=== PATIENT | male | born 1965 | race Caucasian/White ===

== ENCOUNTER 2023-04-14 07:13 | Inpatient (IN) | payer OTHER, SELFPAY ==
[2023-04-14] VITALS (9 sets, daily range): BP systolic 113–149; BP diastolic 65–101; PULSE 65–121; RESP 18–26; TEMP 36.5–37; O2SAT 95–100; BMI 23.6
--- NOTE | ~2023-04-14 | XR_ITS ---
EXAMINATION: XR CHEST CLINICAL INFORMATION: Shortness of breath COMPARISON: Chest radiograph from 04/15/2023 TECHNIQUE: Frontal view of the chest was obtained. FINDINGS: Interval extubation. Interval removal of enteric tube. Improvement in left pleural effusion. No pneumothorax. Trachea is midline. Cardiomediastinal silhouette is not enlarged. Soft tissues are unremarkable. XR/XR chest 1V IMPRESSION: 1. Interval extubation. 2. Interval removal of enteric tube. 3. Improvement in left pleural effusion.
--- NOTE | ~2023-04-14 | US_ITS ---
EXAMINATION: US ABDOMEN LIMITED CLINICAL INFORMATION: Transaminitis. COMPARISON: None available. TECHNIQUE: Real-time imaging of the right upper quadrant abdominal viscera. FINDINGS: PANCREAS: The pancreatic head and body are unremarkable. The tail is obscured by gas. LIVER: The liver is normal in size. The liver contour is normal. There is diffuse increased liver parenchymal echogenicity, consistent with hepatic steatosis. No focal hepatic lesion. There is no intrahepatic biliary duct dilatation seen. GALLBLADDER: Normal. The gallbladder is physiologically distended without evidence of stones, sludge, polyps, wall thickening or pericholecystic fluid. COMMON BILE DUCT: Normal in caliber measuring 0.4 cm in diameter. RIGHT KIDNEY: Normal. No hydronephrosis. No renal calculi or focal parenchymal lesions. The kidney measures 11.2 cm in maximum dimension. FREE FLUID: None. US/US abdomen limited IMPRESSION: Hepatic steatosis. Otherwise unremarkable right upper quadrant ultrasound.
--- NOTE | ~2023-04-14 | XR_ITS ---
EXAMINATION: XR CHEST CLINICAL INFORMATION: Respiratory distress. COMPARISON: Chest radiograph dated 04/22/2023. TECHNIQUE: Frontal view of the chest was obtained. FINDINGS: No significant abnormality is noted involving the heart, lungs, mediastinum, bony thorax or soft tissues. XR/XR chest 1V IMPRESSION: No acute cardiopulmonary process.
--- NOTE | ~2023-04-14 | XR_ITS ---
EXAMINATION: XR CHEST CLINICAL INFORMATION: Endotracheal tube, enteric tube. COMPARISON: None available. TECHNIQUE: Frontal view of the chest was obtained. FINDINGS: The endotracheal tube terminates at 4 cm above the diana. The enteric tube terminates in the upper esophagus. Normal appearance of the cardiomediastinal silhouette. No discrete focal consolidation, pleural effusion or pneumothorax. No acute osseous findings. The visualized upper abdomen is within normal limits. XR/XR chest 1V IMPRESSION: 1. The endotracheal tube terminates at 4 cm above the diana. 2. The enteric tube terminates in the upper esophagus. Recommend advancement. 3. No acute cardiopulmonary findings. This critical result, specifically the abnormal positioning of the enteric tube, was discussed with Coral Romero NP at 04/14/2023 9:33 PM and it was ascertained that the content and urgency of the report was understood at the time of direct communication.
--- NOTE | ~2023-04-14 | XR_ITS ---
EXAMINATION: XR CHEST CLINICAL INFORMATION: Fever. COMPARISON: Chest radiograph earlier today at 5:45 AM. TECHNIQUE: Frontal view of the chest was obtained. FINDINGS: Endotracheal tube at 1.5 cm above the diana, similar to prior. An enteric tube courses into the abdomen and terminates outside of the field of view. Normal appearance of the cardiomediastinal silhouette. Stable mild blunting of the lateral left costophrenic angle, likely accentuated by patient's rotation, could be explained by pleural thickening versus trace amount of pleural fluid. Minimal left basilar subsegmental atelectasis are stable. No new focal airspace opacity. No pneumothorax. No acute osseous findings. XR/XR chest 1V IMPRESSION: 1. Endotracheal tube at 1.5 cm above the diana, similar to prior. 2. Stable mild blunting of the left lateral costophrenic angle with minimal left basilar subsegmental atelectasis.
--- NOTE | ~2023-04-14 | XR_ITS ---
EXAMINATION: XR CHEST CLINICAL INFORMATION: OG tube placement COMPARISON: 04/14/2023 TECHNIQUE: Frontal view of the chest was obtained. FINDINGS: Endotracheal tube tip lies 1.5 cm above the diana. Enteric tube courses into the stomach with side-port in the region of the gastroesophageal junction. Lung volumes are symmetric. Subsegmental atelectasis is suspected at the left lung base. No additional focal consolidation is seen. No evidence of pneumothorax, pleural effusion, or pulmonary edema. The cardiomediastinal contour is unremarkable. No acute osseous findings are seen. XR/XR chest 1V IMPRESSION: 1. Enteric tube side-port in the region of the gastroesophageal junction; consider advancement. 2. Endotracheal tube tip 1.5 cm above the diana. 3. Subsegmental left basilar atelectasis without additional consolidation.
[2023-04-14 09:53] LABS: MANUAL DIFF FLAG NO
[2023-04-14 09:56] LABS: Basophils Absolute Auto 0.1 X10*3/uL (0.0-0.2); Eosinophils Absolute Auto 0.1 X10*3/uL (0.0-0.4); Hemoglobin 13.2 g/dl (14.0-18.0); Imm Gran Abs Auto 0.01 X10*3/uL (0.00-0.03); Imm Gran Pct Auto 0.2 % (0.0-0.4); Lymphocytes Absolute Auto 0.9 X10*3/uL (1.2-4.9); Lymphocytes Percent Auto 17.9 % (20-40); Mean Corpuscular HGB Conc 34.7 g/dl (31.0-36.0); Mean Corpuscular Volume 92.2 fL (80.0-98.0); Mean Platelet Volume 9.8 fL (9.4-12.4); Monocytes Absolute Auto 0.8 X10*3/uL (0.1-1.2); Monocytes Percent Auto 14.3 % (2-11); Neutrophils Absolute Auto 3.5 x10*3/uL (2.0-8.3); Neutrophils Percent Auto 65.6 % (45-73); Platelet Count 167 X10*3/uL (160-400); Red Blood Count 4.12 X10*6/uL (4.60-5.80); Red Cell Distribution Width 11.8 % (11.0-16.0); White Blood Count 5.3 X10*3/uL (4.8-10.8)
[2023-04-14 10:10] LABS: Amphetamine Screen Urine Not Detected (Not Detect); Barbiturates, Urine Not Detected (Not Detect); Benzodiazepines Screen Urine Not Detected (Not Detect); Cannabinoid Screen Urine POSITIVE (Not Detect); Cocaine Screen Urine Not Detected (Not Detect); Fentanyl, urine Not Detected (Not Detect); Opiate Screen Urine Not Detected (Not Detect); Phencyclidine Screen Urine Not Detected (Not Detect)
[2023-04-14 10:21] LABS: Alanine Aminotransferase 131 U/L (0-40); Albumin Level 4.5 g/dL (3.5-5.0); Alkaline Phosphatase 68 U/L (39-117); Anion Gap 21 (12-20); Aspartate Amino Transferase 175 U/L (5-37); Bilirubin Total 1.2 mg/dL (0.0-1.0); Blood Urea Nitrogen 20 mg/dL (9-16); Calcium 10.3 mg/dL (8.4-10.2); Carbon Dioxide 35 mmol/L (22-29); Chloride 87 mmol/L (96-108); Creatinine Clr Calc Pharmacy 111.4; Estimated Glomerular Filt Rate > 60; Ethanol < 10 mg/dL; Glucose Random 109 mg/dL (60-115); Potassium 2.5 mmol/L (3.3-5.1); Sodium 140 mmol/L (135-145); Total Protein 7.9 g/dL (6.5-8.0)
[2023-04-14 10:23] LABS: COVID-19 Test Negative (Negative); IDNOW Serial# BCCEAD1C
[2023-04-14] MEDS: LORazepam 1 MG TABLET 2 MG PO ×2 (10:35→14:26)
[2023-04-14] MEDS: Potassium Chloride Packet 20 MEQ PACKET 40 MEQ PO (10:36)
--- NOTE | 2023-04-14 10:39 | PC.NURSE ---
pt seeking detox, has some bruising and small abrasions bilateral lower leg and a small healing lac on right shoulder.
[2023-04-14] MEDS: Multivitamin TABLET 1 TAB PO (11:37)
[2023-04-14] MEDS: Thiamine HCL 100 MG TABLET PO (11:38)
[2023-04-14] MEDS: Folic Acid 1 MG TABLET PO (11:38)
--- NOTE | 2023-04-14 13:08 | ED.ALCOHOL ---
HPI - Alcohol General Chief Complaint: ETOH/Substance Use Stated Complaint: alcohol withdrawal Time Seen by Provider: 04/14/23 09:01 Source: patient and EMS Mode of arrival: EMS Limitations: no limitations History of Present Illness HPI narrative: 57-year-old male presents with acute alcohol withdrawal. Patient's last drink was yesterday. He drinks approximately at 1-1 and half pt daily. Patient denies any additional drug use. He does have remote history of heroin use but was in detox many years ago for. He denies any suicidal homicidal ideation. He is seeking detox. There is no clear relieving or exacerbating features of his alcohol abuse. Denies any significant depression or anxiety. Patient reports his use as moderate to severe in nature. Related Data Allergies Allergy/AdvReac Type Severity Reaction Status Date / Time fish derived [FISH] Allergy Severe ANAPHYLAXIS Unverified 06/14/20 14:46 sulfamethoxazole Allergy Severe ANAPHYLAXIS Unverified 06/14/20 14:46 [From BACTRIM] trimethoprim [From BACTRIM] Allergy Severe ANAPHYLAXIS Unverified 06/14/20 14:46 fish oil Allergy Unknown Verified 11/09/14 00:00 penicillin V Allergy Unknown Verified 11/09/14 00:00 Penicillins [PENICILLINS] Allergy Unknown ANAPHYLAXIS Unverified 06/14/20 14:46 Sulfa (Sulfonamide Allergy Unknown Verified 11/09/14 00:00 Antibiotics) Review of Systems Review of Systems: CONSTITUTIONAL: Denies weight loss, fever and chills. HEENT: Denies changes in vision and hearing. RESPIRATORY: Denies SOB and cough. CV: Denies palpitations no CP. GI: Denies abdominal pain, nausea, vomiting and diarrhea. : Denies dysuria and urinary frequency. MSK: Denies myalgia and joint pain. SKIN: Denies rash and pruritus. NEUROLOGICAL: Denies headache and syncope. PSYCHIATRIC: Denies recent changes in mood. Denies anxiety and depression. All other ROS are negative unless in HPI PMFSH Social History Social History Advance Directives: No Advance Directives Information Provided: Yes Physical Exam ED Vital Signs: Vital Signs - 24 hr 04/14/23 07:45 04/14/23 13:56 Temperature 98.1 F Pulse Rate 110 H 121 H Respiratory Rate 18 26 H Blood Pressure 147/95 H 144/101 H Pulse Oximetry 99 96 Oxygen Delivery Method Room Air Room Air BMI result Body Mass Index 23.6 GEN: Well developed, no acute distress, alert, oriented HEENT: Normocephalic, atraumatic, normal external ears, nose appears normal, no oropharyngeal edema or exudates Eyes: Normal to appearance Neck: Supple, no lymphadenopathy Respiratory: Talks in complete sentences, no respiratory distress, clear to auscultation bilaterally Cardiovascular: Regular rate and rhythm, no murmurs rubs or gallops Abdomen: Soft, nontender, nondistended, no guarding, no rebound Back: No CVA tenderness Extremities: No clubbing cyanosis or edema Neurologic: No focal neurologic deficits, cranial nerves 2-12 intact, strength is 5/5 bilaterally, tremulous Skin: No rash Course Reevaluation(s) Reevaluation #1: PAtient has reeived two oral doses of ativan, continues to have high CIWA level. Will start phenobarb. Patient will need admission for acute alcohol withdrawal. Time: 14:35 Reevaluation #2: Discussed care plan with patient Time: 15:16 Medical Decision Making Medical Decision Making [facility] Narrative: Patient appears to be in acute alcohol withdrawal. Patient is seeking detox. At this point, he does not appear the patient has suicidal homicidal. He certainly could have a mood disorder that is associated with his use but does not appear to be overly depressed or anxious. He is tremulous. Will provide patient with Ativan 2 mg orally. Would also like to get patient a multivitamin, thiamine and folic acid. Will check for electrolyte abnormalities. Would also like to check for any hepatic deficiencies related to alcohol use. Differential diagnosis includes alcohol intoxication, alcohol withdrawal, hyper or hypoglycemia, electrolyte abnormality, mood disorder Differential Diagnosis Differential Diagnoses: The differential diagnosis associated with the presentation includes (See above) Admission/Observation Consideration of admission/observation: Escalation of care including admission/observation considered Consult Healthcare Provider Management of the patient was discussed with: Behavioral Health Provider Lab Data [facility] Lab Attestation statement: I reviewed the patient's lab results. 04/14/23 09:48 04/14/23 09:48 Labs: Lab Results 04/14/23 04/14/23 04/14/23 Range/Units 09:40 09:48 09:48 WBC (4.8-10.8) X10*3/uL RBC (4.60-5.80) X10*6/uL Hgb (14.0-18.0) g/dl Hct (42.0-52.0) % MCV (80.0-98.0) fL MCH (27.0-33.0) pg MCHC (31.0-36.0) g/dl RDW (11.0-16.0) % Plt Count (160-400) X10*3/uL MPV (9.4-12.4) fL Immature Gran % (Auto) (0.0-0.4) % Neut % (Auto) (45-73) % Lymph % (Auto) (20-40) % [place] % (Auto) (2-11) % Eos % (Auto) (0-4) % Baso % (Auto) (0-2) % Lymph # (Auto) (1.2-4.9) X10*3/uL [place] # (Auto) (0.1-1.2) X10*3/uL Eos # (Auto) (0.0-0.4) X10*3/uL Baso # (Auto) (0.0-0.2) X10*3/uL Abs Immat Gran (auto) (0.00-0.03) X10*3/uL Absolute Neuts (auto) (2.0-8.3) x10*3/uL Absolute Nucleated RBC (0.0-0.012) X10*3/uL Nucleated RBC % (auto) (0.0-0.2) /100WBC Sodium 140 (135-145) mmol/L Potassium 2.5 L* (3.3-5.1) mmol/L Chloride 87 L (96-108) mmol/L Carbon Dioxide 35 H (22-29) mmol/L Anion Gap 21 H (12-20) BUN 20 H (9-16) mg/dL Creatinine 0.74 (0.5-1.4) mg/dL Estim Creat Clear Calc 111.4 Estimated GFR > 60 Random Glucose 109 (60-115) mg/dL Calcium 10.3 H (8.4-10.2) mg/dL Total Bilirubin 1.2 H (0.0-1.0) mg/dL AST 175 H (5-37) U/L ALT 131 H (0-40) U/L Alkaline Phosphatase 68 (39-117) U/L Total Protein 7.9 (6.5-8.0) g/dL Albumin 4.5 (3.5-5.0) g/dL Urine Opiates Screen Not Detected (Not Detect) Urine Fentanyl Screen Not Detected (Not Detect) Ur Barbiturates Screen Not Detected (Not Detect) Ur Phencyclidine Scrn Not Detected (Not Detect) Ur Amphetamines Screen Not Detected (Not Detect) U Benzodiazepines Scrn Not Detected (Not Detect) Urine Cocaine Screen Not Detected (Not Detect) U Marijuana (THC) Screen POSITIVE H (Not Detect) Ethyl Alcohol < 10 mg/dL COVID-19 (MINOR) Negative (Negative) COVID-19 Clin Com See Note 04/14/23 Range/Units 09:48 WBC 5.3 (4.8-10.8) X10*3/uL RBC 4.12 L (4.60-5.80) X10*6/uL Hgb 13.2 L (14.0-18.0) g/dl Hct 38.0 L (42.0-52.0) % MCV 92.2 (80.0-98.0) fL MCH 32.0 (27.0-33.0) pg MCHC 34.7 (31.0-36.0) g/dl RDW 11.8 (11.0-16.0) % Plt Count 167 (160-400) X10*3/uL MPV 9.8 (9.4-12.4) fL Immature Gran % (Auto) 0.2 (0.0-0.4) % Neut % (Auto) 65.6 (45-73) % Lymph % (Auto) 17.9 L (20-40) % [place] % (Auto) 14.3 H (2-11) % Eos % (Auto) 1.0 (0-4) % Baso % (Auto) 1.0 (0-2) % Lymph # (Auto) 0.9 L (1.2-4.9) X10*3/uL [place] # (Auto) 0.8 (0.1-1.2) X10*3/uL Eos # (Auto) 0.1 (0.0-0.4) X10*3/uL Baso # (Auto) 0.1 (0.0-0.2) X10*3/uL Abs Immat Gran (auto) 0.01 (0.00-0.03) X10*3/uL Absolute Neuts (auto) 3.5 (2.0-8.3) x10*3/uL Absolute Nucleated RBC 0.000 (0.0-0.012) X10*3/uL Nucleated RBC % (auto) 0.0 (0.0-0.2) /100WBC Sodium (135-145) mmol/L Potassium (3.3-5.1) mmol/L Chloride (96-108) mmol/L Carbon Dioxide (22-29) mmol/L Anion Gap (12-20) BUN (9-16) mg/dL Creatinine (0.5-1.4) mg/dL Estim Creat Clear Calc Estimated GFR Random Glucose (60-115) mg/dL Calcium (8.4-10.2) mg/dL Total Bilirubin (0.0-1.0) mg/dL AST (5-37) U/L ALT (0-40) U/L Alkaline Phosphatase (39-117) U/L Total Protein (6.5-8.0) g/dL Albumin (3.5-5.0) g/dL Urine Opiates Screen (Not Detect) Urine Fentanyl Screen (Not Detect) Ur Barbiturates Screen (Not Detect) Ur Phencyclidine Scrn (Not Detect) Ur Amphetamines Screen (Not Detect) U Benzodiazepines Scrn (Not Detect) Urine Cocaine Screen (Not Detect) U Marijuana (THC) Screen (Not Detect) Ethyl Alcohol mg/dL COVID-19 (MINOR) (Negative) COVID-19 Clin Com Patient's alcohol level is nondetectable. Additionally, his potassium level is low. Treatment has been ordered. Independent Interpretation I performed an independent interpretation of an: EKG (Sinus tachycardia heart rate 118, nonspecific T-wave changes, no U-waves) Independent Historian Clinical information obtained from an independent historian. History obtained from or confirmed by: EMS Prescription Management I considered prescription management with: Other (Anxiety medications) Chronic Conditions Patient?s care impacted by: Other (Substance abuse) Medications Administered Discontinued Medications Generic Name Dose Route Start Last Admin Trade Name Freq PRN Reason Stop Dose Admin Folic Acid 1 mg 04/14/23 10:42 04/14/23 11:38 Folic Acid 1 Mg Tablet PO 04/14/23 10:43 1 mg ONCE ONE Administration Sodium Chloride 1,000 mls @ 999 mls/hr 04/14/23 13:45 04/14/23 14:40 Ns IV 04/14/23 14:45 999 mls/hr .Q1H1M NAV Administration Lorazepam 2 mg 04/14/23 09:30 04/14/23 10:35 Lorazepam 1 Mg Tablet PO 04/14/23 09:31 2 mg ONCE ONE Administration Lorazepam 2 mg 04/14/23 12:10 04/14/23 14:26 Lorazepam 1 Mg Tablet PO 04/14/23 12:11 2 mg ONCE ONE Administration Multivitamins/Vitamin C 1 tab 04/14/23 10:42 04/14/23 11:37 Multivitamin Tablet PO 04/14/23 10:43 1 tab ONCE ONE Administration Potassium Chloride 40 meq 04/14/23 10:20 04/14/23 10:36 Potassium Chloride Packet 20 Meq Packet PO 04/14/23 10:21 40 meq ONCE ONE Administration Thiamine HCl 100 mg 04/14/23 10:42 04/14/23 11:38 Thiamine Hcl 100 Mg Tablet PO 04/14/23 10:43 100 mg ONCE ONE Administration Critical Care Time Critical Care Time Critical Care Time: Yes Total Critical Care Time: 65 Attestation: Approximately 65 minutes of critical care time was spent in patient care. This includes bedside assessment, reassessment, medical management, data interpretation, consultation with other providers, extensive conversation regarding treatment with patient, all outside of medical procedures for potentially life-threatening and severe morbidity associated illness-acute alcohol withdrawal syndrome Discharge Plan Discharge Clinical Impression: Alcohol withdrawal syndrome Patient Disposition: Admitted As Inpatient
--- NOTE | 2023-04-14 13:11 | ECG_ITS ---
Test Reason : low potassium Blood Pressure : / mmHG Vent. Rate : 118 BPM Atrial Rate : 118 BPM P-R Int : 168 ms QRS Dur : 086 ms QT Int : 328 ms P-R-T Axes : 054 -12 036 degrees QTc Int : 459 ms Sinus tachycardia Nonspecific ST abnormality Abnormal ECG No previous ECGs available Referred By: Venkat Andrews Electronically Signed By:Alfonso Ruby
[2023-04-14] MEDS: 0.9 % Sodium Chloride 1,000 ML 999 ML IV (14:40)
--- NOTE | 2023-04-14 15:11 | P.HPHOSP_ITS ---
History of Present Illness Date of Service: 04/14/23 Attending physician on admission: [facility] Chief Complaint: etoh withdrawal 57-year-old male with history of GERD history remote heroin use in remission, and alcohol dependence presents to the ED earlier today in acute alcohol wit hdrawal desiring detox. The patient states he has been a heavy drinker for the last 40+ years but has been trying to cut back. He currently drinks 1/2 pint of hard liquor and occasionally a beer as well on nightly basis but was previously drinking 1 pint nightly. Because of his intoxication, he has had 3 falls in the last few weeks though denies head injury or loss of consciousness. However has bruises covering the lower legs bilaterally. He is a regular marijuana user and states he has medical card but denies any ongoing illicit drug use. He does not smoke cigarettes. On arrival, patient tachycardic to 121, tachypneic to 26 and slightly hypertensive at 144/101. There is no leukocytosis. He has mild normocytic anemia with H/H 13.2/38.0%. Platelets 167. Renal function normal. Sodium 140, potassium 2.5, magnesium level pending, chloride 87, CO2 35. Total bilirubin 1.2, AST 175, ALT 131, albumin 4.5. Urine tox screen positive for marijuana. Ethyl alcohol level undetectable. Negative for COVID-19. EKG shows normal sinus rhythm with sinus tachycardia, rate 118 without any significant t wave abnormality. In the ED, potassium repleted orally with 40meq KCl, given 1L IV NS , 1mg folic acid, toal 4mg PO ativan, and 100mg PO thiamine. He will be started on phenobarbitol per protocol. He is currently tremulous with mild headache and anxious/aggitated. Review of Systems Review of Systems: General: No fevers, malaise, unintentional weight loss HEENT: No blurred vision, diplopia. No sore throat, nasal congestion, rhinorrhea, sinus pain, ear pain Cardiovascular: No chest pain, palpitations, or leg edema Respiratory: No shortness of breath, wheezing, cough GI: No abdominal pain, nausea, vomiting, diarrhea, constipation, melena, hematochezia : No dysuria, hematuria, increased urinary frequency, decreased urinary output MSK: No myalgia, back pain Neuro: No weakness, paresthesias. +tremors, +headache Psych: +anxiety. No depression/SI Skin: No rashes or lesions [facility] Medical History Alcohol use disorder GERD (gastroesophageal reflux disease) History of heroin use Social History (Updated 04/14/23 @ 15:25 by ODIN Troy) Household Members: Family Housing: House Alcohol intake: current Alcohol intake frequency: 3 or more drinks per day Patient Tobacco Use Status: Former Tobacco user Use of substances other than those prescribed or required for medical reasons: Yes Substance Use Type: Marijuana Substance Use Frequency: Chronic Longstanding Last Used Substance: Just Prior to Admission Currently Displaying Signs/Symptoms of Drug Intoxication Withdrawal: No Advance Directives: No Advance Directives Information Provided: Yes Do you have thoughts of harming others: None Do you have a plan to hurt others: No Plan Recently lost weight without trying: Unsure Nutrition Risks: No Nutritional Risk Poor oral hygiene: Yes service: No Meds Allergies Allergy/AdvReac Type Severity Reaction Status Date / Time fish derived [FISH] Allergy Severe ANAPHYLAXIS Verified 04/14/23 23:43 sulfamethoxazole Allergy Severe ANAPHYLAXIS Verified 04/14/23 23:43 [From BACTRIM] trimethoprim [From BACTRIM] Allergy Severe ANAPHYLAXIS Verified 04/14/23 23:43 fish oil Allergy Unknown Unknown Verified 04/14/23 23:43 penicillin V Allergy Unknown Unknown Verified 04/14/23 23:43 Penicillins [PENICILLINS] Allergy Unknown ANAPHYLAXIS Verified 04/14/23 23:43 Sulfa (Sulfonamide Allergy Unknown Unknown Verified 04/14/23 23:43 Antibiotics) Active Medications: Current Medications Pharmacy Consult (Consult Rx Perform Med Rec) 1 each MISCELLANE ONCE PRN PRN Reason: Consult order Pharmacy Consult (Consult Rx Perform Med Rec) 1 each MISCELLANE ONCE PRN PRN Reason: Consult order Home Medications Medication Instructions Recorded Confirmed Last Taken Type acetaminophen 500 mg tablet 1,000 mg PO Q6H PRN Pain 04/14/23 04/14/23 Unknown History multivitamin 1 tab PO DAILY 04/14/23 04/14/23 04/14/23 History omeprazole 20 mg capsule,delayed 20 mg PO DAILY@0630 04/14/23 04/14/23 04/14/23 History release Physical Exam Vital Signs and Narrative: Vital Signs: Last Vital Signs Temp 98.1 F 04/14/23 07:45 Pulse 121 H 04/14/23 13:56 Resp 26 H 04/14/23 13:56 BP 144/101 H 04/14/23 13:56 Pulse Ox 96 04/14/23 13:56 O2 Del Method Room Air 04/14/23 13:56 BMI result Body Mass Index 23.6 Results Labs 04/14/23 09:48 04/14/23 09:48 Labs: Laboratory Results - last 24 hr 04/14/23 04/14/23 04/14/23 09:40 09:48 09:48 MCV MCH MCHC RDW Plt Count MPV Immature Gran % (Auto) Neut % (Auto) Lymph % (Auto) [place] % (Auto) Eos % (Auto) Baso % (Auto) Lymph # (Auto) [place] # (Auto) Eos # (Auto) Baso # (Auto) Abs Immat Gran (auto) Absolute Neuts (auto) Absolute Nucleated RBC Nucleated RBC % (auto) Anion Gap 21 H Estim Creat Clear Calc 111.4 Estimated GFR > 60 Random Glucose 109 Calcium 10.3 H Total Bilirubin 1.2 H AST 175 H ALT 131 H Alkaline Phosphatase 68 Total Protein 7.9 Albumin 4.5 Urine Opiates Screen Not Detected Urine Fentanyl Screen Not Detected Ur Barbiturates Screen Not Detected Ur Phencyclidine Scrn Not Detected Ur Amphetamines Screen Not Detected U Benzodiazepines Scrn Not Detected Urine Cocaine Screen Not Detected U Marijuana (THC) Screen POSITIVE H Ethyl Alcohol < 10 COVID-19 (MINOR) Negative COVID-19 Clin Com See Note 04/14/23 09:48 MCV 92.2 MCH 32.0 MCHC 34.7 RDW 11.8 Plt Count 167 MPV 9.8 Immature Gran % (Auto) 0.2 Neut % (Auto) 65.6 Lymph % (Auto) 17.9 L [place] % (Auto) 14.3 H Eos % (Auto) 1.0 Baso % (Auto) 1.0 Lymph # (Auto) 0.9 L [place] # (Auto) 0.8 Eos # (Auto) 0.1 Baso # (Auto) 0.1 Abs Immat Gran (auto) 0.01 Absolute Neuts (auto) 3.5 Absolute Nucleated RBC 0.000 Nucleated RBC % (auto) 0.0 Anion Gap Estim Creat Clear Calc Estimated GFR Random Glucose Calcium Total Bilirubin AST ALT Alkaline Phosphatase Total Protein Albumin Urine Opiates Screen Urine Fentanyl Screen Ur Barbiturates Screen Ur Phencyclidine Scrn Ur Amphetamines Screen U Benzodiazepines Scrn Urine Cocaine Screen U Marijuana (THC) Screen Ethyl Alcohol COVID-19 (MINOR) COVID-19 Clin Com Assessment and Plan (1) Alcohol withdrawal syndrome: Status: Acute (2) Transaminitis: Status: Acute Plan 57-year-old male with history of GERD history remote heroin use in remission, and alcohol dependence admitted to alcohol dependence in active withdrawal. #Acute alcohol withdrawal -CIWA 14 on exam- received total 4mg ativan in ED -Initiate phenobarb per protocol -Monitor on CIWA -IV thiamine x 3 days, then PO -folic acid daily -Addiction med consult, desire detox #Acute hypokalemia -repleted with 40meq KCL -likely r/t to etoh abuse/hypomagnesemia -EKG without significant t wave abnormality -Follow BMP #Acute hypomagnesemia- r/t etoh abuse -Mag 1.4 -Give 2g IV Mag, then 400mg PO mag BID -Follow mag #Transaminitis -suspect chronic r/t etoh abuse -given hx heroin abuse, check hepatitis panel -RUQ u/s ordered -Follow hepatic function #GERD -continue ppi DVT prophylaxis- lovenox Full code Pt requires inpt stay at least 2 midnights for management of acute alcohol withdrawal in pt at risk for serious, potentially fatal withdrawal on phenobarbital per protocol desiring medical detox for rehab. Time Spent With Patient Time: Total time managing care of this patient today ____ minutes. Quality Stroke Does the patient have a stroke diagnosis?: No VTE Prior VTE?: No VTE Risk Level:: Medical - moderate - high VTE Device Contraindication: Treatment Not Indicated VTE Drug Contraindication: N/A - Med Ordered
[2023-04-14 15:30] LABS: Magnesium 1.4 mg/dL (1.6-2.6)
[2023-04-14] MEDS: Magnesium Sulfate/H2O 2 GM/50 ML PIGGYBACK IV (16:07)
[2023-04-14] MEDS: PHENobarbitaL sodium 130 MG/ML VIAL IM ×2 (16:07→18:07)
--- NOTE | 2023-04-14 17:09 | PHA.MEDREC ---
Pharmacy Consult ? Medication Reconciliation Pharmacy has completed the medication reconciliation. Spoke to patient to confirm meds.
[2023-04-14 18:01] LABS: Anion Gap 15 (12-20); Blood Urea Nitrogen 20 mg/dL (9-16); Calcium 9.3 mg/dL (8.4-10.2); Carbon Dioxide 33 mmol/L (22-29); Chloride 94 mmol/L (96-108); Creatinine Clr Calc Pharmacy 114.5; Estimated Glomerular Filt Rate > 60; Glucose Random 132 mg/dL (60-115); Potassium 2.7 mmol/L (3.3-5.1); Sodium 139 mmol/L (135-145)
--- NOTE | 2023-04-14 18:17 | PC.NURSE ---
PT WAS FOUND IN HIS ROOM, HE PULLED HIS IV ACCESS OUT AND IS EXTREME TREMORS, HE STATES HE LOST HIS BALANCE AND FELL TO HIS KNEES. IV ACCESS WAS REGAINED AND PT WAS MOVED CLOSER TO NURSES STATION , PRIMARY NURSE STATES HE WAS MEDICATED EARLIER. CONTACT WAS MADE WITH HOSPITALIST FOR WORSENING WITHDRAWAL AND MEDICATED CHARTED
--- NOTE | 2023-04-14 18:30 | HE.PHANOTE ---
RE: PHENOBARBITAL FOUZIA SOUZA CONTACTED PHARMACY REGARDING DOSING FOR PHENOBARBITAL PROTOCOL. PATIENT IS ACTIVELY WITHDRAWING. PATIENT RECEIVED ONE 130 MG DOSE AT APPROXIMATELY 1500 AND A SECOND 130 MG DOSE AT APPROXIMATELY 1800. 1ST OF 3 LOADING DOSE IS 340 MG. GAVE A DOSE OF 210 MG ( 340 MG -130 MG ) FOR 1ST LOADING DOSE
--- NOTE | 2023-04-14 18:41 | PC.NURSE ---
patient lovenox injection held due to patient having recent fall and increased fall risk
[2023-04-14] MEDS: PHENobarbitaL sodium 130 MG/ML IM ONCE 210 MG IM (18:52)
--- NOTE | 2023-04-14 19:25 | P.CONCC_ITS ---
History of Present Illness Data of Consult Service Date: 04/14/23 Requesting physician: Colby Billingsley Primary Care Provider: ZOILA Claros Reason for consult: alcohol withdrawal syndrome 57-year-old male with history of ETOH abuse, GERD, heroin use in remission, who was admitted in hospital medicine earlier today for alcohol dependence in active withdrawal. the patient has failed Ativan and phenobarb protocol. requiring Precedex drip Patient requiring transfer to ICU for initiation of Precedex drip for probable withdrawal syndrome Review of Systems Review of Systems: Yes Unobtainable due to mental status PMF Past Medical History Medical History Alcohol use disorder GERD (gastroesophageal reflux disease) History of heroin use Social History Social History (Updated 04/14/23 @ 15:25 by ODIN Troy) Household Members: Family Housing: House Alcohol intake: current Alcohol intake frequency: 3 or more drinks per day Patient Tobacco Use Status: Former Tobacco user Use of substances other than those prescribed or required for medical reasons: Yes Substance Use Type: Marijuana Substance Use Frequency: Chronic Longstanding Last Used Substance: Just Prior to Admission Currently Displaying Signs/Symptoms of Drug Intoxication Withdrawal: No Advance Directives: No Advance Directives Information Provided: Yes Do you have thoughts of harming others: None Do you have a plan to hurt others: No Plan Recently lost weight without trying: Unsure Nutrition Risks: No Nutritional Risk Poor oral hygiene: Yes Meds Allergies Allergy/AdvReac Type Severity Reaction Status Date / Time fish derived [FISH] Allergy Severe ANAPHYLAXIS Verified 04/14/23 23:43 sulfamethoxazole Allergy Severe ANAPHYLAXIS Verified 04/14/23 23:43 [From BACTRIM] trimethoprim [From BACTRIM] Allergy Severe ANAPHYLAXIS Verified 04/14/23 23:43 fish oil Allergy Unknown Unknown Verified 04/14/23 23:43 penicillin V Allergy Unknown Unknown Verified 04/14/23 23:43 Penicillins [PENICILLINS] Allergy Unknown ANAPHYLAXIS Verified 04/14/23 23:43 Sulfa (Sulfonamide Allergy Unknown Unknown Verified 04/14/23 23:43 Antibiotics) Active Medications: Current Medications Enoxaparin Sodium (Enoxaparin Sodium 40 Mg/0.4 Ml Syringe) 40 mg SUBCUT Q24H NAV Last Admin: 04/14/23 18:40 Dose: Not Given Thiamine HCl 100 mg/ Sodium (Chloride) 101 mls @ 202 mls/hr IV DAILY NAV Stop: 04/17/23 09:29 Dexmedetomidine HCl (Precedex) 400 mcg in 100 mls @ 0 mls/hr IVCONT .Q0M NAV; Protocol Potassium Chloride (Potassium Chloride/H20) 20 meq in 100 mls @ 100 mls/hr IV Q1H [facility] Stop: 04/14/23 20:59 Ondansetron HCl (Ondansetron Hcl 4 Mg/2 Ml Vial) 4 mg IVPUSH Q8H PRN PRN Reason: Nausea and Vomiting Pharmacy Consult (Consult Rx Perform Med Rec) 1 each MISCELLANE ONCE PRN PRN Reason: Consult order Pharmacy Consult (Consult Rx Etoh Phenob Im/Po) 1 each MISCELLANE ONCE PRN; Protocol PRN Reason: Consult order Phenobarbital (Phenobarbital 15 Mg Tablet) 45 mg PO BID [facility] Stop: 04/16/23 21:01 Phenobarbital (Phenobarbital 15 Mg Tablet) 15 mg PO BID [facility] Stop: 04/18/23 21:01 Phenobarbital (Phenobarbital 15 Mg Tablet) 15 mg PO DAILY [facility] Stop: 04/20/23 09:01 Phenobarbital Sodium (Phenobarbital Sodium 130 Mg/Ml Vial Im Q3hx2) 255 mg IM Q3H [facility] Stop: 04/15/23 01:01 Sodium Chloride (0.9 % Sodium Chloride Flush 3 Ml Syringe) 3 ml IVFLUSH QSHIFT [facility] Last Admin: 04/14/23 18:22 Dose: Not Given Home Medications Medication Instructions Recorded Confirmed Last Taken Type acetaminophen 500 mg tablet 1,000 mg PO Q6H PRN Pain 04/14/23 04/14/23 Unknown History multivitamin 1 tab PO DAILY 04/14/23 04/14/23 04/14/23 History omeprazole 20 mg capsule,delayed 20 mg PO DAILY@0630 04/14/23 04/14/23 04/14/23 History release Physical Exam Vital Signs: Vital Signs: Last Vital Signs Temp 97.9 F 04/14/23 18:18 Pulse 100 04/14/23 18:04 Resp 22 H 04/14/23 18:04 BP 116/90 H 04/14/23 18:04 Pulse Ox 95 04/14/23 18:04 O2 Del Method Room Air 04/14/23 18:04 BMI result Body Mass Index 23.6 ?General:? Alert oriented x person only ?HEENT:? Head is normocephalic, atraumatic, pupils equal round reactive to light accommodation bilaterally.? Buccal mucosa is moist, Neck is supple without lymphadenopathy. ?Cardiac:? Clear S1-S2, no murmurs rubs or gallops. ?Pulmonary:? Clear to auscultation, no wheezes, rales or rhonchi. ?Abdomen:? ?Abdomen soft, non-tender, non-distended. Normal bowel sounds. No pulsatile mass. No hepatosplenomegaly. ?Musculoskeletal:?Moving all 4 extremities upon request a major joints, there is no crepitus or tenderness.? The strength is 5/5 bilaterally and throughout all 4 extremities.? Gait not assessed at this point. ?Neurologic:? acute tremors, No focal deficits noted.Motor strength as above.?? ?Skin:? Intact, no lesions, edema, erythema, clubbing or cyanosis.? No ulcers. Vascular:? 2+ pulses upper and lower extremities distally.? Results Labs 04/14/23 09:48 04/14/23 17:38 Labs: Short CBC 04/14/23 Range/Units 09:48 WBC 5.3 (4.8-10.8) X10*3/uL Hgb 13.2 L (14.0-18.0) g/dl Hct 38.0 L (42.0-52.0) % Plt Count 167 (160-400) X10*3/uL [facility] 04/14/23 04/14/23 09:48 17:38 Sodium 140 139 Potassium 2.5 L* 2.7 L Chloride 87 L 94 L Carbon Dioxide 35 H 33 H BUN 20 H 20 H Creatinine 0.74 0.72 Calcium 10.3 H 9.3 D Liver Function 04/14/23 Range/Units 09:48 Total Bilirubin 1.2 H (0.0-1.0) mg/dL AST 175 H (5-37) U/L ALT 131 H (0-40) U/L Alkaline Phosphatase 68 (39-117) U/L Albumin 4.5 (3.5-5.0) g/dL Assessment and Plan (1) Delirium tremens: Status: Acute (2) Alcohol withdrawal syndrome: Status: Acute (3) Transaminitis: Status: Acute (4) Hypomagnesemia: Status: Acute (5) Hypokalemia: Status: Acute Plan Neuro:? Delirium tremens/alcohol withdrawal syndrome- failed Ativan and phenobarb protocol. ?Precedex initiated, but patient failed. Required emergent intubation. Cont OMAR prototocol Cardiac: ?No acute issues Pulmonary: Mechanical intubation- requiring mechanical intubation for DTs, wean off as tolerated Renal:??? Hypokalemia- likely from EtOH use. Replaced with K Hypo magnesemia- likely for EtOH use. Replaced with mag Endo:? No acute issues.? GI: ? Transaminitis- likely from chronic EtOH use heme/onc: No acute issues. Misc:??No acute issues DVT: Lovenox/ Pepcid CODE FULL CODE Critical care time: x 60 min Case discussed with? attending Dr. Morales? ?Patient does not qualify for critical care time Time Spent With Patient Time: Total time managing care of this patient today ____ minutes.
[2023-04-14 19:32] LABS: Phosphorus 3.2 mg/dL (2.7-4.5)
[2023-04-14] MEDS: PHENobarbitaL sodium 130 MG/ML VIAL IM Q3Hx2 255 MG IM (19:52)
[2023-04-14] MEDS: dexmedeTOMIDidine HCL/NS 400 MCG/100 ML INFUS..BTL 18.14 MCG IVCONT (19:52)
[2023-04-14] MEDS: Potassium Chloride/H20 10 MEQ/100 ML PIGGYBACK 100 MEQ IV ×2 (20:53→22:00)
[2023-04-14] MEDS: propofoL 1,000 MG/100 ML VIAL 8.71 MG IVCONT (20:54)
[2023-04-14] MEDS: Chlorhexidine Gluc Oral Rinse 15 ML MOUTHWASH BUCCAL (20:54)
[2023-04-14] MEDS: propofoL 200 MG/20 ML VIAL 100 MG IVPUSH (20:58)
[2023-04-14] MEDS: Cisatracurium Besylate 20 MG/10 ML VIAL IVPUSH (20:58)
--- NOTE | 2023-04-14 21:14 | W.PM.CCHP ---
Procedures Date of Service Date of Service: 04/14/23 Intubation Intubation Comments: Patient in severe DTs/ OMAR requiring emergent intubation. Patient intubated with 7.5 cuffed ET tube under glide scope guidance with visualization of vocal cords, without immediate complications. ET tube position verified with Chest XRAY. Consent for Procedure: Emergent-no informed consent obtained Time out performed: Yes Sedative: propofol Mg given: 100 Paralytic: other (Nimbex) Mg given: 20 Laryngoscope: fiber optic video scope ET tube size: 7.5 ET tube uncuffed: No Tube secured depth (cm): 26 Tube secured location: lips Tube placement confirmation: visualized tube passing through cords, equal breath sounds bilaterally, no breath sounds over epigastrium and confirmation by capnometry Patient tolerated procedure: well and no complications Intubation complications: none
[2023-04-14] MEDS: Potassium Phosphate/NS 15 MMOL/250 ML PLAST..BAG 62.5 MMOL IV (23:11)
[2023-04-15] VITALS (34 sets, daily range): BP systolic 92–131; BP diastolic 60–94; PULSE 70–98; RESP 14–28; TEMP 34.8–38.4; O2SAT 96–100; BMI 22.4
[2023-04-15] MEDS: propofoL 1,000 MG/100 ML VIAL 17.42 MG IVCONT (00:15)
[2023-04-15] MEDS: Midazolam HCl/PF 2 MG/2 ML VIAL 4 MG IVPUSH (00:15)
[2023-04-15] MEDS: PHENobarbitaL sodium 130 MG/ML VIAL IM Q3Hx2 255 MG IM (00:34)
--- NOTE | 2023-04-15 00:58 | PC.NURSE ---
Pt admitted to ICU from ED at approx 1915. Upon initial assessment, pt disoriented x4, non-redirectable, consistently trying to get OOB, in severe W/D. Started on Precedex per NOV with no effect, CIWA 25, FINISHED GARMENT INSPECTOR Nick aware and at bedside. Decision made to intubate- at 2010 given Propofol 100 mg and Nimbex 20 mg IVP for RSI. Propofol gtt started per NOV, RASS -4, intermittently reaching for lines tubes. Tmax 100s. NSR on tele, HR 70s. SBP > 90, MAP > 65. ETT #7.5, 26 cm at lip. On AC settings. OGT/butterfield placed. Skin- R shoulder laceration, scattered bruising. Full CHG bath given. Repositioned in bed q2hr.
[2023-04-15 05:12] LABS: HBc Num1 0.09 S/CO (0.00-0.79); HBsAGNum1 0.41 S/CO (0.00-0.99); Hepatitis B Core Antibody Nonreactive (Nonreactive); Hepatitis B Surface Antigen Negative (Negative)
[2023-04-15 05:13] LABS: VBG Base Excess 10.1 mmol/L; VBG HCO3 29 mmol/L (22-26); VBG pCO2 26 mmHg; VBG pH 7.66 (7.32-7.43); VBG pO2 146 mmHg
[2023-04-15 05:14] LABS: Venous Blood Gas Refer to POC result
[2023-04-15] MEDS: propofoL 1,000 MG/100 ML VIAL 21.77 MG IVCONT ×5 (05:15→20:38)
[2023-04-15 05:18] LABS: MANUAL DIFF FLAG NO
[2023-04-15 05:20] LABS: Basophils Percent Auto 0.6 % (0-2); Eosinophils Percent Auto 0.4 % (0-4); Hematocrit 34.9 % (42.0-52.0); Hemoglobin 12.3 g/dl (14.0-18.0); Imm Gran Abs Auto 0.02 X10*3/uL (0.00-0.03); Imm Gran Pct Auto 0.4 % (0.0-0.4); Lymphocytes Absolute Auto 0.7 X10*3/uL (1.2-4.9); Lymphocytes Percent Auto 13.9 % (20-40); Mean Corpuscular HGB Conc 35.2 g/dl (31.0-36.0); Mean Corpuscular Hemoglobin 32.5 pg (27.0-33.0); Mean Corpuscular Volume 92.1 fL (80.0-98.0); Mean Platelet Volume 10.2 fL (9.4-12.4); Monocytes Absolute Auto 0.7 X10*3/uL (0.1-1.2); Monocytes Percent Auto 12.6 % (2-11); Neutrophils Absolute Auto 3.8 x10*3/uL (2.0-8.3); Neutrophils Percent Auto 72.1 % (45-73); Platelet Count 170 X10*3/uL (160-400); Red Blood Count 3.79 X10*6/uL (4.60-5.80); Red Cell Distribution Width 11.9 % (11.0-16.0); White Blood Count 5.2 X10*3/uL (4.8-10.8)
[2023-04-15 05:22] LABS: HBS Num1 75.03 mIU/mL (0-7.99); ~HepC Num1 0.21 S/CO (0.00-0.79); ~Hepatitis B Surface Antibody REACTIVE (Nonreactive); ~Hepatitis C Antibody Nonreactive (Nonreactive)
[2023-04-15 05:43] LABS: Alanine Aminotransferase 94 U/L (0-40); Albumin Level 3.9 g/dL (3.5-5.0); Alkaline Phosphatase 62 U/L (39-117); Anion Gap 18 (12-20); Aspartate Amino Transferase 137 U/L (5-37); Bilirubin Direct 0.4 mg/dL (0.0-0.5); Bilirubin Total 1.1 mg/dL (0.0-1.0); Blood Urea Nitrogen 15 mg/dL (9-16); Calcium 9.1 mg/dL (8.4-10.2); Carbon Dioxide 26 mmol/L (22-29); Chloride 95 mmol/L (96-108); Creatinine Clr Calc Pharmacy 123.6; Estimated Glomerular Filt Rate > 60; Glucose Random 138 mg/dL (60-115); Magnesium 1.7 mg/dL (1.6-2.6); Phosphorus 3.9 mg/dL (2.7-4.5); Potassium 2.2 mmol/L (3.3-5.1); Sodium 137 mmol/L (135-145)
[2023-04-15] MEDS: KCl 40 mEq in 0.9 % Sodium Chl 40 MEQ/1,000 ML IV.SOLN 150 MEQ IVCONT (06:04)
[2023-04-15] MEDS: Potassium Chloride Packet 20 MEQ PACKET 60 MEQ PO ×2 (06:06→13:41)
--- NOTE | 2023-04-15 06:27 | PC.NURSE ---
Addendum entered by Navdeep Beltre RN 04/15/23 06:43: OG-TUBE ADVANCED 2 AFTER CXR REVIEWED Original Note: CARE ASSUMED 05:00...REMAINS TUBED/VENTED...VCV AC MODE...PROPOFOL TITRATED TO 50 MCG/KG/MIN FOR RESTLESSNESS...[place] BUT DOES NOT FOLLOW COMMANDS...RR CONTROLLED ON AC 22...AM VBG= pH 7.66 PCO2 26....RT DECREASED AC RATE TO 16..TV MAINTAINED AT 450....AM CHEMISTRY REVIEWED WITH ICU HEDGE FUND ACCOUNTANT...AM CXR REVIEWED BY HEDGE FUND ACCOUNTANT...K=2.2....KCL 60MEQ VIA OG-TUBE GIVEN AND STARTED NS 0.9% 1000/KCL 40MEQ AT 150 CC/HR X1 BAG.....PULIDO APPROX 30 CC/HR HAZY YELLOW URINE PRIOR TO IV FLUIDS AND KCL VIA OG-TUBE...NSR..NO ECTOPY
[2023-04-15] MEDS: 0.9 % Sodium Chloride Flush 3 ML SYRINGE IVFLUSH ×2 (07:41→14:51)
[2023-04-15] MEDS: Folic Acid 1 MG TABLET PO (07:41)
[2023-04-15] MEDS: PHENobarbitaL 15 MG TABLET 45 MG PO (07:41)
[2023-04-15] MEDS: Thiamine HCL 100 MG TABLET PO (07:41)
[2023-04-15] MEDS: Chlorhexidine Gluc Oral Rinse 15 ML MOUTHWASH BUCCAL ×3 (07:42→21:54)
[2023-04-15] MEDS: Famotidine/PF 20 MG/2 ML VIAL IVPUSH (07:42)
--- NOTE | 2023-04-15 09:38 | PM.CCPN ---
Subjective Subjective Date of Service: 04/15/23 Interval History: 57-year-old gentleman with underlying history of heroin abuse in remission, alcohol dependence, admitted on 04/14/2023 with alcohol intoxication and early withdrawal requesting detoxification. Hospital course significant for escalating delirium tremens overdose requiring transfer to intensive care unit and initiation of Precedex drip. Patient with poor control of symptoms and Precedex drip requiring propofol drip with intubation and ventilatory support. No events overnight. Critical Care Time (minutes): 45 Physical Exam Vital Signs: Vital Signs: Last Vital Signs Temp 100.4 F 04/15/23 09:00 Pulse 88 04/15/23 09:00 Resp 16 04/15/23 09:00 BP 118/93 H 04/15/23 09:00 Pulse Ox 99 04/15/23 09:00 O2 Del Method Mechanical Ventil ation 04/15/23 09:00 FiO2 30 04/15/23 09:00 BMI result Body Mass Index 22.4 Const: General: no acute distress and other ( Sedated on the vent) Eyes: Sclerae: sclerae normal EOM: EOMs intact bilaterally Neck: Neck: Yes no lymphadenopathy, Yes trachea midline and Yes supple Resp: Auscultation: clear to auscultation bilaterally Cardio: Rate: regular rate Rhythm: regular rhythm Heart sounds: no gallops, no murmurs and no rubs GI: Palpation (GI): Soft to palpation and Other GI palpation findings present ( Nontender) Auscultation: normal bowel sounds Extrem: General: Yes no pedal edema, No clubbing and No cyanosis Objective Data Labs 04/15/23 05:01 04/15/23 05:01 Labs: Laboratory Results - last 24 hr 04/14/23 04/14/23 04/14/23 09:40 09:48 09:48 WBC RBC Hgb Hct MCV MCH MCHC RDW Plt Count MPV Immature Gran % (Auto) Neut % (Auto) Lymph % (Auto) [place] % (Auto) Eos % (Auto) Baso % (Auto) Lymph # (Auto) [place] # (Auto) Eos # (Auto) Baso # (Auto) Abs Immat Gran (auto) Absolute Neuts (auto) Absolute Nucleated RBC Nucleated RBC % (auto) VBG pH VBG pCO2 VBG pO2 VBG HCO3 VBG O2 Saturation VBG Base Excess Sodium 140 Potassium 2.5 L* Chloride 87 L Carbon Dioxide 35 H Anion Gap 21 H BUN 20 H Creatinine 0.74 Estim Creat Clear Calc 111.4 Estimated GFR > 60 Random Glucose 109 Calcium 10.3 H Phosphorus Magnesium 1.4 L* Total Bilirubin 1.2 H Direct Bilirubin AST 175 H ALT 131 H Alkaline Phosphatase 68 Total Protein 7.9 Albumin 4.5 Urine Opiates Screen Not Detected Urine Fentanyl Screen Not Detected Ur Barbiturates Screen Not Detected Ur Phencyclidine Scrn Not Detected Ur Amphetamines Screen Not Detected U Benzodiazepines Scrn Not Detected Urine Cocaine Screen Not Detected U Marijuana (THC) Screen POSITIVE H Ethyl Alcohol < 10 COVID-19 (MINOR) Negative COVID-19 Clin Com See Note Hep Bs Antigen Hep Bs Antibody Hep B Core Total Ab Hepatitis C Ab (EIA) 04/14/23 04/14/23 04/14/23 09:48 17:38 17:38 WBC 5.3 RBC 4.12 L Hgb 13.2 L Hct 38.0 L MCV 92.2 MCH 32.0 MCHC 34.7 RDW 11.8 Plt Count 167 MPV 9.8 Immature Gran % (Auto) 0.2 Neut % (Auto) 65.6 Lymph % (Auto) 17.9 L [place] % (Auto) 14.3 H Eos % (Auto) 1.0 Baso % (Auto) 1.0 Lymph # (Auto) 0.9 L [place] # (Auto) 0.8 Eos # (Auto) 0.1 Baso # (Auto) 0.1 Abs Immat Gran (auto) 0.01 Absolute Neuts (auto) 3.5 Absolute Nucleated RBC 0.000 Nucleated RBC % (auto) 0.0 VBG pH VBG pCO2 VBG pO2 VBG HCO3 VBG O2 Saturation VBG Base Excess Sodium 139 Potassium 2.7 L Chloride 94 L Carbon Dioxide 33 H Anion Gap 15 BUN 20 H Creatinine 0.72 Estim Creat Clear Calc 114.5 Estimated GFR > 60 Random Glucose 132 H Calcium 9.3 D Phosphorus 3.2 Magnesium Total Bilirubin Direct Bilirubin AST ALT Alkaline Phosphatase Total Protein Albumin Urine Opiates Screen Urine Fentanyl Screen Ur Barbiturates Screen Ur Phencyclidine Scrn Ur Amphetamines Screen U Benzodiazepines Scrn Urine Cocaine Screen U Marijuana (THC) Screen Ethyl Alcohol COVID-19 (MINOR) COVID-19 Clin Com Hep Bs Antigen Negative Hep Bs Antibody REACTIVE Hep B Core Total Ab Nonreactive Hepatitis C Ab (EIA) Nonreactive 04/15/23 04/15/23 04/15/23 05:01 05:01 05:02 WBC 5.2 RBC 3.79 L Hgb 12.3 L Hct 34.9 L MCV 92.1 MCH 32.5 MCHC 35.2 RDW 11.9 Plt Count 170 MPV 10.2 Immature Gran % (Auto) 0.4 Neut % (Auto) 72.1 Lymph % (Auto) 13.9 L [place] % (Auto) 12.6 H Eos % (Auto) 0.4 Baso % (Auto) 0.6 Lymph # (Auto) 0.7 L [place] # (Auto) 0.7 Eos # (Auto) 0.0 Baso # (Auto) 0.0 Abs Immat Gran (auto) 0.02 Absolute Neuts (auto) 3.8 Absolute Nucleated RBC 0.000 Nucleated RBC % (auto) 0.0 VBG pH 7.66 H* VBG pCO2 26 VBG pO2 146 VBG HCO3 29 H VBG O2 Saturation 99.0 VBG Base Excess 10.1 Sodium 137 Potassium 2.2 L* Chloride 95 L Carbon Dioxide 26 Anion Gap 18 BUN 15 Creatinine 0.65 Estim Creat Clear Calc 123.6 Estimated GFR > 60 Random Glucose 138 H Calcium 9.1 Phosphorus 3.9 Magnesium 1.7 Total Bilirubin 1.1 H Direct Bilirubin 0.4 AST 137 H ALT 94 H Alkaline Phosphatase 62 Total Protein 7.0 Albumin 3.9 Urine Opiates Screen Urine Fentanyl Screen Ur Barbiturates Screen Ur Phencyclidine Scrn Ur Amphetamines Screen U Benzodiazepines Scrn Urine Cocaine Screen U Marijuana (THC) Screen Ethyl Alcohol COVID-19 (MINOR) COVID-19 Clin Com Hep Bs Antigen Hep Bs Antibody Hep B Core Total Ab Hepatitis C Ab (EIA) Progress Note: A&P Assessment and plan (1) Delirium tremens: Status: Acute (2) Acute respiratory failure with hypoxia: Status: Acute Plan Assessment: 57-year-old gentleman admitted with delirium tremens requiring propofol drip and ventilatory support. Plan: Neuro: Delirium tremens, continue to titrate off sedative drips as tolerated. Cardiac: No acute issues. Pulmonary: Acute hypoxic respiratory failure secondary to delirium tremens requiring ventilatory support. Continue to titrate off as tolerated. Renal: No acute issues. Endo: No acute issues. GI: No acute issues. ID: No acute issues Heme/Onc: No acute issues. Psych: No acute issues. Miscellaneous: No acute issues. Prophylaxis: Heparin, ppi Diet: tube feeds Critical care time spent: 45 minutes Quality Stroke Does the patient have a stroke diagnosis?: No VTE Prior VTE?: No VTE Risk Level:: Medical - moderate - high VTE Device Contraindication: Treatment Not Indicated VTE Drug Contraindication: N/A - Med Ordered
--- NOTE | 2023-04-15 09:57 | MHC.RECOVRN ---
Chart reviewed after consult to Addiction Medicine received. Pt admitted to ICU, intubated, after presenting to [facility] ED requesting ATS for alcohol use. Will continue to follow and recovery team will meet with pt when appropriate.
[2023-04-15 11:17] LABS: VBG HCO3 30 mmol/L (22-26); VBG pCO2 35 mmHg; VBG pH 7.54 (7.32-7.43); VBG pO2 118 mmHg
[2023-04-15 11:43] LABS: Anion Gap 16 (12-20); Blood Urea Nitrogen 13 mg/dL (9-16); Calcium 8.8 mg/dL (8.4-10.2); Carbon Dioxide 29 mmol/L (22-29); Chloride 97 mmol/L (96-108); Creatinine Clr Calc Pharmacy 136.2; Estimated Glomerular Filt Rate > 60; Glucose Random 117 mg/dL (60-115); Potassium 2.6 mmol/L (3.3-5.1); Sodium 139 mmol/L (135-145)
[2023-04-15] MEDS: Heparin Sodium,Porcine 5,000 UNIT/ML VIAL 5000 UNIT SUBCUT ×2 (12:06→17:56)
[2023-04-15] MEDS: Folic Acid 2 MG in 0.9 % Sodium Chloride 50 ML 100.4 MG IV (12:08)
[2023-04-15 21:22] LABS: Venous Blood Gas Refer to POC result
[2023-04-15 22:29] LABS: Lactic Acid 0.9 mmol/L (0.5-2.0)
[2023-04-16] VITALS (31 sets, daily range): BP systolic 93–128; BP diastolic 63–94; PULSE 89–118; RESP 18–28; TEMP 35–38.5; O2SAT 86–100; BMI 22.8
[2023-04-16] MEDS: 0.9 % Sodium Chloride Flush 3 ML SYRINGE IVFLUSH ×4 (00:23→23:42)
[2023-04-16] MEDS: propofoL 1,000 MG/100 ML VIAL 21.77 MG IVCONT ×2 (00:28→08:05)
[2023-04-16] MEDS: Heparin Sodium,Porcine 5,000 UNIT/ML VIAL 5000 UNIT SUBCUT ×3 (01:45→17:33)
[2023-04-16] MEDS: propofoL 1,000 MG/100 ML VIAL 17.42 MG IVCONT (03:25)
[2023-04-16 05:10] LABS: MANUAL DIFF FLAG NO
[2023-04-16 05:12] LABS: VBG Base Excess 8.3 mmol/L; VBG HCO3 30 mmol/L (22-26); VBG pCO2 32 mmHg; VBG pH 7.57 (7.32-7.43); VBG pO2 67 mmHg
[2023-04-16 05:18] LABS: Basophils Absolute Auto 0.1 X10*3/uL (0.0-0.2); Basophils Percent Auto 0.9 % (0-2); Eosinophils Absolute Auto 0.1 X10*3/uL (0.0-0.4); Eosinophils Percent Auto 2.3 % (0-4); Hematocrit 36.8 % (42.0-52.0); Hemoglobin 12.4 g/dl (14.0-18.0); Imm Gran Abs Auto 0.02 X10*3/uL (0.00-0.03); Imm Gran Pct Auto 0.4 % (0.0-0.4); Lymphocytes Absolute Auto 1.4 X10*3/uL (1.2-4.9); Lymphocytes Percent Auto 24.4 % (20-40); Mean Corpuscular HGB Conc 33.7 g/dl (31.0-36.0); Mean Corpuscular Hemoglobin 32.5 pg (27.0-33.0); Mean Corpuscular Volume 96.3 fL (80.0-98.0); Mean Platelet Volume 10.5 fL (9.4-12.4); Monocytes Absolute Auto 0.9 X10*3/uL (0.1-1.2); Neutrophils Absolute Auto 3.2 x10*3/uL (2.0-8.3); Platelet Count 184 X10*3/uL (160-400); Red Blood Count 3.82 X10*6/uL (4.60-5.80); Red Cell Distribution Width 11.9 % (11.0-16.0); White Blood Count 5.7 X10*3/uL (4.8-10.8)
[2023-04-16 05:37] LABS: Alanine Aminotransferase 63 U/L (0-40); Albumin Level 3.6 g/dL (3.5-5.0); Alkaline Phosphatase 64 U/L (39-117); Anion Gap 19 (12-20); Aspartate Amino Transferase 72 U/L (5-37); Bilirubin Total 0.8 mg/dL (0.0-1.0); Blood Urea Nitrogen 10 mg/dL (9-16); Calcium 8.5 mg/dL (8.4-10.2); Carbon Dioxide 25 mmol/L (22-29); Chloride 96 mmol/L (96-108); Creatinine Clr Calc Pharmacy 123.5; Estimated Glomerular Filt Rate > 60; Glucose Random 103 mg/dL (60-115); Magnesium 1.7 mg/dL (1.6-2.6); Phosphorus 3.3 mg/dL (2.7-4.5); Potassium 2.8 mmol/L (3.3-5.1); Sodium 137 mmol/L (135-145); Total Protein 6.3 g/dL (6.5-8.0)
[2023-04-16] MEDS: Potassium Phosphate/NS 15 MMOL/250 ML PLAST..BAG 62.5 MMOL IV (06:00)
[2023-04-16 06:01] LABS: Venous Blood Gas Refer to POC result
[2023-04-16] MEDS: Magnesium Sulfate/D5W 1 GM/100 ML PIGGYBACK IV (06:01)
[2023-04-16] MEDS: Potassium Chloride Packet 20 MEQ PACKET 60 MEQ PO ×2 (06:03→09:09)
--- NOTE | 2023-04-16 06:22 | PC.NURSE ---
CARE ASSUMED 23:15..REMAINS INTUBATED/VCV VENT SUPPORT....PROPOFOL 50 MCG/KG/MIN...(+) COUGH/GAG...[place] TO NOXIOUS STIMULI/ASSISTS VENT IN AC MODE...SBP 90'S-100'S...PROPOFOL WEANED TO 40 MCG/KG/MIN BUT PATIENT RESTLESS/TREMULOUS AND VENT DYSYNCHRONY PRESENT..PROPOFOL MAINTAINED AT 50 MCG/KG/MIN...PULIDO MARGINAL OUTPUT OVERNIGHT...APPROX 25 CC/HR...ICU REGIONAL SALES ENGINEER AWARE...NO IV FLUIDS PER REGIONAL SALES ENGINEER...AM LABS REVIEWED...KCL 60MEQ/H20 GIVEN VIA OG-TUBE....K-PO4 AND MgSO4 IV PER NOV..NSR..NO ECTOPY
[2023-04-16] MEDS: Chlorhexidine Gluc Oral Rinse 15 ML MOUTHWASH BUCCAL ×2 (08:00→15:45)
[2023-04-16] MEDS: Famotidine/PF 20 MG/2 ML VIAL IVPUSH (08:01)
--- NOTE | 2023-04-16 08:32 | PM.CCPN ---
Subjective Subjective Date of Service: 04/16/23 Interval History: 57-year-old gentleman with underlying history of heroin abuse in remission, alcohol dependence, admitted on 04/14/2023 with alcohol intoxication and early withdrawal requesting detoxification. Hospital course significant for escalating delirium tremens overdose requiring transfer to intensive care unit and initiation of Precedex drip. Patient with poor control of symptoms and Precedex drip requiring propofol drip with intubation and ventilatory support. No events overnight. Critical Care Time (minutes): 45 Physical Exam Vital Signs: Vital Signs: Last Vital Signs Temp 100.4 F 04/16/23 08:00 Pulse 100 04/16/23 08:00 Resp 22 H 04/16/23 08:00 BP 114/86 04/16/23 08:00 Pulse Ox 98 04/16/23 08:00 O2 Del Method Mechanical Ventil ation 04/16/23 08:00 FiO2 30 04/16/23 08:13 BMI result Body Mass Index 22.8 Const: General: no acute distress and other (Sedated on the vent) Eyes: Sclerae: sclerae normal EOM: EOMs intact bilaterally Neck: Neck: Yes no lymphadenopathy, Yes trachea midline and Yes supple Resp: Effort & Inspection: normal respiratory effort and no respiratory distress Auscultation: clear to auscultation bilaterally Cardio: Rate: regular rate Rhythm: regular rhythm Heart sounds: no gallops, no murmurs and no rubs GI: Palpation (GI): Soft to palpation and Other GI palpation findings present ( Nontender) Auscultation: normal bowel sounds Extrem: General: Yes no pedal edema, No clubbing and No cyanosis Objective Data Labs 04/16/23 04:58 04/16/23 04:58 Labs: Laboratory Results - last 24 hr 04/15/23 04/15/23 04/15/23 11:07 11:24 22:03 WBC RBC Hgb Hct MCV MCH MCHC RDW Plt Count MPV Immature Gran % (Auto) Neut % (Auto) Lymph % (Auto) [place] % (Auto) Eos % (Auto) Baso % (Auto) Lymph # (Auto) [place] # (Auto) Eos # (Auto) Baso # (Auto) Abs Immat Gran (auto) Absolute Neuts (auto) Absolute Nucleated RBC Nucleated RBC % (auto) VBG pH 7.54 H VBG pCO2 35 VBG pO2 118 VBG HCO3 30 H VBG O2 Saturation 99.0 VBG Base Excess 8.0 Sodium 139 Potassium 2.6 L Chloride 97 Carbon Dioxide 29 Anion Gap 16 BUN 13 Creatinine 0.59 Estim Creat Clear Calc 136.2 Estimated GFR > 60 Random Glucose 117 H Lactic Acid 0.9 Calcium 8.8 Phosphorus Magnesium Total Bilirubin AST ALT Alkaline Phosphatase Total Protein Albumin 04/16/23 04/16/23 04/16/23 04:58 04:58 05:02 WBC 5.7 RBC 3.82 L Hgb 12.4 L Hct 36.8 L MCV 96.3 MCH 32.5 MCHC 33.7 RDW 11.9 Plt Count 184 MPV 10.5 Immature Gran % (Auto) 0.4 Neut % (Auto) 57.0 Lymph % (Auto) 24.4 [place] % (Auto) 15.0 H Eos % (Auto) 2.3 Baso % (Auto) 0.9 Lymph # (Auto) 1.4 [place] # (Auto) 0.9 Eos # (Auto) 0.1 Baso # (Auto) 0.1 Abs Immat Gran (auto) 0.02 Absolute Neuts (auto) 3.2 Absolute Nucleated RBC 0.000 Nucleated RBC % (auto) 0.0 VBG pH 7.57 H VBG pCO2 32 VBG pO2 67 VBG HCO3 30 H VBG O2 Saturation 93.0 VBG Base Excess 8.3 Sodium 137 Potassium 2.8 L Chloride 96 Carbon Dioxide 25 Anion Gap 19 BUN 10 Creatinine 0.66 Estim Creat Clear Calc 123.5 Estimated GFR > 60 Random Glucose 103 Lactic Acid Calcium 8.5 Phosphorus 3.3 Magnesium 1.7 Total Bilirubin 0.8 AST 72 H ALT 63 H Alkaline Phosphatase 64 Total Protein 6.3 L Albumin 3.6 Progress Note: A&P Assessment and plan (1) Acute respiratory failure with hypoxia: Status: Acute (2) Delirium tremens: Status: Acute Plan Assessment: 57-year-old gentleman admitted with delirium tremens requiring propofol drip and ventilatory support. Plan: Neuro: Delirium tremens, continue to titrate off sedative drips as tolerated. Cardiac: No acute issues. Pulmonary: Acute hypoxic respiratory failure secondary to delirium tremens requiring ventilatory support. Continue to titrate off as tolerated. Renal: No acute issues. Endo: No acute issues. GI: No acute issues. ID: No acute issues Heme/Onc: No acute issues. Psych: No acute issues. Miscellaneous: No acute issues. Prophylaxis: Heparin, ppi Diet: tube feeds Critical care time spent: 45 minutes Quality Stroke Does the patient have a stroke diagnosis?: No VTE Prior VTE?: No VTE Risk Level:: Medical - moderate - high VTE Device Contraindication: Treatment Not Indicated VTE Drug Contraindication: N/A - Med Ordered
[2023-04-16] MEDS: PHENobarbitaL sodium 130 MG/ML IM ONCE 340 MG IM (09:10)
[2023-04-16] MEDS: Folic Acid 2 MG in 0.9 % Sodium Chloride 50 ML 100 MG IV (09:44)
[2023-04-16] MEDS: ondansetron HCL 4 MG/2 ML VIAL IVPUSH (11:46)
--- NOTE | 2023-04-16 11:48 | MHC.CM.PN ---
Pt receiving care in ICU: on ventilatory support and unable to participate in CM assessment. L/M w/pt's HCP/mother at number listed on file. Review of EMR notes pt resides w/parent, independent w/care needs: no apparent services. Pt would benefit from a consult w/Care team for ETOH use once extubated. Weaning attempts to occur today. CM to follow once pt is able to participate in assessment: It is expected that pt will be able to d/c to home with outpt follow up. Mother likely to transport. CM to follow.
[2023-04-16] MEDS: PHENobarbitaL sodium 130 MG/ML VIAL IM Q3Hx2 255 MG IM ×2 (12:17→15:43)
[2023-04-16] MEDS: dexmedeTOMIDidine HCL/NS 400 MCG/100 ML INFUS..BTL 9.07 MCG IVCONT (21:49)
[2023-04-17] VITALS (28 sets, daily range): BP systolic 90–120; BP diastolic 60–91; PULSE 70–110; RESP 18–32; TEMP 36.6–37.6; O2SAT 79–100; BMI 21.6
[2023-04-17] MEDS: Heparin Sodium,Porcine 5,000 UNIT/ML VIAL 5000 UNIT SUBCUT ×3 (02:19→18:41)
[2023-04-17 05:40] LABS: MANUAL DIFF FLAG NO
[2023-04-17 05:42] LABS: VBG Base Excess 3.1 mmol/L; VBG HCO3 25 mmol/L (22-26); VBG pCO2 31 mmHg; VBG pH 7.51 (7.32-7.43); VBG pO2 61 mmHg
[2023-04-17 05:43] LABS: Basophils Absolute Auto 0.1 X10*3/uL (0.0-0.2); Basophils Percent Auto 1.3 % (0-2); Eosinophils Absolute Auto 0.1 X10*3/uL (0.0-0.4); Eosinophils Percent Auto 2.3 % (0-4); Hematocrit 37.3 % (42.0-52.0); Hemoglobin 12.5 g/dl (14.0-18.0); Imm Gran Abs Auto 0.03 X10*3/uL (0.00-0.03); Imm Gran Pct Auto 0.5 % (0.0-0.4); Lymphocytes Absolute Auto 1.3 X10*3/uL (1.2-4.9); Lymphocytes Percent Auto 22.2 % (20-40); Mean Corpuscular HGB Conc 33.5 g/dl (31.0-36.0); Mean Corpuscular Hemoglobin 32.7 pg (27.0-33.0); Mean Corpuscular Volume 97.6 fL (80.0-98.0); Mean Platelet Volume 10.2 fL (9.4-12.4); Monocytes Absolute Auto 0.8 X10*3/uL (0.1-1.2); Monocytes Percent Auto 13.9 % (2-11); Neutrophils Absolute Auto 3.6 x10*3/uL (2.0-8.3); Neutrophils Percent Auto 59.8 % (45-73); Platelet Count 187 X10*3/uL (160-400); Red Blood Count 3.82 X10*6/uL (4.60-5.80); Red Cell Distribution Width 11.5 % (11.0-16.0)
[2023-04-17] MEDS: dexmedeTOMIDidine HCL/NS 400 MCG/100 ML INFUS..BTL 5.44 MCG IVCONT (05:52)
[2023-04-17 06:04] LABS: Albumin Level 3.5 g/dL (3.5-5.0); Anion Gap 15 (12-20); Blood Urea Nitrogen 10 mg/dL (9-16); Calcium 8.8 mg/dL (8.4-10.2); Carbon Dioxide 26 mmol/L (22-29); Chloride 101 mmol/L (96-108); Creatinine Clr Calc Pharmacy 126.6; Estimated Glomerular Filt Rate > 60; Glucose Random 94 mg/dL (60-115); Magnesium 1.9 mg/dL (1.6-2.6); Phosphorus 3.1 mg/dL (2.7-4.5); Potassium 3.3 mmol/L (3.3-5.1); Sodium 139 mmol/L (135-145)
[2023-04-17 07:08] LABS: Venous Blood Gas Refer to POC result
[2023-04-17] MEDS: Potassium Phosphate/NS 15 MMOL/250 ML PLAST..BAG 62.5 MMOL IV (08:19)
[2023-04-17] MEDS: 0.9 % Sodium Chloride Flush 3 ML SYRINGE IVFLUSH ×2 (08:19→15:16)
--- NOTE | 2023-04-17 09:03 | PM.CCPN ---
Subjective Subjective Date of Service: 04/17/23 Interval History: 57-year-old gentleman with underlying history of heroin abuse in remission, alcohol dependence, admitted on 04/14/2023 with alcohol intoxication and early withdrawal requesting detoxification. Hospital course significant for escalating delirium tremens overdose requiring transfer to intensive care unit and initiation of Precedex drip. Patient with poor control of symptoms and Precedex drip requiring propofol drip with intubation and ventilatory support. Extubated 04/16/2023. Overnight briefly on Precedex drip, now titrated off. Critical Care Time (minutes): 30 Physical Exam Vital Signs: Vital Signs: Last Vital Signs Temp 99.7 F 04/17/23 08:00 Pulse 77 04/17/23 08:00 Resp 23 H 04/17/23 08:00 BP 107/77 04/17/23 08:00 Pulse Ox 96 04/17/23 08:00 O2 Del Method Oxymask 04/17/23 08:00 O2 Flow Rate 1 04/17/23 08:00 FiO2 30 04/16/23 10:05 BMI result Body Mass Index 21.6 Const: General: no acute distress, awake and lethargic (Arousable to voice, intermittently confused) Orientation/consciousness: lethargic (Arousable to voice, intermittently confused) Eyes: Sclerae: sclerae normal EOM: EOMs intact bilaterally Neck: Neck: Yes no lymphadenopathy, Yes trachea midline and Yes supple Resp: Effort & Inspection: normal respiratory effort and no respiratory distress Auscultation: clear to auscultation bilaterally Cardio: Rate: regular rate Rhythm: regular rhythm Heart sounds: no gallops, no murmurs and no rubs GI: Palpation (GI): Soft to palpation and Other GI palpation findings present ( Nontender) Auscultation: normal bowel sounds Extrem: General: Yes no pedal edema, No clubbing and No cyanosis Objective Data Labs 04/17/23 05:30 04/17/23 05:30 Labs: Laboratory Results - last 24 hr 04/17/23 04/17/23 04/17/23 05:30 05:30 05:32 WBC 6.0 RBC 3.82 L Hgb 12.5 L Hct 37.3 L MCV 97.6 MCH 32.7 MCHC 33.5 RDW 11.5 Plt Count 187 MPV 10.2 Immature Gran % (Auto) 0.5 H Neut % (Auto) 59.8 Lymph % (Auto) 22.2 [place] % (Auto) 13.9 H Eos % (Auto) 2.3 Baso % (Auto) 1.3 Lymph # (Auto) 1.3 [place] # (Auto) 0.8 Eos # (Auto) 0.1 Baso # (Auto) 0.1 Abs Immat Gran (auto) 0.03 Absolute Neuts (auto) 3.6 Absolute Nucleated RBC 0.000 Nucleated RBC % (auto) 0.0 VBG pH 7.51 H VBG pCO2 31 VBG pO2 61 VBG HCO3 25 VBG O2 Saturation 89.0 VBG Base Excess 3.1 Sodium 139 Potassium 3.3 Chloride 101 Carbon Dioxide 26 Anion Gap 15 BUN 10 Creatinine 0.61 Estim Creat Clear Calc 126.6 Estimated GFR > 60 Random Glucose 94 Calcium 8.8 Phosphorus 3.1 Magnesium 1.9 Albumin 3.5 Microbiology Microbiology Results: Microbiology 04/15/23 22:02 Blood - Venous Blood Culture - Preliminary No growth after 24 hours. 04/15/23 22:02 Blood - Venous Blood Culture - Preliminary No growth after 24 hours. Progress Note: A&P Assessment and plan (1) Delirium tremens: Status: Acute (2) Acute respiratory failure with hypoxia: Status: Acute Plan Assessment: 57-year-old gentleman admitted with delirium tremens initially requiring propofol drip and ventilatory support. Plan: Neuro: Delirium tremens, briefly on Precedex overnight. Now titrated off. Continues on phenobarbital protocol. Cardiac: No acute issues. Pulmonary: Acute hypoxic respiratory failure secondary to delirium tremens requiring ventilatory support. Extubated 04/16/2023. Renal: No acute issues. Endo: No acute issues. GI: No acute issues. ID: No acute issues Heme/Onc: No acute issues. Psych: No acute issues. Miscellaneous: No acute issues. Prophylaxis: Heparin Diet: Pending bedside swallow evaluation Critical care time spent: 30 minutes Quality Stroke Does the patient have a stroke diagnosis?: No VTE Prior VTE?: No VTE Risk Level:: Medical - moderate - high VTE Device Contraindication: Treatment Not Indicated VTE Drug Contraindication: N/A - Med Ordered
[2023-04-17] MEDS: Folic Acid 2 MG in 0.9 % Sodium Chloride 50 ML 100 MG IV (09:48)
--- NOTE | 2023-04-17 10:37 | MHC.CM.NN ---
Pt extubated and continuing care in the ICU: confused at times but improving. Will start po Phenobarb and hopefully transfer to the [place] floor. D/C plan is for a return to home with outpt support. Pt would benefit from CARE team consult for ETOH cessation information. Family to transport.
[2023-04-17] MEDS: PHENobarbitaL 15 MG TABLET 45 MG PO ×2 (11:06→15:11)
--- NOTE | 2023-04-17 11:46 | MHC.CLN ---
F/U PT EXTUBATED DIET ADVANCED TO REGULAR TODAY MONITOR PO INTAKE CLOSELY FOLLOWING WITH TEAM
[2023-04-17] MEDS: propofoL 200 MG/20 ML VIAL 50 MG IVPUSH (16:31)
[2023-04-17] MEDS: LORazepam 2 MG/ML VIAL IVPUSH (16:31)
[2023-04-17] MEDS: dexmedeTOMIDidine HCL/NS 400 MCG/100 ML INFUS..BTL IVCONT (16:36)
[2023-04-18] VITALS (24 sets, daily range): BP systolic 101–127; BP diastolic 67–92; PULSE 68–93; RESP 18–28; TEMP 36.8–37.4; O2SAT 91–98; BMI 22.0
[2023-04-18] MEDS: 0.9 % Sodium Chloride Flush 3 ML SYRINGE IVFLUSH ×3 (01:49→17:14)
[2023-04-18] MEDS: Heparin Sodium,Porcine 5,000 UNIT/ML VIAL 5000 UNIT SUBCUT ×3 (01:49→17:14)
[2023-04-18] MEDS: dexmedeTOMIDidine HCL/NS 400 MCG/100 ML INFUS..BTL 9.93 MCG IVCONT (03:04)
[2023-04-18 05:00] LABS: MANUAL DIFF FLAG NO
[2023-04-18 05:08] LABS: Basophils Absolute Auto 0.1 X10*3/uL (0.0-0.2); Basophils Percent Auto 1.1 % (0-2); Eosinophils Absolute Auto 0.2 X10*3/uL (0.0-0.4); Eosinophils Percent Auto 3.3 % (0-4); Hematocrit 35.4 % (42.0-52.0); Hemoglobin 11.9 g/dl (14.0-18.0); Imm Gran Abs Auto 0.02 X10*3/uL (0.00-0.03); Imm Gran Pct Auto 0.4 % (0.0-0.4); Lymphocytes Absolute Auto 1.3 X10*3/uL (1.2-4.9); Lymphocytes Percent Auto 24.3 % (20-40); Mean Corpuscular HGB Conc 33.6 g/dl (31.0-36.0); Mean Corpuscular Hemoglobin 31.7 pg (27.0-33.0); Mean Corpuscular Volume 94.4 fL (80.0-98.0); Mean Platelet Volume 9.9 fL (9.4-12.4); Neutrophils Absolute Auto 2.8 x10*3/uL (2.0-8.3); Neutrophils Percent Auto 51.9 % (45-73); Platelet Count 229 X10*3/uL (160-400); Red Blood Count 3.75 X10*6/uL (4.60-5.80); Red Cell Distribution Width 11.3 % (11.0-16.0); White Blood Count 5.5 X10*3/uL (4.8-10.8)
[2023-04-18 05:16] LABS: Albumin Level 3.3 g/dL (3.5-5.0); Anion Gap 14 (12-20); Blood Urea Nitrogen 10 mg/dL (9-16); Calcium 8.7 mg/dL (8.4-10.2); Carbon Dioxide 26 mmol/L (22-29); Chloride 103 mmol/L (96-108); Creatinine Clr Calc Pharmacy 135.4; Estimated Glomerular Filt Rate > 60; Glucose Random 98 mg/dL (60-115); Magnesium 1.7 mg/dL (1.6-2.6); Phosphorus 2.6 mg/dL (2.7-4.5); Potassium 3.1 mmol/L (3.3-5.1); Sodium 140 mmol/L (135-145)
[2023-04-18] MEDS: Potassium Phosphate/NS 15 MMOL/250 ML PLAST..BAG 62.5 MMOL IV (05:47)
[2023-04-18] MEDS: Folic Acid 2 MG in 0.9 % Sodium Chloride 50 ML 100 MG IV (07:36)
[2023-04-18] MEDS: PHENobarbitaL 15 MG TABLET 45 MG PO ×2 (08:37→20:50)
--- NOTE | 2023-04-18 09:41 | PM.CCPN ---
Subjective Subjective Date of Service: 04/18/23 Interval History: 57-year-old gentleman with underlying history of heroin abuse in remission, alcohol dependence, admitted on 04/14/2023 with alcohol intoxication and early withdrawal requesting detoxification. Hospital course significant for escalating delirium tremens overdose requiring transfer to intensive care unit and initiation of Precedex drip. Patient with poor control of symptoms and Precedex drip requiring propofol drip with intubation and ventilatory support. Extubated 04/16/2023. Required Precedex drip again overnight. Now titrated off. Critical Care Time (minutes): 0 Physical Exam Vital Signs: Vital Signs: Last Vital Signs Temp 98.9 F 04/18/23 08:00 Pulse 77 04/18/23 09:00 Resp 21 H 04/18/23 09:00 BP 114/83 04/18/23 09:00 Pulse Ox 96 04/18/23 09:00 O2 Del Method Room Air 04/18/23 09:00 O2 Flow Rate 1 04/18/23 06:00 FiO2 30 04/16/23 10:05 BMI result Body Mass Index 22.0 Const: General: no acute distress and lethargic (easily arousable to voice) Orientation/consciousness: lethargic (easily arousable to voice) Eyes: Sclerae: sclerae normal EOM: EOMs intact bilaterally Neck: Neck: Yes no lymphadenopathy, Yes trachea midline and Yes supple Resp: Effort & Inspection: normal respiratory effort and no respiratory distress Auscultation: clear to auscultation bilaterally Cardio: Rate: regular rate Rhythm: regular rhythm Heart sounds: no gallops, no murmurs and no rubs GI: Palpation (GI): Soft to palpation and Other GI palpation findings present ( Nontender) Auscultation: normal bowel sounds Extrem: General: Yes no pedal edema, No clubbing and No cyanosis Objective Data Labs 04/18/23 04:56 04/18/23 04:56 Labs: Laboratory Results - last 24 hr 04/18/23 04/18/23 04:56 04:56 WBC 5.5 RBC 3.75 L Hgb 11.9 L Hct 35.4 L MCV 94.4 MCH 31.7 MCHC 33.6 RDW 11.3 Plt Count 229 MPV 9.9 Immature Gran % (Auto) 0.4 Neut % (Auto) 51.9 Lymph % (Auto) 24.3 [place] % (Auto) 19.0 H Eos % (Auto) 3.3 Baso % (Auto) 1.1 Lymph # (Auto) 1.3 [place] # (Auto) 1.0 Eos # (Auto) 0.2 Baso # (Auto) 0.1 Abs Immat Gran (auto) 0.02 Absolute Neuts (auto) 2.8 Absolute Nucleated RBC 0.000 Nucleated RBC % (auto) 0.0 Sodium 140 Potassium 3.1 L Chloride 103 Carbon Dioxide 26 Anion Gap 14 BUN 10 Creatinine 0.57 Estim Creat Clear Calc 135.4 Estimated GFR > 60 Random Glucose 98 Calcium 8.7 Phosphorus 2.6 L Magnesium 1.7 Albumin 3.3 L Microbiology Microbiology Results: Microbiology 04/15/23 22:02 Blood - Venous Blood Culture - Preliminary No growth after 48 hours. 04/15/23 22:02 Blood - Venous Blood Culture - Preliminary No growth after 48 hours. Progress Note: A&P Assessment and plan (1) Delirium tremens: Status: Acute Plan Assessment: 57-year-old gentleman admitted with delirium tremens initially requiring propofol drip and ventilatory support. Plan: Neuro: Delirium tremens, on Precedex overnight. Now titrated off. Continues on phenobarbital protocol. Cardiac: No acute issues. Pulmonary: Acute hypoxic respiratory failure secondary to delirium tremens requiring ventilatory support. Extubated 04/16/2023. resolved. Renal: No acute issues. Endo: No acute issues. GI: No acute issues. ID: No acute issues Heme/Onc: No acute issues. Psych: No acute issues. Miscellaneous: No acute issues. Prophylaxis: Heparin Diet: regular Quality Stroke Does the patient have a stroke diagnosis?: No VTE Prior VTE?: No VTE Risk Level:: Medical - moderate - high VTE Device Contraindication: Treatment Not Indicated VTE Drug Contraindication: N/A - Med Ordered
--- NOTE | 2023-04-18 09:57 | HO.PSYCHPN ---
Subjective Subjective Reason For Visit: etoh w/d Diagnostics Vital Signs (24Hr): Vital Signs - 24 hr 04/17/23 10:00 04/17/23 11:00 04/17/23 12:00 Temperature 99.1 F Pulse Rate 88 88 110 H Respiratory Rate 23 H 20 26 H Blood Pressure 103/75 118/87 110/79 Pulse Oximetry 95 94 92 Oxygen Delivery Method Oxymask Room Air Room Air Oxygen Flow Rate 1 04/17/23 13:00 04/17/23 14:00 04/17/23 15:00 Temperature Pulse Rate 104 H 103 H 96 Respiratory Rate 24 H 25 H 25 H Blood Pressure 120/79 113/83 Pulse Oximetry 95 89 L 79 L Oxygen Delivery Method Room Air Room Air Room Air Oxygen Flow Rate 04/17/23 16:00 04/17/23 18:00 04/17/23 17:00 Temperature 99.1 F Pulse Rate 106 H 85 95 Respiratory Rate 29 H 27 H 27 H Blood Pressure 119/91 H 96/66 98/70 Pulse Oximetry 98 99 98 Oxygen Delivery Method Oxymask Oxymask Oxymask Oxygen Flow Rate 1 1 1 04/17/23 19:00 04/17/23 20:00 04/17/23 20:05 Temperature Pulse Rate 89 83 Respiratory Rate 28 H 27 H Blood Pressure 112/82 102/76 Pulse Oximetry 91 L 98 85 L Oxygen Delivery Method Oxymask Oxymask Oxymask Oxygen Flow Rate 1 1 1 04/17/23 20:30 04/17/23 21:00 04/17/23 22:00 Temperature Pulse Rate 79 77 Respiratory Rate 27 H 27 H Blood Pressure 104/78 97/73 Pulse Oximetry 93 98 95 Oxygen Delivery Method Oxymask Oxymask Oxymask Oxygen Flow Rate 3 2 2 04/17/23 23:00 04/18/23 00:00 04/18/23 01:00 Temperature 99.4 F Pulse Rate 78 81 78 Respiratory Rate 24 H 18 23 H Blood Pressure 109/71 106/67 107/79 Pulse Oximetry 96 98 97 Oxygen Delivery Method Oxymask Oxymask Oxymask Oxygen Flow Rate 1 1 1 04/18/23 02:00 04/18/23 03:00 04/18/23 04:00 Temperature Pulse Rate 78 76 72 Respiratory Rate 23 H 24 H 27 H Blood Pressure 119/85 110/81 106/76 Pulse Oximetry 95 96 94 Oxygen Delivery Method Oxymask Oxymask Oxymask Oxygen Flow Rate 1 1 1 04/18/23 05:00 04/18/23 06:00 04/18/23 07:00 Temperature 98.5 F Pulse Rate 73 72 74 Respiratory Rate 23 H 28 H 20 Blood Pressure 112/83 101/76 105/76 Pulse Oximetry 95 92 95 Oxygen Delivery Method Oxymask Oxymask Room Air Oxygen Flow Rate 1 1 04/18/23 08:00 04/18/23 09:00 Temperature 98.9 F Pulse Rate 70 77 Respiratory Rate 25 H 21 H Blood Pressure 108/78 114/83 Pulse Oximetry 93 96 Oxygen Delivery Method Room Air Room Air Oxygen Flow Rate BMI result Body Mass Index 22.0 Labs 04/18/23 04:56 04/18/23 04:56 Labs: Laboratory Results - last 48 hr 04/17/23 04/17/23 04/17/23 05:30 05:30 05:32 WBC 6.0 RBC 3.82 L Hgb 12.5 L Hct 37.3 L MCV 97.6 MCH 32.7 MCHC 33.5 RDW 11.5 Plt Count 187 MPV 10.2 Immature Gran % (Auto) 0.5 H Neut % (Auto) 59.8 Lymph % (Auto) 22.2 [place] % (Auto) 13.9 H Eos % (Auto) 2.3 Baso % (Auto) 1.3 Lymph # (Auto) 1.3 [place] # (Auto) 0.8 Eos # (Auto) 0.1 Baso # (Auto) 0.1 Abs Immat Gran (auto) 0.03 Absolute Neuts (auto) 3.6 Absolute Nucleated RBC 0.000 Nucleated RBC % (auto) 0.0 VBG pH 7.51 H VBG pCO2 31 VBG pO2 61 VBG HCO3 25 VBG O2 Saturation 89.0 VBG Base Excess 3.1 Sodium 139 Potassium 3.3 Chloride 101 Carbon Dioxide 26 Anion Gap 15 BUN 10 Creatinine 0.61 Estim Creat Clear Calc 126.6 Estimated GFR > 60 Random Glucose 94 Calcium 8.8 Phosphorus 3.1 Magnesium 1.9 Albumin 3.5 04/18/23 04/18/23 04:56 04:56 WBC 5.5 RBC 3.75 L Hgb 11.9 L Hct 35.4 L MCV 94.4 MCH 31.7 MCHC 33.6 RDW 11.3 Plt Count 229 MPV 9.9 Immature Gran % (Auto) 0.4 Neut % (Auto) 51.9 Lymph % (Auto) 24.3 [place] % (Auto) 19.0 H Eos % (Auto) 3.3 Baso % (Auto) 1.1 Lymph # (Auto) 1.3 [place] # (Auto) 1.0 Eos # (Auto) 0.2 Baso # (Auto) 0.1 Abs Immat Gran (auto) 0.02 Absolute Neuts (auto) 2.8 Absolute Nucleated RBC 0.000 Nucleated RBC % (auto) 0.0 VBG pH VBG pCO2 VBG pO2 VBG HCO3 VBG O2 Saturation VBG Base Excess Sodium 140 Potassium 3.1 L Chloride 103 Carbon Dioxide 26 Anion Gap 14 BUN 10 Creatinine 0.57 Estim Creat Clear Calc 135.4 Estimated GFR > 60 Random Glucose 98 Calcium 8.7 Phosphorus 2.6 L Magnesium 1.7 Albumin 3.3 L Imaging Radiology Impressions: ITS Impressions Abdomen Ultrasound 04/14/23 15:48 IMPRESSION: Hepatic steatosis. Otherwise unremarkable right upper quadrant ultrasound. Chest X-Ray 04/14/23 21:11 IMPRESSION: 1. The endotracheal tube terminates at 4 cm above the diana. 2. The enteric tube terminates in the upper esophagus. Recommend advancement. 3. No acute cardiopulmonary findings. This critical result, specifically the abnormal positioning of the enteric tube, was discussed with Coral Romero NP at 04/14/2023 9:33 PM and it was ascertained that the content and urgency of the report was understood at the time of direct communication. Chest X-Ray 04/15/23 05:55 IMPRESSION: 1. Enteric tube side-port in the region of the gastroesophageal junction; consider advancement. 2. Endotracheal tube tip 1.5 cm above the diana. 3. Subsegmental left basilar atelectasis without additional consolidation. Chest X-Ray 04/15/23 22:10 IMPRESSION: 1. Endotracheal tube at 1.5 cm above the diana, similar to prior. 2. Stable mild blunting of the left lateral costophrenic angle with minimal left basilar subsegmental atelectasis. Medications Medications Current Medications Heparin Sodium (Porcine) (Heparin Sodium,Porcine 5,000 Unit/Ml Vial) 5,000 unit SUBCUT Q8H NAV Last Admin: 04/18/23 08:36 Dose: 5,000 unit Folic Acid 2 mg/ Sodium (Chloride) 50.4 mls @ 100.4 mls/hr IV DAILY [facility] Last Infusion: 04/18/23 08:07 Dose: Infused Thiamine HCl 300 mg/ Sodium (Chloride) 103 mls @ 208 mls/hr IV DAILY [facility] Last Infusion: 04/18/23 08:07 Dose: Infused Dexmedetomidine HCl (Precedex) 400 mcg in 100 mls @ 0 mls/hr IVCONT .Q0M [facility]; Protocol Last Titration: 04/18/23 09:30 Dose: 0 mcg/kg/hr, 0 mls/hr Potassium Phosphate (Kphos) 15 mmol in 250 mls @ 62.5 mls/hr IV ONCE ONE Stop: 04/18/23 09:59 Last Infusion: 04/18/23 09:44 Dose: Infused Ondansetron HCl (Ondansetron Hcl 4 Mg/2 Ml Vial) 4 mg IVPUSH Q8H PRN PRN Reason: Nausea and Vomiting Last Admin: 04/16/23 11:46 Dose: 4 mg Pharmacy Consult (Consult Rx Perform Med Rec) 1 each MISCELLANE ONCE PRN PRN Reason: Consult order Pharmacy Consult (Consult Rx Etoh Phenob Im/Po) 1 each MISCELLANE ONCE PRN; Protocol PRN Reason: Consult order Pharmacy Consult (Consult Rx Etoh Phenob Im/Po) 1 each MISCELLANE ONCE PRN; Protocol PRN Reason: Consult order Phenobarbital (Phenobarbital 15 Mg Tablet) 45 mg PO BID [facility]; Protocol Stop: 04/18/23 21:01 Last Admin: 04/18/23 08:37 Dose: 45 mg Phenobarbital (Phenobarbital 15 Mg Tablet) 15 mg PO BID [facility]; Protocol Stop: 04/20/23 21:01 Phenobarbital (Phenobarbital 15 Mg Tablet) 15 mg PO DAILY [facility]; Protocol Stop: 04/22/23 09:01 Sodium Chloride (0.9 % Sodium Chloride Flush 3 Ml Syringe) 3 ml IVFLUSH QSHIFT [facility] Last Admin: 04/18/23 07:36 Dose: 3 ml Allergies Allergies Allergy/AdvReac Type Severity Reaction Status Date / Time fish derived [FISH] Allergy Severe ANAPHYLAXIS Verified 04/14/23 23:43 sulfamethoxazole Allergy Severe ANAPHYLAXIS Verified 07/18/23 23:43 [From BACTRIM] trimethoprim [From BACTRIM] Allergy Severe ANAPHYLAXIS Verified 04/14/23 23:43 fish oil Allergy Unknown Unknown Verified 04/14/23 23:43 penicillin V Allergy Unknown Unknown Verified 04/14/23 23:43 Penicillins [PENICILLINS] Allergy Unknown ANAPHYLAXIS Verified 04/14/23 23:43 Sulfa (Sulfonamide Allergy Unknown Unknown Verified 04/14/23 23:43 Antibiotics) Assessment & Plan Assessment & Plan (1) Delirium tremens: Status: Acute Code(s): F10.931 - Alcohol use, unspecified with withdrawal delirium Plan Assessment: 57-year-old gentleman admitted with delirium tremens initially requiring propofol drip and ventilatory support. Plan: Neuro: Delirium tremens, on Precedex overnight. Now titrated off. Continues on phenobarbital protocol. Cardiac: No acute issues. Pulmonary: Acute hypoxic respiratory failure secondary to delirium tremens requiring ventilatory support. Extubated 04/16/2023. resolved. Renal: No acute issues. Endo: No acute issues. GI: No acute issues. ID: No acute issues Heme/Onc: No acute issues. Psych: No acute issues. Miscellaneous: No acute issues. Prophylaxis: Heparin Diet: regular Time Spent With Patient Time: Total time managing care of this patient today ____ minutes.
[2023-04-18] MEDS: propofoL 200 MG/20 ML VIAL 50 MG IVPUSH (10:24)
[2023-04-18] MEDS: dexmedeTOMIDidine HCL/NS 400 MCG/100 ML INFUS..BTL 19.86 MCG IVCONT ×2 (11:11→17:11)
--- NOTE | 2023-04-18 15:39 | MHC.RECOVRN ---
Chart reviewed. Plan to meet with pt tomorrow 04/19.
--- NOTE | 2023-04-18 18:35 | PC.NURSE ---
This am, precedex gtt paused from [id number] per MD Morales. Pt was calm and following commands while on, but then became agitated reporting hallucinations and attempting to get out of bed. MD at bedside. Precedex gtt restarted and titrated up, 50mg of propofol administered IVP by MD Morales at 1024. Precedex gtt titrated throughout the afternoon for fluctuating agitation.
[2023-04-18] MEDS: dexmedeTOMIDidine HCL/NS 400 MCG/100 ML INFUS..BTL 16.55 MCG IVCONT (22:35)
[2023-04-19] VITALS (28 sets, daily range): BP systolic 90–142; BP diastolic 56–101; PULSE 68–118; RESP 15–30; TEMP 35.8–37.1; O2SAT 92–97; BMI 21.8
[2023-04-19] MEDS: Heparin Sodium,Porcine 5,000 UNIT/ML VIAL 5000 UNIT SUBCUT ×3 (02:38→17:31)
[2023-04-19] MEDS: 0.9 % Sodium Chloride Flush 3 ML SYRINGE IVFLUSH ×3 (02:38→15:22)
[2023-04-19] MEDS: dexmedeTOMIDidine HCL/NS 400 MCG/100 ML INFUS..BTL 19.86 MCG IVCONT (03:09)
[2023-04-19] MEDS: Midazolam HCl/PF 2 MG/2 ML VIAL 1 MG IVPUSH (03:55)
[2023-04-19 05:22] LABS: MANUAL DIFF FLAG NO
[2023-04-19 05:25] LABS: Basophils Absolute Auto 0.1 X10*3/uL (0.0-0.2); Basophils Percent Auto 1.5 % (0-2); Eosinophils Absolute Auto 0.2 X10*3/uL (0.0-0.4); Eosinophils Percent Auto 3.1 % (0-4); Hematocrit 34.4 % (42.0-52.0); Hemoglobin 11.8 g/dl (14.0-18.0); Imm Gran Abs Auto 0.03 X10*3/uL (0.00-0.03); Imm Gran Pct Auto 0.6 % (0.0-0.4); Lymphocytes Absolute Auto 1.2 X10*3/uL (1.2-4.9); Lymphocytes Percent Auto 22.9 % (20-40); Mean Corpuscular HGB Conc 34.3 g/dl (31.0-36.0); Mean Corpuscular Hemoglobin 31.8 pg (27.0-33.0); Mean Corpuscular Volume 92.7 fL (80.0-98.0); Monocytes Percent Auto 18.7 % (2-11); Neutrophils Absolute Auto 2.9 x10*3/uL (2.0-8.3); Neutrophils Percent Auto 53.2 % (45-73); Platelet Count 268 X10*3/uL (160-400); Red Blood Count 3.71 X10*6/uL (4.60-5.80); Red Cell Distribution Width 10.9 % (11.0-16.0); White Blood Count 5.4 X10*3/uL (4.8-10.8)
[2023-04-19 05:41] LABS: Albumin Level 3.1 g/dL (3.5-5.0); Anion Gap 17 (12-20); Blood Urea Nitrogen 10 mg/dL (9-16); Calcium 8.8 mg/dL (8.4-10.2); Carbon Dioxide 23 mmol/L (22-29); Chloride 102 mmol/L (96-108); Creatinine Clr Calc Pharmacy 133.4; Estimated Glomerular Filt Rate > 60; Glucose Random 92 mg/dL (60-115); Magnesium 1.6 mg/dL (1.6-2.6); Phosphorus 3.3 mg/dL (2.7-4.5); Potassium 3.1 mmol/L (3.3-5.1); Sodium 139 mmol/L (135-145)
[2023-04-19] MEDS: dexmedeTOMIDidine HCL/NS 400 MCG/100 ML INFUS..BTL 24.83 MCG IVCONT (07:09)
[2023-04-19] MEDS: Potassium Chloride Packet 20 MEQ PACKET 40 MEQ PO (09:01)
[2023-04-19] MEDS: PHENobarbitaL 15 MG TABLET PO (09:02)
[2023-04-19] MEDS: Folic Acid 2 MG in 0.9 % Sodium Chloride 50 ML 100.4 MG IV (09:41)
--- NOTE | 2023-04-19 09:44 | PM.CCPN ---
Subjective Subjective Date of Service: 04/19/23 Interval History: 57-year-old gentleman with underlying history of heroin abuse in remission, alcohol dependence, admitted on 04/14/2023 with alcohol intoxication and early withdrawal requesting detoxification. Hospital course significant for escalating delirium tremens overdose requiring transfer to intensive care unit and initiation of Precedex drip. Patient with poor control of symptoms and Precedex drip requiring propofol drip with intubation and ventilatory support. Extubated 04/16/2023. Required Precedex drip again overnight. Now titrated off and reloaded with phenobarbital. Critical Care Time (minutes): 30 Physical Exam Vital Signs: Vital Signs: Last Vital Signs Temp 98.2 F 04/19/23 08:00 Pulse 68 04/19/23 08:50 Resp 22 H 04/19/23 08:50 BP 127/91 H 04/19/23 08:50 Pulse Ox 94 04/19/23 08:50 O2 Del Method Nasal Cannula 04/19/23 08:50 O2 Flow Rate 2 04/19/23 08:50 FiO2 30 04/16/23 10:05 BMI result Body Mass Index 21.8 Const: General: no acute distress, alert and awake Eyes: Sclerae: sclerae normal EOM: EOMs intact bilaterally Neck: Neck: Yes no lymphadenopathy, Yes trachea midline and Yes supple Resp: Effort & Inspection: normal respiratory effort and no respiratory distress Auscultation: clear to auscultation bilaterally Cardio: Rate: regular rate Rhythm: regular rhythm Heart sounds: no gallops, no murmurs and no rubs GI: Palpation (GI): Soft to palpation and Other GI palpation findings present ( Nontender) Auscultation: normal bowel sounds Extrem: General: Yes no pedal edema, No clubbing and No cyanosis Objective Data Labs 04/19/23 05:11 04/19/23 05:11 Labs: Laboratory Results - last 24 hr 04/19/23 04/19/23 05:11 05:11 WBC 5.4 RBC 3.71 L Hgb 11.8 L Hct 34.4 L MCV 92.7 MCH 31.8 MCHC 34.3 RDW 10.9 L Plt Count 268 MPV 10.0 Immature Gran % (Auto) 0.6 H Neut % (Auto) 53.2 Lymph % (Auto) 22.9 [place] % (Auto) 18.7 H Eos % (Auto) 3.1 Baso % (Auto) 1.5 Lymph # (Auto) 1.2 [place] # (Auto) 1.0 Eos # (Auto) 0.2 Baso # (Auto) 0.1 Abs Immat Gran (auto) 0.03 Absolute Neuts (auto) 2.9 Absolute Nucleated RBC 0.000 Nucleated RBC % (auto) 0.0 Sodium 139 Potassium 3.1 L Chloride 102 Carbon Dioxide 23 Anion Gap 17 BUN 10 Creatinine 0.59 Estim Creat Clear Calc 133.4 Estimated GFR > 60 Random Glucose 92 Calcium 8.8 Phosphorus 3.3 Magnesium 1.6 Albumin 3.1 L Microbiology Microbiology Results: Microbiology 04/15/23 22:02 Blood - Venous Blood Culture - Preliminary No growth after 48 hours. 04/15/23 22:02 Blood - Venous Blood Culture - Preliminary No growth after 48 hours. Progress Note: A&P Assessment and plan (1) Alcohol withdrawal syndrome: Status: Acute Plan Assessment: 57-year-old gentleman admitted with delirium tremens initially requiring propofol drip and ventilatory support. Plan: Neuro: Delirium tremens, on Precedex overnight. Now titrated off. Reloaded on phenobarbital protocol. Cardiac: No acute issues. Pulmonary: Acute hypoxic respiratory failure secondary to delirium tremens requiring ventilatory support. Extubated 04/16/2023. resolved. Renal: No acute issues. Endo: No acute issues. GI: No acute issues. ID: No acute issues Heme/Onc: No acute issues. Psych: No acute issues. Miscellaneous: No acute issues. Prophylaxis: Heparin Diet: regular Critical care time: 30 minutes Quality Stroke Does the patient have a stroke diagnosis?: No VTE Prior VTE?: No VTE Risk Level:: Medical - moderate - high VTE Device Contraindication: Treatment Not Indicated VTE Drug Contraindication: N/A - Med Ordered
[2023-04-19] MEDS: PHENobarbitaL sodium 130 MG/ML IM ONCE 226 MG IM (10:09)
[2023-04-19] MEDS: dexmedeTOMIDidine HCL/NS 400 MCG/100 ML INFUS..BTL IVCONT (12:03)
[2023-04-19] MEDS: PHENobarbitaL sodium 130 MG/ML VIAL IM Q3Hx2 170 MG IM ×2 (12:05→15:22)
--- NOTE | 2023-04-19 15:52 | MHC.RECOVRN ---
Met with pt in 252 to introduce self and provide support. Pt laying in bed, awake, alert, easily engages in conversation. At times makes nonsensical statements such as Is the smoke in here burning your eyes? Pt reports alcohol use, 6-9 nips whiskey daily x 40 years. Pt reports only days of abstinence were when he had colonoscopies. Pt reports being in recovery from opioids since 1992. Pt reports 3 ATS admission for opioids, 0 for alcohol. Pt reports I quit the game of drink. Pt is looking to achieve abstinence. T/w will continue to follow and provide pt with necessary resources and supports.
[2023-04-19] MEDS: OLANZapine 10 MG VIAL IM (23:02)
[2023-04-20] MEDS: 0.9 % Sodium Chloride Flush 3 ML SYRINGE IVFLUSH ×4 (01:55→22:20)
[2023-04-20] MEDS: Haloperidol Lactate 5 MG/ML VIAL IM (02:00)
--- NOTE | 2023-04-20 02:21 | PC.NURSE ---
CARE ASSUMED 23:15...REMAINS AWAKE..AGITATED...DISORIENTED TO PLACE/TIME...INTERMITTANTLY HALLUCINATING...CLIMBING OOB....PREVIOUSLY RECEIVED ZYPREXA IM AT 11PM PER SHIFT REPORT....PATIENT PREVIOUSLY RELOADED WITH PHENOBARBITOL IM PROTOCOL 04/19 IN ICU PER REPORT AND PRECIDEX DRIP WEANED OFF AT 04/19 APPROX 1PM PER MAR...REPEATEDLY CLIMBING OOB.. I'VE GOT TO TAKE THIS BAG TO MY FRIEND IN THE OTHER BUILDING! ...PICKING AT INVISIBLE OBJECTS...REGISTERED ASSOCIATE AWARE...NO 1:1 SITTER AVAILABLE...DR HURD UPDATED...HALDOL 5MG IM X1 GIVEN...TO MONITOR EFFECT...SINUS TACH HR 120'S WITH AGITATION..CURRENTLY S.TACH HR 106-108 POST-HALDOL...TELE-CAMERA REMAINS IN ROOM
[2023-04-20 03:42] VITALS: BP 123/82; PULSE 119; RESP 20; TEMP 37.1; O2SAT 98
[2023-04-20 06:26] LABS: MANUAL DIFF FLAG NO
[2023-04-20 06:30] LABS: Basophils Absolute Auto 0.1 X10*3/uL (0.0-0.2); Eosinophils Absolute Auto 0.1 X10*3/uL (0.0-0.4); Eosinophils Percent Auto 1.1 % (0-4); Hematocrit 38.3 % (42.0-52.0); Imm Gran Abs Auto 0.04 X10*3/uL (0.00-0.03); Imm Gran Pct Auto 0.6 % (0.0-0.4); Lymphocytes Absolute Auto 1.2 X10*3/uL (1.2-4.9); Lymphocytes Percent Auto 17.3 % (20-40); Mean Corpuscular HGB Conc 33.9 g/dl (31.0-36.0); Mean Corpuscular Hemoglobin 32.2 pg (27.0-33.0); Mean Corpuscular Volume 94.8 fL (80.0-98.0); Mean Platelet Volume 9.7 fL (9.4-12.4); Monocytes Absolute Auto 1.4 X10*3/uL (0.1-1.2); Monocytes Percent Auto 19.6 % (2-11); Neutrophils Absolute Auto 4.3 x10*3/uL (2.0-8.3); Neutrophils Percent Auto 60.4 % (45-73); Platelet Count 320 X10*3/uL (160-400); Red Blood Count 4.04 X10*6/uL (4.60-5.80); Red Cell Distribution Width 11.4 % (11.0-16.0); White Blood Count 7.2 X10*3/uL (4.8-10.8)
[2023-04-20 06:31] LABS: Venous Blood Gas Refer to POC result
[2023-04-20 06:32] LABS: VBG Base Excess 10.8 mmol/L; VBG HCO3 34 mmol/L (22-26); VBG pCO2 41 mmHg; VBG pH 7.52 (7.32-7.43); VBG pO2 40 mmHg
[2023-04-20 06:56] LABS: Albumin Level 3.4 g/dL (3.5-5.0); Anion Gap 16 (12-20); Blood Urea Nitrogen 8 mg/dL (9-16); Calcium 9.6 mg/dL (8.4-10.2); Carbon Dioxide 26 mmol/L (22-29); Chloride 102 mmol/L (96-108); Creatinine Clr Calc Pharmacy 120.4; Estimated Glomerular Filt Rate > 60; Glucose Random 104 mg/dL (60-115); Magnesium 1.5 mg/dL (1.6-2.6); Potassium 3.1 mmol/L (3.3-5.1); Sodium 141 mmol/L (135-145)
[2023-04-20 07:25] VITALS: BP 136/90; PULSE 98; RESP 20; TEMP 37.2; O2SAT 96
[2023-04-20] MEDS: Folic Acid 2 MG in 0.9 % Sodium Chloride 50 ML 100.4 MG IV (08:36)
[2023-04-20] MEDS: PHENobarbitaL 15 MG TABLET 45 MG PO ×2 (08:36→21:34)
[2023-04-20] MEDS: Heparin Sodium,Porcine 5,000 UNIT/ML VIAL 5000 UNIT SUBCUT ×2 (08:38→17:01)
--- NOTE | 2023-04-20 10:36 | MHC.CM.PN ---
Patient has not yet been medically cleared for dc (CIWA of 9 today); Patient may benefit from a PT eval to assist with disposition. CM will follow.
[2023-04-20 11:49] VITALS: BP 130/90; PULSE 101; RESP 22; TEMP 36.7; O2SAT 92
--- NOTE | 2023-04-20 12:08 | P.PNIM_ITS ---
Subjective Subjective Date of Service: 04/20/23 Interval History: f/u onalcohol withdrawal, he was admitted for alcohol withdrawal and shortly after admission was transfer to ICU for intubation and precedex drip, he was transfer 04/19 and continues to be somehow confused, agitated. Physical Exam Vital Signs: Vital Signs: Last Vital Signs Temp 98.1 F 04/20/23 11:49 Pulse 101 H 04/20/23 11:49 Resp 22 H 04/20/23 11:49 BP 130/90 H 04/20/23 11:49 Pulse Ox 92 04/20/23 11:49 O2 Del Method Nasal Cannula 04/20/23 11:49 O2 Flow Rate 3 04/20/23 11:49 FiO2 30 04/16/23 10:05 BMI result Body Mass Index 21.8 Const: Other: General: alert, some conusio, anxious Resp: CTA bilateral CVS: S1,S2,RRR GI: +BS, NT, no distention Skin: No rash Neuro: motor grossly intact Psych: appropriate affect Objective Data Active Medications Artificial Tears (Artificial Tears 15 Ml Drops) 2 drop EYE-BOTH Q4H PRN PRN Reason: eye pain Heparin Sodium (Porcine) (Heparin Sodium,Porcine 5,000 Unit/Ml Vial) 5,000 unit SUBCUT Q8H [facility] Last Admin: 04/20/23 08:38 Dose: 5,000 unit Documented By: LISANDRA Folic Acid 2 mg/ Sodium (Chloride) 50.4 mls @ 100.4 mls/hr IV DAILY [facility] Last Infusion: 04/20/23 09:28 Dose: 0 mls/hr Documented By: LISANDRA Thiamine HCl 300 mg/ Sodium (Chloride) 103 mls @ 208 mls/hr IV DAILY [facility] Last Infusion: 04/20/23 09:28 Dose: 0 mls/hr Documented By: LISANDRA Ondansetron HCl (Ondansetron Hcl 4 Mg/2 Ml Vial) 4 mg IVPUSH Q8H PRN PRN Reason: Nausea and Vomiting Last Admin: 04/16/23 11:46 Dose: 4 mg Documented By: GIANFRANCO Pharmacy Consult (Consult Rx Perform Med Rec) 1 each MISCELLANE ONCE PRN PRN Reason: Consult order Pharmacy Consult (Consult Rx Etoh Phenob Im/Po) 1 each MISCELLANE ONCE PRN; Protocol PRN Reason: Consult order Pharmacy Consult (Consult Rx Etoh Phenob Im/Po) 1 each MISCELLANE ONCE PRN; Protocol PRN Reason: Consult order Pharmacy Consult (Consult Rx Etoh Phenob Im/Po) 1 each MISCELLANE ONCE PRN; Protocol PRN Reason: Consult order Phenobarbital (Phenobarbital 15 Mg Tablet) 45 mg PO BID [facility]; Protocol Stop: 04/21/23 21:01 Last Admin: 04/20/23 08:36 Dose: 45 mg Documented By: LISANDRA Phenobarbital (Phenobarbital 15 Mg Tablet) 15 mg PO BID [facility]; Protocol Stop: 04/23/23 21:01 Phenobarbital (Phenobarbital 15 Mg Tablet) 15 mg PO DAILY [facility]; Protocol Stop: 04/25/23 09:01 Sodium Chloride (0.9 % Sodium Chloride Flush 3 Ml Syringe) [facility] Last Admin: 04/20/23 08:36 Dose: 3 ml Documented By: LISANDRA Labs 04/20/23 06:22 04/20/23 06:22 Labs: Laboratory Results - last 24 hr 04/20/23 04/20/23 04/20/23 06:22 06:22 06:22 MCV 94.8 MCH 32.2 MCHC 33.9 RDW 11.4 Plt Count 320 MPV 9.7 Immature Gran % (Auto) 0.6 H Neut % (Auto) 60.4 Lymph % (Auto) 17.3 L [place] % (Auto) 19.6 H Eos % (Auto) 1.1 Baso % (Auto) 1.0 Lymph # (Auto) 1.2 [place] # (Auto) 1.4 H Eos # (Auto) 0.1 Baso # (Auto) 0.1 Abs Immat Gran (auto) 0.04 H Absolute Neuts (auto) 4.3 Absolute Nucleated RBC 0.000 Nucleated RBC % (auto) 0.0 VBG pH 7.52 H VBG pCO2 41 VBG pO2 40 VBG HCO3 34 H VBG O2 Saturation 69.0 VBG Base Excess 10.8 Anion Gap 16 Estim Creat Clear Calc 120.4 Estimated GFR > 60 Random Glucose 104 Calcium 9.6 D Phosphorus 4.0 Magnesium 1.5 L Albumin 3.4 L Assessment and Plan (1) Acute respiratory failure with hypoxia: Status: Acute (2) Hypokalemia: Status: Acute Plan 57-year-old male with history of GERD history remote heroin use in remission, and alcohol dependence admitted to alcohol dependence in active withdrawal. #Acute alcohol withdrawal, DTs needing to be intubated in ICU and required precedex drip, he's better but still has some level of withdrawal, continue close monitoring, continue Phenobarbital, addiction consult #Acute hypokalemia, oral potassium suplement and recheck #Acute hypomagnesemia- r/t etoh abuse, 1. 5 IV mag x 1 #Transaminitis, -suspect chronic r/t etoh abuse, neg hep b,c, US = fattly liver disease #GERD -continue ppi DVT prophylaxis- lovenox Full code need for inpatient: Active alcohol withdrawal, on phenobarbital and need closely monitoring Time Spent With Patient Time: Total time managing care of this patient today ____ minutes. Quality Stroke Does the patient have a stroke diagnosis?: No VTE Prior VTE?: No VTE Risk Level:: Medical - moderate - high VTE Device Contraindication: Treatment Not Indicated VTE Drug Contraindication: N/A - Med Ordered
[2023-04-20 15:04] VITALS: BP 120/89; PULSE 104; RESP 20; TEMP 36.3; O2SAT 95
[2023-04-20 19:17] VITALS: BP 122/86; PULSE 120; RESP 20; TEMP 36.3; O2SAT 96
[2023-04-20 23:03] VITALS: BP 126/83; PULSE 110; RESP 18; TEMP 37.6; O2SAT 97
[2023-04-21] MEDS: hydrOXYzine HCL 25 MG TABLET PO ×2 (02:29→12:23)
[2023-04-21 03:15] VITALS: BP 140/84; PULSE 118; RESP 20; TEMP 37.3; O2SAT 96
[2023-04-21 06:58] VITALS: BP 140/80; PULSE 119; RESP 18; TEMP 37; O2SAT 92
[2023-04-21] MEDS: Heparin Sodium,Porcine 5,000 UNIT/ML VIAL 5000 UNIT SUBCUT ×3 (09:28→22:12)
[2023-04-21] MEDS: PHENobarbitaL 15 MG TABLET 45 MG PO ×2 (09:29→22:11)
[2023-04-21] MEDS: 0.9 % Sodium Chloride Flush 3 ML SYRINGE IVFLUSH ×3 (09:29→22:11)
[2023-04-21] MEDS: Folic Acid 2 MG in 0.9 % Sodium Chloride 50 ML 100.4 MG IV (10:37)
[2023-04-21 10:59] VITALS: BP 147/69; PULSE 116; RESP 18; TEMP 37.3; O2SAT 99
[2023-04-21] MEDS: PHENobarbitaL sodium 130 MG/ML VIAL IM (11:43)
--- NOTE | 2023-04-21 13:32 | P.PNIM_ITS ---
Subjective Subjective Date of Service: 04/21/23 Interval History: Seen and evaluated this morning anxious and little agitated aware of his alcohol problem and withdrawal has a sitter at bedside no other overnight events Review of Systems Review of Systems: Yes all other systems are reviewed and are negative Physical Exam Vital Signs: Vital Signs: Last Vital Signs Temp 99.1 F 04/21/23 10:59 Pulse 116 H 04/21/23 10:59 Resp 18 04/21/23 10:59 BP 147/69 H 04/21/23 10:59 Pulse Ox 99 04/21/23 10:59 O2 Del Method Nasal Cannula 04/21/23 10:59 O2 Flow Rate 3 04/21/23 10:59 FiO2 30 04/16/23 10:05 BMI result Body Mass Index 21.8 Const: Other: Constitutional : Awake, interactive, anxious , Neck : Normal inspection, Supple Cardiovascular : RRR, no JVP, no lower extremity edema Respiratory : good bilateral air entry, no crackles, wheezes or rhonchi Gastrointestinal: soft, lax, Normal bowel sounds, Non tender Skin : Warm, Dry Neurological : Alert & oriented to self and place only, No focal deficit Objective Data Active Medications Artificial Tears (Artificial Tears 15 Ml Drops) 2 drop EYE-BOTH Q4H PRN PRN Reason: eye pain Heparin Sodium (Porcine) (Heparin Sodium,Porcine 5,000 Unit/Ml Vial) 5,000 unit SUBCUT Q8H [facility] Last Admin: 04/21/23 09:28 Dose: 5,000 unit Documented By: AMARI Hydroxyzine HCl (Hydroxyzine Hcl 25 Mg Tablet) 25 mg PO Q6H PRN PRN Reason: anxiety/restlessness Last Admin: 04/21/23 12:23 Dose: 25 mg Documented By: AMARI Folic Acid 2 mg/ Sodium (Chloride) 50.4 mls @ 100.4 mls/hr IV DAILY [facility] Last Infusion: 04/21/23 11:17 Dose: 0 mls/hr Documented By: AMARI Thiamine HCl 300 mg/ Sodium (Chloride) 103 mls @ 208 mls/hr IV DAILY [facility] Last Infusion: 04/21/23 10:40 Dose: 0 mls/hr Documented By: AMARI Ondansetron HCl (Ondansetron Hcl 4 Mg/2 Ml Vial) 4 mg IVPUSH Q8H PRN PRN Reason: Nausea and Vomiting Last Admin: 04/16/23 11:46 Dose: 4 mg Documented By: GIANFRANCO Pharmacy Consult (Consult Rx Perform Med Rec) 1 each MISCELLANE ONCE PRN PRN Reason: Consult order Pharmacy Consult (Consult Rx Etoh Phenob Im/Po) 1 each MISCELLANE ONCE PRN; Protocol PRN Reason: Consult order Pharmacy Consult (Consult Rx Etoh Phenob Im/Po) 1 each MISCELLANE ONCE PRN; P rotocol PRN Reason: Consult order Pharmacy Consult (Consult Rx Etoh Phenob Im/Po) 1 each MISCELLANE ONCE PRN; Protocol PRN Reason: Consult order Phenobarbital (Phenobarbital 15 Mg Tablet) 45 mg PO BID [facility]; Protocol Stop: 04/21/23 21:01 Last Admin: 04/21/23 09:29 Dose: 45 mg Documented By: AMARI Phenobarbital (Phenobarbital 15 Mg Tablet) 15 mg PO BID [facility]; Protocol Stop: 04/23/23 21:01 Phenobarbital (Phenobarbital 15 Mg Tablet) 15 mg PO DAILY [facility]; Protocol Stop: 04/25/23 09:01 Sodium Chloride (0.9 % Sodium Chloride Flush 3 Ml Syringe) 3 ml IVFLUSH QSHIFT [facility] Last Admin: 04/21/23 09:29 Dose: 3 ml Documented By: AMARI Labs 04/20/23 06:22 04/20/23 06:22 Microbiology Microbiology Results: Microbiology 04/15/23 22:02 Blood Culture - Final Blood - Venous No growth after 5 days. 04/15/23 22:02 Blood Culture - Final Blood - Venous No growth after 5 days. Assessment and Plan (1) Hypokalemia: Status: Acute (2) Hypomagnesemia: Status: Acute (3) Delirium tremens: Status: Acute (4) Alcohol withdrawal syndrome: Status: Acute Plan 57-year-old male with history of GERD history remote heroin use in remission, and alcohol dependence admitted to alcohol dependence in active withdrawal. #Acute alcohol withdrawal, Had DTs needing to be intubated in ICU and required precedex drip still has some level of withdrawal, scoring 12-16 on CIWA continue close monitoring, continue Phenobarbital, extra dose today PRN Atarax Haldol if agitated addiction consult #Acute hypokalemia oral potassium suplement and recheck #Acute hypomagnesemia r/t etoh abuse, IV mag replacement #Transaminitis suspect chronic r/t etoh abuse, neg hep b,c, US = fattly liver disease #GERD continue ppi DVT prophylaxis lovenox need for inpatient: Active alcohol withdrawal, on phenobarbital and need closely monitoring Time Spent With Patient Time: Total time managing care of this patient today ____ minutes. Quality Stroke Does the patient have a stroke diagnosis?: No VTE Prior VTE?: No VTE Risk Level:: Medical - moderate - high VTE Device Contraindication: Treatment Not Indicated VTE Drug Contraindication: N/A - Med Ordered
[2023-04-21 15:54] VITALS: BP 122/96; PULSE 109; RESP 20; TEMP 37.6; O2SAT 93
[2023-04-21 19:15] VITALS: BP 113/83; PULSE 115; RESP 20; TEMP 36.1; O2SAT 94
[2023-04-21 23:32] VITALS: BP 133/97; PULSE 107; RESP 15; TEMP 36.9; O2SAT 94
[2023-04-22 03:17] VITALS: BP 131/93; PULSE 106; RESP 17; TEMP 36.9; O2SAT 96
[2023-04-22 07:11] VITALS: BP 123/85; PULSE 112; RESP 20; TEMP 36.7; O2SAT 94
[2023-04-22 08:44] LABS: Anion Gap 16 (12-20); Blood Urea Nitrogen 9 mg/dL (9-16); Calcium 9.4 mg/dL (8.4-10.2); Carbon Dioxide 29 mmol/L (22-29); Chloride 98 mmol/L (96-108); Creatinine Clr Calc Pharmacy 128.3; Estimated Glomerular Filt Rate > 60; Glucose Random 97 mg/dL (60-115); Potassium 2.8 mmol/L (3.3-5.1); Sodium 140 mmol/L (135-145)
[2023-04-22] MEDS: Thiamine HCL 100 MG TABLET 200 MG PO (09:11)
[2023-04-22] MEDS: Folic Acid 1 MG TABLET PO (09:11)
[2023-04-22] MEDS: Heparin Sodium,Porcine 5,000 UNIT/ML VIAL 5000 UNIT SUBCUT ×2 (09:12→18:49)
[2023-04-22] MEDS: PHENobarbitaL 15 MG TABLET PO ×2 (09:12→20:02)
[2023-04-22] MEDS: 0.9 % Sodium Chloride Flush 3 ML SYRINGE IVFLUSH ×2 (09:12→15:56)
[2023-04-22 12:00] VITALS: BP 115/79; PULSE 125; RESP 20; TEMP 37.1; O2SAT 96
[2023-04-22] MEDS: Potassium Chloride Packet 20 MEQ PACKET 40 MEQ PO (12:05)
[2023-04-22] MEDS: Potassium Chloride/H20 10 MEQ/100 ML PIGGYBACK 100 MEQ IV ×2 (12:06→14:18)
[2023-04-22 12:18] LABS: Anion Gap 13 (12-20); Blood Urea Nitrogen 10 mg/dL (9-16); Calcium 9.1 mg/dL (8.4-10.2); Carbon Dioxide 34 mmol/L (22-29); Chloride 96 mmol/L (96-108); Creatinine Clr Calc Pharmacy 111.8; Estimated Glomerular Filt Rate > 60; Glucose Random 132 mg/dL (60-115); Potassium 3.1 mmol/L (3.3-5.1); Sodium 140 mmol/L (135-145)
--- NOTE | 2023-04-22 12:46 | MHC.RECOVRN ---
Met with pt in 468 to follow up and provide support. Pt sitting in chair, awake, alert, easily engages in conversation but has difficulty staying on topic. Pt unsure of where he is, believes it to be [place] or [place]. Pt reoriented. Pt reports in 1992, when he ceased opioid use, he found seeing a psychiatrist most helpful. Pt reports he was diagnosed with OCD and managing that was crucial in regards to substance use. Pt reports currently seeing a psychiatrist weekly. When asked where, pt states none of your business. Discussed other recovery supports, pt is not interested at this time. Pt aware Recovery Team is available if he becomes interested. Denies other questions or concerns.
--- NOTE | 2023-04-22 13:14 | P.PNIM_ITS ---
Subjective Subjective Date of Service: 04/22/23 Interval History: Seen and evaluated this morning still mildly anxious and little agitated trying to jump off the bed overnight and has a sitter at bedside aware of his alcohol problem and withdrawal no other overnight events Review of Systems Review of Systems: Yes all other systems are reviewed and are negative Physical Exam Vital Signs: Vital Signs: Last Vital Signs Temp 98.8 F 04/22/23 12:00 Pulse 125 H 04/22/23 12:00 Resp 20 04/22/23 12:00 BP 115/79 04/22/23 12:00 Pulse Ox 96 04/22/23 12:00 O2 Del Method Room Air 04/22/23 12:00 O2 Flow Rate 1 04/22/23 03:17 FiO2 30 04/16/23 10:05 BMI result Body Mass Index 21.8 Const: Other: Constitutional : Awake, interactive, anxious , Neck : Normal inspection, Supple Cardiovascular : RRR, no JVP, no lower extremity edema Respiratory : good bilateral air entry, no crackles, wheezes or rhonchi Gastrointestinal: soft, lax, Normal bowel sounds, Non tender Skin : Warm, Dry Neurological : Alert & oriented to self and place only, No focal deficit Objective Data Active Medications Artificial Tears (Artificial Tears 15 Ml Drops) 2 drop EYE-BOTH Q4H PRN PRN Reason: eye pain Folic Acid (Folic Acid 1 Mg Tablet) 1 mg PO DAILY [facility] Last Admin: 04/22/23 09:11 Dose: 1 mg Documented By: SUYAPA Haloperidol Lactate (Haloperidol Lactate 5 Mg/Ml Vial) 2.5 mg IM ONCE PRN PRN Reason: anxiety/restlessness Heparin Sodium (Porcine) (Heparin Sodium,Porcine 5,000 Unit/Ml Vial) 5,000 unit SUBCUT Q8H [facility] Last Admin: 04/22/23 09:12 Dose: 5,000 unit Documented By: SUYAPA Hydroxyzine HCl (Hydroxyzine Hcl 25 Mg Tablet) 25 mg PO Q6H PRN PRN Reason: anxiety/restlessness Last Admin: 04/21/23 12:23 Dose: 25 mg Documented By: AMARI Ondansetron HCl (Ondansetron Hcl 4 Mg/2 Ml Vial) 4 mg IVPUSH Q8H PRN PRN Reason: Nausea and Vomiting Last Admin: 04/16/23 11:46 Dose: 4 mg Documented By: GIANFRANCO Pharmacy Consult (Consult Rx Perform Med Rec) 1 each MISCELLANE ONCE PRN PRN Reason: Consult order Pharmacy Consult (Consult Rx Etoh Phenob Im/Po) 1 each MISCELLANE ONCE PRN; Protocol PRN Reason: Consult order Pharmacy Consult (Consult Rx Etoh Phenob Im/Po) 1 each MISCELLANE ONCE PRN; Protocol PRN Reason: Consult order Pharmacy Consult (Consult Rx Etoh Phenob Im/Po) 1 each MISCELLANE ONCE PRN; Protocol PRN Reason: Consult order Phenobarbital (Phenobarbital 15 Mg Tablet) 15 mg PO BID [facility]; Protocol Stop: 04/23/23 21:01 Last Admin: 04/22/23 09:12 Dose: 15 mg Documented By: SUYAPA Phenobarbital (Phenobarbital 15 Mg Tablet) 15 mg PO DAILY [facility]; Protocol Stop: 04/25/23 09:01 Sodium Chloride (0.9 % Sodium Chloride Flush 3 Ml Syringe) 3 ml IVFLUSH QSHIFT [facility] Last Admin: 04/22/23 09:12 Dose: 3 ml Documented By: SUYAPA Thiamine HCl (Thiamine Hcl 100 Mg Tablet) 200 mg PO DAILY [facility] Last Admin: 04/22/23 09:11 Dose: 200 mg Documented By: SUYAPA Labs 04/20/23 06:22 04/22/23 11:42 Labs: Laboratory Results - last 24 hr 04/22/23 04/22/23 07:17 11:42 Anion Gap 16 13 Estim Creat Clear Calc 128.3 111.8 Estimated GFR > 60 > 60 Random Glucose 97 132 H Calcium 9.4 9.1 Assessment and Plan (1) Acute respiratory failure with hypoxia: Status: Acute (2) Hypokalemia: Status: Acute (3) Hypomagnesemia: Status: Acute (4) Delirium tremens: Status: Acute (5) Alcohol withdrawal syndrome: Status: Acute (6) Transaminitis: Status: Acute Plan 57-year-old male with history of GERD history remote heroin use in remission, and alcohol dependence admitted to alcohol dependence in active withdrawal. #Acute alcohol withdrawal, Had DTs needing to be intubated in ICU and required precedex drip still has some level of withdrawal, scoring >10 on CIWA continue close monitoring, continue Phenobarbital, PRN Atarax Haldol if agitated, Seroquel bedtime addiction consult #Acute hypokalemia oral potassium suplement and recheck #Acute hypomagnesemia r/t etoh abuse, IV mag replacement #Transaminitis suspect chronic r/t etoh abuse, neg hep b,c, US = fattly liver disease # Physical deconditioning PT rec STR #GERD continue ppi DVT prophylaxis lovenox need for inpatient: Active alcohol withdrawal, on phenobarbital and need closely monitoring with safe discharge plan Time Spent With Patient Time: Total time managing care of this patient today ____ minutes. Quality Stroke Does the patient have a stroke diagnosis?: No VTE Prior VTE?: No VTE Risk Level:: Medical - moderate - high VTE Device Contraindication: Treatment Not Indicated VTE Drug Contraindication: N/A - Med Ordered
[2023-04-22 15:06] VITALS: BP 128/80; PULSE 106; RESP 20; TEMP 36.8; O2SAT 93
--- NOTE | 2023-04-22 15:48 | MHC.CM.PN ---
EMR reviewed and per MD rounds, pt not medically cleared for D/C today, pt was pending PT eval. PT evaluated and recommendations given for STR. Referrals placed and [facility] following. CM will continue to follow.
[2023-04-22] MEDS: Acetaminophen 325 MG TABLET 975 MG PO (17:10)
[2023-04-22 19:21] VITALS: BP 117/79; PULSE 107; RESP 20; TEMP 36.3; O2SAT 93
[2023-04-22] MEDS: QUEtiapine Fumarate 25 MG TABLET PO (20:02)
[2023-04-22 23:50] VITALS: BP 141/90; PULSE 125; RESP 17; TEMP 36.9; O2SAT 93
[2023-04-23] VITALS (10 sets, daily range): BP systolic 112–147; BP diastolic 53–89; PULSE 57–113; RESP 16–20; TEMP 35.9–38.2; O2SAT 92–97
[2023-04-23] MEDS: 0.9 % Sodium Chloride Flush 3 ML SYRINGE IVFLUSH ×3 (01:19→20:12)
[2023-04-23] MEDS: Heparin Sodium,Porcine 5,000 UNIT/ML VIAL 5000 UNIT SUBCUT ×3 (01:19→16:44)
[2023-04-23] MEDS: Folic Acid 1 MG TABLET PO (07:50)
[2023-04-23] MEDS: Thiamine HCL 100 MG TABLET 200 MG PO (07:50)
[2023-04-23] MEDS: PHENobarbitaL 15 MG TABLET PO ×2 (07:51→20:11)
[2023-04-23 08:26] LABS: Anion Gap 16 (12-20); Blood Urea Nitrogen 9 mg/dL (9-16); Calcium 9.4 mg/dL (8.4-10.2); Carbon Dioxide 24 mmol/L (22-29); Chloride 99 mmol/L (96-108); Creatinine Clr Calc Pharmacy 128.3; Estimated Glomerular Filt Rate > 60; Glucose Random 121 mg/dL (60-115); Potassium 3.1 mmol/L (3.3-5.1); Sodium 136 mmol/L (135-145)
[2023-04-23] MEDS: Propranolol HCL 20 MG TABLET PO ×2 (11:17→20:11)
[2023-04-23] MEDS: Acetaminophen 325 MG TABLET 975 MG PO ×2 (15:01→23:04)
--- NOTE | 2023-04-23 15:05 | PC.NURSE ---
MD Ye made aware via tiger text of pts temp of 100.7 and wet sounding cough.LS dim, (pt will not take deep breaths), o2 93% on room air. PRN Tylenol given.
--- NOTE | 2023-04-23 15:50 | P.PNIM_ITS ---
Subjective Subjective Date of Service: 04/23/23 Interval History: Seen and evaluated this morning mildly anxious and little agitated but sitting comfortable in his bed reporting tremors no other overnight events Review of Systems Review of Systems: Yes all other systems are reviewed and are negative Physical Exam Vital Signs: Vital Signs: Last Vital Signs Temp 97.4 F 04/23/23 15:12 Pulse 106 H 04/23/23 15:12 Resp 18 04/23/23 15:12 BP 118/81 04/23/23 15:12 Pulse Ox 92 04/23/23 15:12 O2 Del Method Room Air 04/23/23 15:12 O2 Flow Rate 1 04/22/23 03:17 FiO2 30 04/16/23 10:05 BMI result Body Mass Index 21.8 Const: Other: Constitutional : Awake, interactive, anxious , Neck : Normal inspection, Supple Cardiovascular : RRR, no JVP, no lower extremity edema Respiratory : good bilateral air entry, no crackles, wheezes or rhonchi Gastrointestinal: soft, lax, Normal bowel sounds, Non tender Skin : Warm, Dry Neurological : Alert & oriented to self and place only, No focal deficit , intentional tremors Objective Data Active Medications Acetaminophen (Acetaminophen 325 Mg Tablet) 975 mg PO Q6H PRN PRN Reason: Pain, Mild (Pain Scale 1-3) Last Admin: 04/23/23 15:01 Dose: 975 mg Documented By: LALA Artificial Tears (Artificial Tears 15 Ml Drops) 2 drop EYE-BOTH Q4H PRN PRN Reason: eye pain Folic Acid (Folic Acid 1 Mg Tablet) 1 mg PO DAILY [facility] Last Admin: 04/23/23 07:50 Dose: 1 mg Documented By: LALA Heparin Sodium (Porcine) (Heparin Sodium,Porcine 5,000 Unit/Ml Vial) 5,000 unit SUBCUT Q8H [facility] Last Admin: 04/23/23 07:51 Dose: 5,000 unit Documented By: LALA Hydroxyzine HCl (Hydroxyzine Hcl 25 Mg Tablet) 25 mg PO Q6H PRN PRN Reason: anxiety/restlessness Last Admin: 04/21/23 12:23 Dose: 25 mg Documented By: AMARI Doxycycline Hyclate 100 mg/ (Sodium Chloride) 250 mls @ 166.67 mls/hr IV Q12H S Ceftriaxone Sodium 1 gm/ (Sodium Chloride) 50 mls @ 100 mls/hr IV Q24H [facility] Ondansetron HCl (Ondansetron Hcl 4 Mg/2 Ml Vial) 4 mg IVPUSH Q8H PRN PRN Reason: Nausea and Vomiting Last Admin: 04/16/23 11:46 Dose: 4 mg Documented By: GIANFRANCO Pharmacy Consult (Consult Rx Perform Med Rec) 1 each MISCELLANE ONCE PRN PRN Reason: Consult order Pharmacy Consult (Consult Rx Etoh Phenob Im/Po) 1 each MISCELLANE ONCE PRN; Protocol PRN Reason: Consult order Pharmacy Consult (Consult Rx Etoh Phenob Im/Po) 1 each MISCELLANE ONCE PRN; Protocol PRN Reason: Consult order Pharmacy Consult (Consult Rx Etoh Phenob Im/Po) 1 each MISCELLANE ONCE PRN; Protocol PRN Reason: Consult order Phenobarbital (Phenobarbital 15 Mg Tablet) 15 mg PO BID [facility]; Protocol Stop: 04/23/23 21:01 Last Admin: 04/23/23 07:51 Dose: 15 mg Documented By: LALA Phenobarbital (Phenobarbital 15 Mg Tablet) 15 mg PO DAILY [facility]; Protocol Stop: 04/25/23 09:01 Propranolol HCl (Propranolol Hcl 20 Mg Tablet) 20 mg PO BID [facility]; Protocol Last Admin: 04/23/23 11:17 Dose: 20 mg Documented By: LALA Quetiapine Fumarate (Quetiapine Fumarate 25 Mg Tablet) 25 mg PO BEDTIME [facility] Last Admin: 04/22/23 20:02 Dose: 25 mg Documented By: CHANG Sodium Chloride (0.9 % Sodium Chloride Flush 3 Ml Syringe) 3 ml IVFLUSH QSHIFT [facility] Last Admin: 04/23/23 07:51 Dose: 3 ml Documented By: LALA Thiamine HCl (Thiamine Hcl 100 Mg Tablet) 200 mg PO DAILY [facility] Last Admin: 04/23/23 07:50 Dose: 200 mg Documented By: LALA Labs 04/20/23 06:22 04/23/23 07:02 Labs: Laboratory Results - last 24 hr 04/23/23 07:02 Anion Gap 16 Estim Creat Clear Calc 128.3 Estimated GFR > 60 Random Glucose 121 H Calcium 9.4 Assessment and Plan (1) Hypokalemia: Status: Acute (2) Hypomagnesemia: Status: Acute (3) Delirium tremens: Status: Acute (4) Alcohol withdrawal syndrome: Status: Acute Plan 57-year-old male with history of GERD history remote heroin use in remission, and alcohol dependence admitted to alcohol dependence in active withdrawal. # Fever Not septic Check CXR and UA likely aspirated given new cough Start Doxy and Ceftriaxone Monitor response #Acute alcohol withdrawal, Had DTs needing to be intubated in ICU and required precedex drip scoring less on CIWA of 8 continue close monitoring continue Phenobarbital protocol PRN Atarax Seroquel bedtime addiction consult #Acute hypokalemia oral potassium suplement and recheck #Acute hypomagnesemia r/t etoh abuse, IV mag replacement #Transaminitis suspect chronic r/t etoh abuse neg hep b,c, US showed fattly liver disease # Physical deconditioning PT rec STR # Intentional tremor likely from chronic alcoholism\possible essential tremor try Propranolol and monitor response #GERD continue ppi DVT prophylaxis lovenox need for inpatient: Active alcohol withdrawal, on phenobarbital and need closely monitoring with safe discharge plan Time Spent With Patient Time: Total time managing care of this patient today ____ minutes. Quality Stroke Does the patient have a stroke diagnosis?: No VTE Prior VTE?: No VTE Risk Level:: Medical - moderate - high VTE Device Contraindication: Treatment Not Indicated VTE Drug Contraindication: N/A - Med Ordered
[2023-04-23] MEDS: cefTRIAXone sodium 1 GM in 0.9 % Sodium Chloride 50 ML IV (15:51)
--- NOTE | 2023-04-23 15:56 | MHC.CM.PN ---
[facility], [place] offered bed and went for auth. Auth obtained and facility requested he be transported there tomorrow at 11am. Transportation set up via [facility] for 11am tomorrow. Hospitalist aware of plan. CM will continue to follow for D/C.
[2023-04-23] MEDS: Doxycycline Hyclate 100 MG in 0.9 % Sodium Chloride 250 ML 166.67 MG IV (16:28)
[2023-04-23] MEDS: QUEtiapine Fumarate 25 MG TABLET PO (20:11)
[2023-04-23] MEDS: hydrOXYzine HCL 25 MG TABLET PO (23:04)
[2023-04-24] MEDS: Heparin Sodium,Porcine 5,000 UNIT/ML VIAL 5000 UNIT SUBCUT ×2 (02:54→09:24)
[2023-04-24] MEDS: Doxycycline Hyclate 100 MG in 0.9 % Sodium Chloride 250 ML 166.67 MG IV (02:54)
[2023-04-24 03:11] VITALS: BP 135/81; PULSE 97; RESP 18; TEMP 37.1; O2SAT 93
[2023-04-24] MEDS: Acetaminophen 325 MG TABLET 975 MG PO (06:11)
[2023-04-24 07:38] VITALS: BP 132/94; PULSE 98; RESP 16; TEMP 36.4; O2SAT 93
[2023-04-24 08:18] LABS: Hematocrit 35.4 % (42.0-52.0); Hemoglobin 11.8 g/dl (14.0-18.0); Mean Corpuscular HGB Conc 33.3 g/dl (31.0-36.0); Mean Corpuscular Hemoglobin 31.9 pg (27.0-33.0); Mean Corpuscular Volume 95.7 fL (80.0-98.0); Mean Platelet Volume 10.4 fL (9.4-12.4); Platelet Count 456 X10*3/uL (160-400); Red Cell Distribution Width 11.5 % (11.0-16.0); White Blood Count 11.8 X10*3/uL (4.8-10.8)
[2023-04-24 08:34] LABS: Anion Gap 18 (12-20); Blood Urea Nitrogen 13 mg/dL (9-16); Calcium 9.5 mg/dL (8.4-10.2); Carbon Dioxide 23 mmol/L (22-29); Chloride 100 mmol/L (96-108); Creatinine Clr Calc Pharmacy 134.9; Estimated Glomerular Filt Rate > 60; Glucose Random 97 mg/dL (60-115); Potassium 2.7 mmol/L (3.3-5.1); Sodium 138 mmol/L (135-145)
[2023-04-24] MEDS: Propranolol HCL 20 MG TABLET PO (09:22)
[2023-04-24] MEDS: Folic Acid 1 MG TABLET PO (09:22)
[2023-04-24] MEDS: PHENobarbitaL 15 MG TABLET PO (09:22)
[2023-04-24] MEDS: Potassium Chloride Packet 20 MEQ PACKET 40 MEQ PO ×2 (09:23→12:36)
[2023-04-24] MEDS: Thiamine HCL 100 MG TABLET 200 MG PO (09:23)
[2023-04-24] MEDS: Potassium Chloride/H20 10 MEQ/100 ML PIGGYBACK 100 MEQ IV ×2 (09:24→10:49)
[2023-04-24 09:58] LABS: Magnesium 1.7 mg/dL (1.6-2.6)
[2023-04-24] MEDS: Magnesium Sulfate/H2O 2 GM/50 ML PIGGYBACK IV (10:27)
[2023-04-24] MEDS: 0.9 % Sodium Chloride Flush 3 ML SYRINGE IVFLUSH (10:49)
--- NOTE | 2023-04-24 11:10 | PM.DS ---
DS: Providers Provider Date of Service: 04/24/23 Date of admission: 04/14/23 15:08 Primary care physician: Livia Saldivar CNP Consults: 04/14/23 09:30 Consult to Care Team Stat Comment: Reason for consultation: etoh abuse requesting detox 04/14/23 15:08 Addiction Medicine Routine Consulting Provider: Addiction Covering Reason for consultation: etoh dependence, desires detox 04/20/23 14:18 Consult for Sitter Routine Reason for consultation: agitation, high fall risk Has provider been notified: Yes DS: Diagnosis Discharge Diagnosis (1) Hypokalemia: Status: Acute (2) Hypomagnesemia: Status: Acute (3) Delirium tremens: Status: Acute (4) Alcohol withdrawal syndrome: Status: Acute (5) Acute respiratory failure with hypoxia: Status: Acute DS: Summary Hospital Course Hospital Course: The patient has prolonged hospital stay. For full details please return to EMR. Admission note HPI 57-year-old male with history of GERD history remote heroin use in remission, and alcohol dependence presents to the ED earlier today in acute alcohol withdrawal desiring detox.? The patient states he has been a heavy drinker for the last 40+ years but has been trying to cut back.? He currently drinks 1/2 pint of hard liquor and occasionally a beer as well on nightly basis but was previously drinking 1 pint nightly.? Because of his intoxication, he has had 3 falls in the last few weeks though denies head injury or loss of consciousness.? However has bruises covering the lower legs bilaterally.? He is a regular marijuana user and states he has medical card but denies any ongoing illicit drug use.? He does not smoke cigarettes. On arrival, patient tachycardic to 121, tachypneic to 26 and slightly hypertensive at 144/101.? There is no leukocytosis.? He has mild normocytic anemia with H/H 13.2/38.0%.? Platelets 167.? Renal function normal.? Sodium 140, potassium 2.5, magnesium level pending, chloride 87, CO2 35.? Total bilirubin 1.2, AST 175, ALT 131, albumin 4.5.? Urine tox screen positive for marijuana.? Ethyl alcohol level undetectable.? Negative for COVID-19.? EKG shows normal sinus rhythm with sinus tachycardia, rate 118 without any significant t wave abnormality. In the ED, potassium repleted orally with 40meq KCl, given 1L IV NS, 1mg folic acid, toal 4mg PO ativan, and 100mg PO thiamine. He will be started on phenobarbitol per protocol. He is currently tremulous with mild headache and anxious/aggitated. Hospital course The patient was admitted primarily for alcohol withdrawal. deteriorated physically and mentally developing delerium tremens the first night requiring ICU admission and intubation 04/14 while he was placed on Precedex drip with fair response as he was extubated 04/16. Started on phenobarbital protocol and PRN atarax with improvement of his mentation,delerium and confusion. Sitter was taken of the room for at least 24 hours prior to discharge with no reported concerns. he still shows symptoms of short term memory problem, gait problem and was treated with IV then PO Thiamin and folic acid. will benefit from a follow up with neurology as outpatient within the next 4 weeks. Spiked a fever with related cough. CXR did not show any significant infiltrates but was covered with antibiotics for possible aspiration. will finish 1 week of antibiotics at time of discharge. Developed electrolytes imbalance with low potassium and Magnesium. both replaced with good result. To follow up with neurology as outpatient. Finish antibiotics treatment for likely pneumonia Continue Folic acid and Thiamin supplement PRopranolol for tremor control Atarax as needed for anxiety\restlessness Patient needs less than 30 days in nursing facility. Time Spent with Patient Time attestation: Total time managing care of this patient today ____ minutes. Discharge coordination time: Greater than 30 minutes Quality: Safe Use of Opioids Does Pt have an Active Cancer Diagnosis on the Problem List?: No Quality: Stroke Does the patient have a stroke diagnosis?: No Physical Exam Vital Signs: Vital Signs: Last Vital Signs Temp 97.6 F 04/24/23 07:38 Pulse 98 04/24/23 07:38 Resp 16 04/24/23 07:38 BP 132/94 H 04/24/23 07:38 Pulse Ox 93 04/24/23 07:38 O2 Del Method Room Air 04/24/23 07:38 O2 Flow Rate 1 04/22/23 03:17 FiO2 30 04/16/23 10:05 BMI result Body Mass Index 21.8 Const: Other: Constitutional : Awake, interactive, not in distress Neck : Normal inspection, Supple Cardiovascular : RRR, no JVP, no lower extremity edema Respiratory : good bilateral air entry, no crackles, wheezes or rhonchi Gastrointestinal: soft, lax, Normal bowel sounds, Non tender Skin : Warm, Dry Neurological : Alert & oriented to self and place , No focal deficit ,less intentional tremors DS: Data Data Completed and Pending Labs on day of discharge: Laboratory Results - last 24 hr 04/24/23 04/24/23 07:27 07:27 WBC 11.8 H RBC 3.70 L Hgb 11.8 L Hct 35.4 L MCV 95.7 MCH 31.9 MCHC 33.3 RDW 11.5 Plt Count 456 H D MPV 10.4 Absolute Nucleated RBC 0.000 Nucleated RBC % (auto) 0.0 Sodium 138 Potassium 2.7 L Chloride 100 Carbon Dioxide 23 Anion Gap 18 BUN 13 Creatinine 0.58 Estim Creat Clear Calc 134.9 Estimated GFR > 60 Random Glucose 97 Calcium 9.5 Magnesium 1.7 Imaging Chest x-ray: Radiologist's impression: ITS Impressions Abdomen Ultrasound 04/14/23 15:48 IMPRESSION: Hepatic steatosis. Otherwise unremarkable right upper quadrant ultrasound. Chest X-Ray 04/14/23 21:11 IMPRESSION: 1. The endotracheal tube terminates at 4 cm above the diana. 2. The enteric tube terminates in the upper esophagus. Recommend advancement. 3. No acute cardiopulmonary findings. This critical result, specifically the abnormal positioning of the enteric tube, was discussed with Coral Romero NP at 04/14/2023 9:33 PM and it was ascertained that the content and urgency of the report was understood at the time of direct communication. Chest X-Ray 04/15/23 05:55 IMPRESSION: 1. Enteric tube side-port in the region of the gastroesophageal junction; consider advancement. 2. Endotracheal tube tip 1.5 cm above the diana. 3. Subsegmental left basilar atelectasis without additional consolidation. Chest X-Ray 04/15/23 22:10 IMPRESSION: 1. Endotracheal tube at 1.5 cm above the diana, similar to prior. 2. Stable mild blunting of the left lateral costophrenic angle with minimal left basilar subsegmental atelectasis. Chest X-Ray 04/22/23 11:00 IMPRESSION: 1. Interval extubation. 2. Interval removal of enteric tube. 3. Improvement in left pleural effusion. Chest X-Ray 04/23/23 15:35 IMPRESSION: No acute cardiopulmonary process. Discharge Plan Discharge Anticipated Discharge Date/Time: 04/24/23 11:02 Patient Disposition: Xfer SNF Discharge Diagnosis: Alcohol withdrawal Delirium Tremens Electrolytes imbalance Referrals: [facility] [Outside] - 1 Week Livia Saldivar CNP [Primary Care Provider] - 1 Week Discharge Medications: New folic acid 1 mg Tablet 1 mg PO DAILY Qty: 30 0RF hydroxyzine HCl 25 mg Tablet 25 mg PO Q6H PRN (Reason: Anxiety/Restlessness) Qty: 60 0RF propranolol 20 mg Tablet 20 mg PO BID Qty: 60 0RF Protocol: Hold for SBP/HR < HOLD for SBP < : 90 HOLD for HR < : 60 thiamine mononitrate (vit B1) 100 mg Tablet 200 mg PO DAILY Qty: 60 0RF doxycycline monohydrate 100 mg capsule 100 mg PO BID Qty: 10 0RF cefuroxime axetil 500 mg tablet 500 mg PO BID Qty: 10 0RF Continued multivitamin Tablet 1 tab PO DAILY acetaminophen 500 mg Tablet 1,000 mg PO Q6H PRN (Reason: Pain) omeprazole 20 mg Capsule,Delayed Release(Dr/Ec) 20 mg PO DAILY@0630 Discharge Orders: Discharge Order (Routine); Ordered 04/24/23 Ordered By: Maria Guadalupe Ye Diet: Advance to usual diet Activity on Discharge: As tolerated Stand Alone Forms: Patient Portal Discharge page Care Plan Goals: Read below Health Concerns: Read below Plan of Treatment: Read below Assessment: Finish antibiotics treatment for likely pneumonia Continue Folic acid and Thiamin supplement PRopranolol for tremor control Atarax as needed for anxiety\restlessness
[2023-04-24 11:31] VITALS: BP 113/85; PULSE 90; RESP 18; TEMP 37.6; O2SAT 93
--- NOTE | 2023-04-24 12:02 | P.CDIM_ITS ---
PROVIDER RESPONSE TEXT: To clarify, the appropriate diagnosis supported by the clinical indicators: Other (explain): suspected aspiration pneumonia QUERY TEXT: PHYSICIAN'S DOCUMENTATION REQUEST Date of Query: 04/24/2023 09:51 AM EDT Patient Name: Leighton Morris Admit Date: 04/14/2023 Dear Maria Guadalupe Ye, A review of the medical record indicates additional documentation may be needed. Please review below and update the documentation accordingly. Clinical Indicators: Per Hospitalist Progress Note 04/23/23: likely aspirated given new cough Start Doxy and Ceftriaxone Monitor response Chest xray 04/22/23: improvement in left pleural effusion Please clarify which, if any, of the following is the most likely etiology of the above symptoms and treatment rendered: Aspiration pneumonia Pneumonia Left pleural effusion Other (explain)Clinically unable to determine (explain)Thank you, Eva Love RN Use of terms such as suspected, likely, concern for, or probable (associated with a specific diagnosi s that is being evaluated, monitored, or treated as if it exists) are acceptable and can be coded in the inpatient se tting, when documented at the time of discharge. Please use your independent medical judgment in providing your response. THIS QUERY IS PART OF THE PERMANENT MEDICAL RECORD
[2023-04-24 14:39] LABS: Anion Gap 16 (12-20); Blood Urea Nitrogen 12 mg/dL (9-16); Calcium 9.8 mg/dL (8.4-10.2); Carbon Dioxide 25 mmol/L (22-29); Chloride 100 mmol/L (96-108); Creatinine Clr Calc Pharmacy 122.3; Estimated Glomerular Filt Rate > 60; Glucose Random 102 mg/dL (60-115); Potassium 4.3 mmol/L (3.3-5.1); Sodium 137 mmol/L (135-145)
--- NOTE | 2023-04-24 15:09 | MHC.CM.PN ---
Pt is medically cleared for D/C to [facility] for STR today, transportation booked via [facility] for 4pm
[2023-04-24 15:22] VITALS: BP 116/83; PULSE 105; RESP 18; TEMP 37.9; O2SAT 92
== END 2023-04-24 16:15 | disposition skilled nursing facility (03) | DRG 773 ==
LOC: HO.ED 15:17 → HO.EDOVER 15:20 → HO.ICU 19:18 → HO.IMC 04-17 15:31 → HO.ICU 04-17 16:00 → HO.IMC 04-19 16:36
PROVIDERS: Internal Medicine Pulmonary Disease; Registered Nurse Community Health; Admitting Provider Physician Assistant; Emergency Provider Emergency Medicine; PCP Nurse Practitioner Family; Visit Provider Student in an Organized Health Care Education/Training Program
DX: F10.231 Alcohol dependence with withdrawal delirium (principal); F11.11 Opioid abuse, in remission; J96.01 Acute respiratory failure with hypoxia; J69.0 Pneumonitis due to inhalation of food and vomit; E87.6 Hypokalemia; K76.0 Fatty (change of) liver, not elsewhere classified; E83.42 Hypomagnesemia; K21.9 Gastro-esophageal reflux disease without esophagitis; Z20.822 Contact with and (suspected) exposure to COVID-19; Z79.899 Other long term (current) drug therapy
CPT/HCPCS: 36415; 71045; 76705; 80048; 80053; 80076; 80307; 82040; 82803; 83605; 83735; 84100; 85025; 85027; 86704; 86706; 86803; 87040; 87340; 87635; 93005; 94002; 94003; 94799; 97162; 99285; C1758; J0696; J1643; J2060; J2250; J2405; J2560; J3411; J3475

== ENCOUNTER → 2023-04-14 13:11 | Outpatient (BNV) | payer OTHER, SELFPAY | PROVIDERS: Admitting Provider Physician Assistant; Emergency Provider Emergency Medicine; PCP Nurse Practitioner Family; Visit Provider Internal Medicine Cardiovascular Disease | DX: R00.0 Tachycardia, unspecified (principal); R94.31 Abnormal electrocardiogram [ECG] [EKG] | CPT/HCPCS: 93010 ==

== ENCOUNTER → 2023-04-14 15:08 | Outpatient (BNV) | payer OTHER, SELFPAY | PROVIDERS: Admitting Provider Physician Assistant; Emergency Provider Emergency Medicine; PCP Nurse Practitioner Family; Visit Provider Physician Assistant | DX: E83.42 Hypomagnesemia (principal); F10.931 Alcohol use, unspecified with withdrawal delirium; J96.01 Acute respiratory failure with hypoxia; E87.6 Hypokalemia | CPT/HCPCS: 99223; 99232; 99233; 99239 ==

== ENCOUNTER → 2023-04-14 15:08 | Outpatient (BNV) | payer OTHER, SELFPAY | PROVIDERS: Admitting Provider Physician Assistant; Emergency Provider Emergency Medicine; PCP Nurse Practitioner Family; Visit Provider Internal Medicine Pulmonary Disease | DX: F10.931 Alcohol use, unspecified with withdrawal delirium (principal) | CPT/HCPCS: 99232; 99291 ==

== ENCOUNTER → 2023-04-14 15:08 | Outpatient (BNV) | payer OTHER, SELFPAY | PROVIDERS: Admitting Provider Physician Assistant; Emergency Provider Emergency Medicine; PCP Nurse Practitioner Family; Visit Provider Registered Nurse Community Health | DX: F10.931 Alcohol use, unspecified with withdrawal delirium (principal); R74.01 Elevation of levels of liver transaminase levels; E83.42 Hypomagnesemia; E87.6 Hypokalemia | CPT/HCPCS: 31500; 99291 ==

== ENCOUNTER 2024-08-05 16:13 | Inpatient (IN) | payer OTHER, SELFPAY ==
--- NOTE | ~2024-08-05 | CT_ITS ---
EXAMINATION: CT HEAD WITHOUT CONTRAST CLINICAL INFORMATION: Head strike. Fall. COMPARISON: None available. TECHNIQUE: Contiguous axial imaging was performed from the skull base to vertex without intravenous administration of contrast. This CT examination was performed using dose optimization techniques as appropriate, variously including the following: *Automated exposure control *Adjustment of mA and/or kV according to patient size (this includes techniques or standardized protocols for targeted exams where dose is matched to indication/reason for exam; i.e. extremities or head) *Use of iterative reconstruction technique DLP: 1163 mGy-cm FINDINGS: There is no evidence of acute intracranial hemorrhage or territorial infarction. No abnormal mass-effect or midline shift is seen. Jane to white matter differentiation is well preserved. No extra-axial fluid collections are identified. The ventricles are normal in size. There is no abnormal attenuation within the brain parenchyma. The osseous structures and soft tissues are normal. S-shaped undulating nasal septum is seen and mild mucosal thickening of the ethmoid air cells is noted. The mastoid air cells and visualized portions of the paranasal sinuses are otherwise well-aerated. CT/CT head/brain wo IV con IMPRESSION: No acute intracranial pathology. Electronically signed by: Amie Lee MD 08/05/2024 06:56 PM EST
--- NOTE | ~2024-08-05 | CT_ITS ---
EXAMINATION: CT CERVICAL SPINE WITHOUT CONTRAST CLINICAL INFORMATION: Status post fall with neck pain COMPARISON: None available. TECHNIQUE: 3 mm sections through the cervical spine followed by coronal and sagittal reconstruction. This CT examination was performed using dose optimization techniques as appropriate, variously including the following: *Automated exposure control *Adjustment of mA and/or kV according to patient size (this includes techniques or standardized protocols for targeted exams where dose is matched to indication/reason for exam; i.e. extremities or head) *Use of iterative reconstruction technique DLP: 377.77 mGy-cm FINDINGS: There is no evidence of fractures or subluxation in the cervical spine. Vertebral bodies are well aligned with mild narrowing of C4-5, C5-6 intervertebral disc spaces due to degenerative changes. Soft tissues unremarkable, there is no spinal canal stenosis. Visualized lung apices, thyroid are unremarkable. CT/CT cervical spine wo IV con IMPRESSION: No fracture seen. Mild degenerative changes at the level of C4-5 and C5-6 Fleischner guidelines were followed. Electronically signed by: Loki Bruno MD 08/05/2024 06:12 PM TNOI
[2024-08-05 16:26] VITALS: BP 162/87; PULSE 83; RESP 18; TEMP 36.7; O2SAT 95; BMI 24.4
--- NOTE | 2024-08-05 16:30 | ED_ITS ---
HPI - General Adult General Chief complaint: ETOH/Substance Use Stated complaint: Alcohol detox Time Seen by Provider: 08/05/24 17:35 Source: patient, RN notes reviewed and old records reviewed Mode of arrival: ambulatory Limitations: no limitations History of Present Illness ED Provider: Melanie HPI narrative: 59-year-old male who denies any past medical history presents for evaluation of ?alcoholism. Patient reports that he is seeking detox from alcohol. He reports his last drink was Thursday around 2:00 a.m., a little over 60 hours ago He reports he was drinking about a pt of whiskey daily until then He reports drinking 40 nips of whiskey in the 4 days leading up to Thursday Patient reports that he was vomiting all day Thursday He complains of body aches and reports falling multiple times while intoxicated and most recently falling today He reports that he hit his head but denies any pain Related Data Home Medications ?Medication ?Instructions ?Recorded ?Confirmed acetaminophen 500 mg tablet 1,000 mg PO Q6H PRN Pain 04/14/23 04/14/23 multivitamin 1 tab PO DAILY 04/14/23 04/14/23 omeprazole 20 mg capsule,delayed 20 mg PO DAILY@0630 04/14/23 04/14/23 release Previous Rx's ?Medication ?Instructions ?Recorded cefuroxime axetil 500 mg tablet 500 mg PO BID #10 tabs 04/24/23 doxycycline monohydrate 100 mg 100 mg PO BID #10 caps 04/24/23 capsule folic acid 1 mg tablet 1 mg PO DAILY #30 tabs 04/24/23 hydroxyzine HCl 25 mg tablet 25 mg PO Q6H PRN 04/24/23 Anxiety/Restlessness #60 tabs propranolol 20 mg tablet 20 mg PO BID #60 tabs 04/24/23 thiamine mononitrate (vit B1) 100 200 mg (2 x 100 mg) PO DAILY #60 04/24/23 mg tablet tabs Allergies Allergy/AdvReac Type Severity Reaction Status Date / Time fish derived [FISH] Allergy Severe ANAPHYLAXIS Verified 08/05/24 16:29 sulfamethoxazole Allergy Severe ANAPHYLAXIS Verified 08/05/24 16:29 [From BACTRIM] trimethoprim [From BACTRIM] Allergy Severe ANAPHYLAXIS Verified 08/05/24 16:29 fish oil Allergy Unknown Unknown Verified 08/05/24 16:29 penicillin V Allergy Unknown Unknown Verified 08/05/24 16:29 Penicillins [PENICILLINS] Allergy Unknown ANAPHYLAXIS Verified 08/05/24 16:29 Sulfa (Sulfonamide Allergy Unknown Unknown Verified 08/05/24 16:29 Antibiotics) Review of Systems 2 Constitutional: Constitutional: Denies body ache(s), Denies chills, Denies fever(s), Reports frequent falls, Denies headache(s), Reports lethargy, Reports malaise and Reports weakness Eyes: Eyes: Denies blurry vision ENT: Denies vertigo, Denies dizziness and Denies headache(s) Cardiovascular: Cardiovascular: Denies chest pain and Denies dyspnea Respiratory: Respiratory: Denies cough and Denies dyspnea Gastrointestinal: Gastrointestinal: Denies abdominal pain, Denies nausea and Denies vomiting Musculoskeletal: Musculoskeletal: Denies back pain Integumentary/Breasts: Skin/Breast: Denies rash Neurologic: Denies vertigo, Denies dizziness, Reports frequent falls, Denies headache(s) and Reports weakness Psychiatric: Psychiatric: Reports anxiety Endocrine: Endocrine: Denies flushing PMFSH Past Medical History Attestation statement: The following information was validated with the patient. Source: old records reviewed and nursing notes reviewed Medical History History of heroin use GERD (gastroesophageal reflux disease) Alcohol use disorder Social History Social History Household Members: Family Housing: House Alcohol intake: current Alcohol intake frequency: 3 or more drinks per day Alcohol type: hard liquor Comment: Sitter Patient Tobacco Use Status: Former Tobacco user Smoked in Last 30 Days: No Substance Use Type: Marijuana Advance Directives: No Advance Directives Information Provided: No Do you have a plan to hurt others: No Plan service: No Physical Exam ED Vital Signs: Vital Signs - 24 hr 08/05/24 16:26 08/05/24 18:13 08/05/24 20:00 Temperature 98.0 F 97.8 F 97.9 F Pulse Rate 83 74 72 Respiratory Rate 18 13 17 Blood Pressure 162/87 H 144/97 H 113/82 Pulse Oximetry 95 99 96 Oxygen Delivery Method Room Air Room Air Room Air Oxygen Flow Rate 08/05/24 22:00 08/06/24 01:30 08/06/24 04:54 Temperature 97.6 F 97.5 F 98.4 F Pulse Rate 83 73 82 Respiratory Rate 16 16 14 Blood Pressure 121/76 127/88 138/93 H Pulse Oximetry 97 96 98 Oxygen Delivery Method Room Air Room Air Room Air Oxygen Flow Rate 08/06/24 06:46 08/06/24 07:47 08/06/24 08:31 Temperature Pulse Rate 87 105 H 96 Respiratory Rate 24 H 22 H 26 H Blood Pressure 144/96 H 140/110 H 145/87 H Pulse Oximetry 97 89 L Oxygen Delivery Method Room Air Room Air Oxygen Flow Rate 08/06/24 08:31 08/06/24 08:40 Temperature Pulse Rate 90 87 Respiratory Rate 23 H 22 H Blood Pressure 123/80 Pulse Oximetry 95 97 Oxygen Delivery Method Nasal Cannula Nasal Cannula Oxygen Flow Rate 3 3 BMI result Body Mass Index 24.4 Const General: healthy appearing, comfortable, no acute distress, alert and awake Nutritional Appearance: well nourished Orientation/consciousness: patient oriented x3 HENMT Head: Yes No palpable skull fracture present and Yes contusion Eyes Eyelids: Yes eyelids normal Conjunctivae: conjunctivae normal Sclerae: sclerae normal Corneas: corneas normal Pupils: Equal, round and reactive pupils present EOM: EOMs intact bilaterally Neck Neck: Yes full ROM Resp Effort & Inspection: normal respiratory effort, able to speak in complete sentences, no audible wheezes and not labored Auscultation: clear to auscultation bilaterally Cardio Rate: regular rate Rhythm: regular rhythm GI Inspection: No distended Palpation (GI): Soft to palpation, not firm, nontender, no guarding and not rigid Skin General skin exam: elasticity normal Neuro General: patient oriented x3 Cranial nerves: Yes CN's II-XII intact bilaterally, Yes Equal, round and reactive pupils present and Yes Bilaterally intact EOM present Cognition (Neuro): normal cognition Extrem Other: Multiple contusions to the upper and lower extremities bilaterally Course Course Course Narrative: This is an RME done by ODIN Edwards: Additional HPI, ROS, PE not included below will be deferred to primary provider. 59 old male presents requesting alcohol detox, reports he had a fall into a claw foot trub earlier after his legs gave out.Drinks 40 nips per day/ Last drink unclear. He reports he was cocked so hes not sure what happened. Appearance: Alert.? Oriented X3.? No acute cardiopulmonary distress distress.? Head: Normocephalic, atraumatic, no step-offs or deformities Neck: Normal inspection.? Neck supple.? CVS: Pulses normal.? Respiratory: No respiratory distress.? Abdomen: Soft and nontender.? Skin: ? Normal skin color. Extremities: 5/5 strength to bilateral upper and lower extremities Neuro: Oriented X 3.? No motor deficit.? No sensory deficit. Reevaluation(s) Reevaluation #1: DR. Heard's Progress note: This is a 59-year-old male with known history of alcohol abuse came in yesterday seeking for detox from alcohol, last drink was couple days ago, when I assumed care for this patient at 07:00 patient was agitated, with visual hallucination, combative, patient require multiple doses of 2 mg of Ativan total of 10 mg patient is come down now, labs/CT head was reviewed and unremarkable, patient will require ICU admission for severity of that withdrawal symptoms and the amount of the benzos that patient required. the case was discussed with Dr. Ana Meyers and patient was accepted to ICU. The patient was critically ill with a high probability of imminent or life- threatening deterioration. I spent greater than 30 minutes of discontinuous time evaluating the patient, delivering critical care at the bedside, discussing evaluating data with consultants. Critical care time does not include time spent performing separately billable procedures or teaching. Time spent performing critical care was 60 minutes. Time: 08:59 Medications Administered Generic Name Dose Route Start Last Admin Trade Name Freq PRN Reason Stop Dose Admin Lorazepam 2 mg 08/05/24 19:01 08/06/24 04:13 Lorazepam 1 Mg Tablet PO 2 mg Q4H PRN Administration Alcohol Withdrawal Lorazepam 2 mg 08/06/24 07:42 08/06/24 08:22 Lorazepam 2 Mg/Ml Vial IVPUSH 2 mg Q1H PRN Administration Alcohol Withdrawal Discontinued Medications Generic Name Dose Route Start Last Admin Trade Name Freq PRN Reason Stop Dose Admin Sodium Chloride 1,000 mls @ 999 mls/hr 08/05/24 17:45 08/05/24 19:10 Ns IV 08/05/24 18:45 Infused .Q1H1M ANV Infusion Folic Acid 1 mg/ Sodium 50.2 mls @ 100.4 mls/hr 08/05/24 19:00 08/05/24 19:51 Chloride IV 08/05/24 19:29 Infused ONCE ONE Infusion Thiamine HCl 500 mg/ Sodium 105 mls @ 210 mls/hr 08/05/24 17:42 08/05/24 18:46 Chloride IV 08/05/24 18:11 Infused ONCE ONE Infusion Lorazepam 2 mg 08/05/24 17:42 08/05/24 17:50 Lorazepam 1 Mg Tablet PO 08/05/24 17:43 2 mg ONCE ONE Administration Lorazepam 2 mg 08/06/24 05:58 08/06/24 06:04 Lorazepam 1 Mg Tablet PO 08/06/24 05:59 2 mg ONCE ONE Administration Phenobarbital Sodium 65 mg 08/06/24 06:40 08/06/24 06:46 Phenobarbital Sodium 65 Mg/Ml Vial IVPUSH 08/06/24 06:41 65 mg ONCE ONE Administration Phenobarbital Sodium 65 mg 08/06/24 07:13 08/06/24 07:19 Phenobarbital Sodium 65 Mg/Ml Vial IVPUSH 08/06/24 07:14 65 mg ONCE ONE Administration Phenobarbital Sodium 65 mg 08/06/24 07:25 08/06/24 07:30 Phenobarbital Sodium 65 Mg/Ml Vial IVPUSH 08/06/24 07:26 65 mg ONCE ONE Administration Phenobarbital Sodium 65 mg 08/06/24 07:36 08/06/24 07:41 Phenobarbital Sodium 65 Mg/Ml Vial IVPUSH 08/06/24 07:37 65 mg ONCE ONE Administration Medical Decision Making Medical Decision Making [facility] Narrative: 59-year-old male presents for evaluation of alcohol abuse and withdrawal. His last drink was over 48 hours ago. To give, diaphoretic or tachycardic. Appears to be in mild alcohol withdrawal. Plan for medical clearance, we will treat with IV fluids, folic acid, thiamine and Ativan 2 mg p.o.. He has no somatic complaints currently. A CT scan of the brain and C-spine was ordered due to his fall Differential Diagnosis Differential Diagnoses: The differential diagnosis associated with the presentation includes Alcohol abuse Acute alcohol intoxication Wernicke's encephalopathy Intracranial hemorrhage Cervical fracture Lab Data [facility] Lab Attestation statement: I reviewed the patient's lab results. Leukocytosis or significant anemia. Normal platelet count. The patient's sodium is low at 134 with a chloride of 91. There is a slight anion gap of 21, likely all related to alcohol abuse. Patient has ability to wounds you with an elevation of AST and ALT, again likely related to alcohol abuse. He has no abdominal pain or tenderness, less likely obstructive biliary disease. 08/05/24 16:36 08/05/24 16:36 Labs: Lab Results 08/05/24 08/05/24 Range/Units 16:36 17:53 WBC 10.1 (4.8-10.8) X10*3/uL RBC 4.56 L D (4.60-5.80) X10*6/uL Hgb 14.1 (14.0-18.0) g/dl Hct 39.7 L (42.0-52.0) % MCV 87.1 (80.0-98.0) fL MCH 30.9 (27.0-33.0) pg MCHC 35.5 (31.0-36.0) g/dl RDW 12.5 (11.0-16.0) % Plt Count 254 D (160-400) X10*3/uL MPV 8.8 L (9.4-12.4) fL Immature Gran % (Auto) 0.3 (0.0-0.4) % Neut % (Auto) 75.2 H (45-73) % Lymph % (Auto) 15.8 L (20-40) % [place] % (Auto) 7.6 (2-11) % Eos % (Auto) 0.8 (0-4) % Baso % (Auto) 0.3 (0-2) % Lymph # (Auto) 1.6 (1.2-4.9) X10*3/uL [place] # (Auto) 0.8 (0.1-1.2) X10*3/uL Eos # (Auto) 0.1 (0.0-0.4) X10*3/uL Baso # (Auto) 0.0 (0.0-0.2) X10*3/uL Abs Immat Gran (auto) 0.03 (0.00-0.03) X10*3/uL Absolute Neuts (auto) 7.6 (2.0-8.3) x10*3/uL Absolute Nucleated RBC 0.000 (0.0-0.012) X10*3/uL Nucleated RBC % (auto) 0.0 (0.0-0.2) /100WBC Sodium 134 L (135-145) mmol/L Potassium 3.3 (3.3-5.1) mmol/L Chloride 91 L (96-108) mmol/L Carbon Dioxide 25 (22-29) mmol/L Anion Gap 21 H (12-20) BUN 22 H (9-16) mg/dL Creatinine 0.93 (0.5-1.4) mg/dL Estim Creat Clear Calc 86.5 Estimated GFR > 60 Random Glucose 123 H (60-115) mg/dL Calcium 9.7 (8.4-10.2) mg/dL Magnesium 1.8 (1.6-2.6) mg/dL Total Bilirubin 2.0 H (0.0-1.0) mg/dL AST 201 H (5-37) U/L ALT 80 H (0-40) U/L Alkaline Phosphatase 78 (39-117) U/L Total Protein 8.5 H (6.5-8.0) g/dL Albumin 4.9 (3.5-5.0) g/dL Urine Color Yellow Urine Appearance Cloudy Urine pH 5.5 (5.0-9.0) Ur Specific [place] 1.025 (1.005-1.025) Urine Protein 100 (2+) H (Neg-Trace) mg/dL Urine Glucose (UA) Negative (Negative) mg/dL Urine Ketones 40 (Negative) mg/dL Urine Blood Moderate (2+) H (Negative) Urine Nitrite Negative (Negative) Ur Leukocyte Esterase Negative (Negative) Urine RBC 6-10 H (0-2) /HPF Urine WBC 6-10 H (0-5) /HPF Ur Squamous Epith Cells 3-5 (0-2) /HPF Urine Bacteria None Seen (None Seen) Hyaline Casts 3-5 (0-2) /LPF Urine Opiates Screen POSITIVE H (Not Detect) Ur Buprenorphine Scrn Not Detected (Not Detect) ng/mL Ur Oxycodone Screen Not Detected (Not Detect) ng/mL Urine Methadone Screen Not Detected (Not Detect) ng/mL Urine Fentanyl Screen Not Detected (Not Detect) Ur Barbiturates Screen Not Detected (Not Detect) Ur Phencyclidine Scrn Not Detected (Not Detect) Ur Amphetamines Screen Not Detected (Not Detect) U Benzodiazepines Scrn Not Detected (Not Detect) Urine Cocaine Screen Not Detected (Not Detect) U Marijuana (THC) Screen POSITIVE H (Not Detect) Ethyl Alcohol < 10 mg/dL Discharge Plan Discharge Clinical Impression: Alcohol withdrawal syndrome, DTs (delirium tremens) Patient Disposition: Admitted As Inpatient Prescriptions: No Action multivitamin Tablet 1 tab PO DAILY acetaminophen 500 mg Tablet 1,000 mg PO Q6H PRN (Reason: Pain) omeprazole 20 mg Capsule,Delayed Release(Dr/Ec) 20 mg PO DAILY@0630 folic acid 1 mg Tablet 1 mg PO DAILY Qty: 30 0RF hydroxyzine HCl 25 mg Tablet 25 mg PO Q6H PRN (Reason: Anxiety/Restlessness) Qty: 60 0RF propranolol 20 mg Tablet 20 mg PO BID Qty: 60 0RF Protocol: Hold for SBP/HR < HOLD for SBP < : 90 HOLD for HR < : 60 thiamine mononitrate (vit B1) 100 mg Tablet 200 mg PO DAILY Qty: 60 0RF doxycycline monohydrate 100 mg capsule 100 mg PO BID Qty: 10 0RF cefuroxime axetil 500 mg tablet 500 mg PO BID Qty: 10 0RF Print Language: Portuguese
[2024-08-05 16:38] LABS: MANUAL DIFF FLAG NO
[2024-08-05 16:40] LABS: Basophils Percent Auto 0.3 % (0-2); Eosinophils Absolute Auto 0.1 X10*3/uL (0.0-0.4); Eosinophils Percent Auto 0.8 % (0-4); Hematocrit 39.7 % (42.0-52.0); Hemoglobin 14.1 g/dl (14.0-18.0); Imm Gran Abs Auto 0.03 X10*3/uL (0.00-0.03); Imm Gran Pct Auto 0.3 % (0.0-0.4); Lymphocytes Absolute Auto 1.6 X10*3/uL (1.2-4.9); Lymphocytes Percent Auto 15.8 % (20-40); Mean Corpuscular HGB Conc 35.5 g/dl (31.0-36.0); Mean Corpuscular Hemoglobin 30.9 pg (27.0-33.0); Mean Corpuscular Volume 87.1 fL (80.0-98.0); Mean Platelet Volume 8.8 fL (9.4-12.4); Monocytes Absolute Auto 0.8 X10*3/uL (0.1-1.2); Monocytes Percent Auto 7.6 % (2-11); Neutrophils Absolute Auto 7.6 x10*3/uL (2.0-8.3); Neutrophils Percent Auto 75.2 % (45-73); Platelet Count 254 X10*3/uL (160-400); Red Blood Count 4.56 X10*6/uL (4.60-5.80); Red Cell Distribution Width 12.5 % (11.0-16.0); White Blood Count 10.1 X10*3/uL (4.8-10.8)
[2024-08-05 16:57] LABS: Alanine Aminotransferase 80 U/L (0-40); Albumin Level 4.9 g/dL (3.5-5.0); Alkaline Phosphatase 78 U/L (39-117); Anion Gap 21 (12-20); Aspartate Amino Transferase 201 U/L (5-37); Blood Urea Nitrogen 22 mg/dL (9-16); Calcium 9.7 mg/dL (8.4-10.2); Carbon Dioxide 25 mmol/L (22-29); Chloride 91 mmol/L (96-108); Creatinine Clr Calc Pharmacy 86.5; Estimated Glomerular Filt Rate > 60; Ethanol < 10 mg/dL; Glucose Random 123 mg/dL (60-115); Magnesium 1.8 mg/dL (1.6-2.6); Potassium 3.3 mmol/L (3.3-5.1); Sodium 134 mmol/L (135-145); Total Protein 8.5 g/dL (6.5-8.0)
--- NOTE | 2024-08-05 17:14 | PC.NURSE ---
Pt. has significant bruising across top of back, bilat arms, both knees/legs. Resting quietly on stretcher at this time.
[2024-08-05] MEDS: Thiamine HCL 500 MG in 0.9 % Sodium Chloride 100 ML 210 MG IV (17:50)
[2024-08-05] MEDS: LORazepam 1 MG TABLET 2 MG PO (17:50)
[2024-08-05] MEDS: 0.9 % Sodium Chloride 1,000 ML 999 ML IV (17:51)
[2024-08-05 18:01] LABS: Appearance Urine Cloudy; Color Urine Yellow; Glucose Urine UA Negative (Negative); Leukocyte Esterase Urine Negative (Negative); Nitrite Urine Negative (Negative); PH 5.5 (5.0-9.0); Specific Gravity - Urine 1.025 (1.005-1.025); UMIC TRIGGER UACC YES; Urine Blood Moderate (2+) (Negative); Urine Ketones 40 mg/dL (Negative); Urine Protein 100 (2+) mg/dL (Neg-Trace)
[2024-08-05 18:03] LABS: Bacteria Urine None Seen (None Seen); UACC Culture Trigger YES
[2024-08-05 18:11] LABS: Amphetamine Screen Urine Not Detected (Not Detect); Barbiturates, Urine Not Detected (Not Detect); Benzodiazepines Screen Urine Not Detected (Not Detect); Buprenorphine Scr Not Detected (Not Detect); Cannabinoid Screen Urine POSITIVE (Not Detect); Cocaine Screen Urine Not Detected (Not Detect); Fentanyl, urine Not Detected (Not Detect); Methadone Screen, Urine Not Detected (Not Detect); Opiate Screen Urine POSITIVE (Not Detect); Oxycodone Screen Urine Not Detected (Not Detect); Phencyclidine Screen Urine Not Detected (Not Detect)
[2024-08-05 18:13] VITALS: BP 144/97; PULSE 74; RESP 13; TEMP 36.6; O2SAT 99
[2024-08-05] MEDS: Folic Acid 1 MG in 0.9 % Sodium Chloride 50 ML 100.4 MG IV (19:10)
[2024-08-05 20:00] VITALS: BP 113/82; PULSE 72; RESP 17; TEMP 36.6; O2SAT 96
[2024-08-05 22:00] VITALS: BP 121/76; PULSE 83; RESP 16; TEMP 36.4; O2SAT 97
--- NOTE | 2024-08-05 22:56 | PC.NURSE ---
Changed over completed by security, BELONGINGS PLACED ON SHELF 3.
[2024-08-06] VITALS (20 sets, daily range): BP systolic 102–145; BP diastolic 67–110; PULSE 62–105; RESP 14–28; TEMP 36.4–37.1; O2SAT 89–98
--- NOTE | 2024-08-06 | ECG_ITS ---
Test Reason : RODRISA Blood Pressure : / mmHG Vent. Rate : 087 BPM Atrial Rate : 087 BPM P-R Int : 180 ms QRS Dur : 094 ms QT Int : 386 ms P-R-T Axes : 025 -12 018 degrees QTc Int : 464 ms Normal sinus rhythm Normal ECG When compared with ECG of 14-APR-2023 13:26, ST no longer depressed in Anterior leads Referred By: Ana Meyers Electronically Signed By:THERESE LIND MD
[2024-08-06] MEDS: LORazepam 1 MG TABLET 2 MG PO ×2 (04:13→06:04)
--- NOTE | 2024-08-06 06:09 | PC.NURSE ---
Addendum entered by Mary Jo Kim RN 08/06/24 07:00: Pt becoming increasingly agitated , picking at things in the air, hearing noises, confused, tremulous. CIWA:25, Aware, ordered 65mg phenobarbital... IV line placed and medication administered. Pt placed on monitor by tech and sitter at bedside. Original Note: Assumed care of pt at 2320, p alert and oriented X4, in bed resting responding to verbal stimuli. Ciwa: 1. Pt in bed call melara within reach. 0400: Pt CIWA:9, increased confusion, tremor, visual hallucinations coming out of room, but redirectable. Medicated with PRN 2mg ativan. aware, sitter outside of room. Pt becoming agitated , not as easily redirectable. Another 1 time dose of ativan 2mg given. Pt thought he was leaving ambulating in the hallway
[2024-08-06] MEDS: PHENobarbitaL sodium 65 MG/ML VIAL IVPUSH ×4 (06:46→07:41)
--- NOTE | 2024-08-06 07:37 | PC.NURSE ---
Pt severely agitated and hallucinating. Unsteady and continually trying to get out of bed and grab items in room. No making sense, confused. Multiple people at bedside, provider witnessing. Medicated per MAR
[2024-08-06] MEDS: LORazepam 2 MG/ML VIAL IVPUSH ×5 (07:54→08:22)
--- NOTE | 2024-08-06 07:54 | PC.NURSE ---
Pt continues to be severely agitated even with meds, provider aware of situation. Continuing to monitor.
--- NOTE | 2024-08-06 08:02 | PC.NURSE ---
verbal order from md terry at bedside to give another dose of ativan 2mg IVP
--- NOTE | 2024-08-06 08:10 | PC.NURSE ---
Another verbal order from harrison SALGUERO to continue with ativan up until 10mg, verbal order to give another 2 at this time
--- NOTE | 2024-08-06 08:18 | HE.PHANOTE ---
Contacted Dr Heard regarding order for phenobarb consult because patient had received 4 doses of phenobarb 65 mg iv. I questioned if he would like to reduce the first load dose minus the phenobarb he had received. MD let me know that patient was in very serious withdrawal and may need to be intubated, he agreed to reduce first load dose by 100 mg but he also wanted to keep on board the prn ativan orders.
--- NOTE | 2024-08-06 08:22 | PC.NURSE ---
Dr. Heard at bedside, reported a total of 10mg of ativan IVP (given). Pt becoming slightly less agitated, will continue to monitor
--- NOTE | 2024-08-06 08:32 | PC.NURSE ---
Pt sleeping at this time. Placed on cardiac nurse practitioner, NSR. RR 20-24. SPO2 89% on RA. placed on NC and improved to high 90s. sitter will remain, will continue to monitor
[2024-08-06] MEDS: PHENobarbitaL sodium 130 MG/ML IM ONCE 245 MG IM (09:19)
--- NOTE | 2024-08-06 09:23 | P.HPCC_ITS ---
History of Present Illness Date of Service: 08/06/24 Chief Complaint: Alcohol Withdrawal Patient is a 59 Y M w/ alcohol use disorder, presenting to emergency department on 08/06 w/ nausea/vomiting since last alcoholic drink on 08/03 and desiring alcohol detox, found to have significant alcohol withdrawal in emergency department, admitted ICU Review of Systems 2 Review of Systems: Yes Unobtainable due to mental condition PMFSH Past Medical History Medical History History of heroin use GERD (gastroesophageal reflux disease) Alcohol use disorder Social History Social History Household Members: Family Housing: House Alcohol intake: current Alcohol intake frequency: 3 or more drinks per day Alcohol type: hard liquor Comment: Sitter Patient Tobacco Use Status: Former Tobacco user Smoked in Last 30 Days: No Substance Use Type: Marijuana Advance Directives: No Advance Directives Information Provided: No Do you have a plan to hurt others: No Plan service: No Meds Allergies Allergy/AdvReac Type Severity Reaction Status Date / Time fish derived [FISH] Allergy Severe ANAPHYLAXIS Verified 08/05/24 16:29 sulfamethoxazole Allergy Severe ANAPHYLAXIS Verified 08/05/24 16:29 [From BACTRIM] trimethoprim [From BACTRIM] Allergy Severe ANAPHYLAXIS Verified 08/05/24 16:29 fish oil Allergy Unknown Unknown Verified 08/05/24 16:29 penicillin V Allergy Unknown Unknown Verified 08/05/24 16:29 Penicillins [PENICILLINS] Allergy Unknown ANAPHYLAXIS Verified 08/05/24 16:29 Sulfa (Sulfonamide Allergy Unknown Unknown Verified 08/05/24 16:29 Antibiotics) Active Medications: Current Medications Dexmedetomidine HCl (Precedex) 400 mcg in 100 mls @ 0 mls/hr IVCONT .Q0M NAV; Protocol Magnesium Sulfate/Dextrose (Magnesium Sulfate/D5w) 1 gm in 100 mls @ 100 mls/hr IV ONCE ONE Stop: 08/06/24 10:12 Thiamine HCl 500 mg/ Sodium (Chloride) 105 mls @ 210 mls/hr IV Q12H NAV Folic Acid 1 mg/ Sodium (Chloride) 50.2 mls @ 100.4 mls/hr IV DAILY NAV Lorazepam (Lorazepam 1 Mg Tablet) 2 mg PO Q4H PRN PRN Reason: Alcohol Withdrawal Last Admin: 08/06/24 04:13 Dose: 2 mg Lorazepam (Lorazepam 2 Mg/Ml Vial) 2 mg IVPUSH Q1H PRN PRN Reason: Alcohol Withdrawal Last Admin: 08/06/24 08:22 Dose: 2 mg Lorazepam (Lorazepam 2 Mg/Ml Vial) 2 mg IVPUSH Q2H PRN PRN Reason: [facility] Consult (Consult Rx Etoh Phenob Im/Po) 1 each MISCELLANE ONCE PRN; Protocol PRN Reason: Consult order Phenobarbital (Phenobarbital 15 Mg Tablet) 45 mg PO BID REPLACED BY [facility] Stop: 08/08/24 09:01 Phenobarbital (Phenobarbital 15 Mg Tablet) 15 mg PO BID REPLACED BY [facility] Stop: 08/10/24 09:01 Phenobarbital (Phenobarbital 15 Mg Tablet) 15 mg PO DAILY REPLACED BY [facility] Stop: 08/12/24 09:01 Phenobarbital Sodium (Phenobarbital Sodium 130 Mg/Ml Vial Im Q3hx2) 259 mg IM 1200,1500 REPLACED BY [facility] Stop: 08/06/24 15:01 Home Medications ?Medication ?Instructions ?Recorded ?Confirmed ?Last Taken ?Type omeprazole 20 mg capsule,delayed 20 mg PO DAILY@0630 04/14/23 08/06/24 04/14/23 History release cyanocobalamin (vitamin B-12) 2,500 mcg sublingual DAILY 08/06/24 08/06/24 Unknown History 2,500 mcg sublingual tablet (Vitamin B-12) trazodone 50 mg tablet 100 mg PO BEDTIME 08/06/24 08/06/24 Unknown History Physical Exam 2 Vital Signs: Vital Signs: Last Vital Signs Temp 98.4 F 08/06/24 04:54 Pulse 84 08/06/24 09:20 Resp 22 H 08/06/24 09:20 BP 121/77 08/06/24 09:20 Pulse Ox 97 08/06/24 09:20 O2 Del Method Nasal Cannula 08/06/24 09:20 O2 Flow Rate 2 08/06/24 09:20 BMI result Body Mass Index 24.4 Const: Other: somnolent, though easily arousable with physical stimulus General: comfortable, no acute distress and well developed HEENT: Head: Yes normal to inspection, Yes normocephalic and Yes atraumatic Eyes: General: appearance normal, both eyes and all related structures Neck: Neck: Yes normal visual inspection, Yes full ROM, Yes no meningeal signs, Yes trachea midline and Yes supple Chest: Chest palpation & inspection: normal inspection of the chest Resp: Other: no appreciable rales, rhonchi, wheezing Effort & Inspection: normal respiratory effort GI: Inspection: Yes normal to inspection, No Abdominal wall edema and No distended Palpation (GI): Soft to palpation, not firm, nontender, no guarding and not rigid Skin: General skin exam: no rashes or lesions noted Neuro: General: tone normal, moves all extremities, no meningeal signs and no focal motor deficits Extrem: General: Yes normal to inspection, Yes full ROM, Yes capillary refill normal and Yes no clubbing, cyanosis or edema Psych: Appearance: grossly normal Results Labs 08/05/24 16:36 08/05/24 16:36 Labs: Laboratory Results - last 24 hr 08/05/24 08/05/24 16:36 17:53 MCV 87.1 MCH 30.9 MCHC 35.5 RDW 12.5 Plt Count 254 D MPV 8.8 L Immature Gran % (Auto) 0.3 Neut % (Auto) 75.2 H Lymph % (Auto) 15.8 L [place] % (Auto) 7.6 Eos % (Auto) 0.8 Baso % (Auto) 0.3 Lymph # (Auto) 1.6 [place] # (Auto) 0.8 Eos # (Auto) 0.1 Baso # (Auto) 0.0 Abs Immat Gran (auto) 0.03 Absolute Neuts (auto) 7.6 Absolute Nucleated RBC 0.000 Nucleated RBC % (auto) 0.0 Anion Gap 21 H Estim Creat Clear Calc 86.5 Estimated GFR > 60 Random Glucose 123 H Calcium 9.7 Magnesium 1.8 Total Bilirubin 2.0 H AST 201 H ALT 80 H Alkaline Phosphatase 78 Total Protein 8.5 H Albumin 4.9 Urine Color Yellow Urine Appearance Cloudy Urine pH 5.5 Ur Specific [place] 1.025 Urine Protein 100 (2+) H Urine Glucose (UA) Negative Urine Ketones 40 Urine Blood Moderate (2+) H Urine Nitrite Negative Ur Leukocyte Esterase Negative Urine RBC 6-10 H Urine WBC 6-10 H Ur Squamous Epith Cells 3-5 Urine Bacteria None Seen Hyaline Casts 3-5 Urine Opiates Screen POSITIVE H Ur Buprenorphine Scrn Not Detected Ur Oxycodone Screen Not Detected Urine Methadone Screen Not Detected Urine Fentanyl Screen Not Detected Ur Barbiturates Screen Not Detected Ur Phencyclidine Scrn Not Detected Ur Amphetamines Screen Not Detected U Benzodiazepines Scrn Not Detected Urine Cocaine Screen Not Detected U Marijuana (THC) Screen POSITIVE H Ethyl Alcohol < 10 Imaging Radiologist's Impressions: Impressions Cervical Spine CT 08/05/24 16:39 IMPRESSION: No fracture seen. Mild degenerative changes at the level of C4-5 and C5-6 Fleischner guidelines were followed. Electronically signed by: Loki Bruno MD 08/05/2024 06:12 PM EST RP Head CT 08/05/24 16:39 IMPRESSION: No acute intracranial pathology. Electronically signed by: Amie Lee MD 08/05/2024 06:56 PM EST RP Assessment and Plan (1) Alcohol withdrawal syndrome: Status: Acute Plan Patient is a 59 Y M w/ alcohol use disorder, presenting to emergency department on 08/06 w/ nausea/vomiting since last alcoholic drink on 08/03 and desiring alcohol detox, found to have significant alcohol withdrawal in emergency department, admitted ICU N: alcohol use disorder c/b withdrawal; phenobarbital, dexmedetomidine gtt as needed CV: no acute issues R: no acute issues GI: NPO, advance diet as tolerated; transaminitis, likely d/t alcoholic hepatitis : no acute issues H: no acute issues ID: no acute issues E: no acute issues; to monitor hypo-/hyper-glycemia P: alcohol use disorder; addiction medicine when appropriate
--- NOTE | 2024-08-06 09:30 | PC.NURSE ---
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 Sitter at bedside
[2024-08-06] MEDS: 0.9 % Sodium Chloride 1,000 ML 999 ML IV (09:31)
--- NOTE | 2024-08-06 09:38 | PHA.MEDREC ---
Addendum entered by Radha Peng [facility] 08/06/24 10:02: Reviewed by [facility]. Addendum entered by Patricia Watkins 08/06/24 09:41: left sister a voicemail to see if she had any other information about his medications Original Note: Pharmacy Consult ? Medication Reconciliation Pharmacy has completed the medication reconciliation. Used claims to complete med rec. [facility] confirmed directions for trazodone and B12.
[2024-08-06] MEDS: Magnesium Sulfate/D5W 1 GM/100 ML PIGGYBACK IV (10:21)
[2024-08-06] MEDS: Enoxaparin Sodium 40 MG/0.4 ML SYRINGE SUBCUT (10:23)
[2024-08-06] MEDS: Thiamine HCL 500 MG in 0.9 % Sodium Chloride 100 ML 210 MG IV ×2 (10:41→21:53)
[2024-08-06 10:43] LABS: Phosphorus 2.9 mg/dL (2.7-4.5)
[2024-08-06] MEDS: PHENobarbitaL sodium 130 MG/ML VIAL IM Q3Hx2 259 MG IM ×2 (11:51→14:41)
[2024-08-06] MEDS: dexmedeTOMIDidine HCL/NS 400 MCG/100 ML INFUS..BTL 19.03 MCG IVCONT ×2 (15:58→19:41)
[2024-08-06 18:44] LABS: Anion Gap 13 (12-20); Blood Urea Nitrogen 13 mg/dL (9-16); Calcium 8.7 mg/dL (8.4-10.2); Carbon Dioxide 27 mmol/L (22-29); Chloride 100 mmol/L (96-108); Creatinine Clr Calc Pharmacy 116.6; Estimated Glomerular Filt Rate > 60; Glucose Random 120 mg/dL (60-115); Phosphorus 3.8 mg/dL (2.7-4.5); Sodium 137 mmol/L (135-145)
[2024-08-06] MEDS: Potassium Chloride/H20 10 MEQ/100 ML PIGGYBACK 100 MEQ IV ×4 (19:39→22:46)
[2024-08-07] VITALS (24 sets, daily range): BP systolic 104–136; BP diastolic 74–95; PULSE 58–71; RESP 20–29; TEMP 36–37.1; O2SAT 92–96; BMI 26.2
[2024-08-07] MEDS: dexmedeTOMIDidine HCL/NS 400 MCG/100 ML INFUS..BTL 15.22 MCG IVCONT ×3 (04:50→21:57)
[2024-08-07 05:51] LABS: MANUAL DIFF FLAG NO
[2024-08-07 06:08] LABS: Basophils Percent Auto 0.4 % (0-2); Eosinophils Absolute Auto 0.2 X10*3/uL (0.0-0.4); Hematocrit 38.5 % (42.0-52.0); Hemoglobin 12.6 g/dl (14.0-18.0); Imm Gran Abs Auto 0.01 X10*3/uL (0.00-0.03); Imm Gran Pct Auto 0.2 % (0.0-0.4); Lymphocytes Absolute Auto 0.8 X10*3/uL (1.2-4.9); Lymphocytes Percent Auto 14.9 % (20-40); Mean Corpuscular HGB Conc 32.7 g/dl (31.0-36.0); Mean Corpuscular Hemoglobin 30.1 pg (27.0-33.0); Mean Corpuscular Volume 92.1 fL (80.0-98.0); Mean Platelet Volume 9.8 fL (9.4-12.4); Monocytes Absolute Auto 0.3 X10*3/uL (0.1-1.2); Monocytes Percent Auto 5.9 % (2-11); Neutrophils Absolute Auto 3.9 x10*3/uL (2.0-8.3); Neutrophils Percent Auto 74.6 % (45-73); Platelet Count 182 X10*3/uL (160-400); Red Blood Count 4.18 X10*6/uL (4.60-5.80); Red Cell Distribution Width 12.2 % (11.0-16.0); White Blood Count 5.2 X10*3/uL (4.8-10.8)
[2024-08-07 06:15] LABS: Anion Gap 16 (12-20); Blood Urea Nitrogen 13 mg/dL (9-16); Calcium 9.4 mg/dL (8.4-10.2); Carbon Dioxide 24 mmol/L (22-29); Chloride 101 mmol/L (96-108); Creatinine Clr Calc Pharmacy 123.8; Estimated Glomerular Filt Rate > 60; Glucose Random 111 mg/dL (60-115); Potassium 3.2 mmol/L (3.3-5.1); Sodium 138 mmol/L (135-145)
[2024-08-07] MEDS: Potassium Chloride/H20 10 MEQ/100 ML PIGGYBACK 100 MEQ IV ×4 (06:54→10:27)
--- NOTE | 2024-08-07 08:02 | P.PNCC_ITS ---
Subjective Subjective Date of Service: 08/07/24 Interval History: no significant overnight events Critical Care Time (minutes): 60 Physical Exam 2 Vital Signs: Vital Signs: Last Vital Signs Temp 98.0 F 08/07/24 05:00 Pulse 61 08/07/24 07:00 Resp 28 H 08/07/24 07:00 BP 136/91 H 08/07/24 07:00 Pulse Ox 94 08/07/24 07:00 O2 Del Method Nasal Cannula 08/07/24 07:00 O2 Flow Rate 1 08/07/24 07:00 BMI result Body Mass Index 26.2 Const: Other: somnolent, though easily arousable w/ physical stimulus; unable to follow commands General: comfortable, no acute distress and well developed O rientation/consciousness: oriented to person HEENT: Head: Yes normal to inspection, Yes normocephalic and Yes atraumatic Eyes: General: appearance normal, both eyes and all related structures Neck: Neck: Yes normal visual inspection, Yes full ROM, Yes no meningeal signs, Yes trachea midline and Yes supple Chest: Chest palpation & inspection: normal inspection of the chest Resp: Other: no rales, rhonchi, wheezing Effort & Inspection: normal respiratory effort Cardio: Rate: regular rate Rhythm: regular rhythm GI: Inspection: Yes normal to inspection, No Abdominal wall edema and No distended Palpation (GI): Soft to palpation, not firm, nontender, no guarding and not rigid Skin: General skin exam: no rashes or lesions noted Neuro: General: oriented to person, tone normal, moves all extremities, no meningeal signs and no focal motor deficits Extrem: General: Yes normal to inspection, Yes full ROM, Yes capillary refill normal and Yes no clubbing, cyanosis or edema Psych: Other: intermittent agitation Objective Data Labs 08/07/24 05:12 08/07/24 05:12 Labs: Laboratory Results - last 24 hr 08/06/24 08/06/24 08/07/24 10:11 18:00 05:12 WBC 5.2 RBC 4.18 L Hgb 12.6 L Hct 38.5 L MCV 92.1 D MCH 30.1 MCHC 32.7 RDW 12.2 Plt Count 182 D MPV 9.8 Immature Gran % (Auto) 0.2 Neut % (Auto) 74.6 H Lymph % (Auto) 14.9 L [place] % (Auto) 5.9 Eos % (Auto) 4.0 Baso % (Auto) 0.4 Lymph # (Auto) 0.8 L [place] # (Auto) 0.3 Eos # (Auto) 0.2 Baso # (Auto) 0.0 Abs Immat Gran (auto) 0.01 Absolute Neuts (auto) 3.9 Absolute Nucleated RBC 0.000 Nucleated RBC % (auto) 0.0 Hold Purple Top SEE NOTE Sodium 137 138 Potassium 3.0 L 3.2 L Chloride 100 101 Carbon Dioxide 27 24 Anion Gap 13 16 BUN 13 13 Creatinine 0.69 0.65 Estim Creat Clear Calc 116.6 123.8 Estimated GFR > 60 > 60 Random Glucose 120 H 111 Calcium 8.7 D 9.4 D Phosphorus 2.9 3.8 3.0 Magnesium 2.0 2.0 Hold Yellow Top See Note Microbiology Microbiology Results: Microbiology 08/05/24 18:04 Urine clean catch - Clean Catch Midstream Urine Culture - Preliminary No growth to date. Progress Note: A&P Assessment and plan (1) Alcohol withdrawal syndrome: Status: Acute Plan Patient is a 59 Y M w/ alcohol use disorder, presenting to emergency department on 08/06 w/ nausea/vomiting since last alcoholic drink on 08/03 and desiring alcohol detox, found to have significant alcohol withdrawal in emergency department, admitted ICU N: alcohol use disorder c/b withdrawal; phenobarbital, dexmedetomidine gtt, wean as tolerated CV: no acute issues R: no acute issues GI: NPO, advance diet as tolerated; transaminitis, likely d/t alcoholic hepatitis : no acute issues H: no acute issues; chemical DVT prophylaxis ID: no acute issues E: no acute issues; to monitor hypo-/hyper-glycemia P: alcohol use disorder; addiction medicine when appropriate Quality Stroke Does the patient have a stroke diagnosis?: No VTE Prior VTE?: No VTE Risk Level:: Medical - moderate - high VTE Device Contraindication: N/A - Device Ordered VTE Drug Contraindication: N/A - Med Ordered
[2024-08-07] MEDS: Folic Acid 1 MG in 0.9 % Sodium Chloride 50 ML 100.4 MG IV (09:19)
[2024-08-07] MEDS: Enoxaparin Sodium 40 MG/0.4 ML SYRINGE SUBCUT (09:19)
[2024-08-07] MEDS: dexmedeTOMIDidine HCL/NS 400 MCG/100 ML INFUS..BTL 19.03 MCG IVCONT (10:27)
[2024-08-07] MEDS: Thiamine HCL 500 MG in 0.9 % Sodium Chloride 100 ML 210 MG IV ×2 (10:27→21:58)
--- NOTE | 2024-08-07 13:19 | MHC.CM.PN ---
PT REMAINS IN ICU , LETHARGIC AND UNABLE TO PARTICIPATE IN CM ASSESSMENT. CM UNABLE TO REACH HCP/CONTACT LISTED. CM AWAITING A RETURN CALL.
[2024-08-07 21:41] LABS: Anion Gap 16 (12-20); Blood Urea Nitrogen 11 mg/dL (9-16); Calcium 9.1 mg/dL (8.4-10.2); Carbon Dioxide 24 mmol/L (22-29); Chloride 100 mmol/L (96-108); Creatinine Clr Calc Pharmacy 129.8; Estimated Glomerular Filt Rate > 60; Glucose Random 111 mg/dL (60-115); Magnesium 1.7 mg/dL (1.6-2.6); Potassium 3.5 mmol/L (3.3-5.1); Sodium 136 mmol/L (135-145)
[2024-08-08] VITALS (24 sets, daily range): BP systolic 101–137; BP diastolic 74–93; PULSE 62–119; RESP 9–26; TEMP 36.5–37.2; O2SAT 91–96; BMI 25.1
[2024-08-08] MEDS: dexmedeTOMIDidine HCL/NS 400 MCG/100 ML INFUS..BTL 15.22 MCG IVCONT (04:27)
[2024-08-08 05:54] LABS: MANUAL DIFF FLAG NO
[2024-08-08 05:56] LABS: Basophils Percent Auto 0.3 % (0-2); Eosinophils Absolute Auto 0.3 X10*3/uL (0.0-0.4); Eosinophils Percent Auto 2.9 % (0-4); Hematocrit 39.2 % (42.0-52.0); Hemoglobin 13.4 g/dl (14.0-18.0); Imm Gran Abs Auto 0.05 X10*3/uL (0.00-0.03); Imm Gran Pct Auto 0.6 % (0.0-0.4); Lymphocytes Percent Auto 11.4 % (20-40); Mean Corpuscular HGB Conc 34.2 g/dl (31.0-36.0); Mean Corpuscular Hemoglobin 30.6 pg (27.0-33.0); Mean Corpuscular Volume 89.5 fL (80.0-98.0); Mean Platelet Volume 9.6 fL (9.4-12.4); Monocytes Absolute Auto 0.7 X10*3/uL (0.1-1.2); Monocytes Percent Auto 7.3 % (2-11); Neutrophils Absolute Auto 6.9 x10*3/uL (2.0-8.3); Neutrophils Percent Auto 77.5 % (45-73); Platelet Count 181 X10*3/uL (160-400); Red Blood Count 4.38 X10*6/uL (4.60-5.80); Red Cell Distribution Width 11.9 % (11.0-16.0); White Blood Count 8.9 X10*3/uL (4.8-10.8)
[2024-08-08 06:20] LABS: Albumin Level 3.7 g/dL (3.5-5.0); Anion Gap 16 (12-20); Blood Urea Nitrogen 14 mg/dL (9-16); Calcium 9.6 mg/dL (8.4-10.2); Carbon Dioxide 24 mmol/L (22-29); Chloride 99 mmol/L (96-108); Estimated Glomerular Filt Rate > 60; Glucose Random 99 mg/dL (60-115); Magnesium 1.8 mg/dL (1.6-2.6); Phosphorus 3.1 mg/dL (2.7-4.5); Potassium 3.6 mmol/L (3.3-5.1); Sodium 135 mmol/L (135-145)
[2024-08-08] MEDS: 0.9 % Sodium Chloride Flush 3 ML SYRINGE IVFLUSH ×3 (08:33→23:40)
[2024-08-08] MEDS: Enoxaparin Sodium 40 MG/0.4 ML SYRINGE SUBCUT (09:37)
[2024-08-08] MEDS: PHENobarbitaL 15 MG TABLET 45 MG PO (09:37)
[2024-08-08] MEDS: Thiamine HCL 500 MG in 0.9 % Sodium Chloride 100 ML 210 MG IV (09:37)
[2024-08-08] MEDS: Folic Acid 1 MG in 0.9 % Sodium Chloride 50 ML 100 MG IV (09:44)
--- NOTE | 2024-08-08 10:58 | PM.CCPN ---
Subjective Subjective Date of Service: 08/08/24 Interval History: 59-year-old gentleman with underlying history of substance abuse, including alcohol with prior episodes of delirium tremens admitted on 08/06/2024 asking for alcohol detoxification with hospital course complicated by delirium tremens requiring Precedex drip. No events overnight. Critical Care Time (minutes): 30 Physical Exam Vital Signs: Vital Signs: Last Vital Signs Temp 97.8 F 08/08/24 08:00 Pulse 67 08/08/24 09:00 Resp 20 08/08/24 09:00 BP 125/87 08/08/24 09:00 Pulse Ox 95 08/08/24 09:00 O2 Del Method Nasal Cannula 08/08/24 09:00 O2 Flow Rate 2 08/08/24 09:00 BMI result Body Mass Index 25.1 Const: General: no acute distress and alert Nutritional Appearance: not obese Orientation/consciousness: Other orientation findings ( oriented) HEENT: Head: Yes atraumatic Eyes: General: appearance normal, both eyes and all related structures Sclerae: sclerae normal EOM: EOMs intact bilaterally Neck: Neck: Yes supple Lymphatic: no lymphadenopathy noted Resp: Effort & Inspection: normal respiratory effort and no use of accessory muscles Auscultation: clear to auscultation bilaterally Cardio: Rate: regular rate Rhythm: regular rhythm Heart sounds: no gallops, no murmurs and no rubs Skin: General skin exam: other ( warm) Extrem: General: No clubbing, No cyanosis and No edema Objective Data Labs 08/08/24 05:37 08/08/24 05:37 Labs: Laboratory Results - last 24 hr 08/07/24 08/08/24 21:19 05:37 WBC 8.9 RBC 4.38 L Hgb 13.4 L Hct 39.2 L MCV 89.5 MCH 30.6 MCHC 34.2 RDW 11.9 Plt Count 181 MPV 9.6 Immature Gran % (Auto) 0.6 H Neut % (Auto) 77.5 H Lymph % (Auto) 11.4 L [place] % (Auto) 7.3 Eos % (Auto) 2.9 Baso % (Auto) 0.3 Lymph # (Auto) 1.0 L [place] # (Auto) 0.7 Eos # (Auto) 0.3 Baso # (Auto) 0.0 Abs Immat Gran (auto) 0.05 H Absolute Neuts (auto) 6.9 Absolute Nucleated RBC 0.000 Nucleated RBC % (auto) 0.0 Sodium 136 135 Potassium 3.5 3.6 Chloride 100 99 Carbon Dioxide 24 24 Anion Gap 16 16 BUN 11 14 Creatinine 0.62 0.70 Estim Creat Clear Calc 129.8 115.0 Estimated GFR > 60 > 60 Random Glucose 111 99 Calcium 9.1 9.6 Phosphorus 3.0 3.1 Magnesium 1.7 1.8 Albumin 3.7 Microbiology Microbiology Results: Microbiology 08/05/24 18:04 Urine clean catch - Clean Catch Midstream Urine Culture - Final No growth. Progress Note: A&P Assessment and plan (1) DTs (delirium tremens): Status: Acute Plan Assessment: 59-year-old gentleman admitted with alcohol withdrawal, now with delirium tremens requiring sedative drips. Plan: Neuro: Delirium tremens, continue to titrate off Precedex as tolerated. Rule out with phenobarbital. Improving slowly. Cardiac: No acute issues. Pulmonary: No acute issues. Renal: No acute issues. Endo: No acute issues. GI: No acute issues. ID: No acute issues Heme/Onc: No acute issues. Psych: No acute issues. Miscellaneous: No acute issues. Prophylaxis: Heparin Diet: Regular Critical care time spent: 30 minutes Quality Stroke Does the patient have a stroke diagnosis?: No VTE Prior VTE?: No VTE Risk Level:: Medical - moderate - high VTE Device Contraindication: N/A - Device Ordered VTE Drug Contraindication: N/A - Med Ordered
--- NOTE | 2024-08-08 14:35 | MHC.CM.PN ---
Pt continues care in ICU: currently on precedex gtt and showing signs of clinical improvement. Pt remains unable to fully participate in CM assessment: will try on 08/09.
[2024-08-08] MEDS: PHENobarbitaL 15 MG TABLET PO (20:26)
[2024-08-09] VITALS (14 sets, daily range): BP systolic 121–169; BP diastolic 73–101; PULSE 83–121; RESP 14–25; TEMP 36.2–37.6; O2SAT 91–99; BMI 25.5
[2024-08-09 06:02] LABS: VBG Base Excess 5.2 mmol/L; VBG HCO3 26 mmol/L (22-26); VBG pCO2 29 mmHg; VBG pH 7.56 (7.32-7.43); VBG pO2 48 mmHg
[2024-08-09 06:04] LABS: MANUAL DIFF FLAG NO
[2024-08-09 06:07] LABS: Basophils Percent Auto 0.3 % (0-2); Eosinophils Absolute Auto 0.2 X10*3/uL (0.0-0.4); Eosinophils Percent Auto 2.1 % (0-4); Hematocrit 39.5 % (42.0-52.0); Hemoglobin 13.3 g/dl (14.0-18.0); Imm Gran Abs Auto 0.07 X10*3/uL (0.00-0.03); Imm Gran Pct Auto 0.8 % (0.0-0.4); Lymphocytes Absolute Auto 1.5 X10*3/uL (1.2-4.9); Lymphocytes Percent Auto 16.3 % (20-40); Mean Corpuscular HGB Conc 33.7 g/dl (31.0-36.0); Mean Corpuscular Hemoglobin 30.5 pg (27.0-33.0); Mean Corpuscular Volume 90.6 fL (80.0-98.0); Monocytes Absolute Auto 0.8 X10*3/uL (0.1-1.2); Monocytes Percent Auto 8.9 % (2-11); Neutrophils Absolute Auto 6.6 x10*3/uL (2.0-8.3); Neutrophils Percent Auto 71.6 % (45-73); Platelet Count 206 X10*3/uL (160-400); Red Blood Count 4.36 X10*6/uL (4.60-5.80); Red Cell Distribution Width 12.2 % (11.0-16.0); White Blood Count 9.2 X10*3/uL (4.8-10.8)
[2024-08-09 06:07] LABS: Venous Blood Gas Refer to POC result
[2024-08-09 06:27] LABS: Albumin Level 3.9 g/dL (3.5-5.0); Anion Gap 16 (12-20); Blood Urea Nitrogen 11 mg/dL (9-16); Calcium 9.6 mg/dL (8.4-10.2); Carbon Dioxide 23 mmol/L (22-29); Chloride 99 mmol/L (96-108); Creatinine Clr Calc Pharmacy 123.8; Estimated Glomerular Filt Rate > 60; Glucose Random 104 mg/dL (60-115); Magnesium 1.8 mg/dL (1.6-2.6); Potassium 2.9 mmol/L (3.3-5.1); Sodium 135 mmol/L (135-145)
[2024-08-09] MEDS: Folic Acid 1 MG TABLET 2 MG PO (08:19)
[2024-08-09] MEDS: Potassium Chloride ER 20 MEQ TAB.ER.PRT 40 MEQ PO (08:19)
[2024-08-09] MEDS: 0.9 % Sodium Chloride Flush 3 ML SYRINGE IVFLUSH ×2 (08:19→20:00)
[2024-08-09] MEDS: Thiamine HCL 100 MG TABLET 300 MG PO (08:19)
[2024-08-09] MEDS: PHENobarbitaL 15 MG TABLET PO ×2 (08:19→20:00)
[2024-08-09] MEDS: Enoxaparin Sodium 40 MG/0.4 ML SYRINGE SUBCUT (09:17)
[2024-08-09] MEDS: Potassium Chloride Packet 20 MEQ PACKET 40 MEQ PO (09:17)
--- NOTE | 2024-08-09 09:41 | P.PNCC_ITS ---
Subjective Subjective Date of Service: 08/09/24 Interval History: 59-year-old gentleman with underlying history of substance abuse, including alcohol with prior episodes of delirium tremens admitted on 08/06/2024 asking for alcohol detoxification with hospital course complicated by delirium tremens requiring Precedex drip. No events overnight. Titrated off Precedex drip. Critical Care Time (minutes): 0 Physical Exam 2 Vital Signs: Vital Signs: Last Vital Signs Temp 98.3 F 08/09/24 08:00 Pulse 111 H 08/09/24 08:00 Resp 18 08/09/24 08:00 BP 134/91 H 08/09/24 08:00 Pulse Ox 95 08/09/24 08:00 O2 Del Method Room Air 08/09/24 08:00 O2 Flow Rate 2 08/08/24 17:00 BMI result Body Mass Index 25.5 Const: General: no acute distress, alert and awake Eyes: Sclerae: sclerae normal EOM: EOMs intact bilaterally Neck: Neck: Yes no lymphadenopathy, Yes trachea midline and Yes supple Resp: Effort & Inspection: normal respiratory effort and no respiratory distress Auscultation: clear to auscultation bilaterally Cardio: Rate: tachycardic Rhythm: regular rhythm Heart sounds: no gallops, no murmurs and no rubs GI: Palpation (GI): Soft to palpation and Other GI palpation findings present ( Nontender) Auscultation: normal bowel sounds Extrem: General: Yes no pedal edema, No clubbing and No cyanosis Objective Data Labs 08/09/24 05:52 08/09/24 05:52 Labs: Laboratory Results - last 24 hr 08/09/24 08/09/24 05:49 05:52 WBC 9.2 RBC 4.36 L Hgb 13.3 L Hct 39.5 L MCV 90.6 MCH 30.5 MCHC 33.7 RDW 12.2 Plt Count 206 MPV 10.0 Immature Gran % (Auto) 0.8 H Neut % (Auto) 71.6 Lymph % (Auto) 16.3 L [place] % (Auto) 8.9 Eos % (Auto) 2.1 Baso % (Auto) 0.3 Lymph # (Auto) 1.5 [place] # (Auto) 0.8 Eos # (Auto) 0.2 Baso # (Auto) 0.0 Abs Immat Gran (auto) 0.07 H Absolute Neuts (auto) 6.6 Absolute Nucleated RBC 0.000 Nucleated RBC % (auto) 0.0 VBG pH 7.56 H VBG pCO2 29 VBG pO2 48 VBG HCO3 26 VBG O2 Saturation 83.0 VBG Base Excess 5.2 Sodium 135 Potassium 2.9 L* Chloride 99 Carbon Dioxide 23 Anion Gap 16 BUN 11 Creatinine 0.65 Estim Creat Clear Calc 123.8 Estimated GFR > 60 Random Glucose 104 Calcium 9.6 Phosphorus 3.0 Magnesium 1.8 Albumin 3.9 Microbiology Microbiology Results: Microbiology 08/05/24 18:04 Urine clean catch - Clean Catch Midstream Urine Culture - Final No growth. Progress Note: A&P Assessment and plan (1) DTs (delirium tremens): Status: Acute Plan Assessment: 59-year-old gentleman admitted with alcohol withdrawal, now with delirium tremens requiring sedative drips. Plan: Neuro: Delirium tremens, improved. Titrated off Precedex drip. Continues on phenobarbital. Cardiac: No acute issues. Pulmonary: No acute issues. Renal: No acute issues. Endo: No acute issues. GI: No acute issues. ID: No acute issues Heme/Onc: No acute issues. Psych: No acute issues. Miscellaneous: No acute issues. Prophylaxis: Heparin Diet: Regular Quality Stroke Does the patient have a stroke diagnosis?: No VTE Prior VTE?: No VTE Risk Level:: Medical - moderate - high VTE Device Contraindication: N/A - Device Ordered VTE Drug Contraindication: N/A - Med Ordered
--- NOTE | 2024-08-09 09:43 | MHC.CM.PN ---
Met with pt to discuss d/c planning needs: pt very weepy during conversation citing his ill mother with whom he lives, his ongoing ETOH misuse and various life stressors. Pt states his PCP is [address], HCP on file listing his mother: he declined to complete a new one at this time. Pt very focused on post discharge ETOH assistance. I can't stay sober, I need more help Pt has a cell phone with him and may be able to have his sister Nadya transport him vs LYFT. CARE team to see now that pt is medically stable. No other services anticipated.
[2024-08-10] VITALS (7 sets, daily range): BP systolic 111–162; BP diastolic 76–107; PULSE 84–97; RESP 18–23; TEMP 36.6–37; O2SAT 96–100
[2024-08-10 07:04] LABS: MANUAL DIFF FLAG NO
[2024-08-10 07:09] LABS: Basophils Percent Auto 0.5 % (0-2); Eosinophils Absolute Auto 0.2 X10*3/uL (0.0-0.4); Eosinophils Percent Auto 2.2 % (0-4); Hematocrit 41.2 % (42.0-52.0); Imm Gran Abs Auto 0.06 X10*3/uL (0.00-0.03); Imm Gran Pct Auto 0.7 % (0.0-0.4); Lymphocytes Absolute Auto 1.6 X10*3/uL (1.2-4.9); Lymphocytes Percent Auto 18.6 % (20-40); Mean Corpuscular Volume 91.2 fL (80.0-98.0); Mean Platelet Volume 9.9 fL (9.4-12.4); Monocytes Absolute Auto 1.1 X10*3/uL (0.1-1.2); Monocytes Percent Auto 12.8 % (2-11); Neutrophils Absolute Auto 5.5 x10*3/uL (2.0-8.3); Neutrophils Percent Auto 65.2 % (45-73); Platelet Count 268 X10*3/uL (160-400); Red Blood Count 4.52 X10*6/uL (4.60-5.80); Red Cell Distribution Width 12.4 % (11.0-16.0); White Blood Count 8.5 X10*3/uL (4.8-10.8)
[2024-08-10 07:10] LABS: Basophils Absolute Auto 0.1 X10*3/uL (0.0-0.2); Basophils Percent Auto 0.8 % (0-2); Eosinophils Absolute Auto 0.2 X10*3/uL (0.0-0.4); Eosinophils Percent Auto 2.5 % (0-4); Hematocrit 40.7 % (42.0-52.0); Hemoglobin 13.8 g/dl (14.0-18.0); Imm Gran Abs Auto 0.07 X10*3/uL (0.00-0.03); Imm Gran Pct Auto 0.9 % (0.0-0.4); Lymphocytes Absolute Auto 1.5 X10*3/uL (1.2-4.9); Lymphocytes Percent Auto 18.7 % (20-40); Mean Corpuscular HGB Conc 33.9 g/dl (31.0-36.0); Mean Corpuscular Hemoglobin 30.9 pg (27.0-33.0); Mean Corpuscular Volume 91.3 fL (80.0-98.0); Mean Platelet Volume 9.9 fL (9.4-12.4); Monocytes Absolute Auto 0.9 X10*3/uL (0.1-1.2); Monocytes Percent Auto 11.8 % (2-11); Neutrophils Absolute Auto 5.2 x10*3/uL (2.0-8.3); Neutrophils Percent Auto 65.3 % (45-73); Platelet Count 261 X10*3/uL (160-400); Red Blood Count 4.46 X10*6/uL (4.60-5.80); Red Cell Distribution Width 12.3 % (11.0-16.0)
[2024-08-10 07:43] LABS: Albumin Level 4.3 g/dL (3.5-5.0); Anion Gap 17 (12-20); Blood Urea Nitrogen 10 mg/dL (9-16); Calcium 9.4 mg/dL (8.4-10.2); Carbon Dioxide 27 mmol/L (22-29); Chloride 98 mmol/L (96-108); Creatinine Clr Calc Pharmacy 105.9; Estimated Glomerular Filt Rate > 60; Glucose Random 111 mg/dL (60-115); Magnesium 1.9 mg/dL (1.6-2.6); Phosphorus 3.2 mg/dL (2.7-4.5); Potassium 3.9 mmol/L (3.3-5.1); Sodium 138 mmol/L (135-145)
[2024-08-10] MEDS: PHENobarbitaL 15 MG TABLET PO (07:58)
[2024-08-10] MEDS: Folic Acid 1 MG TABLET 2 MG PO (07:59)
[2024-08-10] MEDS: 0.9 % Sodium Chloride Flush 3 ML SYRINGE IVFLUSH ×2 (07:59→20:49)
[2024-08-10] MEDS: Thiamine HCL 100 MG TABLET 300 MG PO (08:00)
[2024-08-10] MEDS: Enoxaparin Sodium 40 MG/0.4 ML SYRINGE SUBCUT (11:12)
--- NOTE | 2024-08-10 14:41 | MHC.CM.PN ---
Per rounds, pt is doing better, may DC later today. Pt treated for alcoholic withdrawl. Care team and addiction medicine to eval.
--- NOTE | 2024-08-10 15:08 | HO.PM.IMPN ---
Subjective Subjective Date of Service: 08/10/24 Interval History: No acute issues overnight. Transferred out of ICU. Continues with CIWA of 0 on phenobarb protocol Review of Systems Denies chest pain Denies shortness of breath Denies nausea vomiting diarrhea Denies fever chills Physical Exam Vital Signs: Vital Signs: Last Vital Signs Temp 97.8 F 08/10/24 10:52 Pulse 84 08/10/24 10:52 Resp 18 08/10/24 10:52 BP 129/87 08/10/24 10:52 Pulse Ox 98 08/10/24 10:52 O2 Del Method Room Air 08/10/24 10:52 O2 Flow Rate 5 08/09/24 15:57 BMI result Body Mass Index 25.5 Const: Other: Awake alert no acute distress Resp: Other: Clear to auscultation bilaterally no rales rhonchi or wheezes Cardio: Other: No S4; positive S1-S2; no S3 murmurs rubs or gallops GI: Other: Soft nontender nondistended normoactive bowel sounds Extrem: Other: No edema bilaterally Objective Data Active Medications Enoxaparin Sodium (Enoxaparin Sodium 40 Mg/0.4 Ml Syringe) 40 mg SUBCUT Q24H [facility] Last Admin: 08/10/24 11:12 Dose: 40 mg Documented By: TANA Folic Acid (Folic Acid 1 Mg Tablet) 2 mg PO DAILY [facility] Last Admin: 08/10/24 07:59 Dose: 2 mg Documented By: TANA Lorazepam (Lorazepam 2 Mg/Ml Vial) 2 mg IVPUSH Q2H PRN PRN Reason: [facility] Consult (Consult Rx Etoh Phenob Im/Po) 1 each MISCELLANE ONCE PRN; Protocol PRN Reason: Consult order Phenobarbital (Phenobarbital 15 Mg Tablet) 15 mg PO DAILY [facility] Stop: 08/12/24 09:01 Sodium Chloride (0.9 % Sodium Chloride Flush 3 Ml Syringe) 3 ml IVFLUSH QSHIFT [facility] Last Admin: 08/10/24 07:59 Dose: 3 ml Documented By: TANA Thiamine HCl (Thiamine Hcl 100 Mg Tablet) 300 mg PO DAILY [facility] Last Admin: 08/10/24 08:00 Dose: 300 mg Documented By: TANA Labs 08/10/24 06:27 08/10/24 06:27 Labs: Laboratory Results - last 24 hr 08/10/24 08/10/24 08/10/24 06:27 06:27 06:27 MCV 91.3 91.2 MCH 30.9 31.0 MCHC 33.9 RDW Plt Count MPV Immature Gran % (Auto) Neut % (Auto) Lymph % (Auto) [place] % (Auto) Eos % (Auto) Baso % (Auto) Lymph # (Auto) [place] # (Auto) Eos # (Auto) Baso # (Auto) Abs Immat Gran (auto) Absolute Neuts (auto) Absolute Nucleated RBC Nucleated RBC % (auto) Anion Gap Estim Creat Clear Calc Estimated GFR Random Glucose Calcium Phosphorus Magnesium Albumin 08/10/24 08/10/24 08/10/24 06:27 06:27 06:27 MCV MCH MCHC 34.0 RDW 12.3 12.4 Plt Count 261 D 268 MPV 9.9 Immature Gran % (Auto) Neut % (Auto) Lymph % (Auto) [place] % (Auto) Eos % (Auto) Baso % (Auto) Lymph # (Auto) [place] # (Auto) Eos # (Auto) Baso # (Auto) Abs Immat Gran (auto) Absolute Neuts (auto) Absolute Nucleated RBC Nucleated RBC % (auto) Anion Gap Estim Creat Clear Calc Estimated GFR Random Glucose Calcium Phosphorus Magnesium Albumin 08/10/24 08/10/24 08/10/24 06:27 06:27 06:27 MCV MCH MCHC RDW Plt Count MPV 9.9 Immature Gran % (Auto) 0.9 H 0.7 H Neut % (Auto) 65.3 65.2 Lymph % (Auto) 18.7 L [place] % (Auto) Eos % (Auto) Baso % (Auto) Lymph # (Auto) [place] # (Auto) Eos # (Auto) Baso # (Auto) Abs Immat Gran (auto) Absolute Neuts (auto) Absolute Nucleated RBC Nucleated RBC % (auto) Anion Gap Estim Creat Clear Calc Estimated GFR Random Glucose Calcium Phosphorus Magnesium Albumin 08/10/24 08/10/24 08/10/24 06:27 06:27 06:27 MCV MCH MCHC RDW Plt Count MPV Immature Gran % (Auto) Neut % (Auto) Lymph % (Auto) 18.6 L [place] % (Auto) 11.8 H 12.8 H Eos % (Auto) 2.5 2.2 Baso % (Auto) 0.8 Lymph # (Auto) [place] # (Auto) Eos # (Auto) Baso # (Auto) Abs Immat Gran (auto) Absolute Neuts (auto) Absolute Nucleated RBC Nucleated RBC % (auto) Anion Gap Estim Creat Clear Calc Estimated GFR Random Glucose Calcium Phosphorus Magnesium Albumin 08/10/24 08/10/24 08/10/24 06:27 06:27 06:27 MCV MCH MCHC RDW Plt Count MPV Immature Gran % (Auto) Neut % (Auto) Lymph % (Auto) [place] % (Auto) Eos % (Auto) Baso % (Auto) 0.5 Lymph # (Auto) 1.5 1.6 [place] # (Auto) 0.9 1.1 Eos # (Auto) 0.2 Baso # (Auto) Abs Immat Gran (auto) Absolute Neuts (auto) Absolute Nucleated RBC Nucleated RBC % (auto) Anion Gap Estim Creat Clear Calc Estimated GFR Random Glucose Calcium Phosphorus Magnesium Albumin 08/10/24 08/10/24 08/10/24 06:27 06:27 06:27 MCV MCH MCHC RDW Plt Count MPV Immature Gran % (Auto) Neut % (Auto) Lymph % (Auto) [place] % (Auto) Eos % (Auto) Baso % (Auto) Lymph # (Auto) [place] # (Auto) Eos # (Auto) 0.2 Baso # (Auto) 0.1 0.0 Abs Immat Gran (auto) 0.07 H 0.06 H Absolute Neuts (auto) 5.2 Absolute Nucleated RBC Nucleated RBC % (auto) Anion Gap Estim Creat Clear Calc Estimated GFR Random Glucose Calcium Phosphorus Magnesium Albumin 08/10/24 08/10/24 08/10/24 06:27 06:27 06:27 MCV MCH MCHC RDW Plt Count MPV Immature Gran % (Auto) Neut % (Auto) Lymph % (Auto) [place] % (Auto) Eos % (Auto) Baso % (Auto) Lymph # (Auto) [place] # (Auto) Eos # (Auto) Baso # (Auto) Abs Immat Gran (auto) Absolute Neuts (auto) 5.5 Absolute Nucleated RBC 0.000 0.000 Nucleated RBC % (auto) 0.0 0.0 Anion Gap 17 Estim Creat Clear Calc 105.9 Estimated GFR > 60 Random Glucose 111 Calcium 9.4 Phosphorus 3.2 Magnesium 1.9 Albumin 4.3 Assessment and Plan (1) Alcohol withdrawal syndrome: Status: Acute Plan Assessment: 59-year-old gentleman admitted with alcohol withdrawal, now with delirium tremens requiring sedative drips; admitted to ICU requiring Precedex drip. Precedex drip successfully weaned and transferred to the floor. CIWA remains 0 1. Alcohol withdrawal -CIWA remains 0 -continue phenobarb protocol as ordered -addiction Medicine consult; requesting placement. Await input SubQ heparin -Full Code Requires ongoing hospitalization to monitor for withdrawal and safe placement Quality Stroke Does the patient have a stroke diagnosis?: No VTE Prior VTE?: No VTE Risk Level:: Medical - moderate - high VTE Device Contraindication: N/A - Device Ordered VTE Drug Contraindication: N/A - Med Ordered
--- NOTE | 2024-08-10 16:26 | MHC.RECOVRN ---
Met with pt in 484 after consult to Addiction Medicine for alcohol use. Pt currently admitted with alcohol withdrawal, had been in ICU and now on IMC. Pt sitting in bed, awake, alert, easily engages in conversation. Tearful and tangential throughout discussion. Pt reports he had been in recovery x1.5 years and had a recurrence 4 days prior to presentation. Pt reports he had been drinking 10 nips whiskey daily x 4 days. 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 Pt reports 1.5 years was the longest period in recovery from alcohol. Pt reports he was able to maintain recovery due to fear of his mother finding out about alcohol use and ask pt to leave the residence. Pt reports he had been living with his mother and mother is now in a halfway, is unsure if she stays in the halfway if he will continue to have housing. Pt is focused on returning to the house to gather personal belongings. 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 Discussed recovery resources and supports. Pt is interested in AA and initiating naltrexone/coming [facility]. Pt denies questions or concerns for t/w. Plan to follow up with pt tomorrow morning with resources. Discussed with Andra Mayfield APRN.
[2024-08-10] MEDS: Acetaminophen 325 MG TABLET 650 MG PO (20:47)
[2024-08-11 03:59] VITALS: BP 125/94; PULSE 83; RESP 24; TEMP 37.2; O2SAT 97
[2024-08-11 05:57] VITALS: BMI 24.5
[2024-08-11 07:19] VITALS: BP 132/83; PULSE 86; RESP 16; TEMP 37.2; O2SAT 96
[2024-08-11 07:31] LABS: MANUAL DIFF FLAG NO
[2024-08-11 07:36] LABS: Basophils Percent Auto 0.7 % (0-2); Eosinophils Absolute Auto 0.4 X10*3/uL (0.0-0.4); Eosinophils Percent Auto 5.7 % (0-4); Hematocrit 39.2 % (42.0-52.0); Hemoglobin 13.2 g/dl (14.0-18.0); Imm Gran Abs Auto 0.07 X10*3/uL (0.00-0.03); Imm Gran Pct Auto 1.1 % (0.0-0.4); Lymphocytes Absolute Auto 1.7 X10*3/uL (1.2-4.9); Lymphocytes Percent Auto 27.9 % (20-40); Mean Corpuscular HGB Conc 33.7 g/dl (31.0-36.0); Mean Corpuscular Hemoglobin 30.6 pg (27.0-33.0); Mean Corpuscular Volume 90.7 fL (80.0-98.0); Mean Platelet Volume 9.6 fL (9.4-12.4); Monocytes Percent Auto 16.8 % (2-11); Neutrophils Absolute Auto 2.9 x10*3/uL (2.0-8.3); Neutrophils Percent Auto 47.8 % (45-73); Platelet Count 288 X10*3/uL (160-400); Red Blood Count 4.32 X10*6/uL (4.60-5.80); Red Cell Distribution Width 12.2 % (11.0-16.0); White Blood Count 6.1 X10*3/uL (4.8-10.8)
[2024-08-11 07:53] LABS: Anion Gap 17 (12-20); Blood Urea Nitrogen 13 mg/dL (9-16); Calcium 9.9 mg/dL (8.4-10.2); Carbon Dioxide 25 mmol/L (22-29); Chloride 96 mmol/L (96-108); Creatinine Clr Calc Pharmacy 111.8; Estimated Glomerular Filt Rate > 60; Glucose Random 96 mg/dL (60-115); Magnesium 1.9 mg/dL (1.6-2.6); Phosphorus 3.7 mg/dL (2.7-4.5); Potassium 3.4 mmol/L (3.3-5.1); Sodium 135 mmol/L (135-145)
[2024-08-11] MEDS: Folic Acid 1 MG TABLET 2 MG PO (08:32)
[2024-08-11] MEDS: Acetaminophen 325 MG TABLET 650 MG PO ×2 (08:33→18:58)
[2024-08-11] MEDS: Thiamine HCL 100 MG TABLET 300 MG PO (08:33)
[2024-08-11] MEDS: PHENobarbitaL 15 MG TABLET PO (08:34)
[2024-08-11] MEDS: Enoxaparin Sodium 40 MG/0.4 ML SYRINGE SUBCUT (08:34)
[2024-08-11] MEDS: 0.9 % Sodium Chloride Flush 3 ML SYRINGE IVFLUSH (08:36)
--- NOTE | 2024-08-11 09:40 | MHC.RECOVSUP ---
Patient is a , was disappointed no family contacted him 08/08. Patient is normally clean shaven (head and face), would like to get groomed. We discussed different types of AA meetings and how to use When&Where. Plan of action for recovery includes [facility], [employer] and AA. Patient is still waiting to talk to Physical Therapy department.
[2024-08-11 10:32] VITALS: BP 119/88; PULSE 100; RESP 20; TEMP 37.3; O2SAT 97
[2024-08-11] MEDS: Naltrexone HCl 50 MG TABLET 25 MG PO (12:55)
[2024-08-11 15:18] VITALS: BP 123/85; PULSE 89; RESP 20; TEMP 36.5; O2SAT 97
--- NOTE | 2024-08-11 16:02 | HO.ADDICTPRO ---
Subjective Subjective Date of Service: 08/11/24 Reason For Visit: Alcohol Withdrawal Interim History: Patient currently admitted with alcohol withdrawal and delerium tremens. Alcohol withdrawal sx have subsided at this time Seen by video game animator suring this admission and expressed interest in trialling Naltrexone for AUD Seen by t/w in room 484. Awake, alert, engaged in interview. Reviewed medication, and patient had no questions related dosing, side effects or mechanism of action Review of Systems Constitutional: Reports as per HPI Mental Status Exam Mental Status Exam Patient Appearance: Appropriate Level of Consciousness: Awake, Appropriate and Alert Patient Behavior: Appropriate and Talkative Mood Description: Appropriate Affect Description: Appropriate Speech Pattern: Clear and Pressured Diagnostics Vital Signs (24Hr): Vital Signs - 24 hr 08/10/24 20:00 08/10/24 23:35 08/11/24 03:59 Temperature 98.6 F 98.1 F 99.0 F Pulse Rate 97 90 83 Respiratory Rate 18 21 H 24 H Blood Pressure 136/76 111/82 125/94 H Pulse Oximetry 98 98 97 Oxygen Delivery Method Room Air Room Air Room Air 08/11/24 07:19 08/11/24 10:32 08/11/24 15:18 Temperature 99.0 F 99.1 F 97.7 F Pulse Rate 86 100 89 Respiratory Rate 16 20 20 Blood Pressure 132/83 119/88 123/85 Pulse Oximetry 96 97 97 Oxygen Delivery Method Room Air Room Air Room Air BMI result Body Mass Index 24.5 Labs 08/11/24 06:39 08/11/24 06:39 Labs: Laboratory Results - last 48 hr 08/10/24 08/10/24 08/10/24 06:27 06:27 06:27 WBC 8.0 8.5 RBC 4.46 L 4.52 L Hgb 13.8 L Hct MCV MCH MCHC RDW Plt Count MPV Immature Gran % (Auto) Neut % (Auto) Lymph % (Auto) [place] % (Auto) Eos % (Auto) Baso % (Auto) Lymph # (Auto) [place] # (Auto) Eos # (Auto) Baso # (Auto) Abs Immat Gran (auto) Absolute Neuts (auto) Absolute Nucleated RBC Nucleated RBC % (auto) Sodium Potassium Chloride Carbon Dioxide Anion Gap BUN Creatinine Estim Creat Clear Calc Estimated GFR Random Glucose Calcium Phosphorus Magnesium Albumin 08/10/24 08/10/24 08/10/24 06:27 06:27 06:27 WBC RBC Hgb 14.0 Hct 40.7 L 41.2 L MCV 91.3 91.2 MCH 30.9 MCHC RDW Plt Count MPV Immature Gran % (Auto) Neut % (Auto) Lymph % (Auto) [place] % (Auto) Eos % (Auto) Baso % (Auto) Lymph # (Auto) [place] # (Auto) Eos # (Auto) Baso # (Auto) Abs Immat Gran (auto) Absolute Neuts (auto) Absolute Nucleated RBC Nucleated RBC % (auto) Sodium Potassium Chloride Carbon Dioxide Anion Gap BUN Creatinine Estim Creat Clear Calc Estimated GFR Random Glucose Calcium Phosphorus Magnesium Albumin 08/10/24 08/10/24 08/10/24 06:27 06:27 06:27 WBC RBC Hgb Hct MCV MCH 31.0 MCHC 33.9 34.0 RDW 12.3 12.4 Plt Count 261 D MPV Immature Gran % (Auto) Neut % (Auto) Lymph % (Auto) [place] % (Auto) Eos % (Auto) Baso % (Auto) Lymph # (Auto) [place] # (Auto) Eos # (Auto) Baso # (Auto) Abs Immat Gran (auto) Absolute Neuts (auto) Absolute Nucleated RBC Nucleated RBC % (auto) Sodium Potassium Chloride Carbon Dioxide Anion Gap BUN Creatinine Estim Creat Clear Calc Estimated GFR Random Glucose Calcium Phosphorus Magnesium Albumin 08/10/24 08/10/24 08/10/24 06:27 06:27 06:27 WBC RBC Hgb Hct MCV MCH MCHC RDW Plt Count 268 MPV 9.9 9.9 Immature Gran % (Auto) 0.9 H 0.7 H Neut % (Auto) 65.3 Lymph % (Auto) [place] % (Auto) Eos % (Auto) Baso % (Auto) Lymph # (Auto) [place] # (Auto) Eos # (Auto) Baso # (Auto) Abs Immat Gran (auto) Absolute Neuts (auto) Absolute Nucleated RBC Nucleated RBC % (auto) Sodium Potassium Chloride Carbon Dioxide Anion Gap BUN Creatinine Estim Creat Clear Calc Estimated GFR Random Glucose Calcium Phosphorus Magnesium Albumin 08/10/24 08/10/24 08/10/24 06:27 06:27 06:27 WBC RBC Hgb Hct MCV MCH MCHC RDW Plt Count MPV Immature Gran % (Auto) Neut % (Auto) 65.2 Lymph % (Auto) 18.7 L 18.6 L [place] % (Auto) 11.8 H 12.8 H Eos % (Auto) 2.5 Baso % (Auto) Lymph # (Auto) [place] # (Auto) Eos # (Auto) Baso # (Auto) Abs Immat Gran (auto) Absolute Neuts (auto) Absolute Nucleated RBC Nucleated RBC % (auto) Sodium Potassium Chloride Carbon Dioxide Anion Gap BUN Creatinine Estim Creat Clear Calc Estimated GFR Random Glucose Calcium Phosphorus Magnesium Albumin 08/10/24 08/10/24 08/10/24 06:27 06:27 06:27 WBC RBC Hgb Hct MCV MCH MCHC RDW Plt Count MPV Immature Gran % (Auto) Neut % (Auto) Lymph % (Auto) [place] % (Auto) Eos % (Auto) 2.2 Baso % (Auto) 0.8 0.5 Lymph # (Auto) 1.5 1.6 [place] # (Auto) 0.9 Eos # (Auto) Baso # (Auto) Abs Immat Gran (auto) Absolute Neuts (auto) Absolute Nucleated RBC Nucleated RBC % (auto) Sodium Potassium Chloride Carbon Dioxide Anion Gap BUN Creatinine Estim Creat Clear Calc Estimated GFR Random Glucose Calcium Phosphorus Magnesium Albumin 08/10/24 08/10/24 08/10/24 06:27 06:27 06:27 WBC RBC Hgb Hct MCV MCH MCHC RDW Plt Count MPV Immature Gran % (Auto) Neut % (Auto) Lymph % (Auto) [place] % (Auto) Eos % (Auto) Baso % (Auto) Lymph # (Auto) [place] # (Auto) 1.1 Eos # (Auto) 0.2 0.2 Baso # (Auto) 0.1 0.0 Abs Immat Gran (auto) 0.07 H Absolute Neuts (auto) Absolute Nucleated RBC Nucleated RBC % (auto) Sodium Potassium Chloride Carbon Dioxide Anion Gap BUN Creatinine Estim Creat Clear Calc Estimated GFR Random Glucose Calcium Phosphorus Magnesium Albumin 08/10/24 08/10/24 08/10/24 06:27 06:27 06:27 WBC RBC Hgb Hct MCV MCH MCHC RDW Plt Count MPV Immature Gran % (Auto) Neut % (Auto) Lymph % (Auto) [place] % (Auto) Eos % (Auto) Baso % (Auto) Lymph # (Auto) [place] # (Auto) Eos # (Auto) Baso # (Auto) Abs Immat Gran (auto) 0.06 H Absolute Neuts (auto) 5.2 5.5 Absolute Nucleated RBC 0.000 0.000 Nucleated RBC % (auto) 0.0 Sodium Potassium Chloride Carbon Dioxide Anion Gap BUN Creatinine Estim Creat Clear Calc Estimated GFR Random Glucose Calcium Phosphorus Magnesium Albumin 08/10/24 08/11/24 06:27 06:39 WBC 6.1 RBC 4.32 L Hgb 13.2 L Hct 39.2 L MCV 90.7 MCH 30.6 MCHC 33.7 RDW 12.2 Plt Count 288 MPV 9.6 Immature Gran % (Auto) 1.1 H Neut % (Auto) 47.8 Lymph % (Auto) 27.9 [place] % (Auto) 16.8 H Eos % (Auto) 5.7 H Baso % (Auto) 0.7 Lymph # (Auto) 1.7 [place] # (Auto) 1.0 Eos # (Auto) 0.4 Baso # (Auto) 0.0 Abs Immat Gran (auto) 0.07 H Absolute Neuts (auto) 2.9 Absolute Nucleated RBC 0.000 Nucleated RBC % (auto) 0.0 0.0 Sodium 138 135 Potassium 3.9 D 3.4 Chloride 98 96 Carbon Dioxide 27 25 Anion Gap 17 17 BUN 10 13 Creatinine 0.76 0.72 Estim Creat Clear Calc 105.9 111.8 Estimated GFR > 60 > 60 Random Glucose 111 96 Calcium 9.4 9.9 Phosphorus 3.2 3.7 Magnesium 1.9 1.9 Albumin 4.3 Imaging Radiology Impressions: ITS Impressions Cervical Spine CT 08/05/24 16:39 IMPRESSION: No fracture seen. Mild degenerative changes at the level of C4-5 and C5-6 Fleischner guidelines were followed. Electronically signed by: Loki Bruno MD 08/05/2024 06:12 PM EST RP Head CT 08/05/24 16:39 IMPRESSION: No acute intracranial pathology. Electronically signed by: Amie Lee MD 08/05/2024 06:56 PM EST RP Medications Medications Current Medications Acetaminophen (Acetaminophen 325 Mg Tablet) 650 mg PO Q6H PRN PRN Reason: Pain, Mild (Pain Scale 1-3) Last Admin: 08/11/24 08:33 Dose: 650 mg Enoxaparin Sodium (Enoxaparin Sodium 40 Mg/0.4 Ml Syringe) 40 mg SUBCUT Q24H [facility] Last Admin: 08/11/24 08:34 Dose: 40 mg Folic Acid (Folic Acid 1 Mg Tablet) 2 mg PO DAILY [facility] Last Admin: 08/11/24 08:32 Dose: 2 mg Naltrexone HCl (Naltrexone Hcl 50 Mg Tablet) 25 mg PO DAILY [facility] Last Admin: 08/11/24 12:55 Dose: 25 mg Pharmacy Consult (Consult Rx Etoh Phenob Im/Po) 1 each MISCELLANE ONCE PRN; Protocol PRN Reason: Consult order Phenobarbital (Phenobarbital 15 Mg Tablet) 15 mg PO DAILY [facility] Stop: 08/12/24 09:01 Last Admin: 08/11/24 08:34 Dose: 15 mg Sodium Chloride (0.9 % Sodium Chloride Flush 3 Ml Syringe) 3 ml IVFLUSH QSHIFT [facility] Last Admin: 08/11/24 08:36 Dose: 3 ml Thiamine HCl (Thiamine Hcl 100 Mg Tablet) 300 mg PO DAILY [facility] Last Admin: 08/11/24 08:33 Dose: 300 mg Allergies Allergies Allergy/AdvReac Type Severity Reaction Status Date / Time fish derived [FISH] Allergy Severe ANAPHYLAXIS Verified 08/05/24 16:29 sulfamethoxazole Allergy Severe ANAPHYLAXIS Verified 08/05/24 16:29 [From BACTRIM] trimethoprim [From BACTRIM] Allergy Severe ANAPHYLAXIS Verified 08/05/24 16:29 fish oil Allergy Unknown Unknown Verified 08/05/24 16:29 penicillin V Allergy Unknown Unknown Verified 08/05/24 16:29 Penicillins [PENICILLINS] Allergy Unknown ANAPHYLAXIS Verified 08/05/24 16:29 Sulfa (Sulfonamide Allergy Unknown Unknown Verified 08/05/24 16:29 Antibiotics) Assessment & Plan Assessment & Plan (1) Alcohol use disorder, severe, dependence: Status: Acute Code(s): F10.20 - Alcohol dependence, uncomplicated Assessment and Plan: naltrexone 25mg QD for 3days then increase to 50mg daily has an appt with [facility] following discharge recovery resources provided by RN Total time managing care of this patient today __20__ minutes.
--- NOTE | 2024-08-11 16:48 | P.PNIM_ITS ---
Subjective Subjective Date of Service: 08/11/24 Interval History: No acute issues overnight. CIWA remains 0 Review of Systems Denies chest pain Denies shortness of breath Denies nausea vomiting diarrhea Denies fever chills Physical Exam 2 Vital Signs: Vital Signs: Last Vital Signs Temp 97.7 F 08/11/24 15:18 Pulse 89 08/11/24 15:18 Resp 20 08/11/24 15:18 BP 123/85 08/11/24 15:18 Pulse Ox 97 08/11/24 15:18 O2 Del Method Room Air 08/11/24 15:18 O2 Flow Rate 5 08/09/24 15:57 BMI result Body Mass Index 24.5 Const: Other: Awake alert no acute distress Resp: Other: Clear to auscultation bilaterally no rales rhonchi or wheezes Cardio: Other: No S4; positive S1-S2; no S3 murmurs rubs or gallops GI: Other: Soft nontender nondistended normoactive bowel sounds Extrem: Other: No edema bilaterally Objective Data Active Medications Acetaminophen (Acetaminophen 325 Mg Tablet) 650 mg PO Q6H PRN PRN Reason: Pain, Mild (Pain Scale 1-3) Last Admin: 08/11/24 08:33 Dose: 650 mg Documented By: FRANKI Enoxaparin Sodium (Enoxaparin Sodium 40 Mg/0.4 Ml Syringe) 40 mg SUBCUT Q24H [facility] Last Admin: 08/11/24 08:34 Dose: 40 mg Documented By: FRANKI Folic Acid (Folic Acid 1 Mg Tablet) 2 mg PO DAILY [facility] Last Admin: 08/11/24 08:32 Dose: 2 mg Documented By: FRANKI Naltrexone HCl (Naltrexone Hcl 50 Mg Tablet) 25 mg PO DAILY [facility] Last Admin: 08/11/24 12:55 Dose: 25 mg Documented By: FRANKI Pharmacy Consult (Consult Rx Etoh Phenob Im/Po) 1 each MISCELLANE ONCE PRN; Protocol PRN Reason: Consult order Phenobarbital (Phenobarbital 15 Mg Tablet) 15 mg PO DAILY [facility] Stop: 08/12/24 09:01 Last Admin: 08/11/24 08:34 Dose: 15 mg Documented By: FRANKI Sodium Chloride (0.9 % Sodium Chloride Flush 3 Ml Syringe) 3 ml IVFLUSH QSHIFT [facility] Last Admin: 08/11/24 08:36 Dose: 3 ml Documented By: FRANKI Thiamine HCl (Thiamine Hcl 100 Mg Tablet) 300 mg PO DAILY [facility] Last Admin: 08/11/24 08:33 Dose: 300 mg Documented By: FRANKI Labs 08/11/24 06:39 08/11/24 06:39 Labs: Laboratory Results - last 24 hr 08/11/24 06:39 MCV 90.7 MCH 30.6 MCHC 33.7 RDW 12.2 Plt Count 288 MPV 9.6 Immature Gran % (Auto) 1.1 H Neut % (Auto) 47.8 Lymph % (Auto) 27.9 [place] % (Auto) 16.8 H Eos % (Auto) 5.7 H Baso % (Auto) 0.7 Lymph # (Auto) 1.7 [place] # (Auto) 1.0 Eos # (Auto) 0.4 Baso # (Auto) 0.0 Abs Immat Gran (auto) 0.07 H Absolute Neuts (auto) 2.9 Absolute Nucleated RBC 0.000 Nucleated RBC % (auto) 0.0 Anion Gap 17 Estim Creat Clear Calc 111.8 Estimated GFR > 60 Random Glucose 96 Calcium 9.9 Phosphorus 3.7 Magnesium 1.9 Assessment and Plan (1) Alcohol use disorder, severe, dependence: Status: Acute Plan Assessment: 59-year-old gentleman admitted with alcohol withdrawal, now with delirium tremens requiring sedative drips; admitted to ICU requiring Precedex drip. Precedex drip successfully weaned and transferred to the floor. CIWA remains 0 1. Alcohol withdrawal -CIWA remains 0 -continue phenobarb protocol as ordered -start naltrexone this evening. Hopeful discharge in a.m. SubQ heparin -Full Code Requires ongoing hospitalization to monitor for withdrawal and safe placement Quality Stroke Does the patient have a stroke diagnosis?: No VTE Prior VTE?: No VTE Risk Level:: Medical - moderate - high VTE Device Contraindication: N/A - Device Ordered VTE Drug Contraindication: N/A - Med Ordered
[2024-08-11] MEDS: Omeprazole 40 MG CAPSULE.DR PO (18:58)
[2024-08-11 20:00] VITALS: BP 137/82; PULSE 79; RESP 18; TEMP 36.8; O2SAT 98
[2024-08-11 23:39] VITALS: BP 139/90; PULSE 76; RESP 18; TEMP 36.7; O2SAT 99
[2024-08-12] MEDS: 0.9 % Sodium Chloride Flush 3 ML SYRINGE IVFLUSH ×2 (00:15→08:23)
[2024-08-12 04:00] VITALS: BP 136/87; PULSE 71; RESP 18; TEMP 36.9; O2SAT 94
[2024-08-12 06:00] VITALS: BMI 23.8
[2024-08-12] MEDS: Omeprazole 40 MG CAPSULE.DR PO (06:03)
[2024-08-12 07:29] LABS: Basophils Absolute Auto 0.1 X10*3/uL (0.0-0.2); Basophils Percent Auto 0.9 % (0-2); Eosinophils Absolute Auto 0.4 X10*3/uL (0.0-0.4); Eosinophils Percent Auto 6.5 % (0-4); Hematocrit 42.6 % (42.0-52.0); Hemoglobin 14.1 g/dl (14.0-18.0); Imm Gran Abs Auto 0.09 X10*3/uL (0.00-0.03); Imm Gran Pct Auto 1.5 % (0.0-0.4); Lymphocytes Percent Auto 34.2 % (20-40); MANUAL DIFF FLAG NO; Mean Corpuscular HGB Conc 33.1 g/dl (31.0-36.0); Mean Corpuscular Hemoglobin 30.1 pg (27.0-33.0); Mean Corpuscular Volume 90.8 fL (80.0-98.0); Mean Platelet Volume 9.5 fL (9.4-12.4); Monocytes Absolute Auto 1.1 X10*3/uL (0.1-1.2); Neutrophils Absolute Auto 2.3 x10*3/uL (2.0-8.3); Neutrophils Percent Auto 38.9 % (45-73); Platelet Count 370 X10*3/uL (160-400); Red Blood Count 4.69 X10*6/uL (4.60-5.80); Red Cell Distribution Width 12.3 % (11.0-16.0); White Blood Count 5.9 X10*3/uL (4.8-10.8)
[2024-08-12 08:00] VITALS: BP 143/92; PULSE 90; RESP 18; TEMP 37.1; O2SAT 99
[2024-08-12 08:01] LABS: Anion Gap 14 (12-20); Blood Urea Nitrogen 9 mg/dL (9-16); Calcium 10.1 mg/dL (8.4-10.2); Carbon Dioxide 29 mmol/L (22-29); Chloride 95 mmol/L (96-108); Creatinine Clr Calc Pharmacy 94.7; Estimated Glomerular Filt Rate > 60; Glucose Random 154 mg/dL (60-115); Magnesium 1.8 mg/dL (1.6-2.6); Phosphorus 3.2 mg/dL (2.7-4.5); Potassium 3.8 mmol/L (3.3-5.1); Sodium 134 mmol/L (135-145)
[2024-08-12] MEDS: Naltrexone HCl 50 MG TABLET 25 MG PO (08:20)
[2024-08-12] MEDS: PHENobarbitaL 15 MG TABLET PO (08:20)
[2024-08-12] MEDS: Folic Acid 1 MG TABLET 2 MG PO (08:20)
[2024-08-12] MEDS: Thiamine HCL 100 MG TABLET 300 MG PO (08:20)
[2024-08-12] MEDS: Enoxaparin Sodium 40 MG/0.4 ML SYRINGE SUBCUT (08:21)
--- NOTE | 2024-08-12 11:33 | MHC.RECOVRN ---
Addendum entered by Anastasiia Ness 08/12/24 11:34: Correction, 08/16/24, not 08/06. Original Note: Pt to present to [facility] on 08/06 between 9-11am. CM aware.
[2024-08-12 11:42] VITALS: BP 142/94; PULSE 97; RESP 18; TEMP 37.2; O2SAT 100
--- NOTE | 2024-08-12 12:39 | MHC.CM.PN ---
Pt has been medically cleared for DC, he will go home via private transport, plan is self care and he has appt at [facility] made for him.
--- NOTE | 2024-08-12 12:47 | PM.DS ---
DS: Providers Provider Date of Service: 08/12/24 Date of admission: 08/06/24 09:07 Date of discharge: 08/12/24 Primary care physician: Adriano Street DO Consults: 08/05/24 19:01 Consult to Care Team Stat Comment: Reason for consultation: alcohol abuse 08/10/24 12:26 Addiction Medicine Routine Consulting Provider: Addiction Covering Reason for consultation: Alcohol abuse Has provider been notified: No DS: Diagnosis Discharge Diagnosis (1) Alcohol use disorder, severe, dependence: Status: Acute DS: Summary Hospital Course Hospital Course: 59 Y M w/ alcohol use disorder, presenting to emergency department on 08/06 w/ nausea/vomiting since last alcoholic drink on 08/03 and desiring alcohol detox, found to have significant alcohol withdrawal in emergency department, admitted ICU secondary to inability maintained on phenobarb protocol. Was followed in ICU; Precedex drip DC and patient was transferred to floor work his CIWA continued to be 0. He was seen by addiction Medicine and started on naltrexone which will be continued. He is interested in AA, and has been given list of meetings Time Attestation Discharge Coordination Time (in mins): 35 Quality: Safe Use of Opioids Does Pt have an Active Cancer Diagnosis on the Problem List?: No Quality: Stroke Does the patient have a stroke diagnosis?: No Physical Exam Vital Signs: Vital Signs: Last Vital Signs Temp 99.0 F 08/12/24 11:42 Pulse 97 08/12/24 11:42 Resp 18 08/12/24 11:42 BP 142/94 H 08/12/24 11:42 Pulse Ox 100 08/12/24 11:42 O2 Del Method Room Air 08/12/24 11:42 O2 Flow Rate 5 08/09/24 15:57 BMI result Body Mass Index 23.8 Const: Other: Awake alert no acute distress Resp: Other: Clear to auscultation bilaterally no rales rhonchi or wheezes Cardio: Other: No S4; positive S1-S2; no S3 murmurs rubs or gallops GI: Other: Soft nontender nondistended normoactive bowel sounds Extrem: Other: No edema bilaterally DS: Data Data Completed and Pending Completed studies during hospitalization [Text1]: Procedures Detoxification Services for Substance Abuse Treatment (04/14/23) Insertion of Endotracheal Airway into Trachea, Via Natural or Artificial Opening (04/14/23) Respiratory Ventilation, 24-96 Consecutive Hours (04/14/23) Labs on day of discharge: Laboratory Results - last 24 hr 08/12/24 06:52 WBC 5.9 RBC 4.69 Hgb 14.1 Hct 42.6 MCV 90.8 MCH 30.1 MCHC 33.1 RDW 12.3 Plt Count 370 D MPV 9.5 Immature Gran % (Auto) 1.5 H Neut % (Auto) 38.9 L Lymph % (Auto) 34.2 [place] % (Auto) 18.0 H Eos % (Auto) 6.5 H Baso % (Auto) 0.9 Lymph # (Auto) 2.0 [place] # (Auto) 1.1 Eos # (Auto) 0.4 Baso # (Auto) 0.1 Abs Immat Gran (auto) 0.09 H Absolute Neuts (auto) 2.3 Absolute Nucleated RBC 0.000 Nucleated RBC % (auto) 0.0 Sodium 134 L Potassium 3.8 Chloride 95 L Carbon Dioxide 29 Anion Gap 14 BUN 9 Creatinine 0.85 Estim Creat Clear Calc 94.7 Estimated GFR > 60 Random Glucose 154 H Calcium 10.1 Phosphorus 3.2 Magnesium 1.8 Discharge Plan Discharge Anticipated Discharge Date/Time: 08/12/24 11:56 Patient Disposition: Home, Self-Care Discharge Diagnosis: Alcohol abuse syndrome Referrals: Andra Mayfield CNP [Nurse Practitioner] - 08/16/24 9:[address] DO [Primary Care Provider] - 1 Week Discharge Medications: New naltrexone 50 mg Tablet 25 mg PO DAILY Qty: 30 2RF Continued cyanocobalamin (vitamin B-12) [Vitamin B-12] 2,500 mcg tablet, sublingual 2,500 mcg sublingual DAILY trazodone 50 mg tablet 100 mg PO BEDTIME omeprazole 20 mg Capsule,Delayed Release(Dr/Ec) 20 mg PO DAILY@0630 Discharge Orders: Discharge Order (Routine); Ordered 08/12/24 Ordered By: Nolberto Snyder Diet: Advance to usual diet Activity on Discharge: As tolerated Stand Alone Forms: Patient Portal Discharge page Print Language: Montserratian Care Plan Goals: Continue all meds as taken prior to the hospital Health Concerns: Naltrexone 25 mg daily has been added to your regimen for alcohol cravings. Follow up with addiction medicine as discussed Plan of Treatment: Follow up with your PCP next available; seek out a 12 step program Assessment: See discharge summary
== END 2024-08-12 13:20 | disposition home or self-care (01) | DRG 775 ==
LOC: HO.ED 08-06 09:04 → HO.EDOVER 08-06 09:16 → HO.ICU 08-06 09:31 → HO.IMC 08-09 14:43
PROVIDERS: Internal Medicine Pulmonary Disease; Nurse Practitioner Family; Physician Assistant; Admitting Provider Internal Medicine Critical Care Medicine; Emergency Provider Emergency Medicine; PCP Family Medicine; Visit Provider Hospitalist
DX: F10.231 Alcohol dependence with withdrawal delirium (principal); K21.9 Gastro-esophageal reflux disease without esophagitis; Z79.899 Other long term (current) drug therapy
CPT/HCPCS: 36415; 70450; 72125; 80048; 80053; 80307; 81001; 82040; 82803; 83735; 84100; 85025; 87086; 93005; 97161; 99285; C1758; J1650; J2060; J2560; J3411; J3475; J3480

== ENCOUNTER 2024-08-06 09:07 | Outpatient (BNV) | payer OTHER, SELFPAY | END 2024-08-06 09:23 | PROVIDERS: Admitting Provider Internal Medicine Critical Care Medicine; Emergency Provider Emergency Medicine; PCP Family Medicine; Visit Provider Internal Medicine Cardiovascular Disease | DX: F10.931 Alcohol use, unspecified with withdrawal delirium (principal) | CPT/HCPCS: 93010 ==

== ENCOUNTER → 2024-08-06 09:07 | Outpatient (BNV) | payer OTHER, SELFPAY | PROVIDERS: Admitting Provider Internal Medicine Critical Care Medicine; Emergency Provider Emergency Medicine; PCP Family Medicine; Visit Provider Nurse Practitioner Psychiatric/Mental Health | DX: F10.20 Alcohol dependence, uncomplicated (principal) | CPT/HCPCS: 99232 ==

== ENCOUNTER → 2024-08-06 09:07 | Outpatient (BNV) | payer OTHER, SELFPAY | PROVIDERS: Admitting Provider Internal Medicine Critical Care Medicine; Emergency Provider Emergency Medicine; PCP Family Medicine; Visit Provider Internal Medicine Critical Care Medicine | DX: F10.939 Alcohol use, unspecified with withdrawal, unspecified (principal) | CPT/HCPCS: 99223; 99291 ==

== ENCOUNTER → 2024-08-06 09:07 | Outpatient (BNV) | payer OTHER, SELFPAY | PROVIDERS: Admitting Provider Internal Medicine Critical Care Medicine; Emergency Provider Emergency Medicine; PCP Family Medicine; Visit Provider Internal Medicine Pulmonary Disease | DX: F10.931 Alcohol use, unspecified with withdrawal delirium (principal) | CPT/HCPCS: 99232; 99291 ==

== ENCOUNTER → 2024-08-06 09:07 | Outpatient (BNV) | payer OTHER, SELFPAY | PROVIDERS: Admitting Provider Internal Medicine Critical Care Medicine; Emergency Provider Emergency Medicine; PCP Family Medicine; Visit Provider Hospitalist | DX: F10.130 Alcohol abuse with withdrawal, uncomplicated (principal) | CPT/HCPCS: 99231; 99239 ==

== ENCOUNTER 2024-08-16 08:55 | Outpatient (AMB) | payer OTHER, SELFPAY ==
[2024-08-16 09:12] VITALS: BP 130/80; PULSE 89; RESP 19; O2SAT 95
--- NOTE | 2024-08-16 09:12 | MHC.AM.SUB ---
Vital Signs 08/16/24 09:12 BP 130/80 Blood Pressure Location Rt radial Position Sitting Respiration 19 Pulse 89 Pulse Oximetry (%) 95 Intake Visit Reasons: walk in Allergies fish derived [FISH] Allergy (Severe, Verified 08/05/24 16:29) ANAPHYLAXIS sulfamethoxazole [From BACTRIM] Allergy (Severe, Verified 08/05/24 16:29) ANAPHYLAXIS trimethoprim [From BACTRIM] Allergy (Severe, Verified 08/05/24 16:29) ANAPHYLAXIS fish oil Allergy (Unknown, Verified 08/05/24 16:29) Unknown penicillin V Allergy (Unknown, Verified 08/05/24 16:29) Unknown Penicillins [PENICILLINS] Allergy (Unknown, Verified 08/05/24 16:29) ANAPHYLAXIS Sulfa (Sulfonamide Antibiotics) Allergy (Unknown, Verified 08/05/24 16:29) Unknown HPI HPI walk in: Details: Patient presents as walk to continue treatment for AUD Seen by this parts data writer and ACS while medically admitted with alcohol withdrawal Hospitalization notes and labs reviewd He reports he has been taking Naltrexone 25 mg daily and finds it effective as he states he is having no thoughts of drinking He has been attending AA meetings and is motivated to remain engaged in recovery oriented activities/supports Review of Systems Const Reports as per HPI and Reports no additional complaints Physical Exam Vital Signs: Last Vital Signs Pulse 89 08/16/24 09:12 Resp 19 08/16/24 09:12 BP 130/80 08/16/24 09:12 Pulse Ox 95 08/16/24 09:12 Const General: cooperative, healthy appearing and well groomed Nutritional Appearance: average body habitus Orientation/consciousness: patient oriented x3 Limitations: no limitations Neuro General: patient oriented x3 Psych Appearance: well kempt Speech and movement: Pressured speech present Affect: Animated affect present Attitude: cooperative Thought process: Tangential thought process present Thought content: Normal thought content present Insight: Good insight present (Psych) Judgement: Good judgement present (Psych) Assessment & Plan Assessment & Plan (1) Alcohol use disorder, severe, dependence: Code(s): F10.20 - Alcohol dependence, uncomplicated Category: Medical Plan: continue naltrexone at 25mg (per patient request) advised that he could increase to 50mg daily if cravings started to present follow up 3 weeks motor coach bus driver to check in with patient [facility] Medical History History of heroin use GERD (gastroesophageal reflux disease) Alcohol use disorder Social History Household Members: Unknown / Unable to assess Housing: Unknown / Unable to assess Alcohol intake: current Alcohol intake frequency: 3 or more drinks per day Alcohol type: hard liquor Comment: Sitter Patient Tobacco Use Status: Former Tobacco user Substance Use Type: Marijuana service: No MAT Intake Nursing Intake Reason for visit: Looking for help Are you currently using?: No When was your last use?: >1 week ago How much?: 4 nips a day of vodka What is your current relationship status?: Single Current PCP: Dr. Street Date of last visit: <1 month Referral Source: [facility] Substance Abuse History Substance Abuse History (includes route, frequency and quantity): Heroin (3 years, hasnt used since 1995), Alcohol and Marijuana IV Drug Use Have you ever shared needles?: Yes Have you ever belonged to a needle exchange program?: No Do you buy needles at a pharmacy?: No Have you ever overdosed?: No Have you ever been hospitalized for an overdose?: No Was Naloxone administered?: No Recovery History Have you had any periods of recovery?: Yes What is your longest time in recovery?: Patient states he was in recovery for 1 1/2 years prior to this most recent slip up Have you ever had inpatient treatment for your substance abuse disorder?: Yes Have you been in an inpatient detoxification program?: Yes Have you been in an inpatient Rehab/[facility] house?: Yes Have you been in an outpatient Methadone Maintenance program?: No Have you been in an outpatient Suboxone Maintenance program?: No Have you been in an AA/NA support program?: Yes 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 If so, who?: Denies History of self harming thoughts?: No History of homicidal or suicidal intentions?: No Medical Conditions Endocarditis?: No Skin Infection: No Seizure related to withdrawal or overdose: No Head or brain injury: No Hepatitis A (if yes, have you been treated?): No Hepatitis B (if yes, have you been treated?): No Hepatitis C (if yes, have you been treated?): No HIV (if yes, have you been treated?): No TB (if yes, have you been treated?): No Other: No Legal History History of incarceration: No Currently on parole or probation: No Court mandated programs: No Pending court cases: No DCF involvement: No
--- OUTSIDE RECORDS SUMMARY | 2024-08-19 13:24 | XMS_ITS | Continuity of Care Document ---
Author Organization [facility] Tello Robert lt Address [address] [place] [address]- Care Team Providers Care Licensed Dispensing Optician Name Role Phone Yariel WILKINSON, Livia Pond Primary Care Physician [phone] [place]counter [facility] [place] Date(s): 12/28/23 - 01/04/24 [facility] [place] [facility] [address] [place] [address]- Encounter Diagnosis Alcoholism(Discharge Diagnosis) - 12/28/23 Chronic knee pain(Discharge Diagnosis) - 12/28/23 Attending Physician: Livia Saldivar NP Referring Physician: Feliciano Coon MD Allergies, Adverse Reactions, Alerts Substance Reaction Severity Status penicillin anaphylactic Active sulfa drugs terrible headace Active Bactrim headache Active Fish anaphylactic Active Immunizations Given and Recorded Vaccine Date Status Refusal Reason tetanus-diphtheria toxoids (Td) 07/23/23 Given tetanus-diphtheria toxoids (Td) 02/16/06 Given influenza virus vaccine, inactivated 1 06/24/23 Re corded influenza virus vaccine, inactivated 07/04/20 Give n influenza virus vaccine, inactivated 07/04/19 Give n influenza virus vaccine, inactivated 2 07/20/18 Gi dawna influenza virus vaccine, inactivated 3 06/15/17 Gi dawna influenza virus vaccine, inactivated 07/10/16 Give n influenza virus vaccine, inactivated 4 07/12/15 Gi dawna SARS-CoV-2 mRNA ([id number]) vax 5 06/24/23 Recorded SARS-CoV-2 (COVID-19) mRNA-1273 vaccine 03/12/21 R ecorded SARS-CoV-2 (COVID-19) mRNA-1273 vaccine 02/12/21 R ecorded Fluzone (oldterm) 06/17/12 Given Fluzone (oldterm) 10/08/09 Given Tet/Diphth/Acel, Pertussis (oldterm) 12/19/11 Give n Influenza Virus Vaccine (oldterm) 06/05/11 Given Influenza Virus Vaccine (oldterm) 08/18/08 Given FluLaval (oldterm) 6 07/03/10 Given Pneumococcal Vaccine (oldterm) 07/16/09 Given Hepatitis B Vaccine (old term) 05/16/08 Given Hepatitis B Vaccine (old term) 11/16/07 Given Hepatitis B Vaccine (old term) 7 10/15/07 Given Influenza Inactive (IM) (oldterm) 8 07/22/06 Given 1Result Comment: [facility] 2Result Comment: [07/20/2018] 42540-531-79 3Result Comment: [06/15/2017] [facility] 18631-130-07 4Admin Note: work 5Result Comment: [facility] 6Admin Note: BIOMEDICAL JOSH 7Admin Note: GIVEN WHILE IN [facility] 8Admin Note: clinic [facility] Medications cetirizine 10 mg oral tablet 1 tablet = 10 mg, By Mouth, Daily, # 30 tablet, 0 Refills, Maintenance, 10/23/23 14:13:00 EST, Tablet, [facility] # [facility], Partial fill upon patient request if the prescription is for a schedule II opioid drug., 175, cm, 10/23/23 13:26:00 EST, Height Start Date: 10/23/23 Status: Ordered ibuprofen 800 mg oral tablet 800 mg, 1, tablet, By Mouth, 3 times a day, PRN, # 90 tablet, Refills 0, Tot. Refills 0, Maintenance, as needed for arthritis, 10/04/19 10:08:00 EST, Route to Pharmacy Electronically, [facility], 179, cm, 04/29/19 9:33:00 EDT, Height, 72.6, k... Start Date: 10/04/19 Status: Ordered omeprazole 20 mg oral enteric coated capsule 1 capsule, By Mouth, Daily, # 90 capsule, 3 Refills, 02/12/23 10:52:00 EDT, [facility], 175, cm, 01/07/22 10:54:00 EDT, Height, 70.5, kg, 06/26/21 13:39:00 EDT, Dry Weight Start Date: 02/12/23 Status: Ordered Patient's Own Meds CBD creme, Daily, Maintenance, 04/13/19 10:47:18 EDT Start Date: 04/13/19 Status: Ordered PEG-3350 with Electrolytes (Eqv-GoLYTELY) oral powder for reconstitution See Instructions, 1 glass every 15-30 minutes until finished, # 4,000 mL, 0 Refills, Maintenance, 02/08/21 9:31:00 EDT, [facility] # [facility], OK TO SUB ANY GALLON PREP; PROCEDURE IS 9.29, 1 glass every 15-30 minutes until finished, 175.2, cm, 02/05/21... Start Date: 02/08/21 Status: Ordered PEG-3350 with Electrolytes (Eqv-GoLYTELY) oral powder for reconstitution See Instructions, 1 glass every 15-30 minutes until finished, # 4,000 mL, 0 Refills, Maintenance, 06/13/21 12:19:00 EDT, [facility] # [facility], ok to substitute any gallon prep, 1 glass every 15-30 minutes until finished, 175.2, cm, 02/05/21 11:43:00 ED... Start Date: 06/13/21 Status: Ordered propranolol 20 mg oral tablet 20 mg, 1, tablet, By Mouth, 2 times a day, # 60 tablet, Refills 5, Tot. Refills 5, Maintenance, 05/19/23 14:36:00 EDT, Route to Pharmacy Electronically, [facility] # [facility], Partial fill upon patientrequest if the prescription is for a schedule II op... Start Date: 05/19/23 Status: Ordered traZODone 50 mg oral tablet 50 mg, 1, tablet, By Mouth, Daily at bedtime, # 30 tablet, Refills 5, Tot. Refills 5, Maintenance, 12/28/23 13:03:00 EDT, Route to Pharmacy Electronically, [facility] # [facility], Partial fill upon patient request if the prescription is for a schedule II... Start Date: 12/28/23 Status: Ordered Vitamin B12 2500 mcg sublingual tablet 1 tablet = 2,500 mcg, Sublingual, Daily, # 90 tablet, 3 Refills, Maintenance, 06/25/23 10:32:00 EDT, Tablet, [facility], Partial fill upon patient request if the prescription is for a schedule II opioid drug., 175, cm, 06/25/23 10:09:00 EDT,... Start Date: 06/25/23 Status: Ordered Problem List Condition Confirmation Course Effective Dates Status H ealth Status Informant Alcoholism Confirmed Active Chronic Rhinitis Confirmed 08/18/12 Active Gastroesophageal reflux disease with hiatal hernia Confirmed Active Hyperlipidemia -10-year ASCVD risk as of 11/23/2019 is 3.6% Confirmed Active Alcohol abuse, daily use Confirmed Active Right elbow pain Confirmed Active Finger pain, right Confirmed Active Bilateral knee pain Confirmed Active Right shoulder pain Confirmed Active Tubulovillous adenoma polyp of rectum 1, 2 Confirmed 02/07/21 Active 1Needs repeat screening colonoscopy in 2023 2tubular adenoma of colon in 2020, repeat screening colonoscopy in 2025 Diagnosis Diagnosis Type Effective Dates Health Status Clinical Service Informant Alcoholism Discharge Diagnosis 12/28/23 Chronic knee pain Discharge Diagnosis 12/28/23 Vital Signs Most recent to oldest [Reference Range]: 1 2 Height 175 cm (12/28/23 12:52 PM) 175 cm (12/28/23 12:48 PM) Weight 80.6 kg (12/28/23 12:48 PM) Oxygen Saturation [94-100 %] 100 % (12/28/23 12:48 PM) Pulse Rate [55-90 bpm] 81 bpm (12/28/23 12:48 PM) Body Mass Index [18.5-24.99 kg/m2] 26.32 kg/m2 *H* (12/28/23 12:48 PM) Blood Pressure [90-138/55-84 mm Hg] 137/ 90mm Hg (12/28/23 12:52 PM) 136/91mm Hg (12/28/23 12:48 PM) Blood pressure sites Arm, right (12/28/23 12:48 PM) Weight Obtained Via Standing scale (12/28/23 12:48 PM) Social History Social History Type Response Smoking Status Former smoker, quit more than 30 days ago entered on: 03/19/23 Sex Implantable Device List Procedure Provider Procedure Date Device Type Site Repair Hernia Inguinal with Mesh Valeriano Arriaza MD 04/21/19 Unknown Groin Left Device Identifier Serial Number Lot or Batch Number Manufacturing Date Expiration Date Distinct Identification Code MRI Safety Implantable Status Assigning Authority Unknown Unknown [id number] Unknown 05/25/23 Unknown Unknown Active Unknown Patient Care team information Care Team Personnel Name: Yariel WILKINSON, Livia Pond Position: [facility] Associate Professional Member Role: PCP Address: Address: [address] [place] [id number]- Care Team Related Persons Name: HUBER CORDERO Address: home [address] [place] [id number] Name: HUBER CORDERO Address: home [address] [place] [id number]
--- OUTSIDE RECORDS SUMMARY | 2024-08-19 13:24 | XMS_ITS | Continuity of Care Document ---
Author Organization [facility] Address [address] [place] [address]- Care Team Providers Care Supervisor Special Services Name Role Phone Jesse Vargas MD Primary Care Physician Encounter [facility] [place] Date(s): 12/25/20 - 01/24/21 [facility] [address], [place] [address] Allergies, Adverse Reactions, Alerts Substance Reaction Severity Status penicillin anaphylactic Active sulfa drugs terrible headace Active Bactrim headache Active Fish anaphylactic Active Immunizations Given and Recorded Vaccine Date Status Refusal Reason influenza virus vaccine, inactivated 07/04/20 Give n influenza virus vaccine, inactivated 07/04/19 Give n influenza virus vaccine, inactivated 1 07/20/18 Gi dawna influenza virus vaccine, inactivated 2 06/15/17 Gi dawna influenza virus vaccine, inactivated 07/10/16 Give n influenza virus vaccine, inactivated 3 07/12/15 Gi dawna Fluzone (oldterm) 06/17/12 Given Fluzone (oldterm) 10/08/09 Given Tet/Diphth/Acel, Pertussis (oldterm) 12/19/11 Give n Influenza Virus Vaccine (oldterm) 06/05/11 Given Influenza Virus Vaccine (oldterm) 08/18/08 Given FluLaval (oldterm) 4 07/03/10 Given Pneumococcal Vaccine (oldterm) 07/16/09 Given Hepatitis B Vaccine (old term) 05/16/08 Given Hepatitis B Vaccine (old term) 11/16/07 Given Hepatitis B Vaccine (old term) 5 10/15/07 Given Influenza Inactive (IM) (oldterm) 6 07/22/06 Given tetanus-diphtheria toxoids (Td) 02/16/06 Given 1Result Comment: [07/20/2018] 07269-463-19 2Result Comment: [06/15/2017] [facility] 44719-260-02 3Admin Note: work 4Admin Note: BIOMEDICAL JOSH 5Admin Note: GIVEN WHILE IN [facility] 6Admin Note: clinic elda Medications ibuprofen 800 mg oral tablet 800 mg, 1, tablet, By Mouth, 3 times a day, PRN, # 90 tablet, Refills 0, Tot. Refills 0, Maintenance, as needed for arthritis, 10/04/19 10:08:00 EST, Route to Pharmacy Electronically, [facility], 179, cm, 04/29/19 9:33:00 EDT, Height, 72.6, k... Start Date: 10/04/19 Status: Ordered omeprazole 20 mg oral delayed release tablet 1 tablet = 20 mg, By Mouth, Daily, # 90 tablet, 0 Refills, Maintenance, 11/03/20 15:11:00 EST, [facility] # [facility], 179, cm, 11/07/19 14:24:00 EST, Height, 72.6, kg, 04/21/19 13:49:00 EDT, Dry Weight Start Date: 11/03/20 Stop Date: 02/01/21 Status: Ordered Patient's Own Meds CBD creme, Daily, Maintenance, 04/13/19 10:47:18 EDT Start Date: 04/13/19 Status: Ordered PEG-3350 with Electrolytes (Eqv-Colyte) oral powder for reconstitution See Instructions, split prep method, # 4,000 mL, 0 Refills, Maintenance, 02/04/21 17:00:00 EDT, [facility] # [facility], test date 02/05/21, split prep method, 179, cm, 11/08/20 10:40:00 EST, Height, 72.6, kg, 04/21/19 13:49:00 EDT, Dry Weight Start Date: 02/04/21 Status: Ordered Problem List Condition Effective Dates Status Health Status Inform ant Chronic Rhinitis(Confirmed) 08/18/12 Active Gastroesophageal reflux dise ase with hiatal hernia(Confirmed) Active Hyperlipidemia -10-year ASCV D risk as of 11/23/2019 is 3.6%(Confirmed) Active Social History Social History Type Response Smoking Status Former smoker, quit more than 30 days ago; Use: Quit 14 years ago entered on: 11/08/20 Sex Medical Equipment Implanted Date:04/21/19Target Site:Groin Left Description Quantity MRI Company Model MESH BARD 3X6IN 7.5X15CM - BARD ([id number]) 1 Bard Unknown BRENDA:No Information Assigning Authority: FDA
--- OUTSIDE RECORDS SUMMARY | 2024-08-19 13:24 | XMS_ITS | Continuity of Care Document ---
Author Organization [facility] ter Address [address] [place] [id number]- Care Team Providers Care Elementary Substitute Teacher Name Role Phone Jesse Vargas MD Primary Care Physician Encounter [facility] Date(s): 11/08/19 - 11/08/[address] [address]- [facility] Attending Physician: Jesse Vargas MD Allergies, Adverse Reactions, Alerts Substance Reaction Severity Status penicillin anaphylactic Active sulfa drugs terrible headace Active Bactrim headache Active Fish anaphylactic Active Immunizations Given and Recorded Vaccine Date Status Refusal Reason influenza virus vaccine, inactivated 07/04/19 Give n [...] toxoids (Td) 02/16/06 Given 1Result Comment: [07/20/2018] 95938-882-87 2Result Comment: [06/15/2017] [facility] [id number] 3Admin Note: work 4Admin Note: BIOMEDICAL JOSH 5Admin Note: GIVEN WHILE IN [facility] 6Admin Note: clinic elda Medications ibuprofen 800 mg oral tablet 800 mg, 1, tablet, By Mouth, 3 times a day, PRN, # 90 tablet, Refills 0, Tot. Refills 0, Maintenance, as needed for arthritis, 10/04/19 10:08:00 EST, Route to Pharmacy Electronically, [facility] # [facility], 179, cm, 04/29/19 9:33:00 EDT, Height, 72.6, k... Start Date: 10/04/19 Status: Ordered omeprazole 20 mg oral delayed release tablet 1 tablet = 20 mg, By Mouth, Daily, # 90 tablet, 3 Refills, Maintenance, 08/09/19 7:30:42 EST Start Date: 08/09/19 Status: Ordered Patient's Own Meds CBD creme, Daily, Maintenance, 04/13/19 10:47:18 EDT Start Date: 04/13/19 Status: Ordered Problem List Condition Effective Dates Status Health Status Inform ant Chronic Rhinitis(Confirmed) 08/18/12 Active Gastroesophageal reflux dise ase with hiatal hernia(Confirmed) Active Social History Social History Type Response Smoking Status Former smoker entered on: 04/28/14 Sex Medical Equipment Implanted Date:04/21/19Target Site:Groin Left Description Quantity MRI Company Model MESH BARD 3X6IN 7.5X15CM - BARD ([id number]) 1 Bard Unknown BRENDA:No Information Assigning Authority: FDA
--- OUTSIDE RECORDS SUMMARY | 2024-08-19 13:24 | XMS_ITS | Continuity of Care Document ---
Author Organization [facility] Tello Robert lt Address [address] [place] [address]- Care Team Providers Care Hog Confinement System Manager Name Role Phone Yariel WILKINSON, Livia Pond Primary Care Physician [phone] [facility] Date[facility] 02[facility]23 - 03/12/23 [facility] [place] Adult [address] [place] [address]- Allergies, Adverse Reactions, Alerts Substance Reaction Severity [...] toxoids (Td) 02/16/06 Given 1Result Comment: [07/20/2018] [id number] 2Result Comment: [06/15/2017] [facility] [id number] 3Admin Note: work 4Admin Note: BIOMEDICAL JOSH 5Admin Note: GIVEN WHILE IN [facility] 6Admin Note: clinic elda Medications ibuprofen 800 mg oral tablet 800 mg, 1, tablet, By Mouth, 3 times a day, PRN, # 90 tablet, Refills 0, Tot. Refills 0, Maintenance, as needed for arthritis, 10/04/19 10:08:00 EST, Route to Pharmacy Electronically, [facility] # [facility], 179, cm, 04/29/19 9:33:00 EDT, Height, 72.6, k... Start Date: 10/04/19 Status: Ordered omeprazole 20 mg oral enteric coated capsule 1 capsule, By Mouth, Daily, # 90 capsule, 3 Refills, 02/12/23 10:52:00 EDT, [facility] # 50, 175, cm, 01/07/22 10:54:00 EDT, Height, 70.5, kg, 06/26/21 13:39:00 EDT, Dry Weight Start Date: 02/12/23 Status: Ordered Patient's Own Meds CBD creme, Daily, Maintenance, 04/13/19 10:47:18 EDT Start Date: 04/13/19 Status: Ordered PEG-3350 with Electrolytes (Eqv-GoLYTELY) oral powder for reconstitution See Instructions, 1 glass every 15-30 minutes until finished, # 4,000 mL, 0 Refills, Maintenance, 02/08/21 9:31:00 EDT, [facility] # 50, OK TO SUB ANY GALLON PREP; PROCEDURE IS 9.29, 1 glass every 15-30 minutes until finished, 175.2, cm, 02/05/21... Start Date: 02/08/21 Status: Ordered PEG-3350 with Electrolytes (Eqv-GoLYTELY) oral powder for reconstitution See Instructions, 1 glass every 15-30 minutes until finished, # 4,000 mL, 0 Refills, Maintenance, 06/13/21 12:19:00 EDT, [facility] # 50, ok to substitute any gallon prep, 1 glass every 15-30 minutes until finished, 175.2, cm, 02/05/21 11:43:00 ED... Start Date: 06/13/21 Status: Ordered Problem List Condition Confirmation Course Effective Dates Status H ealth Status Informant Chronic Rhinitis Confirmed 08/18/12 Active Gastroesophageal reflux disease with hiatal hernia Confirmed Active Hyperlipidemia -10-year ASCVD risk as of 11/23/2019 is 3.6% Confirmed Active Tubulovillous adenoma polyp of rectum 1, 2 Confirmed 02/07/21 Active 1Needs repeat screening colonoscopy in 2023 2tubular adenoma of colon in 2020, repeat screening colonoscopy in 2025 Social History Social History Type Response Smoking Status Former smoker, quit more than 30 days ago; Use: Quit 14 years ago entered on: 11/08/20 Sex Implantable Device List Procedure Provider Procedure Date Device Type Site Repair Hernia Inguinal with Mesh Arsalan SALGUERO, Valeriano 04/21/19 Unknown Groin Left Device Identifier Serial Number Lot or Batch Number Manufacturing Date Expiration Date Distinct Identification Code MRI Safety Implantable Status Assigning Authority Unknown Unknown [id number] Unknown 05/25/23 Unknown Unknown Active Unknown Patient Care team information Care Team Personnel Name: Yariel WILKINSON, Livia Pond Position: [facility] Associate Professional Member Role: PCP Address: Address: [address] [place] [address]- Care Team Related Persons Name: HUBER CORDERO Address: home [address] [place] [address] Name: HUBER CORDERO Address: home [address] [place] [address]
--- OUTSIDE RECORDS SUMMARY | 2024-08-19 13:24 | XMS_ITS | Continuity of Care Document ---
Author Organization [facility] Tello Robert lt Address [address] [place] [address]- Care Team Providers Care Nutter Up Name Role Phone Yariel WILKINSON, Livia Pond Primary Care Physician [facility]): 06[facility]23 - 07/[facility]/23 [facility] Adult [address] [place] [address]- Encounter Diagnosis Annual physical exam(Discharge Diagnosis) - 06/25/23 Alcoholism(Discharge Diagnosis) - 06/25/23 Gastroesophageal reflux disease with hiatal hernia(Discharge Diagnosis) - 06/25/23 Hyperlipidemia -10-year ASCVD risk as of 11/23/2019 is 3.6%(Discharge Diagnosis) - 06/25/23 Bilateral foot pain(Discharge Diagnosis) - 06/25/23 Attending Physician: Not on Staff, Attending MD Allergies, Adverse Reactions, Alerts Substance Reaction Severity Status penicillin anaphylactic Active Bactrim headache Active Fish anaphylactic Active sulfa drugs terrible headace Active Immunizations Given and Recorded Vaccine Date Status Refusal Reason influenza virus vaccine, inactivated 1 06/24/23 Re corded influenza virus vaccine, inactivated 07/04/20 Give n influenza virus vaccine, inactivated 07/04/19 Give n influenza virus vaccine, inactivated 2 07/20/18 Gi dawna influenza virus vaccine, inactivated 3 06/15/17 Gi dawna influenza virus vaccine, inactivated 07/10/16 Give n influenza virus vaccine, inactivated 4 07/12/15 Gi dawna SARS-CoV-2 mRNA ([id number]) vax 5 06/24/23 Recorded SARS-CoV-2 (COVID-19) mRNA-1273 [...] Influenza Inactive (IM) (oldterm) 8 07/22/06 Given tetanus-diphtheria toxoids (Td) 02/16/06 Given 1Result Comment: [facility] [place] 2Result Comment: [07/20/2018] [id number] 3Result Comment: [06/15/2017] [facility] [id number] 4Admin Note: work 5Result Comment: [facility] [place] 6Admin Note: [employer] JOSH 7Admin Note: GIVEN WHILE IN [facility] 8Admin Note: clinic elda Medications hydrOXYzine hydrochloride 25 mg oral tablet 1 tablet = 25 mg, By Mouth, 4 times a day, 0 Refills, Maintenance, 05/19/23 14:09:00 EDT, Partial fill upon patient request if the prescription is for a schedule II opioid drug. Start Date: 05/19/23 Status: Ordered ibuprofen 800 mg oral tablet 800 mg, 1, tablet, By Mouth, 3 times a day, PRN, # 90 tablet, Refills 0, Tot. Refills 0, Maintenance, as needed for arthritis, 10/04/19 10:08:00 EST, Route to Pharmacy Electronically, [facility] # [facility], 179, cm, 04/29/19 9:33:00 EDT, Height, 72.6, k... Start Date: 10/04/19 Status: Ordered omeprazole 20 mg oral enteric coated capsule 1 capsule, By Mouth, Daily, # 90 capsule, 3 Refills, 02/12/23 10:52:00 EDT, [facility] # 50, 175, cm, 01/07/22 10:54:00 EDT, Height, 70.5, kg, 06/26/21 13:39:00 EDT, Dry Weight Start Date: 02/12/23 Status: Ordered Patient's Own Meds CBD creme, Daily, Maintenance, 04/13/19 10:47:18 EDT Start Date: 04/13/19 Status: Ordered PEG-3350 with Electrolytes (Eqv-GoLYTELY) oral powder for reconstitution See Instructions, 1 glass every 15-30 minutes until finished, # 4,000 mL, 0 Refills, Maintenance, 02/08/21 9:31:00 EDT, [facility] # [facility], OK TO SUB ANY GALLON PREP; PROCEDURE IS 9.29, 1 glass every 15-30 minutes until finished, 175.2, cm, 02/05/21... Start Date: 02/08/21 Status: Ordered PEG-3350 with Electrolytes (Eqv-GoLYTELY) oral powder for reconstitution See Instructions, 1 glass every 15-30 minutes until finished, # 4,000 mL, 0 Refills, Maintenance, 06/13/21 12:19:00 EDT, [facility] # [facility], ok to substitute any gallon prep, 1 glass every 15-30 minutes until finished, 175.2, cm, 02/05/21 11:43:00 ED... Start Date: 06/13/21 Status: Ordered propranolol 20 mg oral tablet 20 mg, 1, tablet, By Mouth, 2 times a day, # 60 tablet, Refills 5, Tot. Refills 5, Maintenance, 05/19/23 14:36:00 EDT, Route to Pharmacy Electronically, [facility] # [facility], Partial fill upon patientrequest if the prescription is for a schedule II op... Start Date: 05/19/23 Status: Ordered Vitamin B12 2500 mcg sublingual tablet 1 tablet = 2,500 mcg, Sublingual, Daily, # 90 tablet, 3 Refills, Maintenance, 06/25/23 10:32:00 EDT, Tablet, [facility] # 50, Partial fill upon patient request if the prescription is for a schedule II opioid drug., 175, cm, 06/25/23 10:09:00 EDT,... Start Date: 06/25/23 Status: Ordered Problem List Condition Confirmation Course Effective Dates Status H ealth Status Informant Alcoholism Confirmed Active Chronic Rhinitis Confirmed 11/21/12 Active Gastroesophageal reflux disease with hiatal hernia Confirmed Active Hyperlipidemia -10-year ASCVD risk as of 11/23/2019 is 3.6% Confirmed Active Alcohol abuse, daily use Confirmed Active Right elbow pain Confirmed Active Finger pain, right Confirmed Active Right shoulder pain Confirmed Active Tubulovillous adenoma polyp of rectum 1, 2 Confirmed 02/07/21 Active 1Needs repeat screening colonoscopy in 2023 2tubular adenoma of colon in 2020, repeat screening colonoscopy in 2025 Diagnosis Diagnosis Type Effective Dates Health Status Clinical Service Informant Annual physical exam Discharge Diagnosis 06/25/23 Alcoholism Discharge Diagnosis 06/25/23 Gastroesophageal reflux disease with hiatal hernia Discharge Diagnosis 06/25/23 Hyperlipidemia -10-year ASCVD risk as of 11/23/2019 is 3.6% Discharge Diagnosis 06/25/23 Bilateral foot pain Discharge Diagnosis 06/25/23 Vital Signs Most recent to oldest [Reference Range]: 1 Height 175 cm (06/25/23 10:09 AM) Weight 78.6 kg (06/25/23 10:09 AM) Oxygen Saturation [94-100 %] 100 % (06/25/23 10:09 AM) Pulse Rate [55-90 bpm] 79 bpm (06/25/23 10:09 AM) Body Mass Index [18.5-24.99 kg/m2] 25.67 kg/m2 *H* (06/25/23 10:09 AM) Blood Pressure [90-138/55-84 mm Hg] 92/6 8mm Hg (06/25/23 10:09 AM) Temperature [96.8-100.4 DegF] 98.4 DegF (06/25/23 10:09 AM) Blood pressure sites Arm, left (06/25/23 10:09 AM) Temperature Route Oral (06/25/23 10:09 AM) Weight Obtained Via Pediatric scale (06/25/23 10:09 AM) Social History Social History Type Response Smoking [...] Safety Implantable Status Assigning Authority Unknown Unknown [id number] Unknown 05/25/23 Unknown Unknown Active Unknown Patient Care team information Care Team Personnel Name: Livia Saldivar NP Position: [facility] Associate Professional Member Role: PCP Address: Address: [address] [place] [address]- Care Team Related Persons Name: HUBER CORDERO Address: home [address] [place] [address] Name: HUBER CORDERO Address: home [address] [place] [address]
--- OUTSIDE RECORDS SUMMARY | 2024-08-19 13:25 | XMS_ITS | Continuity of Care Document ---
Author Organization [facility] Tung Javed Robert lt Address [address] [place] [address]- Care Team Providers Care Whizzer Name Role Phone Livia Saldivar NP Primary Care Physician [phone] Encounter [facility] Date(s): 05/19/23 - 05/26/23 [facility] Adult [address] [place] [address]- Encounter Diagnosis Alcoholism(Discharge Diagnosis) - 05/20/23 Confabulation(Discharge Diagnosis) - 05/20/23 Attending Physician: Not on Staff, Attending MD Referring Physician: Livia Saldivar NP Allergies, Adverse Reactions, Alerts Substance Reaction Severity Status penicillin anaphylactic Active Fish anaphylactic Active sulfa drugs terrible headace Active Bactrim headache Active Immunizations Given and Recorded Vaccine Date [...] toxoids (Td) 02/16/06 Given 1Result Comment: [07/20/2018] [id number] 2Result Comment: [06/15/2017] [facility] [id number] 3Admin Note: work 4Admin Note: BIOMEDICAL JOSH 5Admin Note: GIVEN WHILE IN [facility] 6Admin Note: clinic elda Medications hydrOXYzine hydrochloride 25 [...] 10/04/19 10:08:00 EST, Route to Pharmacy Electronically, [facility] # [facility], 179, cm, 04/29/19 9:33:00 EDT, Height, 72.6, k... Start Date: 10/04/19 Status: Ordered omeprazole 20 mg oral enteric coated capsule 1 capsule, By Mouth, Daily, # 90 capsule, 3 Refills, 02/12/23 10:52:00 EDT, [facility] # 50, 175, cm, 01/07/22 10:54:00 EDT, Height, 70.5, kg, 06/26/21 13:39:00 EDT, Dry Weight Start Date: 02/12/23 Status: Ordered Patient's Own Meds CBD creme, Daily, Maintenance, 04/13/19 10:47:18 EDT Start Date: 04/13/19 Status: Ordered PEG-3350 with Electrolytes (Eqv-GoLYTELY) oral powder for reconstitution See Instructions, 1 glass every 15-30 minutes until finished, # 4,000 mL, 0 Refills, Maintenance, 02/08/21 9:31:00 EDT, [facility] # 50, OK TO SUB ANY GALLON PREP; PROCEDURE IS 9.29, 1 glass every 15-30 minutes until finished, 175.2, cm, 02/05/21... Start Date: 02/08/21 Status: Ordered PEG-3350 with Electrolytes (Eqv-GoLYTELY) oral powder for reconstitution See Instructions, 1 glass every 15-30 minutes until finished, # 4,000 mL, 0 Refills, Maintenance, 06/13/21 12:19:00 EDT, [facility] # [facility], ok to substitute any gallon prep, 1 glass every 15-30 minutes until finished, 175.2, cm, 02/05/21 11:43:00 ED... Start Date: 06/13/21 Status: Ordered propranolol 20 mg oral tablet 20 mg, 1, tablet, By Mouth, 2 times a day, # 60 tablet, Refills 5, Tot. Refills 5, Maintenance, 05/19/23 14:36:00 EDT, Route to Pharmacy Electronically, [facility] # [facility], Partial fill upon patientrequest if the prescription is for a schedule II op... Start Date: 05/19/23 Status: Ordered Problem List Condition Confirmation Course [...] Diagnosis Diagnosis Type Effective Dates Health Status inical Service Informant Alcoholism Discharge Diagnosis 05/20/23 Confabulation Discharge Diagnosis 05/20/23 Vital Signs Most recent to oldest [Reference Range]: 1 Height 175 cm (05/19/23 2:02 PM) Weight 71.2 kg (05/19/23 2:02 PM) Oxygen Saturation [94-100 %] 100 % (05/19/23 2:02 PM) Pulse Rate [55-90 bpm] 102 bpm *H* (05/19/23 2:02 PM) Body Mass Index [18.5-24.99 kg/m2] 23.25 kg/m2 (05/19/23 2:02 PM) Blood Pressure [90-138/55-84 mm Hg] 104/ 74mm Hg (8/22/23 2:02 PM) Blood pressure sites Arm, left (05/19/23 2:02 PM) Weight Obtained Via Standing scale (05/19/23 2:02 PM) Social History Social History Type Response [...] Safety Implantable Status Assigning Authority Unknown Unknown [id number] Unknown 05/25/23 Unknown Unknown Active Unknown Patient Care team information Care Team Personnel Name: Livia Saldivar NP Position: [facility] PCO Associate Professional Member Role: PCP Address: Address: [address] [place] [id number]- Care Team Related Persons Name: HUBER CORDERO Address: home [address] [place] [address] Name: HUBER CORDERO Address: home [address] [place] [address]
--- OUTSIDE RECORDS SUMMARY | 2024-08-19 13:25 | XMS_ITS | Continuity of Care Document ---
Author Organization [facility] Tlelo Robert lt Address [address] [place] [address]- Care Team Providers Care Sugar Mill Worker Name Role Phone Yariel WILKINSON, Livia Pond Primary Care Physician [phone] [place] [facility] [place] 04/07/23 - 04/14/23 [facility] Adult [address] [place] [address]- Encounter Diagnosis Right shoulder pain(Discharge Diagnosis) - 04/07/23 Right elbow pain(Discharge Diagnosis) - 04/07/23 Finger pain, right(Discharge Diagnosis) - 04/07/23 Alcohol abuse, daily use(Discharge Diagnosis) - 04/07/23 Attending Physician: Yessi Hope NP Allergies, Adverse Reactions, Alerts Substance Reaction [...] toxoids (Td) 02/16/06 Given 1Result Comment: [07/20/2018] [id number] 2Result Comment: [06/15/2017] [facility] [id number] 3Admin Note: work 4Admin Note: BIOMEDICAL JOSH 5Admin Note: GIVEN WHILE IN [facility] 6Admin Note: clinic elda Medications ibuprofen 800 mg oral tablet 800 mg, 1, tablet, By Mouth, 3 times a day, PRN, # 90 tablet, Refills 0, Tot. Refills 0, Maintenance, as needed for arthritis, 10/04/19 10:08:00 EST, Route to Pharmacy Electronically, [facility] # [facility], 179, cm, 04/29/19 9:33:00 EDT, Height, 72.6, k... Start Date: 10/04/19 Status: Ordered omeprazole 20 mg oral enteric coated capsule 1 capsule, By Mouth, Daily, # 90 capsule, 3 Refills, 02/12/23 10:52:00 EDT, [facility] # [facility], 175, cm, 01/07/22 10:54:00 EDT, Height, 70.5, kg, 06/26/21 13:39:00 EDT, Dry Weight Start Date: 02/12/23 Status: Ordered Patient's Own Meds CBD creme, Daily, Maintenance, 04/13/19 10:47:18 EDT Start Date: 04/13/19 Status: Ordered PEG-3350 with Electrolytes (Eqv-GoLYTELY) oral powder for reconstitution See Instructions, 1 glass every 15-30 minutes until finished, # 4,000 mL, 0 Refills, Maintenance, 02/08/21 9:31:00 EDT, [facility] # [facility], OK TO SUB ANY GALLON PREP; PROCEDURE IS 9.29, 1 glass every 15-30 minutes until finished, 175.2, cm, 02/05/21... Start Date: 02/08/21 Status: Ordered PEG-3350 with Electrolytes (Eqv-GoLYTELY) oral powder for reconstitution See Instructions, 1 glass every 15-30 minutes until finished, # 4,000 mL, 0 Refills, Maintenance, 06/13/21 12:19:00 EDT, [facility] # [facility], ok to substitute [...] Diagnosis Diagnosis Type Effective Dates Health Status Cl inical Service Informant Right shoulder pain Discharge Diagnosis 04/07/23 Right elbow pain Discharge Diagnosis 04/07/23 Finger pain, right Discharge Diagnosis 04/07/23 Alcohol abuse, daily use Discharge Diagnosis 04/07/23 Vital Signs Most recent to oldest [Reference Range]: 1 Height 175 cm (04/07/23 9:37 AM) Weight 71.5 kg (04/07/23 9:37 AM) Oxygen Saturation [94-100 %] 96 % (04/07/23 9:37 AM) Pulse Rate [55-90 bpm] 89 bpm (04/07/23 9:37 AM) Body Mass Index [18.5-24.99 kg/m2] 23.35 kg/m2 (04/07/23 9:37 AM) Blood Pressure [90-138/55-84 mm Hg] 125/ 92mm Hg (04/07/23 9:37 AM) Respiratory Rate [16-30 br/min] 16 br/mi n (04/07/23 9:37 AM) Temperature [96.8-100.4 DegF] 97.8 DegF (04/07/23 9:37 AM) Mode of Delivery (Oxygen) Room air (04/07/23 9:37 AM) Blood pressure sites Arm, left (04/07/23 9:37 AM) Temperature Route Oral (04/07/23 9:37 AM) Weight Obtained Via Standing scale (04/07/23 9:37 AM) Social History Social History Type Response [...] Safety Implantable Status Assigning Authority Unknown Unknown [id number] Unknown 05/25/23 Unknown Unknown Active Unknown Patient Care team information Care Team Personnel Name: Yariel WILKINSON, Livia Pond Position: [facility] PCO Associate Professional Member Role: PCP Address: Address: [address] [place] [address]- Care Team Related Persons Name: HUBER CORDERO Address: home [address] [place] [address] Name: HUBER CORDERO Address: home [address] [place] [address]
--- OUTSIDE RECORDS SUMMARY | 2024-08-19 13:25 | XMS_ITS | Continuity of Care Document ---
Author Organization [facility] ter Address [address] [place] [id number]- Care Team Providers Care Skip Tender Name Role Phone Jesse Vargas MD Primary Care Physician [facility] Date[facility]s): 06/26/21 - 06/26/[address] [address] Discharge Disposition: A-D/C Home Attending Physician: Tyson Burden MD Admitting Physician: Tyson Burden MD Referring Physician: Tyson Burden MD Allergies, Adverse Reactions, Alerts Substance Reaction [...] toxoids (Td) 02/16/06 Given 1Result Comment: [07/20/2018] [id number] 2Result Comment: [06/15/2017] [facility] [id number] 3Admin Note: work 4Admin Note: BIOMEDICAL JOSH 5Admin Note: GIVEN WHILE IN [facility] 6Admin Note: clinic elda Medications ibuprofen 800 mg oral tablet 800 mg, 1, tablet, By Mouth, 3 times a day, PRN, # 90 tablet, Refills 0, Tot. Refills 0, Maintenance, as needed for arthritis, 10/04/19 10:08:00 EST, Route to Pharmacy Electronically, [facility] # [facility], 179, cm, 04/29/19 9:33:00 EDT, Height, 72.6, k... Start Date: 10/04/19 Status: Ordered omeprazole 20 mg oral enteric coated capsule See Instructions, TAKE ONE CAPSULE BY MOUTH EVERY DAY, # 90 capsule, 0 Refills, Maintenance, 05/04/21 8:05:00 EDT, [facility] # [facility], 175.2, cm, 02/05/21 11:43:00 EDT, Height, 73.4, kg, 02/05/21 11:43:00 EDT, Dry Weight Start Date: 05/04/21 Status: Ordered Patient's Own Meds CBD creme, Daily, Maintenance, 04/13/19 10:47:18 EDT Start Date: 04/13/19 Status: Ordered PEG-3350 with Electrolytes (Eqv-GoLYTELY) oral powder for reconstitution See Instructions, 1 glass every 15-30 minutes until finished, # 4,000 mL, 0 Refills, Maintenance, 02/08/21 9:31:00 EDT, [facility] # [facility], OK TO SUB ANY GALLON PREP; PROCEDURE IS 9.29, 1 glass every 15-30 minutes until finished, 175.2, cm, 02/05/21... Start Date: 02/08/21 Status: Ordered PEG-3350 with Electrolytes (Eqv-GoLYTELY) oral powder for reconstitution See Instructions, 1 glass every 15-30 minutes until finished, # 4,000 mL, 0 Refills, Maintenance, 06/13/21 12:19:00 EDT, [facility] # [facility], ok to substitute any gallon prep, 1 glass every 15-30 minutes until finished, 175.2, cm, 02/05/21 11:43:00 ED... Start Date: 06/13/21 Status: Ordered Problem List Condition Effective Dates Status Health Status Inform ant Chronic Rhinitis(Confirmed) 08/18/12 Active Gastroesophageal reflux dise ase with hiatal hernia(Confirmed) Active Hyperlipidemia -10-year ASCV D risk as of 11/23/2019 is 3.6%(Confirmed) Active Tubulovillous adenoma polyp of rectum(Confirmed) 02/07/21 Active Procedures Procedure Date Related Diagnosis Body Site Status Colonoscopy 06/26/21 Completed Vital Signs Most recent to oldest [Reference Range]: 1 2 3 Height 175 cm (06/26/21 1:39 PM) Oxygen Saturation [94-100 %] 100 % (06/26/21 3:10 PM) 96 % (06/26/21 3:05 PM) 96 % (06/26/21 1:39 PM) Pulse Rate [55-90 bpm] 89 bpm (06/26/21 1:39 PM) Blood Pressure [90-138/55-84 mm Hg] 163/103mm Hg *H* (06/26/21 3:10 PM) 160/108mm Hg *H* (06/26/21 3:05 PM) 155/109mm Hg *H* (06/26/21 1:39 PM) Respiratory Rate [16-30 br/min] 16 br/min (06/26/21 3:10 PM) 22 br/min (06/26/21 3:05 PM) 18 br/min (06/26/21 1:39 PM) Temperature [96.8-100.4 DegF] 97.9 DegF (06/26/21 1:39 PM) Mode of Delivery (Oxygen) Room air (06/26/21 3:10 PM) Room air (06/26/21 3:05 PM) Room air (06/26/21 1:39 PM) Temperature Route Temporal (06/26/21 1:39 PM) Dry Weight 70.5 kg (06/26/21 1:39 PM) Dry Weight Obtained Via Patient/family s tated (06/26/21 1:39 PM) Social History Social History Type Response Smoking Status Former smoker, quit more than 30 days ago; Use: Quit 14 years ago entered on: 11/08/20 Sex Medical Equipment Implanted Date:04/21/19Target Site:Groin Left Description Quantity MRI Company Model MESH BARD 3X6IN 7.5X15CM - BARD ([id number]) 1 Bard Unknown BRENDA:No Information Assigning Authority: FDA
--- OUTSIDE RECORDS SUMMARY | 2024-08-19 13:25 | XMS_ITS | Continuity of Care Document ---
Author Organization [facility] Address [address] [place] [address]- Care Team Providers Care Industrial Yard Brake Coupler Name Role Phone Yariel WILKINSON, Livia Pond Primary Care Physician [phone] [facility] Date[facility]): [facility] - 04/16/[address] [address] Attending Physician: Gianna Shay Admitting Physician: AdmtrGianna Referring Physician: Admtr, Carmelo8 Allergies, Adverse Reactions, Alerts Substance Reaction Severity [...] inactivated 4 07/12/15 Gi dawna SARS-CoV-2 mRNA (zkonblt-ffxf-lvdkk) vax 5 06/24/23 Recorded SARS-CoV-2 (COVID-19) mRNA-1273 [...] (IM) (oldterm) 8 07/22/06 Given 1Result Comment: [facility] [place] 2Result Comment: [07/20/2018] [id number] 3Result Comment: [06/15/2017] [facility] [id number] 4Admin Note: work 5Result Comment: [facility] [place] 6Admin Note: BIOMEDICAL JOSH 7Admin Note: GIVEN WHILE IN [facility] 8Admin Note: clinic elda Medications cetirizine 10 mg oral tablet 1 tablet = 10 mg, By Mouth, Daily, # 30 tablet, 0 Refills, Maintenance, 10/23/23 14:13:00 EST, Tablet, [facility] # 50, Partial fill upon patient [...] 10/04/19 10:08:00 EST, Route to Pharmacy Electronically, [facility] # 50, 179, cm, 04/29/19 9:33:00 EDT, Height, 72.6, k... Start Date: 10/04/19 Status: Ordered omeprazole 20 mg oral enteric coated capsule 1 capsule, By Mouth, Daily, # 90 capsule, 1 Refills, Maintenance, 03/02/24 4:08:00 EDT, [facility] # 50, 175, cm, 12/28/23 12:52:00 EDT, Height Start Date: 03/02/24 Status: Ordered Patient's Own Meds CBD creme, Daily, Maintenance, 04/13/19 10:47:18 EDT Start Date: 04/13/19 Status: Ordered PEG-3350 with Electrolytes (Eqv-GoLYTELY) oral powder for reconstitution See Instructions, 1 glass every 15-30 minutes until finished, # 4,000 mL, 0 Refills, Maintenance, 02/08/21 9:31:00 EDT, [facility] # 50, OK TO SUB ANY GALLON PREP; PROCEDURE IS 9.29, 1 glass every 15-30 minutes until finished, 175.2, cm, 02/05/21... Start Date: 02/08/21 Status: Ordered PEG-3350 with Electrolytes (Eqv-GoLYTELY) oral powder for reconstitution See Instructions, 1 glass every 15-30 minutes until finished, # 4,000 mL, 0 Refills, Maintenance, 06/13/21 12:19:00 EDT, [facility] # 50, ok to substitute any gallon prep, 1 glass every 15-30 minutes until finished, 175.2, cm, 02/05/21 11:43:00 ED... Start Date: 06/13/21 Status: Ordered propranolol 20 mg oral tablet 20 mg, 1, tablet, By Mouth, 2 times a day, # 60 tablet, Refills 5, Tot. Refills 5, Maintenance, 05/19/23 14:36:00 EDT, Route to Pharmacy Electronically, [facility] # 50, Partial fill upon patientrequest if the prescription is for a schedule II op... Start Date: 05/19/23 Status: Ordered traZODone 50 mg oral tablet 50 mg, 1, tablet, By Mouth, Daily at bedtime, # 30 tablet, Refills 5, Tot. Refills 5, Maintenance, 12/28/23 13:03:00 EDT, Route to Pharmacy Electronically, [facility] # 50, Partial fill upon patient request if the prescription is for a schedule II... Start Date: 12/28/23 Status: Ordered Vitamin B12 2500 mcg sublingual tablet 1 tablet = 2,500 mcg, Sublingual, Daily, # 90 tablet, 3 Refills, Maintenance, 06/25/23 10:32:00 EDT, Tablet, [facility] # 50, Partial fill upon patient [...] Safety Implantable Status Assigning Authority Unknown Unknown [id number] Unknown 05/25/23 Unknown Unknown Active Unknown Patient Care team information Care Team Personnel Name: Yariel WILKINSON, Livia Pond Position: [facility] PCO Associate Professional Member Role: PCP Address: Address: [address] [place] [address]- Care Team Related Persons Name: HUBER CORDERO Address: home [address] [place] [address] Name: HUBER CORDERO Address: home [address] [place] [address]
--- OUTSIDE RECORDS SUMMARY | 2024-08-19 13:25 | XMS_ITS | Continuity of Care Document ---
Author Organization [facility] Tello Robert lt Address [address] [place] [address]- Care Team Providers Care Industrial Hygienist Name Role Phone Yariel WILKINSON, Livia Pond Primary Care Physician [phone] [facility] Date(s): 05/19/23 - 06/18/23 [facility] Adult [address] [place] [address]- Attending Physician: Gianna Shay Admitting Physician: AdmtrGianna Referring Physician: Admtr, Ar8 Allergies, Adverse Reactions, Alerts Substance Reaction Severity [...] toxoids (Td) 02/16/06 Given 1Result Comment: [07/20/2018] [id number] 2Result Comment: [06/15/2017] [facility] [id number] 3Admin Note: work 4Admin Note: BIOMEDICAL JOSH 5Admin Note: GIVEN WHILE IN [facility] 6Admin Note: clinic elda Medications hydrOXYzine hydrochloride [...] 10/04/19 10:08:00 EST, Route to Pharmacy Electronically, [facility] # 50, 179, cm, 04/29/19 9:33:00 EDT, Height, 72.6, k... Start Date: 10/04/19 Status: Ordered omeprazole 20 mg oral enteric coated capsule 1 capsule, By Mouth, Daily, # 90 capsule, 3 Refills, 02/12/23 10:52:00 EDT, [facility] # 50, 175, cm, 01/07/22 10:54:00 EDT, Height, 70.5, kg, 06/26/21 13:39:00 EDT, Dry Weight Start Date: 02/12/23 Status: Ordered Patient's Own Meds CBD creme, Daily, Maintenance, 04/13/19 10:47:18 EDT Start Date: 04/13/19 Status: Ordered PEG-3350 with Electrolytes (Eqv-GoLYTELY) oral powder for reconstitution See Instructions, 1 glass every 15-30 minutes until finished, # 4,000 mL, 0 Refills, Maintenance, 02/08/21 9:31:00 EDT, [facility] # 50, OK TO SUB ANY GALLON PREP; PROCEDURE IS 9.29, 1 glass every 15-30 minutes until finished, 175.2, cm, 02/05/21... Start Date: 02/08/21 Status: Ordered PEG-3350 with Electrolytes (Eqv-GoLYTELY) oral powder for reconstitution See Instructions, 1 glass every 15-30 minutes until finished, # 4,000 mL, 0 Refills, Maintenance, 06/13/21 12:19:00 EDT, [facility] # [facility], ok to substitute any gallon prep, 1 glass every 15-30 minutes until finished, 175.2, cm, 02/05/21 11:43:00 ED... Start Date: 06/13/21 Status: Ordered propranolol 20 mg oral tablet 20 mg, 1, tablet, By Mouth, 2 times a day, # 60 tablet, Refills 5, Tot. Refills 5, Maintenance, 05/19/23 14:36:00 EDT, Route to Pharmacy Electronically, [facility] # 50, Partial fill upon patientrequest [...] Safety Implantable Status Assigning Authority Unknown Unknown [id number] Unknown 05/25/23 Unknown Unknown Active Unknown Cardiology * Yessi Hicks: PERFORM Event Display: Cardiovascular Results Scanned Authored Date: [id number] Radiology * Sabrina Sadler: PERFORM Event Display: Radiology Results Scanned Authored Date: [id number] * Mariely Reyes: PERFORM Event Display: Radiology Results Scanned Authored Date: [id number] Patient Care team information Care Team Personnel Name: Yariel WILKINSON, Livia Pond Position: [facility] PCO Associate Professional Member Role: PCP Address: Address: [address] [place] [address]- Care Team Related Persons Name: HUBER CORDERO Address: home [address] [place] [address] Name: HUBER CORDERO Address: home [address] [place] [address]
--- OUTSIDE RECORDS SUMMARY | 2024-08-19 13:25 | XMS_ITS | Continuity of Care Document ---
Author Organization [facility] Tung Javed Robert lt Address [address] [place] [address]- Care Team Providers Care Quality Assurance Monitor Name Role Phone Livia Saldivar NP Primary Care Physician [facility] Date(s): 10/15/21 - 11/14/21 [facility] Adult [address] [place] [address]- Allergies, Adverse Reactions, Alerts Substance Reaction Severity [...] toxoids (Td) 02/16/06 Given 1Result Comment: [07/20/2018] [id number] 2Result Comment: [06/15/2017] [facility] [id number] 3Admin Note: work 4Admin Note: BIOMEDICAL JOSH 5Admin Note: GIVEN WHILE IN [facility] 6Admin Note: clinic elda Medications ibuprofen 800 [...] Mouth, Daily, # 90 capsule, 3 Refills, [facility] # [facility], 175, cm, 06/26/21 13:39:00 EDT, Height, 70.5, kg, 06/26/21 13:39:00 EDT, Dry Weight Start Date: 08/06/21 Status: Ordered Patient's Own Meds CBD creme, Daily, Maintenance, 04/13/19 10:47:18 EDT Start Date: 04/13/19 Status: Ordered PEG-3350 with Electrolytes (Eqv-GoLYTELY) oral powder for reconstitution See Instructions, 1 glass every 15-30 minutes until finished, # 4,000 mL, 0 Refills, Maintenance, 02/08/21 9:31:00 EDT, [facility] # [facility], OK TO SUB ANY [...] 3.6%(Confirmed) Active Tubulovillous adenoma polyp of rectum(Confirmed) 1, 2 02/07/21 Active 1Needs repeat screening colonoscopy in 2023 2tubular adenoma of colon in 2020, repeat screening colonoscopy in 2025 Social History Social History Type Response Smoking Status Former smoker, quit more than 30 days ago; Use: Quit 14 years ago entered on: 11/08/20 Sex Medical Equipment Implanted Date:04/21/19Target Site:Groin Left Description Quantity MRI Company Model MESH BARD 3X6IN 7.5X15CM - BARD ([id number]) 1 Bard Unknown BRENDA:No Information Assigning Authority: FDA
--- OUTSIDE RECORDS SUMMARY | 2024-08-19 13:25 | XMS_ITS | Continuity of Care Document ---
Author Organization [facility] Tung Javed Robert lt Address [address] [place] [address]- Care Team Providers Care Embroidery Worker Name Role Phone Jesse Vargas MD Primary Care Physician [facility]s): 11/07/19 - 11/14/19 [facility] J[facility] Adult [address] [place] [address]- [facility] Encounter Diagnosis NSAID long-term use(Discharge Diagnosis) - 11/07/19 Gastroesophageal reflux disease with hiatal hernia(Discharge Diagnosis) - 11/07/19 General medical exam(Discharge Diagnosis) - 11/07/19 Chronic Rhinitis(Discharge Diagnosis) - 11/07/19 Attending Physician: Jesse Vargas MD Allergies, Adverse [...] toxoids (Td) 02/16/06 Given 1Result Comment: [07/20/2018] [id number] 2Result Comment: [06/15/2017] [facility] [id number] 3Admin Note: work 4Admin Note: BIOMEDICAL JOHS 5Admin Note: GIVEN WHILE IN [facility] 6Admin Note: clinic elda Medications ibuprofen 800 mg oral tablet 800 mg, 1, tablet, By Mouth, 3 times a day, PRN, # 90 tablet, Refills 0, Tot. Refills 0, Maintenance, as needed for arthritis, 10/04/19 10:08:00 EST, Route to Pharmacy Electronically, [facility] # [facility], 179, cm, 04/29/19 9:33:00 [...] reflux dise ase with hiatal hernia(Confirmed) Active Diagnosis Diagnosis Type Effective Dates Health Status Clinical Service Informant NSAID long-term use Discharge Diagnosis 11/07/19 Gastroesophageal reflux disease with hiatal hernia Discharge Diagnosis 11/07/19 General medical exam Discharge Diagnosis 11/07/19 Chronic Rhinitis Discharge Diagnosis 11/07/19 Vital Signs Most recent to oldest [Reference Range]: 1 Height 179 cm (11/07/19 2:24 PM) Weight 74.5 kg (11/07/19 2:24 PM) Oxygen Saturation [94-100 %] 97 % (11/07/19 2:24 PM) Pulse Rate [55-90 bpm] 82 bpm (11/07/19 2:24 PM) Body Mass Index [18.5-24.99] 23.25 (2/10/20 2:24 PM) Blood Pressure [90-138/55-84 mm Hg] 112/ 74mm Hg (11/07/19 2:24 PM) Temperature [96.8-100.4 DegF] 97.8 DegF (11/07/19 2:24 PM) Mode of Delivery (Oxygen) Room air (11/07/19 2:24 PM) Blood pressure sites Arm, left (11/07/19 2:24 PM) Temperature Route Oral (11/07/19 2:24 PM) Weight Obtained Via Standing scale (11/07/19 2:24 PM) Social History Social History Type Response Smoking Status Former smoker entered on: 04/28/14 Sex Medical Equipment Implanted Date:04/21/19Target Site:Groin Left Description Quantity MRI Company Model MESH BARD 3X6IN 7.5X15CM - BARD ([id number]) 1 Bard Unknown BRENDA:No Information Assigning Authority: FDA
--- OUTSIDE RECORDS SUMMARY | 2024-08-19 13:25 | XMS_ITS | Continuity of Care Document ---
Author Organization [facility] Tung Javed Robert lt Address [address] [place] [address]- Care Team Providers Care Correctional Nurse Name Role Phone Adriano Street DO Primary Care Physician [facility] Date(s): 07/07/24 - 08/06/24 [facility] Adult [address] [place] [address]- Allergies, Adverse Reactions, Alerts Substance Reaction Severity [...] inactivated 4 07/12/15 Gi dawna SARS-CoV-2 mRNA (ujqdaip-tkye-lomim) vax 5 06/24/23 Recorded SARS-CoV-2 (COVID-19) mRNA-1273 [...] (IM) (oldterm) 8 07/22/06 Given 1Result Comment: [facility] [place] 2Result Comment: [07/20/2018] [id number] 3Result Comment: [06/15/2017] [facility] [id number] 4Admin Note: work 5Result Comment: [facility] [place] 6Admin Note: BIOMEDICAL JOSH 7Admin Note: GIVEN WHILE IN [facility] 8Admin Note: clinic elda Medications ibuprofen 800 mg [...] Mouth, Daily, # 90 capsule, 3 Refills, Maintenance, 07/04/24 15:26:00 EDT, [facility] # 50, 175.2, cm, 07/04/24 14:51:00 EDT, Height, 79.5, kg, 06/14/24 9:35:00 EDT, Dry Weight Start Date: 07/04/24 Status: Ordered traZODone 50 mg oral tablet 100 mg, 2, tablet, By Mouth, Daily at bedtime, # 180 tablet, Refills 3, Tot. Refills 3, Maintenance, 07/04/24 15:25:00 EDT, Route to Pharmacy Electronically, [facility] # 50, Partial fill upon patient request if the prescription is for a schedule... Start Date: 07/04/24 Status: Ordered Vitamin B12 2500 mcg sublingual tablet 1 tablet = 2,500 mcg, Sublingual, Daily, # 90 tablet, 3 Refills, Maintenance, 07/04/24 15:26:00 EDT, Tablet, [facility] # [facility], Partial fill upon patient request if the prescription is for a schedule II opioid drug., 175.2, cm, 07/04/24 14:51:00 EDT... Start Date: 07/04/24 Status: Ordered Problem List Condition Confirmation Course Effective Dates Status Health Status Informant Actinic keratosis of scalp Confirmed Active Alcoholism Confirmed Active Nodule of cheek Confirmed Active Chronic Rhinitis Confirmed 08/18/12 Active Gastroesophageal reflux disease with hiatal hernia Confirmed Active Hyperlipidemia -10-year ASCVD risk as of 11/23/2019 is 3.6% Confirmed Active Hypertriglyceridemia Confirmed Active Mixed hyperlipidemia Confirmed Active Alcohol abuse, daily use Confirmed Active Right elbow pain Confirmed Active Finger pain, right Confirmed Active Bilateral knee pain Confirmed Active Physical exam Confirmed Active Prostate cancer screening Confirmed Active Right shoulder pain Confirmed Active Tubular adenoma of colon Confirmed Active Tubulovillous adenoma polyp of rectum 1, 2 Confirmed 02/07/21 Active 1Needs repeat screening colonoscopy in 2023 2tubular adenoma of colon in 2020, repeat screening colonoscopy in 2025 Social History Social History Type Response Smoking Status Former smoker, quit more than 30 days ago; Tobacco use times per day: quit age 41 1/2 ppd 1 pa 24 to 41 quit intermittelty; Total pack years: 15; entered on: 07/04/24 Sex Implantable Device List Procedure Provider Procedure Date Device Type Site Repair Hernia Inguinal with Mesh Arsalan SALGUERO, Valeriano 04/21/19 Unknown Groin Left Device Identifier Serial Number Lot or Batch Number Manufacturing Date Expiration Date Distinct Identification Code MRI Safety Implantable Status Assigning Authority Unknown Unknown [id number] Unknown 05/25/23 Unknown Unknown Active Unknown Patient Care team information Care Team Personnel Name: Adriano Street DO Position: [facility] Physician - Primary Care Member Role: PCP Address: Address: [address] [place] [address] [place] [address]- [place] Care Team Related Persons Name: HUBER CORDERO Address: [address] [place] [address] Name: HUBER CORDERO Address: home [address] [place] [address]
--- OUTSIDE RECORDS SUMMARY | 2024-08-19 13:25 | XMS_ITS | Continuity of Care Document ---
Author Organization [facility] Tello Robert lt Address [address] [place] [address]- Care Team Providers Care Imaging Account Manager Name Role Phone Yariel WILKINSON, Livia Pond Primary Care Physician [phone] Encounter [facility] Date(s): 10/23/23 - 10/30/23 [facility] Adult [address] [place] [address]- Encounter Diagnosis Bilateral knee pain(Discharge Diagnosis) - 10/23/23 Lumbar radiculopathy(Discharge Diagnosis) - 10/23/23 Plantar fasciitis(Discharge Diagnosis) - 10/23/23 Attending Physician: Livia Saldivar NP Referring Physician: [...] inactivated 4 07/12/15 Gi dawna SARS-CoV-2 mRNA (vrneazy-ggge-igyba) vax 5 06/24/23 Recorded SARS-CoV-2 (COVID-19) mRNA-1273 [...] 07/22/06 Given 1Result Comment: [facility] 2Result Comment: [07/20/2018] [id number] 3Result Comment: [06/15/2017] [facility] [id number] 4Admin Note: work 5Result Comment: [facility] 6Admin Note: BIOMEDICAL JOSH 7Admin Note: GIVEN WHILE IN [facility] 8Admin Note: clinic elda Medications cetirizine 10 mg oral tablet 1 tablet = 10 mg, By Mouth, Daily, # 30 tablet, 0 Refills, Maintenance, 10/23/23 14:13:00 EST, Tablet, [facility] # 50, Partial fill upon patient request if the prescription is for a schedule II opioid drug., 175, cm, 10/23/23 13:26:00 EST, Height Start Date: 10/23/23 Status: Ordered hydrOXYzine hydrochloride 25 mg oral tablet 1 [...] 10/04/19 10:08:00 EST, Route to Pharmacy Electronically, [facility] # 50, 179, cm, 04/29/19 9:33:00 EDT, Height, 72.6, k... Start Date: 10/04/19 Status: Ordered omeprazole 20 mg oral enteric coated capsule 1 capsule, By Mouth, Daily, # 90 capsule, 3 Refills, 02/12/23 10:52:00 EDT, [facility] # 50, 175, cm, 01/07/22 10:54:00 EDT, Height, 70.5, kg, 06/26/21 13:39:00 EDT, Dry Weight Start Date: 02/12/23 Status: Ordered Patient's Own Meds CBD creme, Daily, Maintenance, 04/13/19 10:47:18 EDT Start Date: 04/13/19 Status: Ordered PEG-3350 with Electrolytes (Eqv-GoLYTELY) oral powder for reconstitution See Instructions, 1 glass every 15-30 minutes until finished, # 4,000 mL, 0 Refills, Maintenance, 02/08/21 9:31:00 EDT, [facility] # 50, OK TO SUB ANY GALLON PREP; PROCEDURE IS 9.29, 1 glass every 15-30 minutes until finished, 175.2, cm, 02/05/21... Start Date: 02/08/21 Status: Ordered PEG-3350 with Electrolytes (Eqv-GoLYTELY) oral powder for reconstitution See Instructions, 1 glass every 15-30 minutes until finished, # 4,000 mL, 0 Refills, Maintenance, 06/13/21 12:19:00 EDT, [facility] # 50, ok to substitute any gallon prep, 1 glass every 15-30 minutes until finished, 175.2, cm, 02/05/21 11:43:00 ED... Start Date: 06/13/21 Status: Ordered propranolol 20 mg oral tablet 20 mg, 1, tablet, By Mouth, 2 times a day, # 60 tablet, Refills 5, Tot. Refills 5, Maintenance, 05/19/23 14:36:00 EDT, Route to Pharmacy Electronically, [facility] # 50, Partial fill upon patientrequest [...] Effective Dates Health Status Clinical Service Informant Bilateral knee pain Discharge Diagnosis 10/23/23 Lumbar radiculopathy Discharge Diagnosis 10/23/23 Plantar fasciitis Discharge Diagnosis 10/23/23 Vital Signs Most recent to oldest [Reference Range]: 1 Height 175 cm (10/23/23 1:26 PM) Weight 80.5 kg (10/23/23 1:26 PM) Oxygen Saturation [94-100 %] 100 % (10/23/23 1:26 PM) Pulse Rate [55-90 bpm] 78 bpm (10/23/23 1:26 PM) Body Mass Index [18.5-24.99 kg/m2] 26.29 kg/m2 *H* (10/23/23 1:26 PM) Blood Pressure [90-138/55-84 mm Hg] 121/ 74mm Hg (10/23/23 1:26 PM) Blood pressure sites Arm, right (10/23/23 1:26 PM) Weight Obtained Via Standing scale (10/23/23 1:26 PM) Social History Social History Type Response [...] Safety Implantable Status Assigning Authority Unknown Unknown [id number] Unknown 05/25/23 Unknown Unknown Active Unknown Patient Care team information Care Team Personnel Name: Yariel WILKINSON, Livia Pond Position: [facility] PCO Associate Professional Member Role: PCP Address: Address: [address] [place] [address]- Care Team Related Persons Name: HUBER CORDERO Address: [address] [place] [address] Name: HUBER CORDERO Address: [address] [place] [address]
--- OUTSIDE RECORDS SUMMARY | 2024-08-19 13:25 | XMS_ITS | Continuity of Care Document ---
Author Organization [facility] Tung Javed Robert lt Address [address] [place] [address]- Care Team Providers Care Vice President Of Talent Management Name Role Phone Yariel WILKINSON, Livia Pond Primary Care Physician [phone] [facility]s): 01[facility]07/22 - 01/14/22 [facility] Adult [address] [place] [address]- Encounter Diagnosis Annual physical exam(Discharge Diagnosis) - 01/07/22 Attending Physician: Livia Saldivar NP Allergies, Adverse Reactions, [...] toxoids (Td) 02/16/06 Given 1Result Comment: [07/20/2018] [id number] 2Result Comment: [06/15/2017] [facility] [id number] 3Admin Note: work 4Admin Note: BIOMEDICAL JOSH 5Admin Note: GIVEN WHILE IN [facility] 6Admin Note: clinic elda Medications ibuprofen 800 mg oral tablet 800 mg, 1, tablet, By Mouth, 3 times a day, PRN, # 90 tablet, Refills 0, Tot. Refills 0, Maintenance, as needed for arthritis, 10/04/19 10:08:00 EST, Route to Pharmacy Electronically, [facility] # [facility], 179, cm, 04/29/19 9:33:00 EDT, Height, 72.6, k... Start Date: 10/04/19 Status: Ordered omeprazole 20 mg oral enteric coated capsule 1 capsule, By Mouth, Daily, # 90 capsule, 3 Refills, [facility] # 50, 175, cm, 06/26/21 13:39:00 EDT, Height, 70.5, kg, 06/26/21 13:39:00 EDT, Dry Weight Start Date: 08/06/21 Status: Ordered Patient's Own Meds CBD creme, Daily, Maintenance, 04/13/19 10:47:18 EDT Start Date: 04/13/19 Status: Ordered PEG-3350 with Electrolytes (Eqv-GoLYTELY) oral powder for reconstitution See Instructions, 1 glass every 15-30 minutes until finished, # 4,000 mL, 0 Refills, Maintenance, 02/08/21 9:31:00 EDT, [facility] # [facility], OK TO SUB ANY GALLON PREP; PROCEDURE IS 9.29, 1 glass every 15-30 minutes until finished, 175.2, cm, 02/05/21... Start Date: 02/08/21 Status: Ordered PEG-3350 with Electrolytes (Eqv-GoLYTELY) oral powder for reconstitution See Instructions, 1 glass every 15-30 minutes until finished, # 4,000 mL, 0 Refills, Maintenance, 06/13/21 12:19:00 EDT, [facility] # [facility], ok to substitute any [...] Dates Health Status Cl inical Service Informant Annual physical exam Discharge Diagnosis 01/07/22 Vital Signs Most recent to oldest [Reference Range]: 1 Height 175 cm (01/07/22 10:54 AM) Weight 73.4 kg (01/07/22 10:54 AM) Oxygen Saturation [94-100 %] 98 % (01/07/22 10:54 AM) Pulse Rate [55-90 bpm] 112 bpm *H* (01/07/22 10:54 AM) Body Mass Index [18.5-24.99] 23.97 (01/07/22 10:54 AM) Blood Pressure [90-138/55-84 mm Hg] 123/ 98mm Hg (01/07/22 10:54 AM) Blood pressure sites Arm, left (01/07/22 10:54 AM) Social History Social History Type Response Smoking Status Former smoker, quit more than 30 days ago; Use: Quit 14 years ago entered on: 11/08/20 Sex Medical Equipment Implanted Date:04/21/19Target Site:Groin Left Description Quantity MRI Company Model MESH BARD 3X6IN 7.5X15CM - BARD ([id number]) 1 Bard Unknown BRENDA:No Information Assigning Authority: FDA
--- OUTSIDE RECORDS SUMMARY | 2024-08-19 13:25 | XMS_ITS | Continuity of Care Document ---
Author Organization [facility] Tung Javed Robert lt Address [address] [place] [address]- Care Team Providers Care Litigation Legal Assistant Name Role Phone Adriano Street DO Primary Care Physician [phone] Encounter [facility] Date(s): 03/14/24 - 05/05/24 [facility] Adult [address] [place] [address]- Attending Physician: Livia Saldivar NP Allergies, Adverse Reactions, Alerts Substance Reaction Severity Status penicillin anaphylactic Active sulfa drugs terrible headace Active Fish anaphylactic Active Bactrim headache Active Immunizations Given and [...] inactivated 4 07/12/15 Gi dawna SARS-CoV-2 mRNA (djoabsu-fbri-tpywk) vax 5 06/24/23 Recorded SARS-CoV-2 (COVID-19) mRNA-1273 [...] 1Result Comment: [facility] [place] 2Result Comment: [07/20/2018] [id number] 3Result Comment: [06/15/2017] [facility] [id number] 4Admin Note: work 5Result Comment: [facility] [place] 6Admin Note: BIOMEDICAL JOSH 7Admin Note: GIVEN WHILE IN [facility] 8Admin Note: clinic [facility] Medications cetirizine 10 mg oral tablet 1 tablet = 10 mg, By Mouth, Daily, # 30 tablet, 0 Refills, Maintenance, 10/23/23 14:13:00 EST, Tablet, [facility] # [facility], Partial fill upon [...] 10/04/19 10:08:00 EST, Route to Pharmacy Electronically, [facility] # [facility], 179, cm, 04/29/19 9:33:00 EDT, Height, 72.6, k... Start Date: 10/04/19 Status: Ordered omeprazole 20 mg oral enteric coated capsule 1 capsule, By Mouth, Daily, # 90 capsule, 1 Refills, Maintenance, 03/02/24 4:08:00 EDT, [facility] # [facility], 175, cm, 12/28/23 12:52:00 EDT, Height Start Date: 03/02/24 Status: Ordered Patient's Own Meds CBD creme, Daily, Maintenance, 04/13/19 10:47:18 EDT Start Date: 04/13/19 Status: Ordered PEG-3350 with Electrolytes (Eqv-GoLYTELY) oral powder for reconstitution See Instructions, 1 glass every 15-30 minutes until finished, # 4,000 mL, 0 Refills, Maintenance, 02/08/21 9:31:00 EDT, [facility] # 50, OK TO SUB ANY GALLON PREP; PROCEDURE IS 9.29, 1 glass every 15-30 minutes until finished, 175.2, cm, 02/05/21... Start Date: 02/08/21 Status: Ordered PEG-3350 with Electrolytes (Eqv-GoLYTELY) oral powder for reconstitution See Instructions, 1 glass every 15-30 minutes until finished, # 4,000 mL, 0 Refills, Maintenance, 06/13/21 12:19:00 EDT, [facility] # [facility], ok to substitute any gallon prep, 1 glass every 15-30 minutes until finished, 175.2, cm, 02/05/21 11:43:00 ED... Start Date: 06/13/21 Status: Ordered propranolol 20 mg oral tablet 20 mg, 1, tablet, By Mouth, 2 times a day, # 60 tablet, Refills 5, Tot. Refills 5, Maintenance, 05/19/23 14:36:00 EDT, Route to Pharmacy Electronically, [facility] # [facility], Partial fill upon patientrequest if the prescription is for a schedule II op... Start Date: 05/19/23 Status: Ordered traZODone 50 mg oral tablet 50 mg, 1, tablet, By Mouth, Daily at bedtime, # 30 tablet, Refills 5, Tot. Refills 5, Maintenance, 12/28/23 13:03:00 EDT, Route to Pharmacy Electronically, [facility] # [facility], Partial fill upon patient request if the prescription is for a schedule II... Start Date: 12/28/23 Status: Ordered Vitamin B12 2500 mcg sublingual tablet 1 tablet = 2,500 mcg, Sublingual, Daily, # 90 tablet, 3 Refills, Maintenance, 06/25/23 10:32:00 EDT, Tablet, [facility] # [facility], Partial fill upon patient [...] Safety Implantable Status Assigning Authority Unknown Unknown [id number] Unknown 05/25/23 Unknown Unknown Active Unknown Patient Care team information Care Team Personnel Name: Adriano Street DO Position: [facility] Physician - Primary Care Member Role: PCP Address: Address: [address] [place] [address] [place] [address]- Care Team Related Persons Name: HUBER CORDERO Address: home [address] [place] [address] Name: HUBER CORDERO Address: home [address] [place] [address]
--- OUTSIDE RECORDS SUMMARY | 2024-08-19 13:25 | XMS_ITS | Continuity of Care Document ---
Author Organization [facility] Address [address] [place] [address]- Care Team Providers Care Machinery Mover Name Role Phone Livia Saldivar NP Primary Care Physician Encounter [facility] Date(s): 11/17/23 - 12/31/[address] [address]- Encounter Diagnosis Other specified disorders of tendon, right elbow(Final) - Discharge Disposition: A-D/C Home Attending Physician: Livia Saldivar NP Admitting Physician: Livia Saldivar NP Referring Physician: Livia Saldivar NP Allergies, Adverse [...] inactivated 4 07/12/15 Gi dawna SARS-CoV-2 mRNA (gymkxxz-uysr-xnpfv) vax 5 06/24/23 Recorded SARS-CoV-2 (COVID-19) mRNA-1273 [...] 8 07/22/06 Given 1Result Comment: [facility] [place] 2Result Comment: [07/20/2018] [id number] 3Result Comment: [06/15/2017] [facility] [id number] 4Admin Note: work 5Result Comment: [facility] [place] 6Admin Note: BIOMEDICAL JOSH 7Admin Note: GIVEN WHILE IN [facility] 8Admin Note: clinic elda Medications cetirizine 10 mg oral tablet 1 tablet = 10 mg, By Mouth, Daily, # 30 tablet, 0 Refills, Maintenance, 10/23/23 14:13:00 EST, Tablet, [facility] # [facility], Partial fill [...] 10/04/19 10:08:00 EST, Route to Pharmacy Electronically, [facility] # [facility], 179, cm, 04/29/19 9:33:00 EDT, Height, 72.6, k... Start Date: 10/04/19 Status: Ordered omeprazole 20 mg oral enteric coated capsule 1 capsule, By Mouth, Daily, # 90 capsule, 3 Refills, 02/12/23 10:52:00 EDT, [facility] # [facility], 175, cm, [...] mL, 0 Refills, Maintenance, 02/08/21 9:31:00 EDT, [facility] # [facility], OK TO SUB ANY GALLON PREP; PROCEDURE IS 9.29, 1 glass every 15-30 minutes until finished, 175.2, cm, 02/05/21... Start Date: 02/08/21 Status: Ordered PEG-3350 with Electrolytes (Eqv-GoLYTELY) oral powder for reconstitution See Instructions, 1 glass every 15-30 minutes until finished, # 4,000 mL, 0 Refills, Maintenance, 06/13/21 12:19:00 EDT, [facility] # 50, ok to substitute any gallon prep, 1 glass every 15-30 minutes until finished, 175.2, cm, 02/05/21 11:43:00 ED... Start Date: 06/13/21 Status: Ordered propranolol 20 mg oral tablet 20 mg, 1, tablet, By Mouth, 2 times a day, # 60 tablet, Refills 5, Tot. Refills 5, Maintenance, 05/19/23 14:36:00 EDT, Route to Pharmacy Electronically, [facility] # [facility], Partial fill upon patientrequest if the prescription is for a schedule II op... Start Date: 05/19/23 Status: Ordered traZODone 50 mg oral tablet 50 mg, 1, tablet, By Mouth, Daily at bedtime, # 30 tablet, Refills 5, Tot. Refills 5, Maintenance, 12/28/23 13:03:00 EDT, Route to Pharmacy Electronically, [facility] # [facility], Partial fill upon patient [...] Safety Implantable Status Assigning Authority Unknown Unknown [id number] Unknown 05/25/23 Unknown Unknown Active Unknown Patient Care team information Care Team Personnel Name: Yariel WILKINSON, Livia Pond Position: [facility] PCO Associate Professional Member Role: PCP Address: Address: [address] [place] [address]- Care Team Related Persons Name: HUBER CORDERO Address: home [address] [place] [address] Name: HUBER CORDERO Address: home [address] [place] [address]
--- OUTSIDE RECORDS SUMMARY | 2024-08-19 13:25 | XMS_ITS | Continuity of Care Document ---
Author Organization [facility] Address [address] [place] [address]- Care Team Providers Care Career Development Coordinator Name Role Phone Jesse Vargas MD Primary Care Physician Encounter [facility] Date(s): 12/25/20 - 01/24/21 [facility] [address] [place], [place] [address] Allergies, Adverse Reactions, Alerts Substance Reaction Severity [...] toxoids (Td) 02/16/06 Given 1Result Comment: [07/20/2018] [id number] 2Result Comment: [06/15/2017] [facility] [id number] 3Admin Note: work 4Admin Note: BIOMEDICAL JOSH 5Admin Note: GIVEN WHILE IN [facility] 6Admin Note: clinic el[facility] Medications ibuprofen [...] tablet, 0 Refills, Maintenance, 11/03/20 15:11:00 EST, [facility] # [facility], 179, cm, 11/07/19 14:24:00 EST, Height, 72.6, kg, 04/21/19 13:49:00 EDT, Dry Weight Start Date: 11/03/20 Stop Date: 02/01/21 Status: Ordered Patient's Own Meds CBD creme, Daily, Maintenance, 04/13/19 10:47:18 EDT Start Date: 04/13/19 Status: Ordered PEG-3350 with Electrolytes (Eqv-Colyte) oral powder for reconstitution See Instructions, split prep method, # 4,000 mL, 0 Refills, Maintenance, 02/04/21 17:00:00 EDT, [facility] # [facility], test date 02/05/21, split [...] Model MESH BARD 3X6IN 7.5X15CM - BARD ([id number]) 1 Bard Unknown BRENDA:No Information Assigning Authority: FDA
--- OUTSIDE RECORDS SUMMARY | 2024-08-19 13:25 | XMS_ITS | Continuity of Care Document ---
Author Organization [facility] Address [address] [place] [address]- Care Team Providers Care Baton Twirler Name Role Phone Livia Saldivar NP Primary Care Physician [phone] Encounter [facility] Date(s): 01/11/24 - 02/26/[address] [address] Encounter Diagnosis Procedure and treatment not carried out, unspecified reason(Final) - Discharge Disposition: A-D/C Home Attending Physician: [...] inactivated 4 07/12/15 Gi dawna SARS-CoV-2 mRNA (dyhxajc-glga-flfjo) vax 5 06/24/23 Recorded SARS-CoV-2 (COVID-19) mRNA-1273 [...] (IM) (oldterm) 8 07/22/06 Given 1Result Comment: [facility] [place] 2Result Comment: [07/20/2018] [id number] 3Result Comment: [06/15/2017] [facility] [id number] 4Admin Note: work 5Result Comment: [facility] [place] 6Admin Note: BIOMEDICAL JOSH 7Admin Note: GIVEN WHILE IN [facility] 8Admin Note: clinic elda Medications cetirizine 10 mg oral tablet 1 tablet = 10 mg, By Mouth, Daily, # 30 tablet, 0 Refills, Maintenance, 10/23/23 14:13:00 EST, Tablet, [facility] # [facility], Partial fill upon [...] 10/04/19 10:08:00 EST, Route to Pharmacy Electronically, [facility] # [facility], 179, cm, 04/29/19 9:33:00 EDT, Height, 72.6, k... Start Date: 10/04/19 Status: Ordered omeprazole 20 mg oral enteric coated capsule 1 capsule, By Mouth, Daily, # 90 capsule, 3 Refills, 02/12/23 10:52:00 EDT, [facility] # 50, 175, cm, 01/07/22 10:54:00 EDT, Height, 70.5, kg, 06/26/21 13:39:00 EDT, Dry Weight Start Date: 02/12/23 Status: Ordered Patient's Own Meds CBD creme, Daily, Maintenance, 04/13/19 10:47:18 EDT Start Date: 04/13/19 Status: Ordered PEG-3350 with Electrolytes (Eqv-GoLYTELY) oral powder for reconstitution See Instructions, 1 glass every 15-30 minutes until finished, # 4,000 mL, 0 Refills, Maintenance, 02/08/21 9:31:00 EDT, [facility] # [facility], OK TO SUB ANY GALLON PREP; PROCEDURE IS 9.29, 1 glass every 15-30 minutes until finished, 175.2, cm, 02/05/21... Start Date: 02/08/21 Status: Ordered PEG-3350 with Electrolytes (Eqv-GoLYTELY) oral powder for reconstitution See Instructions, 1 glass every 15-30 minutes until finished, # 4,000 mL, 0 Refills, Maintenance, 06/13/21 12:19:00 EDT, [facility] # 50, ok to substitute any gallon prep, 1 glass every 15-30 minutes until finished, 175.2, cm, 02/05/21 11:43:00 ED... Start Date: 06/13/21 Status: Ordered propranolol 20 mg oral tablet 20 mg, 1, tablet, By Mouth, 2 times a day, # 60 tablet, Refills 5, Tot. Refills 5, Maintenance, 05/19/23 14:36:00 EDT, Route to Pharmacy Electronically, [facility] # [facility], Partial fill upon patientrequest if the prescription is for a schedule II op... Start Date: 05/19/23 Status: Ordered traZODone 50 mg oral tablet 50 mg, 1, tablet, By Mouth, Daily at bedtime, # 30 tablet, Refills 5, Tot. Refills 5, Maintenance, 12/28/23 13:03:00 EDT, Route to Pharmacy Electronically, [facility] # [facility], Partial fill upon patient [...] Safety Implantable Status Assigning Authority Unknown Unknown [id number] Unknown 05/25/23 Unknown Unknown Active Unknown Patient Care team information Care Team Personnel Name: Livia Saldivar NP Position: [facility] PCO Associate Professional Member Role: PCP Address: Address: [address] [place] [address]- Care Team Related Persons Name: HUBER CORDERO Address: home [address] [place] [address] Name: HUBER CORDERO Address: home [address] [place] [address]
--- OUTSIDE RECORDS SUMMARY | 2024-08-19 13:25 | XMS_ITS | Continuity of Care Document ---
Author Organization [facility] Address [address] [place] [address]- Care Team Providers Care Inspector Shells Name Role Phone Jesse Vargas MD Primary Care Physician Encounter [facility] Date(s): 06/13/21 - 07/13/21 [facility] [address] [place] [address]- [place] Allergies, Adverse Reactions, Alerts Substance Reaction Severity [...] toxoids (Td) 02/16/06 Given 1Result Comment: [07/20/2018] [id number] 2Result Comment: [06/15/2017] [facility] [id number] 3Admin Note: work 4Admin Note: BIOMEDICAL JOSH 5Admin Note: GIVEN WHILE IN [facility] 6Admin Note: clinic elda Medications ibuprofen 800 [...] capsule, 0 Refills, Maintenance, 05/04/21 8:05:00 EDT, [facility] # [facility], 175.2, cm, 02/05/21 11:43:00 EDT, Height, 73.4, kg, 02/05/21 11:43:00 EDT, Dry Weight Start Date: 05/04/21 Status: Ordered Patient's Own Meds CBD creme, Daily, Maintenance, 04/13/19 10:47:18 EDT Start Date: 04/13/19 Status: Ordered PEG-3350 with Electrolytes (Eqv-GoLYTELY) oral powder for reconstitution See Instructions, 1 glass every 15-30 minutes until finished, # 4,000 mL, 0 Refills, Maintenance, 02/08/21 9:31:00 EDT, [facility] # 50, OK TO SUB ANY GALLON PREP; PROCEDURE IS 9.29, 1 glass every 15-30 minutes until finished, 175.2, cm, 02/05/21... Start Date: 02/08/21 Status: Ordered PEG-3350 with Electrolytes (Eqv-GoLYTELY) oral powder for reconstitution See Instructions, 1 glass every 15-30 minutes until finished, # 4,000 mL, 0 Refills, Maintenance, 06/13/21 12:19:00 EDT, [facility] # 50, ok to substitute [...] Model MESH BARD 3X6IN 7.5X15CM - BARD ([id number]) 1 Bard Unknown BRENDA:No Information Assigning Authority: FDA
--- OUTSIDE RECORDS SUMMARY | 2024-08-19 13:25 | XMS_ITS | Continuity of Care Document ---
Author Organization [facility] Address [address] [place] [address]- Care Team Providers Care Machine Spreader Name Role Phone Yariel WILKINSON, Livia Pond Primary Care Physician [phone] Encounter [facility] Date(s): 08/28/23 - 09/27/[address] [address] Attending Physician: Gianna Shay Admitting Physician: AdmtrGianna [...] inactivated 4 07/12/15 Gi dawna SARS-CoV-2 mRNA (nehmjcu-iuxk-wvnju) vax 5 06/24/23 Recorded SARS-CoV-2 (COVID-19) mRNA-1273 [...] (IM) (oldterm) 8 07/22/06 Given 1Result Comment: [facility] [place] 2Result Comment: [07/20/2018] [id number] 3Result Comment: [06/15/2017] [facility] [id number] 4Admin Note: work 5Result Comment: [facility] [place] 6Admin Note: BIOMEDICAL JOSH 7Admin Note: GIVEN WHILE IN [facility] 8Admin Note: clinic elda Medications hydrOXYzine [...] 10:08:00 EST, Route to Pharmacy Electronically, [facility] # [facility], 179, cm, 04/29/19 9:33:00 EDT, Height, 72.6, k... Start Date: 10/04/19 Status: Ordered omeprazole 20 mg oral enteric coated capsule 1 capsule, By Mouth, Daily, # 90 capsule, 3 Refills, 02/12/23 10:52:00 EDT, [facility] # [facility], 175, cm, [...] 0 Refills, Maintenance, 02/08/21 9:31:00 EDT, [facility] # 50, OK TO SUB ANY GALLON PREP; PROCEDURE IS 9.29, 1 glass every 15-30 minutes until finished, 175.2, cm, 02/05/21... Start Date: 02/08/21 Status: Ordered PEG-3350 with Electrolytes (Eqv-GoLYTELY) oral powder for reconstitution See Instructions, 1 glass every 15-30 minutes until finished, # 4,000 mL, 0 Refills, Maintenance, 06/13/21 12:19:00 EDT, [facility] # 50, ok to substitute any gallon prep, 1 glass every 15-30 minutes until finished, 175.2, cm, 02/05/21 11:43:00 ED... Start Date: 06/13/21 Status: Ordered propranolol 20 mg oral tablet 20 mg, 1, tablet, By Mouth, 2 times a day, # 60 tablet, Refills 5, Tot. Refills 5, Maintenance, 05/19/23 14:36:00 EDT, Route to Pharmacy Electronically, [facility] # [facility], Partial fill upon patientrequest if the prescription is for a schedule II op... Start Date: 05/19/23 Status: Ordered Vitamin B12 2500 mcg sublingual tablet 1 tablet = 2,500 mcg, Sublingual, Daily, # 90 tablet, 3 Refills, Maintenance, 06/25/23 10:32:00 EDT, Tablet, [facility] # 50, Partial fill [...] Safety Implantable Status Assigning Authority Unknown Unknown [id number] Unknown 05/25/23 Unknown Unknown Active Unknown Patient Care team information Care Team Personnel Name: Livia Saldivar NP Position: [facility] PCO Associate Professional Member Role: PCP Address: Address: [address] [place] [address]- Care Team Related Persons Name: HUBER CORDERO Address: home [address] [place] [address] Name: HUBER CORDERO Address: home [address] [place] [address]
--- OUTSIDE RECORDS SUMMARY | 2024-08-19 13:25 | XMS_ITS | Continuity of Care Document ---
Author Organization [facility] lt Address [address] [place] [address]- Care Team Providers Care Consolidator Name Role Phone Yariel WILKINSON, Livia Pond Primary Care Physician [phone] Encounter [facility] Date(s): 05/08/23 - 06/07/23 [facility] Adult [address] [place] [address]- Allergies, Adverse Reactions, Alerts Substance Reaction Severity [...] toxoids (Td) 02/16/06 Given 1Result Comment: [07/20/2018] [id number] 2Result Comment: [06/15/2017] [facility] [id number] 3Admin Note: work 4Admin Note: BIOMEDICAL JOSH 5Admin Note: GIVEN WHILE IN [facility] 6Admin Note: clinic elda Medications hydrOXYzine [...] mL, 0 Refills, Maintenance, 02/08/21 9:31:00 EDT, [facility] # [facility], OK TO SUB ANY GALLON PREP; PROCEDURE IS 9.29, 1 glass every 15-30 minutes until finished, 175.2, cm, 02/05/21... Start Date: 02/08/21 Status: Ordered PEG-3350 with Electrolytes (Eqv-GoLYTELY) oral powder for reconstitution See Instructions, 1 glass every 15-30 minutes until finished, # 4,000 mL, 0 Refills, Maintenance, 06/13/21 12:19:00 EDT, [facility] # [facility], ok to substitute any gallon prep, 1 glass every 15-30 minutes until finished, 175.2, cm, 02/05/21 11:43:00 ED... Start Date: 06/13/21 Status: Ordered propranolol 20 mg oral tablet 20 mg, 1, tablet, By Mouth, 2 times a day, # 60 tablet, Refills 5, Tot. Refills 5, Maintenance, 05/19/23 14:36:00 EDT, Route to Pharmacy Electronically, [facility] # [facility], Partial fill upon patientrequest [...] Safety Implantable Status Assigning Authority Unknown Unknown [id number] Unknown 05/25/23 Unknown Unknown Active Unknown Patient Care team information Care Team Personnel Name: Livia Saldivar NP Position: [facility] PCO Associate Professional Member Role: PCP Address: Address: [address] [place] [address]- Care Team Related Persons Name: HUBER CORDERO Address: home [address] [place] [address] Name: HUBER CORDERO Address: home [address] [place] [address]
--- OUTSIDE RECORDS SUMMARY | 2024-08-19 13:25 | XMS_ITS | Continuity of Care Document ---
Author Organization [facility] Address [address] [place] [address]- Care Team Providers Care Bar Staff Name Role Phone Yariel WILKINSON, Livia Pond Primary Care Physician [phone] Encounter [facility] Date(s): 09/01/23 - 10/01/23 [facility] [address] [place] [address]- Allergies, Adverse Reactions, Alerts Substance Reaction Severity [...] inactivated 4 07/12/15 Gi dawna SARS-CoV-2 mRNA (qykqupk-ndlo-tszud) vax 5 06/24/23 Recorded SARS-CoV-2 (COVID-19) mRNA-1273 [...] 8 07/22/06 Given 1Result Comment: [facility] [place] 2Result Comment: [07/20/2018] [id number] 3Result Comment: [06/15/2017] [facility] [id number] 4Admin Note: work 5Result Comment: [facility] [place] 6Admin Note: BIOMEDICAL JOSH 7Admin Note: GIVEN WHILE IN [facility] 8Admin Note: clinic elda Medications hydrOXYzine [...] 10/04/19 10:08:00 EST, Route to Pharmacy Electronically, [facility] # [facility], 179, cm, 04/29/19 9:33:00 EDT, Height, 72.6, k... Start Date: 10/04/19 Status: Ordered omeprazole 20 mg oral enteric coated capsule 1 capsule, By Mouth, Daily, # 90 capsule, 3 Refills, 02/12/23 10:52:00 EDT, [facility] # [facility], 175, cm, 01/07/22 10:54:00 EDT, Height, 70.5, kg, 06/26/21 13:39:00 EDT, Dry Weight Start Date: 02/12/23 Status: Ordered Patient's Own Meds CBD creme, Daily, Maintenance, 04/13/19 10:47:18 EDT Start Date: 04/13/19 Status: Ordered PEG-3350 with Electrolytes (Eqv-GoLYTELY) oral powder for reconstitution See Instructions, 1 glass every 15-30 minutes until finished, # 4,000 mL, 0 Refills, Maintenance, 02/08/21 9:31:00 EDT, [facility] # [facility], OK TO SUB ANY GALLON PREP; PROCEDURE IS 9.29, 1 glass every 15-30 minutes until finished, 175.2, cm, 02/05/21... Start Date: 02/08/21 Status: Ordered PEG-3350 with Electrolytes (Eqv-GoLYTELY) oral powder for reconstitution See Instructions, 1 glass every 15-30 minutes until finished, # 4,000 mL, 0 Refills, Maintenance, 06/13/21 12:19:00 EDT, [facility] # [facility], ok to substitute any gallon prep, 1 glass every 15-30 minutes until finished, 175.2, cm, 02/05/21 11:43:00 ED... Start Date: 06/13/21 Status: Ordered propranolol 20 mg oral tablet 20 mg, 1, tablet, By Mouth, 2 times a day, # 60 tablet, Refills 5, Tot. Refills 5, Maintenance, 05/19/23 14:36:00 EDT, Route to Pharmacy Electronically, [facility] # [facility], Partial fill upon patientrequest if the prescription is for a schedule II op... Start Date: 05/19/23 Status: Ordered Vitamin B12 2500 mcg sublingual tablet 1 tablet = 2,500 mcg, Sublingual, Daily, # 90 tablet, 3 Refills, Maintenance, 06/25/23 10:32:00 EDT, Tablet, [facility] # 50, Partial fill upon patient [...] Safety Implantable Status Assigning Authority Unknown Unknown [id number] Unknown 05/25/23 Unknown Unknown Active Unknown Patient Care team information Care Team Personnel Name: Yariel WILKINSON, Livia Pond Position: [facility] PCO Associate Professional Member Role: PCP Address: Address: [address] [place] [address]- Care Team Related Persons Name: HUBER CORDERO Address: home [address] [place] [address] Name: HUBER CORDERO Address: home [address] [place] [address]
--- OUTSIDE RECORDS SUMMARY | 2024-08-19 13:25 | XMS_ITS | Continuity of Care Document ---
Author Organization [facility] Tello Robert lt Address [address] [place] [address]- Care Team Providers Care Public Employment Mediator Name Role Phone Yariel WILKINSON, Livia Pond Primary Care Physician [facility] Date(s): 10/[facility]/22 - 11/30/22 [facility] Adult [address] [place] [address]- Allergies, Adverse Reactions, Alerts Substance Reaction Severity [...] toxoids (Td) 02/16/06 Given 1Result Comment: [07/20/2018] [id number] 2Result Comment: [06/15/2017] [facility] [id number] 3Admin Note: work 4Admin Note: BIOMEDICAL JOSH 5Admin Note: GIVEN WHILE IN [facility] 6Admin Note: clinic elda Medications ibuprofen [...] capsule, By Mouth, Daily, # 90 capsule, 0 Refills, 10/31/22 11:29:00 EST, [facility] # 50, 175, cm, 01/07/22 10:54:00 EDT, Height, 70.5, kg, 06/26/21 13:39:00 EDT, Dry Weight Start Date: 10/31/22 Status: Ordered Patient's Own Meds CBD creme, Daily, Maintenance, 04/13/19 10:47:18 EDT Start Date: 04/13/19 Status: Ordered PEG-3350 with Electrolytes (Eqv-GoLYTELY) oral powder for reconstitution See Instructions, 1 glass every 15-30 minutes until finished, # 4,000 mL, 0 Refills, Maintenance, 02/08/21 9:31:00 EDT, [facility] # 50, OK TO SUB ANY GALLON PREP; PROCEDURE IS 9.29, 1 glass every 15-30 minutes until finished, 175.2, cm, 02/05/21... Start Date: 02/08/21 Status: Ordered PEG-3350 with Electrolytes (Eqv-GoLYTELY) oral powder for reconstitution See Instructions, 1 glass every 15-30 minutes until finished, # 4,000 mL, 0 Refills, Maintenance, 06/13/21 12:19:00 EDT, [facility] # 50, ok to substitute [...] Safety Implantable Status Assigning Authority Unknown Unknown [id number] Unknown 05/25/23 Unknown Unknown Active Unknown Patient Care team information Care Team Personnel Name: Yariel WILKINSON, Livia Pond Position: [facility] PCO Associate Professional Member Role: PCP Address: Address: [address] [place] [address]- Care Team Related Persons Name: HUBER CORDERO Address: home [address] [place] [id number]
--- OUTSIDE RECORDS SUMMARY | 2024-08-19 13:25 | XMS_ITS | Continuity of Care Document ---
Author Organization [facility] Robert lt Address [address] [place] [address]- Care Team Providers Care Manager Inspection Name Role Phone Yariel WILKINSON, Livia Pond Primary Care Physician [phone] [facility]counter [facility] Date(s): 03/19/23 - 03/26/23 [facility] Adult [address] [place] [address]- Attending Physician: Not on Staff, Attending MD Allergies, Adverse Reactions, Alerts Substance Reaction Severity Status penicillin anaphylactic Active Fish anaphylactic Active Bactrim headache Active sulfa drugs terrible headace Active Immunizations [...] toxoids (Td) 02/16/06 Given 1Result Comment: [07/20/2018] 42781-742-30 2Result Comment: [06/15/2017] [facility] [id number] 3Admin Note: work 4Admin Note: BIOMEDICAL JOSH 5Admin Note: GIVEN WHILE IN [facility] 6Admin Note: clinic elda Medications ibuprofen 800 mg oral tablet 800 mg, 1, tablet, By Mouth, 3 times a day, PRN, # 90 tablet, Refills 0, Tot. Refills 0, Maintenance, as needed for arthritis, 10/04/19 10:08:00 EST, Route to Pharmacy Electronically, [facility] # [facility], 179, cm, 04/29/19 9:33:00 EDT, Height, 72.6, k... Start Date: 10/04/19 Status: Ordered omeprazole 20 mg oral enteric coated capsule 1 capsule, By Mouth, Daily, # 90 capsule, 3 Refills, 02/12/23 10:52:00 EDT, [facility] # 50, 175, [...] mL, 0 Refills, Maintenance, 02/08/21 9:31:00 EDT, [facility] # 50, OK TO SUB ANY GALLON PREP; PROCEDURE IS 9.29, 1 glass every 15-30 minutes until finished, 175.2, cm, 02/05/21... Start Date: 02/08/21 Status: Ordered PEG-3350 with Electrolytes (Eqv-GoLYTELY) oral powder for reconstitution See Instructions, 1 glass every 15-30 minutes until finished, # 4,000 mL, 0 Refills, Maintenance, 06/13/21 12:19:00 EDT, [facility] # 50, ok [...] in 2020, repeat screening colonoscopy in 2025 Vital Signs Most recent to oldest [Reference Range]: 1 2 Height 175 cm (03/19/23 9:58 AM) 175 cm (03/19/23 9:52 AM) Weight 74.0 kg (03/19/23 9:52 AM) Oxygen Saturation [94-100 %] 99 % (03/19/23 9:52 AM) Pulse Rate [55-90 bpm] 99 bpm *H* (03/19/23 9:52 AM) Body Mass Index [18.5-24.99 kg/m2] 24.16 kg/m2 (03/19/23 9:52 AM) Blood Pressure [90-138/55-84 mm Hg] 141/ 85mm Hg *H* (03/19/23 9:58 AM) 145/93mm Hg *H* (03/19/23 9:52 AM) Blood pressure sites Arm, right (03/19/23 9:52 AM) Weight Obtained Via Standing scale (03/19/23 9:52 AM) Social History Social History Type Response [...] Safety Implantable Status Assigning Authority Unknown Unknown [id number] Unknown 05/25/23 Unknown Unknown Active Unknown Patient Care team information Care Team Personnel Name: Livia Saldivar NP Position: S PCO Associate Professional Member Role: PCP Address: Address: [address] [place] [address]- Care Team Related Persons Name: HUBER CORDERO Address: home [address] [place] [address] Name: HUBER CORDERO Address: home [address] [address]
--- OUTSIDE RECORDS SUMMARY | 2024-08-19 13:26 | XMS_ITS | Continuity of Care Document ---
Author Organization [facility] Tello Robert lt Address [address] [place] [address]- Care Team Providers Care Haunted History Tour Guide Name Role Phone Yariel WILKINSON, Livia Pond Primary Care Physician [phone] [facility] Date(s): 04/10/23 - 05/10/23 [facility] Adult [address] [place] [address]- Allergies, Adverse Reactions, Alerts Substance Reaction Severity [...] toxoids (Td) 02/16/06 Given 1Result Comment: [07/20/2018] [id number] 2Result Comment: [06/15/2017] [facility] [id number] 3Admin Note: work 4Admin Note: BIOMEDICAL JOSH 5Admin Note: GIVEN WHILE IN [facility] 6Admin Note: clinic elda Medications ibuprofen 800 [...] Safety Implantable Status Assigning Authority Unknown Unknown [id number] Unknown 05/25/23 Unknown Unknown Active Unknown Patient Care team information Care Team Personnel Name: Yariel WILKINSON, Livia Pond Position: [facility] PCO Associate Professional Member Role: PCP Address: Address: [address] [place] [address]- Care Team Related Persons Name: HUBER CORDERO Address: home [address] [place] [address] Name: HUBER CORDERO Address: home [address] [place] [address]
--- OUTSIDE RECORDS SUMMARY | 2024-08-19 13:26 | XMS_ITS | Continuity of Care Document ---
Author Organization [facility] Tung Javed Robert lt Address [address] [place] [address]- Care Team Providers Care Technical Analyst Name Role Phone Jesse Vargas MD Primary Care Physician Encounter [facility] Date(s): 11/08/20 - 11/15/20 [facility] Adult [address] [place] [address]- Encounter Diagnosis General medical exam(Discharge Diagnosis) - 11/08/20 Gastroesophageal reflux disease with hiatal hernia(Discharge Diagnosis) - 11/08/20 Attending Physician: Jesse Vargas MD Allergies, Adverse [...] toxoids (Td) 02/16/06 Given 1Result Comment: [07/20/2018] [id number] 2Result Comment: [06/15/2017] [facility] [id number] 3Admin Note: work 4Admin Note: BIOMEDICAL JOSH 5Admin Note: GIVEN WHILE IN [facility] 6Admin Note: clinic elda Medications ibuprofen 800 mg oral tablet 800 mg, 1, tablet, By Mouth, 3 times a day, PRN, # 90 tablet, Refills 0, Tot. Refills 0, Maintenance, as needed for arthritis, 10/04/19 10:08:00 EST, Route to Pharmacy Electronically, [facility] # 50, 179, cm, 04/29/19 9:33:00 EDT, Height, 72.6, k... Start Date: 10/04/19 Status: Ordered omeprazole 20 mg oral delayed release tablet 1 tablet = 20 mg, By Mouth, Daily, # 90 tablet, 0 Refills, Maintenance, 11/03/20 15:11:00 EST, [facility] # 50, 179, cm, 11/07/19 14:24:00 [...] risk as of 11/23/2019 is 3.6%(Confirmed) Active Diagnosis Diagnosis Type Effective Dates Health Status Clinical Service Informant General medical exam Discharge Diagnosis 11/08/20 Gastroesophageal reflux disease with hiatal hernia Discharge Diagnosis 11/08/20 Vital Signs Most recent to oldest [Reference Range]: 1 Height 179 cm (11/08/20 10:40 AM) Weight 69.9 kg (11/08/20 10:40 AM) Body Mass Index [18.5-24.99] 21.82 (11/08/20 10:40 AM) Weight Obtained Via Standing scale (11/08/20 10:40 AM) Social History Social History Type Response Smoking Status Former smoker, quit more than 30 days ago; Use: Quit 14 years ago entered on: 11/08/20 Sex Medical Equipment Implanted Date:04/21/19Target Site:Groin Left Description Quantity MRI Company Model MESH BARD 3X6IN 7.5X15CM - BARD ([id number]) 1 Bard Unknown BRENDA:No Information Assigning Authority: FDA
--- OUTSIDE RECORDS SUMMARY | 2024-08-19 13:26 | XMS_ITS | Continuity of Care Document ---
Author Organization [facility] Tello Robert lt Address [address] [place] [address]- Care Team Providers Care Bad Credit Collector Name Role Phone Yariel WILKINSON, Livia Pond Primary Care Physician Encounter [facility] Date(s): 12/28/23 - 01/27/24 [facility] [place] Adult [address] [place] [address]- Attending Physician: Gianna Shay Admitting Physician: Admtr, Gianna Referring Physician: Admtr, Ar8 Allergies, Adverse Reactions, [...] inactivated 4 07/12/15 Gi dawna SARS-CoV-2 mRNA (dgcephw-qeau-izosf) vax 5 06/24/23 Recorded SARS-CoV-2 (COVID-19) mRNA-1273 [...] (IM) (oldterm) 8 07/22/06 Given 1Result Comment: [facility] [place] 2Result Comment: [07/20/2018] [id number] 3Result Comment: [06/15/2017] [facility] [id number] 4Admin Note: work 5Result Comment: [facility] [place] 6Admin Note: BIOMEDICAL JOSH 7Admin Note: GIVEN WHILE IN [facility] 8Admin Note: clinic elda Medications cetirizine 10 mg oral tablet 1 tablet = 10 mg, By Mouth, Daily, # 30 tablet, 0 Refills, Maintenance, 10/23/23 14:13:00 EST, Tablet, [facility] # 50, Partial fill [...] Maintenance, 02/08/21 9:31:00 EDT, [facility] # [facility], OK TO SUB ANY GALLON PREP; PROCEDURE IS 9.29, 1 glass every 15-30 minutes until finished, 175.2, cm, 02/05/21... Start Date: 02/08/21 Status: Ordered PEG-3350 with Electrolytes (Eqv-GoLYTELY) oral powder for reconstitution See Instructions, 1 glass every 15-30 minutes until finished, # 4,000 mL, 0 Refills, Maintenance, 06/13/21 12:19:00 EDT, [facility] # [facility], ok to substitute any gallon prep, 1 glass every 15-30 minutes until finished, 175.2, cm, 02/05/21 11:43:00 ED... Start Date: 06/13/21 Status: Ordered propranolol 20 mg oral tablet 20 mg, 1, tablet, By Mouth, 2 times a day, # 60 tablet, Refills 5, Tot. Refills 5, Maintenance, 05/19/23 14:36:00 EDT, Route to Pharmacy Electronically, [facility] # [facility], Partial fill upon patientrequest if the prescription is for a schedule II op... Start Date: 05/19/23 Status: Ordered traZODone 50 mg oral tablet 50 mg, 1, tablet, By Mouth, Daily at bedtime, # 30 tablet, Refills 5, Tot. Refills 5, Maintenance, 12/28/23 13:03:00 EDT, Route to Pharmacy Electronically, [facility] # [facility], Partial fill upon patient request if the prescription is for a schedule II... Start Date: 12/28/23 Status: Ordered Vitamin B12 2500 mcg sublingual tablet 1 tablet = 2,500 mcg, Sublingual, Daily, # 90 tablet, 3 Refills, Maintenance, 06/25/23 10:32:00 EDT, Tablet, [facility] # 50, Partial fill [...] Safety Implantable Status Assigning Authority Unknown Unknown [id number] Unknown 05/25/23 Unknown Unknown Active Unknown Cardiology * Yessi Hicks: PERFORM Event Display: Cardiovascular Results Scanned Authored Date: [id number] Radiology * Sabrina Sadler.: PERFORM Event Display: Radiology Results Scanned Authored Date: [id number] * Mariely Reyes: PERFORM Event Display: Radiology Results Scanned Authored Date: [id number] Patient Care team information Care Team Personnel Name: Livia Saldivar NP Position: [facility] PCO Associate Professional Member Role: PCP Address: Address: [address] [place] [address]- Care Team Related Persons Name: HUBER CORDERO Address: home [address] [place] [address] Name: HUBER CORDERO Address: home [address] [place] [address]
--- OUTSIDE RECORDS SUMMARY | 2024-08-19 13:26 | XMS_ITS | Continuity of Care Document ---
Author Organization [facility] Tello Robert lt Address [address] [place] [address]- Care Team Providers Care Transmission Engineer Name Role Phone Yariel WILKINSON, Livia Pond Primary Care Physician [place] [facility] Date(s): 10/26/23 - 11/25/23 [facility] Adult [address] [place] [address]- Allergies, Adverse Reactions, Alerts Substance Reaction Severity [...] inactivated 4 07/12/15 Gi dawna SARS-CoV-2 mRNA (zixinxc-dhmn-ihinp) vax 5 06/24/23 Recorded SARS-CoV-2 (COVID-19) mRNA-1273 [...] 8 07/22/06 Given 1Result Comment: [facility] [place] 2Result Comment: [07/20/2018] [id number] 3Result Comment: [06/15/2017] [facility] [id number] 4Admin Note: work 5Result Comment: [facility] [place] 6Admin Note: BIOMEDICAL JOSH 7Admin Note: GIVEN WHILE IN [facility] 8Admin Note: clinic elda Medications cetirizine [...] 90 capsule, 3 Refills, 02/12/23 10:52:00 EDT, [facility] # [facility], [...] mL, 0 Refills, Maintenance, 02/08/21 9:31:00 EDT, [facility] # [facility], OK TO SUB ANY GALLON PREP; PROCEDURE IS 9.29, 1 glass every 15-30 minutes until finished, 175.2, cm, 02/05/21... Start Date: 02/08/21 Status: Ordered PEG-3350 with Electrolytes (Eqv-GoLYTELY) oral powder for reconstitution See Instructions, 1 glass every 15-30 minutes until finished, # 4,000 mL, 0 Refills, Maintenance, 06/13/21 12:19:00 EDT, [facility] # 50, ok to substitute any gallon prep, 1 glass every 15-30 minutes until finished, 175.2, cm, 02/05/21 11:43:00 ED... Start Date: 06/13/21 Status: Ordered propranolol 20 mg oral tablet 20 mg, 1, tablet, By Mouth, 2 times a day, # 60 tablet, Refills 5, Tot. Refills 5, Maintenance, 05/19/23 14:36:00 EDT, Route to Pharmacy Electronically, [facility] # [facility], Partial fill upon patientrequest if the prescription is for a schedule II op... Start Date: 05/19/23 Status: Ordered Vitamin B12 2500 mcg sublingual tablet 1 tablet = 2,500 mcg, Sublingual, Daily, # 90 tablet, 3 Refills, Maintenance, 06/25/23 10:32:00 EDT, Tablet, [facility] # 50, Partial fill upon patient [...] Safety Implantable Status Assigning Authority Unknown Unknown [id number] Unknown 05/25/23 Unknown Unknown Active Unknown Patient Care team information Care Team Personnel Name: Yariel WILKINSON, Livia Pond Position: [facility] PCO Associate Professional Member Role: PCP Address: Address: [address] [place] [address]- Care Team Related Persons Name: HUBER CORDERO Address: home [address] [place] [address] Name: HUBER CORDERO Address: [address] [place] [address]
--- OUTSIDE RECORDS SUMMARY | 2024-08-19 13:26 | XMS_ITS | Continuity of Care Document ---
Author Organization [facility] Tung Javed Robert lt Address [address] [place] [address]- Care Team Providers Care Park Guide Name Role Phone Jesse Vargas MD Primary Care Physician [phone] [place] [facility] Date(s): 07/04/20 - 07/11/20 [facility] Adult [address] [place] [address]- [facility] Attending Physician: Not on Staff, Attending Referring Physician: Jesse Vargas MD Allergies, Adverse Reactions, [...] (oldterm) 6 07/22/06 Given tetanus-diphtheria toxoids (Td) 5/22/06 Given 1Result Comment: [07/20/2018] [id number] 2Result Comment: [06/15/2017] [facility] 68688-567-15 3Admin Note: work 4Admin Note: BIOMEDICAL JOSH 5Admin Note: GIVEN WHILE IN [facility] 6Admin Note: clinic elda Medications ibuprofen 800 mg oral tablet 800 mg, 1, tablet, By Mouth, 3 times a day, PRN, # 90 tablet, Refills 0, Tot. Refills 0, Maintenance, as needed for arthritis, 10/04/19 10:08:00 EST, Route to Pharmacy Electronically, [facility] # [facility], 179, cm, 04/29/19 9:33:00 [...] Model MESH BARD 3X6IN 7.5X15CM - BARD ([id number]) 1 Bard Unknown BRENDA:No Information Assigning Authority: FDA
--- OUTSIDE RECORDS SUMMARY | 2024-08-19 13:26 | XMS_ITS | Continuity of Care Document ---
Author Organization [facility] Tello Robert lt Address [address] [place] [address]- Care Team Providers Care Prism Measurer Name Role Phone Yariel WILKINSON, Livia Pond Primary Care Physician [phone] [facility] Date(s): 04/07/23 - 05/07/23 [facility] Adult [address] [place] [address]- Attending Physician: Gianna Shay Admitting Physician: Admtr, [...] toxoids (Td) 02/16/06 Given 1Result Comment: [07/20/2018] [id number] 2Result Comment: [06/15/2017] [facility] [id number] 3Admin Note: work 4Admin Note: BIOMEDICAL JOSH 5Admin Note: GIVEN WHILE IN [facility] 6Admin Note: clinic elda Medications ibuprofen 800 mg oral tablet 800 mg, 1, tablet, By Mouth, 3 times a day, PRN, # 90 tablet, Refills 0, Tot. Refills 0, Maintenance, as needed for arthritis, 10/04/19 10:08:00 EST, Route to Pharmacy Electronically, [facility] # [facility], 179, cm, 04/29/19 9:33:00 EDT, Height, 72.6, k... Start Date: 10/04/19 Status: Ordered omeprazole 20 mg oral enteric coated capsule 1 capsule, By Mouth, Daily, # 90 capsule, 3 Refills, 02/12/23 10:52:00 EDT, [facility] # 50, 175, cm, 01/07/22 [...] Refills, Maintenance, 02/08/21 9:31:00 EDT, [facility] # 50, OK TO SUB ANY GALLON PREP; PROCEDURE IS 9.29, 1 glass every 15-30 minutes until finished, 175.2, cm, 02/05/21... Start Date: 02/08/21 Status: Ordered PEG-3350 with Electrolytes (Eqv-GoLYTELY) oral powder for reconstitution See Instructions, 1 glass every 15-30 minutes until finished, # 4,000 mL, 0 Refills, Maintenance, 06/13/21 12:19:00 EDT, [facility] # 50, ok to substitute [...] Safety Implantable Status Assigning Authority Unknown Unknown [id number] Unknown 05/25/23 Unknown Unknown Active Unknown Cardiology * Yessi Hicks: PERFORM Event Display: Cardiovascular Results Scanned Authored Date: [id number] Radiology * Sabrina Sadler: PERFORM Event Display: Radiology Results Scanned Authored Date: [id number] * Mariely Reyes: PERFORM Event Display: Radiology Results Scanned Authored Date: [id number] Patient Care team information Care Team Personnel Name: Livia Saldivar NP Position: [facility] PCO Associate Professional Member Role: PCP Address: Address: [address] [place] [address]- Care Team Related Persons Name: HUBER CORDERO Address: [address] [place] [address] Name: HUBER CORDERO Address: [address] [place] [address]
--- OUTSIDE RECORDS SUMMARY | 2024-08-19 13:26 | XMS_ITS | Continuity of Care Document ---
Author Organization [facility] Tello Robert lt Address [address] [place] [address]- Care Team Providers Care Superintendent Measurement Name Role Phone Yariel WILKINSON, Livia Pond Primary Care Physician [facility]counter [facility] Date(s): 12/26/21 - 01/25/22 [facility] Adult [address] [place] [address]- Allergies, Adverse Reactions, Alerts Substance Reaction Severity [...] toxoids (Td) 02/16/06 Given 1Result Comment: [07/20/2018] [id number] 2Result Comment: [06/15/2017] [facility] [id number] 3Admin Note: work 4Admin Note: BIOMEDICAL JOSH 5Admin Note: GIVEN WHILE IN [facility] 6Admin Note: clinic elda Medications ibuprofen [...] Mouth, Daily, # 90 capsule, 3 Refills, [facility] # [facility], 175, cm, 06/26/21 13:39:00 [...] Model MESH BARD 3X6IN 7.5X15CM - BARD ([id number]) 1 Bard Unknown BRENDA:No Information Assigning Authority: FDA
--- OUTSIDE RECORDS SUMMARY | 2024-08-19 13:26 | XMS_ITS | Continuity of Care Document ---
Author Organization [facility] Address [address] [place] [address]- Care Team Providers Care Forgeman Helper Name Role Phone Livia Saldivar NP Primary Care Physician Encounter [facility] Date(s): 01/19/24 - 03/22/[address] [address]- Encounter Diagnosis Pain in left knee(Final) - Discharge Disposition: A-D/C Home Attending Physician: [...] inactivated 4 07/12/15 Gi dawna SARS-CoV-2 mRNA (hcufckw-pyil-rlpoe) vax 5 06/24/23 Recorded SARS-CoV-2 (COVID-19) mRNA-1273 [...] (oldterm) 8 07/22/06 Given 1Result Comment: [facility] [place] 2Result Comment: [07/20/2018] [id number] 3Result Comment: [06/15/2017] [facility] [id number] 4Admin Note: work 5Result Comment: [facility] [place] 6Admin Note: BIOMEDICAL JOSH 7Admin Note: GIVEN WHILE IN [facility] 8Admin Note: clinic [facility] Medications cetirizine 10 mg oral tablet 1 tablet = 10 mg, By Mouth, Daily, # 30 tablet, 0 Refills, Maintenance, 10/23/23 14:13:00 EST, Tablet, [facility] # [facility], Partial fill upon [...] EST, Route to Pharmacy Electronically, [facility], 179, cm, 04/29/19 9:33:00 EDT, Height, 72.6, k... Start Date: 10/04/19 Status: Ordered omeprazole 20 mg oral enteric coated capsule 1 capsule, By Mouth, Daily, # 90 capsule, 1 Refills, Maintenance, 03/02/24 4:08:00 EDT, [facility] # [facility], 175, cm, 12/28/23 12:52:00 EDT, Height Start Date: 03/02/24 Status: Ordered Patient's Own Meds CBD creme, Daily, Maintenance, 04/13/19 10:47:18 EDT Start Date: 04/13/19 Status: Ordered PEG-3350 with Electrolytes (Eqv-GoLYTELY) oral powder for reconstitution See Instructions, 1 glass every 15-30 minutes until finished, # 4,000 mL, 0 Refills, Maintenance, 02/08/21 9:31:00 EDT, [facility], OK TO SUB ANY GALLON PREP; PROCEDURE IS 9.29, 1 glass every 15-30 minutes until finished, 175.2, cm, 02/05/21... Start Date: 02/08/21 Status: Ordered PEG-3350 with Electrolytes (Eqv-GoLYTELY) oral powder for reconstitution See Instructions, 1 glass every 15-30 minutes until finished, # 4,000 mL, 0 Refills, Maintenance, 06/13/21 12:19:00 EDT, [facility] # [facility], ok to substitute any gallon prep, 1 glass every 15-30 minutes until finished, 175.2, cm, 02/05/21 11:43:00 ED... Start Date: 06/13/21 Status: Ordered propranolol 20 mg oral tablet 20 mg, 1, tablet, By Mouth, 2 times a day, # 60 tablet, Refills 5, Tot. Refills 5, Maintenance, 05/19/23 14:36:00 EDT, Route to Pharmacy Electronically, [facility], Partial fill upon patientrequest if the prescription is for a schedule II op... Start Date: 05/19/23 Status: Ordered traZODone 50 mg oral tablet 50 mg, 1, tablet, By Mouth, Daily at bedtime, # 30 tablet, Refills 5, Tot. Refills 5, Maintenance, 12/28/23 13:03:00 EDT, Route to Pharmacy Electronically, [facility], Partial fill upon patient request if the prescription is for a schedule II... Start Date: 12/28/23 Status: Ordered Vitamin B12 2500 mcg sublingual tablet 1 tablet = 2,500 mcg, Sublingual, Daily, # 90 tablet, 3 Refills, Maintenance, 06/25/23 10:32:00 EDT, Tablet, [facility] # [facility], Partial fill upon [...] Safety Implantable Status Assigning Authority Unknown Unknown [id number] Unknown 05/25/23 Unknown Unknown Active Unknown Patient Care team information Care Team Personnel Name: Livia Saldivar NP Position: [facility] PCO Associate Professional Member Role: PCP Address: Address: [address] [place] [address]- Care Team Related Persons Name: HUBER CORDERO Address: home [address] [place] [address] Name: HUBER CORDERO Address: home [address] [place] [address]
--- OUTSIDE RECORDS SUMMARY | 2024-08-19 13:26 | XMS_ITS | Continuity of Care Document ---
Author Organization [facility] Tung Javed Robert lt Address [address] [place] [address]- Care Team Providers Care Network Systems Operator Name Role Phone Adriano Street DO Primary Care Physician [phone] [facility]counter [facility] Date(s): 07/11/24 - 08/10/24 [facility] J[facility] Adult [address] [place] [address]- Encounter Type: Triage Allergies, Adverse Reactions, Alerts Substance Criticality Severity Reaction Reaction Severity Status penicillin anaphylactic Active sulfa drugs terrible headace A ctive Bactrim headache Active Fish anaphylactic Active Immunizations [...] inactivated 4 07/12/15 Gi dawna SARS-CoV-2 mRNA (oturjln-glwf-ekzmt) vax 5 06/24/23 Recorded SARS-CoV-2 (COVID-19) mRNA-1273 [...] (IM) (oldterm) 8 07/22/06 Given 1Result Comment: [facility] [place] 2Result Comment: [07/20/2018] [id number] 3Result Comment: [06/15/2017] [facility] 35639-037-59 4Admin Note: work 5Result Comment: [facility] [place] 6Admin Note: BIOMEDICAL JOSH 7Admin Note: GIVEN WHILE IN [facility] 8Admin Note: clinic elda Medications ibuprofen 800 mg oral tablet 800 mg, 1, tablet, By Mouth, 3 times a day, PRN, # 90 tablet, Refills 0, Tot. Refills 0, Maintenance, as needed for arthritis, 10/04/19 10:08:00 AM EST, Route to Pharmacy Electronically, [facility], 179, cm, 04/29/19 9:33:00 EDT, Height, 72.6, kg, 04/21/19 13:49:00 EDT, Dry Weight Start Date: 10/04/19 Status: Ordered Quantity: 90.0 Unit: tablet Repeat number: 1 omeprazole 20 mg oral enteric coated capsule 1 capsule, By Mouth, Daily, # 90 capsule, 3 Refills, Maintenance, 07/04/24 3:26:00 PM EDT, [facility] # [facility], 175.2, cm, 07/04/24 14:51:00 EDT, Height, 79.5, kg, 06/14/24 9:35:00 EDT, Dry Weight Start Date: 07/04/24 Status: Ordered Quantity: 90.0 Unit: capsule Repeat number: 4 traZODone 50 mg oral tablet 100 mg, 2, tablet, By Mouth, Daily at bedtime, # 180 tablet, Refills 3, Tot. Refills 3, Maintenance, 07/04/24 3:25:00 PM EDT, Route to Pharmacy Electronically, [facility] # [facility], Partial fill upon patient request if the prescription is for a schedule II opioid drug., 175.2, cm, 07/04/24 14:51:00 ED T, Height, 79.5, kg, 06/14/24 9:35:00 EDT, Dry Weight Start Date: 07/04/24 Status: Ordered Quantity: 180.0 Unit: tablet Repeat number: 4 Indication: Insomnia, unspecified Vitamin B12 2500 mcg sublingual tablet 1 tablet = 2,500 mcg, Sublingual, Daily, # 90 tablet, 3 Refills, Maintenance, 07/04/24 3:26:00 PM EDT, Tablet, [facility], Partial fill upon patient request if the prescription is for a schedule II opioid drug., 175.2, cm, 07/04/24 14:51:00 EDT, Height, 79.5, kg, 06/14/24 9:35:00 EDT, Dry Weight Start Date: 07/04/24 Status: Ordered Quantity: 90.0 Unit: tablet Repeat number: 4 Indication: Alcohol dependence, uncomplicated Problem List Condition Confirmation Course Effective Dates [...] pack years: 15; entered on: 07/04/24 Sex Sex Representation Male (finding) Implantable Device List Procedure Provider Procedure Date Device Type Site Repair Hernia Inguinal with Mesh Valeriano Arriaza MD 04/21/19 Unknown Groin Left Device Identifier Serial Number Lot or Batch Number Manufacturing Date Expiration Date Distinct Identification Code MRI Safety Implantable Status Assigning Authority Unknown Unknown [id number] Unknown 05/25/23 Unknown Unknown Active Unknown Patient Care team information Care Team Personnel Name: Adriano Street DO Position: [facility] Physician - Primary Care Member Role: PCP Address: [address] [place] [address] [place], [place] [address] Telecom: Care Team Related Persons Name: HUBER CORDERO Name: HUBER CORDERO Insurance Providers Guarantor name: KAILEE CORDERO Health Plan Information #: 1 Payer: [facility] Member Number: NA Policy Number: NA Group Number: NA
--- OUTSIDE RECORDS SUMMARY | 2024-08-19 13:26 | XMS_ITS | Continuity of Care Document ---
Author Organization [facility] Tello Robert lt Address [address] [place] [address]- Care Team Providers Care Internal Communications Specialist Name Role Phone Yariel WILKINSON, Livia Pond Primary Care Physician [facility] Date(s): 01/07/22 - 02/06/22 [facility] Adult [address] [place] [address]- Attending Physician: Gianna Shay Admitting Physician: AdmtrGianna [...] toxoids (Td) 02/16/06 Given 1Result Comment: [07/20/2018] [id number] 2Result Comment: [06/15/2017] [facility] 91123-406-43 3Admin Note: work 4Admin Note: BIOMEDICAL JOSH 5Admin Note: GIVEN WHILE IN [facility] 6Admin Note: clinic [facility] Medications ibuprofen 800 [...] Mouth, Daily, # 90 capsule, 3 Refills, [facility], 175, cm, 06/26/21 13:39:00 EDT, Height, 70.5, kg, 06/26/21 13:39:00 EDT, Dry Weight Start Date: 08/06/21 Status: Ordered Patient's Own Meds CBD creme, Daily, Maintenance, 04/13/19 10:47:18 EDT Start Date: 04/13/19 Status: Ordered PEG-3350 with Electrolytes (Eqv-GoLYTELY) oral powder for reconstitution See Instructions, 1 glass every 15-30 minutes until finished, # 4,000 mL, 0 Refills, Maintenance, 02/08/21 9:31:00 EDT, [facility] # [facility], OK TO SUB ANY GALLON PREP; PROCEDURE IS 9.29, 1 glass every 15-30 minutes until finished, 175.2, cm, 02/05/21... Start Date: 02/08/21 Status: Ordered PEG-3350 with Electrolytes (Eqv-GoLYTELY) oral powder for reconstitution See Instructions, 1 glass every 15-30 minutes until finished, # 4,000 mL, 0 Refills, Maintenance, 06/13/21 12:19:00 EDT, [facility] # [facility], ok to substitute any [...] Model MESH BARD 3X6IN 7.5X15CM - BARD ([id number]) 1 Bard Unknown BRENDA:No Information Assigning Authority: FDA
--- OUTSIDE RECORDS SUMMARY | 2024-08-19 13:26 | XMS_ITS | Continuity of Care Document ---
Author Organization [facility] Tello Robert lt Address [address] [place] [address]- Care Team Providers Care Manager Procurement Name Role Phone Jesse Vargas MD Primary Care Physician [facility] Date(s): 11/08/20 - 12/08/20 [facility] Adult [address] [place] [address]- Attending Physician: AdmGianna frost Admitting Physician: Admtr, Gianna Referring Physician: Admtr, [...] toxoids (Td) 02/16/06 Given 1Result Comment: [07/20/2018] [id number] 2Result Comment: [06/15/2017] [facility] 13639-051-61 3Admin Note: work 4Admin Note: BIOMEDICAL JOSH 5Admin Note: GIVEN WHILE IN [facility] 6Admin Note: clinic elda Medications ibuprofen 800 mg oral tablet 800 mg, 1, tablet, By Mouth, 3 times a day, PRN, # 90 tablet, Refills 0, Tot. Refills 0, Maintenance, as needed for arthritis, 10/04/19 10:08:00 EST, Route to Pharmacy Electronically, [facility] # [facility], 179, cm, 04/29/19 9:33:00 EDT, Height, 72.6, k... Start Date: 10/04/19 Status: Ordered omeprazole 20 mg oral delayed release tablet 1 tablet = 20 mg, By Mouth, Daily, # 90 tablet, 0 Refills, Maintenance, 11/03/20 15:11:00 EST, [facility] # [facility], 179, cm, 11/07/19 14:24:00 [...] Model MESH BARD 3X6IN 7.5X15CM - BARD ([id number]) 1 Bard Unknown BRENDA:No Information Assigning Authority: FDA
--- OUTSIDE RECORDS SUMMARY | 2024-08-19 13:26 | XMS_ITS | Continuity of Care Document ---
Author Organization [facility] Robert lt Address [address] [place] [address]- Care Team Providers Care Shingles Roofer Helper Name Role Phone Yariel WILKINSON, Livia Pond Primary Care Physician [facility] Date(s): 10/23/23 - 11/22/23 [facility] Adult [address] [place] [address]- Attending Physician: Gianna Shay Admitting Physician: Admtr, [id number] Referring Physician: Admtr, [id number] Allergies, Adverse Reactions, [...] inactivated 4 07/12/15 Gi dawna SARS-CoV-2 mRNA (ijkdyxv-ixeb-nrxtk) vax 5 06/24/23 Recorded SARS-CoV-2 (COVID-19) mRNA-1273 [...] (IM) (oldterm) 8 07/22/06 Given 1Result Comment: [facility] [place] 2Result Comment: [07/20/2018] [id number] 3Result Comment: [06/15/2017] [facility] 52399-362-31 4Admin Note: work 5Result Comment: [facility] [place] 6Admin Note: BIOMEDICAL JOSH 7Admin Note: GIVEN WHILE IN [facility] 8Admin Note: clinic elda Medications cetirizine 10 [...] 02/08/21 9:31:00 EDT, [facility], OK TO SUB ANY GALLON PREP; PROCEDURE IS 9.29, 1 glass every 15-30 minutes until finished, 175.2, cm, 02/05/21... Start Date: 02/08/21 Status: Ordered PEG-3350 with Electrolytes (Eqv-GoLYTELY) oral powder for reconstitution See Instructions, 1 glass every 15-30 minutes until finished, # 4,000 mL, 0 Refills, Maintenance, 06/13/21 12:19:00 EDT, [facility] # [facility], ok to substitute any gallon prep, 1 glass every 15-30 minutes until finished, 175.2, cm, 02/05/21 11:43:00 ED... Start Date: 06/13/21 Status: Ordered propranolol 20 mg oral tablet 20 mg, 1, tablet, By Mouth, 2 times a day, # 60 tablet, Refills 5, Tot. Refills 5, Maintenance, 05/19/23 14:36:00 EDT, Route to Pharmacy Electronically, [facility] # [facility], Partial fill upon patientrequest if the prescription is for a schedule II op... Start Date: 05/19/23 Status: Ordered Vitamin B12 2500 mcg sublingual tablet 1 tablet = 2,500 mcg, Sublingual, Daily, # 90 tablet, 3 Refills, Maintenance, 06/25/23 10:32:00 EDT, Tablet, [facility] # [facility], [...] Safety Implantable Status Assigning Authority Unknown Unknown [id number] Unknown 05/25/23 Unknown Unknown Active Unknown Cardiology * Yessi Hicks: PERFORM Event Display: Cardiovascular Results Scanned Authored Date: [id number] Radiology * Sabrina Sadler: PERFORM Event Display: Radiology Results Scanned Authored Date: [id number] * Mariely Reyes: PERFORM Event Display: Radiology Results Scanned Authored Date: [id number] Patient Care team information Care Team Personnel Name: Livia Saldivar NP Position: [facility] PCO Associate Professional Member Role: PCP Address: Address: [address] [place] [address]- Care Team Related Persons Name: HUBER CORDERO Address: [address] [place] [address] Name: HUBER CORDERO Address: [address] [place] [address]
--- OUTSIDE RECORDS SUMMARY | 2024-08-19 13:26 | XMS_ITS | Continuity of Care Document ---
Author Organization [facility] Robert lt Address [address] [place] [address]- Care Team Providers Care Puncher And Fastener Name Role Phone Jesse Vargas MD Primary Care Physician [facility]s): 07/04/20 - 08/03/20 [facility] Adult [address] [place] [address]- Attending Physician: AdmGianna frost Admitting Physician: Admtr, [id number] Referring Physician: Admtr, [...] toxoids (Td) 02/16/06 Given 1Result Comment: [07/20/2018] [id number] 2Result Comment: [06/15/2017] [facility] [id number] 3Admin Note: work 4Admin Note: BIOMEDICAL JOSH 5Admin Note: GIVEN WHILE IN [facility] 6Admin Note: clinic elda Medications ibuprofen 800 mg oral tablet 800 mg, 1, tablet, By Mouth, 3 times a day, PRN, # 90 tablet, Refills 0, Tot. Refills 0, Maintenance, as needed for arthritis, 10/04/19 10:08:00 EST, Route to Pharmacy Electronically, [facility] # [facility], 179, cm, 04/29/19 9:33:00 EDT, Height, 72.6, k... Start Date: 10/04/19 Status: Ordered omeprazole 20 mg oral delayed release tablet 1 tablet = 20 mg, By Mouth, Daily, # 90 tablet, 0 Refills, Maintenance, 08/03/20 14:36:00 EST, [facility] # [facility], 179, cm, 11/07/19 14:24:00 EST, Height, 72.6, kg, 04/21/19 13:49:00 EDT, Dry Weight Start Date: 08/03/20 Stop Date: 11/01/20 Status: Ordered Patient's Own Meds CBD creme, [...] Model MESH BARD 3X6IN 7.5X15CM - BARD ([id number]) 1 Bard Unknown BRENDA:No Information Assigning Authority: FDA
--- OUTSIDE RECORDS SUMMARY | 2024-08-19 13:26 | XMS_ITS | Continuity of Care Document ---
Author Organization [facility] Tello Robert lt Address [address] [place] [address]- Care Team Providers Care Director Of Managed Services Name Role Phone Yariel WILKINSON, Livia Pond Primary Care Physician [facility]s): 02/12/23 - 03/14/23 [facility] Adult [address] [place] [address]- Attending Physician: Gianna Shay Admitting Physician: AdmtrGianna [...] toxoids (Td) 02/16/06 Given 1Result Comment: [07/20/2018] [id number] 2Result Comment: [06/15/2017] [facility] 28568-659-21 3Admin Note: work 4Admin Note: BIOMEDICAL JOSH 5Admin Note: GIVEN WHILE IN [facility] 6Admin Note: clinic elda Medications ibuprofen [...] Safety Implantable Status Assigning Authority Unknown Unknown [id number] Unknown 05/25/23 Unknown Unknown Active Unknown Cardiology * Yessi Hicks: PERFORM Event Display: Cardiovascular Results Scanned Authored Date: [id number] Radiology * Sabrina Sadler: PERFORM Event Display: Radiology Results Scanned Authored Date: [id number] * Mariely Reyes: PERFORM Event Display: Radiology Results Scanned Authored Date: [id number] Patient Care team information Care Team Personnel Name: Livia Saldivar NP Position: [facility] PCO Associate Professional Member Role: PCP Address: Address: [address] [place] [address]- Care Team Related Persons Name: HUBER CORDERO Address: [address] [place] [address] Name: HUBER CORDERO Address: [address] [place] [address]
--- OUTSIDE RECORDS SUMMARY | 2024-08-19 13:26 | XMS_ITS | Continuity of Care Document ---
Author Organization [facility] Tung Javed Robert lt Address [address] [place] [address]- Care Team Providers Care Upper Tier Name Role Phone Jesse Vargas MD Primary Care Physician [facility](s): 02/06/21 - 03/08/21 [facility] Adult [address] [place] [address]- Allergies, Adverse Reactions, Alerts Substance Reaction Severity [...] toxoids (Td) 02/16/06 Given 1Result Comment: [07/20/2018] [id number] 2Result Comment: [06/15/2017] [facility] [id number] 3Admin Note: work 4Admin Note: BIOMEDICAL JOSH 5Admin Note: GIVEN WHILE IN [facility] 6Admin Note: clinic elda Medications ibuprofen 800 mg oral tablet 800 mg, 1, tablet, By Mouth, 3 times a day, PRN, # 90 tablet, Refills 0, Tot. Refills 0, Maintenance, as needed for arthritis, 10/04/19 10:08:00 EST, Route to Pharmacy Electronically, [facility] # [facility], 179, cm, 04/29/19 9:33:00 EDT, Height, 72.6, k... Start Date: 10/04/19 Status: Ordered omeprazole 20 mg oral delayed release tablet 1 tablet = 20 mg, By Mouth, Daily, # 90 tablet, 0 Refills, Maintenance, 02/06/21 9:57:00 EDT, [facility], 175.2, cm, 02/05/21 11:43:00 EDT, Height, 73.4, kg, 02/05/21 11:43:00 EDT, Dry Weight Start Date: 02/06/21 Stop Date: 05/07/21 Status: Ordered Patient's Own Meds CBD creme, Daily, Maintenance, 04/13/19 10:47:18 EDT Start Date: 04/13/19 Status: Ordered PEG-3350 with Electrolytes (Eqv-GoLYTELY) oral powder for reconstitution See Instructions, 1 glass every 15-30 minutes until finished, # 4,000 mL, 0 Refills, Maintenance, 02/08/21 9:31:00 EDT, [facility] # [facility], OK TO SUB ANY GALLON PREP; PROCEDURE IS 9.29, 1 glass every 15-30 minutes until finished, 175.2, cm, 02/05/21... 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
--- OUTSIDE RECORDS SUMMARY | 2024-08-19 13:26 | XMS_ITS | Continuity of Care Document ---
Author Organization [facility] Tello Robert lt Address [address] [place] [address]- Care Team Providers Care Positive Printer Operator Name Role Phone Yariel WILKINSON, Livia Pond Primary Care Physician [phone] [facility] 07/23/23 - 08/22/23 [facility] Adult [address] [place] [address]- Allergies, Adverse Reactions, Alerts Substance Reaction Severity [...] inactivated 4 07/12/15 Gi dawna SARS-CoV-2 mRNA (xxrzvit-awwo-ekyyi) vax 5 06/24/23 Recorded SARS-CoV-2 (COVID-19) mRNA-1273 vaccine 03/12/21 R ecorded SARS-CoV-2 (COVID-19) mRNA-1273 vaccine 02/12/21 R ecorded Fluzone (oldterm) 06/17/12 Given Fluzone (oldterm) 10/08/09 Given Tet/Diphth/Acel, Pertussis (oldterm) 12/19/11 Give n Influenza Virus Vaccine (oldterm) 06/05/11 Given Influenza Virus Vaccine (oldterm) 11/21/08 Given FluLaval (oldterm) 6 07/03/10 Given Pneumococcal Vaccine (oldterm) 07/16/09 Given Hepatitis B Vaccine (old term) 05/16/08 Given Hepatitis B Vaccine (old term) 11/16/07 Given Hepatitis B Vaccine (old term) 7 10/15/07 Given Influenza Inactive (IM) (oldterm) 8 07/22/06 Given 1Result Comment: [facility] [place] 2Result Comment: [07/20/2018] [id number] 3Result Comment: [06/15/2017] [facility] [id number] 4Admin Note: work 5Result Comment: [facility] [place] 6Admin Note: BIOMEDICAL JOSH 7Admin Note: GIVEN WHILE IN [facility] 8Admin Note: clinic elda Medications hydrOXYzine hydrochloride [...] mL, 0 Refills, Maintenance, 02/08/21 9:31:00 EDT, [facility], OK TO SUB ANY GALLON PREP; PROCEDURE IS 9.29, 1 glass every 15-30 minutes until finished, 175.2, cm, 02/05/21... Start Date: 02/08/21 Status: Ordered PEG-3350 with Electrolytes (Eqv-GoLYTELY) oral powder for reconstitution See Instructions, 1 glass every 15-30 minutes until finished, # 4,000 mL, 0 Refills, Maintenance, 06/13/21 12:19:00 EDT, [facility] # [facility], ok to substitute any gallon prep, 1 glass every 15-30 minutes until finished, 175.2, cm, 02/05/21 11:43:00 ED... Start Date: 06/13/21 Status: Ordered propranolol 20 mg oral tablet 20 mg, 1, tablet, By Mouth, 2 times a day, # 60 tablet, Refills 5, Tot. Refills 5, Maintenance, 05/19/23 14:36:00 EDT, Route to Pharmacy Electronically, [facility] # [facility], Partial fill upon patientrequest if the prescription is for a schedule II op... Start Date: 05/19/23 Status: Ordered Vitamin B12 2500 mcg sublingual tablet 1 tablet = 2,500 mcg, Sublingual, Daily, # 90 tablet, 3 Refills, Maintenance, 06/25/23 10:32:00 EDT, Tablet, [facility] # [facility], Partial fill upon patient [...] Safety Implantable Status Assigning Authority Unknown Unknown [id number] Unknown 05/25/23 Unknown Unknown Active Unknown Patient Care team information Care Team Personnel Name: Yariel WILKINSON, Livia Pond Position: [facility] PCO Associate Professional Member Role: PCP Address: Address: [address] [place] [address]- Care Team Related Persons Name: HUBER CORDERO Address: home [address] [place] [address] Name: HUBER CORDERO Address: [address] [address]
--- OUTSIDE RECORDS SUMMARY | 2024-08-19 13:26 | XMS_ITS | Continuity of Care Document ---
Author Organization [facility] Tello Robert lt Address [address] [place] [address]- Care Team Providers Care Senior Pl Sql Developer Name Role Phone Yariel WILKINSON, Livia Pond Primary Care Physician [phone] Encounter [facility] Date(s): 07/23/23 - 07/30/23 [facility] [place] Adult [address] [place] [address]- Attending Physician: Livia Saldivar NP Referring Physician: [...] inactivated 4 07/12/15 Gi dawna SARS-CoV-2 mRNA (fjajiza-gcio-jrfwy) vax 5 06/24/23 Recorded SARS-CoV-2 (COVID-19) mRNA-1273 [...] Given 1Result Comment: [facility] [place] 2Result Comment: [07/20/2018] [id number] 3Result Comment: [06/15/2017] [facility] [id number] 4Admin Note: work 5Result Comment: [facility] [place] 6Admin Note: BIOMEDICAL JOSH 7Admin Note: GIVEN WHILE IN [facility] 8Admin Note: clinic elda Medications hydrOXYzine [...] 10/04/19 10:08:00 EST, Route to Pharmacy Electronically, [facility], 179, cm, 04/29/19 9:33:00 EDT, Height, 72.6, k... Start Date: 10/04/19 Status: Ordered omeprazole 20 mg oral enteric coated capsule 1 capsule, By Mouth, Daily, # 90 capsule, 3 Refills, 02/12/23 10:52:00 EDT, [facility] # [facility], 175, cm, 01/07/22 10:54:00 EDT, Height, 70.5, kg, 06/26/21 13:39:00 EDT, Dry Weight Start Date: 02/12/23 Status: Ordered Patient's Own Meds CBD creme, Daily, Maintenance, 04/13/19 10:47:18 EDT Start Date: 04/13/19 Status: Ordered PEG-3350 with Electrolytes (Eqv-GoLYTELY) oral powder for reconstitution See Instructions, 1 glass every 15-30 minutes until finished, # 4,000 mL, 0 Refills, Maintenance, 02/08/21 9:31:00 EDT, [facility] # [facility], OK TO SUB ANY GALLON PREP; PROCEDURE IS 9.29, 1 glass every 15-30 minutes until finished, 175.2, cm, 02/05/21... Start Date: 02/08/21 Status: Ordered PEG-3350 with Electrolytes (Eqv-GoLYTELY) oral powder for reconstitution See Instructions, 1 glass every 15-30 minutes until finished, # 4,000 mL, 0 Refills, Maintenance, 06/13/21 12:19:00 EDT, [facility] # 50, ok to substitute any gallon prep, 1 glass every 15-30 minutes until finished, 175.2, cm, 02/05/21 11:43:00 ED... Start Date: 06/13/21 Status: Ordered propranolol 20 mg oral tablet 20 mg, 1, tablet, By Mouth, 2 times a day, # 60 tablet, Refills 5, Tot. Refills 5, Maintenance, 05/19/23 14:36:00 EDT, Route to Pharmacy Electronically, [facility] # [facility], Partial fill upon patientrequest if the prescription is for a schedule II op... Start Date: 05/19/23 Status: Ordered Vitamin B12 2500 mcg sublingual tablet 1 tablet = 2,500 mcg, Sublingual, Daily, # 90 tablet, 3 Refills, Maintenance, 06/25/23 10:32:00 EDT, Tablet, [facility] # 50, Partial fill upon [...] oldest [Reference Range]: 1 Height 175 cm (07/23/23 8:57 AM) Weight 77.7 kg (07/23/23 8:57 AM) Oxygen Saturation [94-100 %] 100 % (07/23/23 8:57 AM) Pulse Rate [55-90 bpm] 91 bpm *H* (07/23/23 8:57 AM) Body Mass Index [18.5-24.99 kg/m2] 25.37 kg/m2 *H* (07/23/23 8:57 AM) Blood Pressure [90-138/55-84 mm Hg] 126/ 84mm Hg (07/23/23 8:57 AM) Blood pressure sites Arm, right (07/23/23 8:57 AM) Weight Obtained Via Standing scale (07/23/23 8:57 AM) Social History Social History Type Response [...] Safety Implantable Status Assigning Authority Unknown Unknown [id number] Unknown 05/25/23 Unknown Unknown Active Unknown Note * Gley Chavarria: PERFORM, SIGN, VERIFY Event Display: Patient Education/Instruction Authored Date: [id number] [facility] *KEVIN Hearn Clinical Summary Name KAILEE CORDERO Age 58 Years 1965 PCP Livia Saldivar NP PCP Visit Date 07/23/2023 08:50:00 Additional Instructions: Scheduled Appointments?? Future Appointments ?No Future Appointments Scheduled Follow-Up Instructions ?? With: Address: When: Yariel WILKINSON, Livia Pond Within 3 months Comments: 40 minutes Diagnosis Medications: Please continue your medications until treatment is completed or stopped by your provider. Discuss any questions related to medications with your provider. Medications to Continue with No Changes These medications were not printed or sent to your pharmacy Cyanocobalamin (Vitamin B12 2500 mcg sublingual tablet) 1 tab(s) Sublingual Daily. Refills: 3. Next Dose: HydrOXYzine (hydrOXYzine hydrochloride 25 mg oral tablet) 1 tab(s) Oral 4 times a day. Next Dose: Ibuprofen (ibuprofen 800 mg oral tablet) 1 tab(s) Oral 3 times a day as needed as needed for arthritis. Refills: 0. Next Dose: Omeprazole (omeprazole 20 mg oral enteric coated capsule) 1 capsule Oral Daily. Refills: 3. Next Dose: PEG Electrolyte Solution (PEG-3350 with Electrolytes (Eqv-GoLYTELY) oral powder for reconstitution)1 glass every 15-30 minutes until finished. Refills: 0. Next Dose: PEG Electrolyte Solution (PEG-3350 with Electrolytes (Eqv-GoLYTELY) oral powder for reconstitution)1 glass every 15-30 minutes until finished. Refills: 0. Next Dose: Propranolol (propranolol 20 mg oral tablet) 1 tab(s) Oral twice a day. Refills: 5. Next Dose: Pt.'s Own Meds (Patient's Own Meds) CBD creme Daily. Next Dose: Allergy Info:?? Fish; Bactrim; sulfa drugs; penicillin Medications Given This Visit Future Orders ?Knee 1 or 2 Views Left? Order Date:07/23/23?- Complete on or after?07/23/23 ?Knee 1 or 2 Views Right? Order Date:07/23/23?- Complete on or after?07/23/23 Vital Signs Height 175 cm Weight 77.7 kg BMI 25.37 kg/m2 Blood Pressure 126 mm Hg/84 mm Hg Temperature Pulse Rate 91 bpm Respiratory Rate 02 Sat Mode of Delivery 100 %/ You can now view a summary of your hospital visit from the comfort of your home through a free online portal called NETpeas. NETpeas is a website that allows you to securely view your medical information including discharge summary, medications and follow-up visits. ??You can alsosend a secure electronic message to your doctor???s office to request appointments, renew medications or just ask a question. You can enroll at [email or web address] or register during your next office visit. Disclaimer:?? The information provided is of a general nature and is intended to be used in conjunction with the recommendations and advice of your health care practitioner. ??Every effort has been made to ensure that the information provided is accurate and complete at the time it is provided to you however, as your needs change, or, as new ??information becomes available, different or additional instructions may be required. If you have questions, please consult with your primary care provider or pharmacist, as appropriate. ??This information is not intended to serve as substitution for assessment and evaluation by a qualified health care provider. If you do not have a primary care provider, you may find a [facility] provider by calling [facility] Link at [phone]. [facility], in keeping with [facility] guidance, no longer requires face masks for staff, patientsor visitors in most situations. Similar to time spent indoors at other locations, there is the chance that you were exposed to respiratory viruses during your time with us (such as flu or COVID-19).? If you develop symptoms concerning for a viral respiratory infection, please seek testing (and treatment if indicated) from your medical provider or home test kit. For information about the plan of care including goals and instructions for your diagnosis, please see the patient education orders section of this document. Patient Education Materials?? The content of this educational material or handout may have been modified, supplemented, or adapted from its original content and format to support your individualized medical care. Patient Care team information Care Team Personnel Name: Livia Saldivar NP Position: S PCO Associate Professional Member Role: PCP Address: Address: [address] [place], [place] [address] [address]- Care Team Related Persons Name: HUBER CORDERO Address: home [address] [place] [address] Name: HUBER CORDERO Address: home [address] [place] [address]
--- OUTSIDE RECORDS SUMMARY | 2024-08-19 13:26 | XMS_ITS | Continuity of Care Document ---
Author Organization [facility] Tung Javed Robert lt Address [address] [place] [address]- Care Team Providers Care Duralumin Metalworker Name Role Phone Adriano Street DO Primary Care Physician [facility] Date(s): 07/04/24 - 07/11/24 [facility] Adult [address] [place] [address]- Encounter Diagnosis Physical exam(Discharge Diagnosis) - 07/01/24 Alcoholism(Discharge Diagnosis) - 07/01/24 Gastroesophageal reflux disease with hiatal hernia(Discharge Diagnosis) - 07/01/24 Tubulovillous adenoma polyp of rectum(Discharge Diagnosis) - 07/01/24 Prostate cancer screening(Discharge Diagnosis) - 07/01/24 Tubular adenoma of colon(Discharge Diagnosis) - 07/01/24 Hypertriglyceridemia(Discharge Diagnosis) - 07/01/24 Mixed hyperlipidemia(Discharge Diagnosis) - 07/01/24 Actinic keratosis of scalp(Discharge Diagnosis) - 07/04/24 Nodule of cheek(Discharge Diagnosis) - 07/04/24 Attending Physician: Adriano Street DO Allergies, Adverse Reactions, Alerts Substance Reaction Severity [...] inactivated 4 07/12/15 Gi dawna SARS-CoV-2 mRNA (odpmfqe-xtcw-uzihm) vax 5 06/24/23 Recorded SARS-CoV-2 (COVID-19) mRNA-1273 [...] Given 1Result Comment: [facility] [place] 2Result Comment: [07/20/2018] [id number] 3Result Comment: [06/15/2017] [facility] [id number] 4Admin Note: work 5Result Comment: [facility] [place] 6Admin Note: [employer] JOSH 7Admin Note: GIVEN WHILE IN [facility] 8Admin Note: clinic elda Medications ibuprofen [...] capsule, 3 Refills, Maintenance, 07/04/24 15:26:00 EDT, [facility], 175.2, cm, 07/04/24 14:51:00 EDT, Height, 79.5, kg, 06/14/24 9:35:00 EDT, Dry Weight Start Date: 07/04/24 Status: Ordered traZODone 50 mg oral tablet 100 mg, 2, tablet, By Mouth, Daily at bedtime, # 180 tablet, Refills 3, Tot. Refills 3, Maintenance, 07/04/24 15:25:00 EDT, Route to Pharmacy Electronically, [facility] # [facility], Partial fill [...] Effective Dates Health Status Clinical Service Informant Physical exam Discharge Diagnosis 07/01/24 Alcoholism Discharge Diagnosis 07/01/24 Gastroesophageal reflux disease with hiatal hernia Discharge Diagnosis 07/01/24 Tubulovillous adenoma polyp of rectum Discharge Diagnosis 07/01/24 Prostate cancer screening Discharge Diagnosis 07/01/24 Tubular adenoma of colon Discharge Diagnosis 07/01/24 Hypertriglyceridemia Discharge Diagnosis 07/01/24 Mixed hyperlipidemia Discharge Diagnosis 07/01/24 Actinic keratosis of scalp Discharge Diagnosis 07/04/24 Nodule of cheek Discharge Diagnosis 07/04/24 Vital Signs Most recent to oldest [Reference Range]: 1 Height 175.2 cm (07/04/24 2:51 PM) Weight 82.4 kg (07/04/24 2:51 PM) Oxygen Saturation [94-100 %] 100 % (07/04/24 2:51 PM) Pulse Rate [55-90 bpm] 70 bpm (07/04/24 2:51 PM) Body Mass Index [18.5-24.99 kg/m2] 26.84 kg/m2 *H* (07/04/24 2:51 PM) Blood Pressure [90-138/55-84 mm Hg] 108/ 70mm Hg (07/04/24 2:51 PM) Respiratory Rate [16-30 br/min] 20 br/mi n (07/04/24 2:51 PM) Temperature [96.8-100.4 DegF] 98.1 DegF (07/04/24 2:51 PM) Mode of Delivery (Oxygen) Room air (07/04/24 2:51 PM) Temperature Route Oral (07/04/24 2:51 PM) Weight Obtained Via Standing scale (07/04/24 2:51 PM) Social History Social History Type Response [...] Safety Implantable Status Assigning Authority Unknown Unknown [id number] Unknown 05/25/23 Unknown Unknown Active Unknown Note * Gely Chavarria: PERFORM Event Display: Patient Education/Instruction Authored Date: [id number] Ambulatory Adult Visit Summary [facility] Agnes Javed Adlt [address] [place] [address] Name: KAILEE CORDERO : 1965?? Visit: 07/04/2024 14:13?? Ambulatory Visit Instructions ?? Your Care Team Primary Care Provider Adriano Street DO? This Visit Provider Street DO, Adriano Your Diagnosis Physical exam Alcoholism Gastroesophageal reflux disease with hiatal hernia Tubulovillous adenoma polyp of rectum Prostate cancer screening Tubular adenoma of colon Hypertriglyceridemia Mixed hyperlipidemia Insomnia Vitals Signs Temperature: 98.1 DegF Height: 175.2 cm Pulse Rate: 70 bpm Weight: 82.4 kg Respiratory Rate: 20 br/min Body Mass Index:??26.84 kg/m2??High Systolic Blood Pressure: 108 mm Hg Body surface area: 2 Diastolic Blood Pressure: 70 mm Hg ?? Oxygen Saturation: 100 % ?? What to do next Instructions From Your Provider Health goals for this year lose weight work on diet and exercise?? Obtain Fasting lab same meds Recommend??continued??abstinence from Alcohol? Recommend Prevnar 20 vaccine at pharmacy?? Follow-Up Appointments Follow Up with??f/u 1 yr CPE Why: CEP lipids GERD colon polyp?? Future Orders Comprehensive Metabolic Panel - Routine, Once, 06/28/24 3:00:00 EDT, Future Order, [facility], Blood?? CBC w/ Differential - Routine, Once, 06/28/24 3:00:00 EDT, Future Order, [facility], Blood?? Lipid Panel - Routine, Once, 06/28/24 3:00:00 EDT, Future Order, [facility], Blood?? CBC w/ Differential - Routine, Once, 07/04/24 15:24:00 EDT, Order for Today, [facility], Blood?? Comprehensive Metabolic Panel - Routine, Once, 07/04/24 15:24:00 EDT, Order for Today, [facility], Blood?? Lipid Panel - Routine, Once, 07/04/24 15:24:00 EDT, Order for Today, [facility], Blood?? PSA Screen - Routine, Once, 07/04/24 15:24:00 EDT, Order for Today, [facility], Blood?? Medications The list below reflects the information in our records and provided by you today along with any changes made during this visit. Please continue your medications until treatment is completed or stopped by your provider. If this is different from the information you have or there are other questions,please contact the prescribing provider. What How Much When Why Instructions Changed Trazodone (traZODone 50 mg oral tablet) 2 tab(s) Oral Daily at Bedtime Insomnia Pickup at [facility] Unchanged Cyanocobalamin (Vitamin B12 2500 mcg sublingual tablet) 1 tab(s) Sublingual Daily Alcoholism Pickup at [facility] Unchanged Ibuprofen (ibuprofen 800 mg oral tablet) 1 tab(s) Oral 3 times a day as needed for as needed for arthritis Unchanged Omeprazole (omeprazole 20 mg oral enteric coated capsule) 1 capsule Oral Daily Pickup at [facility] Pharmacy Information [facility]: [address] [place], [place] [id number] [phone] Test Performed Below is a partial list of the tests performed during your Visit. You may have had other tests and procedures not included in this list. Please discuss all test results with your provider. CBC w/ Differential?-- Results Pending -- Comprehensive Metabolic Panel?-- Results Pending -- Lipid Panel?-- Results Pending -- PSA Screen?-- Results Pending -- Medications and Immunizations Administered Medications Given During Visit No medications given during this visit.?? Allergies (NKA means No Known Allergies) Bactrim??(headache) Fish??(anaphylactic) penicillin??(anaphylactic) sulfa drugs??(terrible headace) Common Emergency Awareness Tips IS IT A STROKE? Act FAST and Check for these signs: FACE Does the face look uneven? ARM Does one arm drift down? SPEECH Does their speech sound strange? TIME Call at any sign of stroke ?? Heart Attack Signs Chest discomfort: Most heart attacks involve discomfort in the center of the chest and lasts more than a few minutes, or goes away and comes back. It can feel like uncomfortable pressure, squeezing, fullness or pain. Discomfort in upper body: Symptoms can include pain or discomfort in one or both arms, back, neck, jaw or stomach. Shortness of breath: With or without discomfort. Other signs: Breaking out in a cold sweat, nausea, or lightheaded. Remember, MINUTES DO MATTER. If you experience any of these heart attack warning signs, call to get immediate medical attention! ?? Smoking can increase your chances of developing chronic health problems and can cause harmful effects to other family members in your house. If you smoke, you are strongly encouraged to quit. Please call [facility] at [phone] or [phone] ([phone]) or log in to [email or web address] for referrals to smoking cessation programs. ?? The National Suicide Prevention Hotline is available 20/04 if you or someone you know needs to find a reason to keep living. By calling 4-561-410-Farehelper (2207) you'll be connected to a skilled, trained counselor at a crisis center in your area. [facility]ebestore Portal You can view and manage your care through the patient portal or by using a health care alexi of your choosing. [employer] Amigo is a website that allows you to securely view your medical information including your hospital discharge summary, office visit summaries, medications and follow-up visits. You can also request appointments, renew medications, and request access to your medical information using a health care alexi of your choosing, or just ask a question. You can enroll at [email or web address] or register during your next office visit. [facility], in keeping with [facility] guidance, no longer requires face masks for staff, patientsor visitors in most situations. Similiar to time spent indoors at other locations, there is the chance that you were exposed to repiratory viruses during your time with us (such as flu or COVID-19). If you develop symptoms concerning for a viral respiratory infection, please seek testing (and treatment if indicated) from your medical provider or home test kit. ?? Disclaimer: The information provided is of a general nature and is intended to be used in conjunction with the recommendations and advice of your health care practitioner. Every effort has been made to ensure that the information provided is accurate and complete at the time it is provided to you however, as your needs change, or, as new information becomes available, different or additional instructions may be required. ?? If you have questions, please consult with your primary care provider or pharmacist, as appropriate. This information is not intended to serve as substitution for assessment and evaluation by a qualified health care provider. If you do not have a primary care provider, you may find a [facility] provider by calling [facility] at [phone]. Patient Care team information Care Team Personnel Name: Adriano Street DO Position: [facility] Physician - Primary Care Member Role: PCP Address: Address: [address] [place] [address] [place] [address]- Care Team Related Persons Name: HUBER CORDERO Address: home [address] [place] [address] Name: HUBER CORDERO Address: home [address] [place] [address]
--- OUTSIDE RECORDS SUMMARY | 2024-08-19 13:26 | XMS_ITS | Continuity of Care Document ---
Author Organization [facility] Address [address] [place] [address]- Care Team Providers Care Data Center Architect Name Role Phone Livia Saldivar NP Primary Care Physician [phone] Encounter [facility] Date(s): 06/10/23 - 07/15/[address] [address]- Encounter Diagnosis Pain in left shoulder(Final) - Discharge Disposition: A-D/C Home Attending Physician: [...] inactivated 4 07/12/15 Gi dawna SARS-CoV-2 mRNA (jwihrnd-zkoo-olpsy) vax 5 06/24/23 Recorded SARS-CoV-2 (COVID-19) mRNA-1273 [...] tetanus-diphtheria toxoids (Td) 02/16/06 Given 1Result Comment: [facility] [place] 2Result Comment: [07/20/2018] [id number] 3Result Comment: [06/15/2017] [facility] [id number] 4Admin Note: work 5Result Comment: [facility] [place] 6Admin Note: BIOMEDICAL JOSH 7Admin Note: GIVEN WHILE IN [facility] 8Admin Note: clinic elda Medications hydrOXYzine hydrochloride [...] mL, 0 Refills, Maintenance, 02/08/21 9:31:00 EDT, [facility], [place] TO SUB [...] Safety Implantable Status Assigning Authority Unknown Unknown [id number] Unknown 05/25/23 Unknown Unknown Active Unknown Patient Care team information Care Team Personnel Name: Livia Saldivar NP Position: [facility] PCO Associate Professional Member Role: PCP Address: Address: [address] [place] [address]- Care Team Related Persons Name: HUBER CORDERO Address: home [address] [place] [address] Name: HUBER CORDERO Address: home [address] [place] [address]
--- OUTSIDE RECORDS SUMMARY | 2024-08-19 13:26 | XMS_ITS | Continuity of Care Document ---
Author Organization [facility] Tello Robert lt Address [address] [place] [address]- Care Team Providers Care Insurance Representative Name Role Phone Yariel WILKINSON, Livia Pond Primary Care Physician [phone] [facility]counter [facility] Date(s): 04/04/22 - 05/04/22 [facility] Adult [address] [place] [address]- Allergies, Adverse Reactions, Alerts Substance Reaction Severity [...] toxoids (Td) 02/16/06 Given 1Result Comment: [07/20/2018] [id number] 2Result Comment: [06/15/2017] [facility] [id number] 3Admin Note: work 4Admin Note: BIOMEDICAL JOSH 5Admin Note: GIVEN WHILE IN [facility] 6Admin Note: clinic elda Medications ibuprofen 800 mg oral tablet 800 mg, 1, tablet, By Mouth, 3 times a day, PRN, # 90 tablet, Refills 0, Tot. Refills 0, Maintenance, as needed for arthritis, 10/04/19 10:08:00 EST, Route to Pharmacy Electronically, [facility], 179, cm, 04/29/19 9:33:00 EDT, Height, 72.6, k... Start Date: 10/04/19 Status: Ordered omeprazole 20 mg oral enteric coated capsule 1 capsule, By Mouth, Daily, # 90 capsule, 1 Refills, 05/01/22 14:19:00 EDT, [facility], 175, cm, 01/07/22 10:54:00 EDT, Height, 70.5, kg, 06/26/21 13:39:00 EDT, Dry Weight Start Date: 05/01/22 Status: Ordered Patient's Own Meds CBD creme, Daily, Maintenance, 04/13/19 10:47:18 EDT Start Date: 04/13/19 Status: Ordered PEG-3350 with Electrolytes (Eqv-GoLYTELY) oral powder for reconstitution See Instructions, 1 glass every 15-30 minutes until finished, # 4,000 mL, 0 Refills, Maintenance, 02/08/21 9:31:00 EDT, [facility] # [facility], OK TO SUB ANY GALLON PREP; PROCEDURE IS 9.29, 1 glass every 15-30 minutes until finished, 175.2, cm, 02/05/21... Start Date: 02/08/21 Status: Ordered PEG-3350 with Electrolytes (Eqv-GoLYTELY) oral powder for reconstitution See Instructions, 1 glass every 15-30 minutes until finished, # 4,000 mL, 0 Refills, Maintenance, 06/13/21 12:19:00 EDT, [facility] # [facility], ok to substitute [...] Model MESH BARD 3X6IN 7.5X15CM - BARD ([id number]) 1 Bard Unknown BRENDA:No Information Assigning Authority: FDA
--- OUTSIDE RECORDS SUMMARY | 2024-08-19 13:27 | XMS_ITS | Continuity of Care Document ---
Author Organization [facility] Tello Robert lt Address [address] [place] [address]- Care Team Providers Care Detective Homicide Squad Name Role Phone Yariel WILKINSON, Livia Pond Primary Care Physician [facility] 04[facility]23 - 05/03/23 [facility] Adult [address] [place] [address]- Allergies, Adverse Reactions, Alerts Substance Reaction Severity [...] toxoids (Td) 02/16/06 Given 1Result Comment: [07/20/2018] [id number] 2Result Comment: [06/15/2017] [facility] [id number] 3Admin Note: work 4Admin Note: BIOMEDICAL JOSH 5Admin Note: GIVEN WHILE IN [facility] 6Admin Note: clinic elda Medications ibuprofen 800 mg oral tablet 800 mg, 1, tablet, By Mouth, 3 times a day, PRN, # 90 tablet, Refills 0, Tot. Refills 0, Maintenance, as needed for arthritis, 10/04/19 10:08:00 EST, Route to Pharmacy Electronically, [facility], 179, cm, 04/29/19 9:33:00 EDT, Height, 72.6, k... Start Date: 10/04/19 Status: Ordered omeprazole 20 mg oral enteric coated capsule 1 capsule, By Mouth, Daily, # 90 capsule, 3 Refills, 02/12/23 10:52:00 EDT, [facility], 175, [...] Refills, Maintenance, 02/08/21 9:31:00 EDT, [facility] # [facility], OK TO SUB ANY GALLON PREP; PROCEDURE IS 9.29, 1 glass every 15-30 minutes until finished, 175.2, cm, 02/05/21... Start Date: 02/08/21 Status: Ordered PEG-3350 with Electrolytes (Eqv-GoLYTELY) oral powder for reconstitution See Instructions, 1 glass every 15-30 minutes until finished, # 4,000 mL, 0 Refills, Maintenance, 06/13/21 12:19:00 EDT, [facility] # [facility], ok [...] Safety Implantable Status Assigning Authority Unknown Unknown [id number] Unknown 05/25/23 Unknown Unknown Active Unknown Patient Care team information Care Team Personnel Name: Yariel WILKINSON, Livia Pond Position: [facility] PCO Associate Professional Member Role: PCP Address: Address: [address] [place] [address]- Care Team Related Persons Name: HUBER CORDERO Address: home [address] [place] [address] Name: HUBER CORDERO Address: home [address] [place] [address]
--- OUTSIDE RECORDS SUMMARY | 2024-08-19 13:27 | XMS_ITS | Continuity of Care Document ---
Author Organization [facility] Address [address] [place] [address]- Care Team Providers Care Sales Contract Administrator Name Role Phone Livia Saldivar NP Primary Care Physician [phone] [facility]counter [facility] Date[facility]s): 07/28/23 - 09/11/[address] [address]- Encounter Diagnosis Pain in left hip(Final) - Discharge Disposition: A-D/C Home Attending Physician: [...] inactivated 4 07/12/15 Gi dawna SARS-CoV-2 mRNA (bqmvfwh-piyn-ankqf) vax 5 06/24/23 Recorded SARS-CoV-2 (COVID-19) mRNA-1273 [...] 8 07/22/06 Given 1Result Comment: [facility] [place] 2Result Comment: [07/20/2018] [id number] 3Result Comment: [06/15/2017] [facility] [id number] 4Admin Note: work 5Result Comment: [facility] [place] 6Admin Note: BIOMEDICAL JOSH 7Admin Note: GIVEN WHILE IN [facility] 8Admin Note: clinic elda Medications hydrOXYzine [...] 10/04/19 10:08:00 EST, Route to Pharmacy Electronically, [facility], 179, cm, 04/29/19 9:33:00 EDT, Height, 72.6, k... Start Date: 10/04/19 Status: Ordered omeprazole 20 mg oral enteric coated capsule 1 capsule, By Mouth, Daily, # 90 capsule, 3 Refills, 02/12/23 10:52:00 EDT, [facility], 175, [...] mL, 0 Refills, Maintenance, 02/08/21 9:31:00 EDT, [facility], OK TO SUB ANY GALLON PREP; PROCEDURE IS 9.29, 1 glass every 15-30 minutes until finished, 175.2, cm, 02/05/21... Start Date: 02/08/21 Status: Ordered PEG-3350 with Electrolytes (Eqv-GoLYTELY) oral powder for reconstitution See Instructions, 1 glass every 15-30 minutes until finished, # 4,000 mL, 0 Refills, Maintenance, 06/13/21 12:19:00 EDT, [facility] # [facility], ok to substitute any gallon prep, 1 glass every 15-30 minutes until finished, 175.2, cm, 02/05/21 11:43:00 ED... Start Date: 06/13/21 Status: Ordered propranolol 20 mg oral tablet 20 mg, 1, tablet, By Mouth, 2 times a day, # 60 tablet, Refills 5, Tot. Refills 5, Maintenance, 05/19/23 14:36:00 EDT, Route to Pharmacy Electronically, [facility] # [facility], Partial fill upon patientrequest if the prescription is for a schedule II op... Start Date: 05/19/23 Status: Ordered Vitamin B12 2500 mcg sublingual tablet 1 tablet = 2,500 mcg, Sublingual, Daily, # 90 tablet, 3 Refills, Maintenance, 06/25/23 10:32:00 EDT, Tablet, [facility] # [facility], Partial [...] Safety Implantable Status Assigning Authority Unknown Unknown [id number] Unknown 05/25/23 Unknown Unknown Active Unknown Patient Care team information Care Team Personnel Name: Yariel WILKINSON, Livia Pond Position: [facility] PCO Associate Professional Member Role: PCP Address: Address: [address] [place] [address]- Care Team Related Persons Name: HUBER CORDERO Address: home [address] [place] [address] Name: HUBER CORDERO Address: [address] [place] [address]
--- OUTSIDE RECORDS SUMMARY | 2024-08-19 13:27 | XMS_ITS | Continuity of Care Document ---
Author Organization [facility] Tello Robert lt Address [address] [place] [address]- Care Team Providers Care Industrial Sales Manager Name Role Phone Yariel WILKINSON, iLvia Pond Primary Care Physician [phone] [facility]s): 12/08/23 - 01/07/24 [facility] Adult [address] [place] [address]- Allergies, Adverse Reactions, Alerts Substance Reaction Severity [...] inactivated 4 07/12/15 Gi dawna SARS-CoV-2 mRNA (pckilpx-mbng-zkaop) vax 5 06/24/23 Recorded SARS-CoV-2 (COVID-19) mRNA-1273 [...] (oldterm) 8 07/22/06 Given 1Result Comment: [facility] [place] 2Result Comment: [07/20/2018] [id number] 3Result Comment: [06/15/2017] [facility] [id number] 4Admin Note: work 5Result Comment: [facility] [place] 6Admin Note: BIOMEDICAL JOSH 7Admin Note: GIVEN WHILE IN [facility] 8Admin Note: clinic elda Medications cetirizine 10 [...] 12:19:00 EDT, [facility], ok to substitute any gallon prep, 1 glass every 15-30 minutes until finished, 175.2, cm, 02/05/21 11:43:00 ED... Start Date: 06/13/21 Status: Ordered propranolol 20 mg oral tablet 20 mg, 1, tablet, By Mouth, 2 times a day, # 60 tablet, Refills 5, Tot. Refills 5, Maintenance, 05/19/23 14:36:00 EDT, Route to Pharmacy Electronically, [facility] # [facility], Partial fill upon patientrequest if the prescription is for a schedule II op... Start Date: 05/19/23 Status: Ordered traZODone 50 mg oral tablet 50 mg, 1, tablet, By Mouth, Daily at bedtime, # 30 tablet, Refills 5, Tot. Refills 5, Maintenance, 12/28/23 13:03:00 EDT, Route to Pharmacy Electronically, [facility] # [facility], Partial fill upon patient request if the prescription is for a schedule II... Start Date: 12/28/23 Status: Ordered Vitamin B12 2500 mcg sublingual tablet 1 tablet = 2,500 mcg, Sublingual, Daily, # 90 tablet, 3 Refills, Maintenance, 06/25/23 10:32:00 EDT, Tablet, [facility] # [facility], Partial fill upon patient [...] Safety Implantable Status Assigning Authority Unknown Unknown [id number] Unknown 05/25/23 Unknown Unknown Active Unknown Patient Care team information Care Team Personnel Name: Livia Saldivar NP Position: [facility] PCO Associate Professional Member Role: PCP Address: Address: [address] [place] [address]- Care Team Related Persons Name: HUBER CORDERO Address: [address] [place] [address] Name: HUBER CORDERO Address: [address] [place] [address]
== END 2024-08-16 10:56 | disposition home or self-care (01) ==
PROVIDERS: PCP Family Medicine
DX: F10.20 Alcohol dependence, uncomplicated (principal)
CPT/HCPCS: 99213

== ENCOUNTER → 2024-08-16 08:55 | Outpatient (BNVA) | payer OTHER, SELFPAY | PROVIDERS: PCP Family Medicine | DX: F10.20 Alcohol dependence, uncomplicated (principal) | CPT/HCPCS: 99212 ==

== ENCOUNTER 2024-09-05 13:59 | Outpatient (AMB) | payer OTHER, SELFPAY ==
--- NOTE | 2024-09-05 14:09 | A.OFFVISCC_ITS ---
Intake Visit Reasons: follow up Allergies fish derived [FISH] Allergy (Severe, Verified 08/05/24 16:29) ANAPHYLAXIS sulfamethoxazole [From BACTRIM] Allergy (Severe, Verified 08/05/24 16:29) ANAPHYLAXIS trimethoprim [From BACTRIM] Allergy (Severe, Verified 08/05/24 16:29) ANAPHYLAXIS fish oil Allergy (Unknown, Verified 08/05/24 16:29) Unknown penicillin V Allergy (Unknown, Verified 08/05/24 16:29) Unknown Penicillins [PENICILLINS] Allergy (Unknown, Verified 08/05/24 16:29) ANAPHYLAXIS Sulfa (Sulfonamide Antibiotics) Allergy (Unknown, Verified 08/05/24 16:29) Unknown Medication List - Last Reconciled 09/05/24 by Andra Mayfield CNP cyanocobalamin (vitamin B-12) (Vitamin B-12) 2,500 mcg sublingual DAILY naltrexone 25 mg (1/2 x 50 mg) PO DAILY omeprazole 20 mg PO DAILY@0630 HPI HPI follow up: Details: Patient presents for AUD treatment follow up Shared 30 day memo Has been attending meetings everyday Finds them helpful with his recovery process Still taking naltrexone daily --now taking full dose Reporting occasional increase in cravings -- discussed taking second dose when needed BP has decreased significantly since not drinking Mother is very ill and he reports she will be coming to his house soon for hospice feels well supported with this situation--she has been ill for some time Review of Systems Const Reports as per HPI and Reports no additional complaints Physical Exam Const General: cooperative, healthy appearing and well groomed Nutritional Appearance: average body habitus Orientation/consciousness: patient oriented x3 Limitations: no limitations Neuro General: patient oriented x3 Psych Appearance: well kempt Speech and movement: Normal speech and movement present Affect: Animated affect present Attitude: cooperative Thought process: Circumstantial thought process present Thought content: Normal thought content present Insight: Good insight present (Psych) Judgement: Good judgement present (Psych) Assessment & Plan Assessment & Plan (1) Alcohol use disorder, severe, dependence: Code(s): F10.20 - Alcohol dependence, uncomplicated Category: Medical Plan: * continue naltrexone at current dose * relapse prevention discussion * follow up 4 weeks [facility] Medical History (Updated 09/05/24 @ 15:59 by Andra Mayfield CNP) Alcohol use disorder, severe, dependence History of heroin use GERD (gastroesophageal reflux disease) Alcohol use disorder Social History Household Members: Unknown / Unable to assess Housing: Unknown / Unable to assess Alcohol intake: current Alcohol intake frequency: 3 or more drinks per day Alcohol type: hard liquor Comment: Sitter Patient Tobacco Use Status: Former Tobacco user Substance Use Type: Marijuana service: No
--- OUTSIDE RECORDS SUMMARY | 2024-09-07 16:01 | XMS_ITS | Continuity of Care Document ---
Author Organization [facility] Tello Robert lt Address [address] [place] [address]- Care Team Providers Care Metal Hanging Supervisor Name Role Phone Adriano Street DO Primary Care Physician Encounter [facility] Date(s): 08/05/24 - 09/04/24 [facility] Adult [address] [place] [address]- Encounter Type: Triage Allergies, Adverse Reactions, Alerts [...] inactivated 4 07/12/15 Gi dawna SARS-CoV-2 mRNA (ehskdhm-zcqi-hmlwd) vax 5 06/24/23 Recorded SARS-CoV-2 (COVID-19) mRNA-1273 [...] (IM) (oldterm) 8 07/22/06 Given 1Result Comment: [facility] [place] 2Result Comment: [07/20/2018] [id number] 3Result Comment: [06/15/2017] [facility] [id number] 4Admin Note: work 5Result Comment: [facility] [place] 6Admin Note: BIOMEDICAL JOSH 7Admin Note: GIVEN WHILE IN [facility] 8Admin Note: clinic elda Medications ibuprofen 800 mg oral tablet 800 mg, 1, tablet, By Mouth, 3 times a day, PRN, # 90 tablet, Refills 0, Tot. Refills 0, Maintenance, as needed for arthritis, 10/04/19 10:08:00 AM EST, Route to Pharmacy Electronically, [facility], 179, cm, 04/29/19 9:33:00 EDT, Height, 72.6, kg, 04/21/19 13:49:00 EDT, Dry Weight Start Date: 10/04/19 Status: Ordered Quantity: 90.0 Unit: tablet Repeat number: 1 mupirocin 2% topical ointment 1 application, Topically, 3 times a day, for ten days, # 22 Gm, 0 Refills, Acute 09/16/24 9:38:00 AM EST, 08/30/24 9:38:00 AM EST, Ointment, [facility] # [facility], Partial fill upon patient request if the prescription is for a schedule II opioid drug., 1 application Topically 3 times a day,Instr:for ten days, 175.2, cm, 08/30/24 9:01:00 EST, Height, 79.5, kg, 06/14/24 9:35:00 EDT, Dry Weight Start Date: 08/30/24 Stop Date: 09/16/24 Status: Ordered Quantity: 22.0 Unit: g Repeat number: 1 Indication: Follicular cyst of the skin and subcutaneous tissue, unspecified naltrexone 50 mg oral tablet 1 tablet = 50 mg, By Mouth, Daily, # 30 tablet, 0 Refills, Maintenance, 08/30/24 9:33:00 AM EST, Tablet, Partial fill upon patient request if the prescription is for a schedule II opioid drug. Start Date: 08/30/24 Status: Ordered Quantity: 30.0 Unit: tablet Repeat number: 1 omeprazole 20 mg oral enteric coated capsule 1 capsule, By Mouth, Daily, # 90 capsule, 3 Refills, Maintenance, 07/04/24 3:26:00 PM EDT, [facility], 175.2, cm, 07/04/24 14:51:00 EDT, Height, 79.5, kg, 06/14/24 9:35:00 EDT, Dry Weight Start Date: 07/04/24 Status: Ordered Quantity: 90.0 Unit: capsule Repeat number: 4 Vitamin B12 2500 mcg sublingual tablet 1 tablet = 2,500 mcg, Sublingual, Daily, # 90 tablet, 3 Refills, Maintenance, 07/04/24 3:26:00 PM EDT, Tablet, [facility], Partial fill upon [...] Confirmed Active Chronic Rhinitis Confirmed 08/18/12 Active Infected cyst of skin Confirmed Active Gastroesophageal reflux disease with hiatal hernia Confirmed Active Hyperlipidemia -10-year ASCVD risk as of 11/23/2019 is 3.6% Confirmed Active Hypertriglyceridemia Confirmed Active Insomnia Confirmed Active Mixed hyperlipidemia Confirmed Active Alcohol [...] Site Repair Hernia Inguinal with Mesh Arsalan SALGUEOR, Valeriano 04/21/19 Unknown Groin Left Device Identifier Serial Number Lot or Batch Number Manufacturing Date Expiration Date Distinct Identification Code MRI Safety Implantable Status Assigning Authority Unknown Unknown [id number] Unknown 05/25/23 Unknown Unknown Active Unknown Patient Care team information Care Team Personnel Name: Adriano Street DO Position: [facility] Physician - Primary Care Member Role: PCP Address: [address] [place] [address] Telecom: Care Team Related Persons Name: ARACELI PHILLIPS Name: HUBER CORDERO Name: HUBER CORDERO Insurance Providers Guarantor name: KAILEE CORDERO Health Plan Information #: 1 Payer: [employer] [place] Member Number: NA Policy Number: NA Group Number: NA
--- OUTSIDE RECORDS SUMMARY | 2024-09-07 16:01 | XMS_ITS | Continuity of Care Document ---
Author Organization [facility] Tello Robert lt Address [address] [place] [address]- Care Team Providers Care Wine Blender Name Role Phone Adriano Street DO Primary Care Physician Encounter [facility] Date(s): 08/30/24 - 09/06/24 [facility] Adult [address] [place] [address]- Encounter Diagnosis Alcoholism(Discharge Diagnosis) - 08/28/24 Hyperlipidemia -10-year ASCVD risk as of 11/23/2019 is 3.6%(Discharge Diagnosis) - 08/28/24 Insomnia(Discharge Diagnosis) - 08/28/24 Gastroesophageal reflux disease with hiatal hernia(Discharge Diagnosis) - 08/28/24 Bilateral knee pain(Discharge Diagnosis) - 08/30/24 Infected cyst of skin(Discharge Diagnosis) - 08/30/24 Attending Physician: Adriano Street DO Encounter Type: Office Visit Allergies, Adverse Reactions, Alerts Substance Criticality Severity [...] inactivated 4 07/12/15 Gi dawna SARS-CoV-2 mRNA (xdilems-xbfw-eylsh) vax 5 06/24/23 Recorded SARS-CoV-2 (COVID-19) mRNA-1273 [...] (IM) (oldterm) 8 07/22/06 Given 1Result Comment: [facility] [place] 2Result Comment: [07/20/2018] [id number] 3Result Comment: [06/15/2017] [facility] [id number] 4Admin Note: work 5Result Comment: [facility] [place] 6Admin Note: BIOMEDICAL JOSH 7Admin Note: GIVEN WHILE IN [facility] 8Admin Note: clinic elda Medications ibuprofen 800 mg oral tablet 800 mg, 1, tablet, By Mouth, 3 times a day, PRN, # 90 tablet, Refills 0, Tot. Refills 0, Maintenance, as needed for arthritis, 10/04/19 10:08:00 AM EST, Route to Pharmacy Electronically, [facility], 179, cm, 04/29/19 9:33:00 EDT, Height, 72.6, kg, 04/21/19 13:49:00 EDT, Dry Weight Start Date: 10/04/19 Status: Ordered Quantity: 90.0 Unit: tablet Repeat number: 1 mupirocin 2% topical ointment 1 application, Topically, 3 times a day, for ten days, # 22 Gm, 0 Refills, Acute 09/16/24 9:38:00 AM EST, 08/30/24 9:38:00 AM EST, Ointment, [facility] # [facility], Partial fill upon patient [...] 3 Refills, Maintenance, 07/04/24 3:26:00 PM EDT, [facility] # [facility], 175.2, cm, 07/04/24 14:51:00 EDT, Height, 79.5, kg, 06/14/24 9:35:00 EDT, Dry Weight Start Date: 07/04/24 Status: Ordered Quantity: 90.0 Unit: capsule Repeat number: 4 Vitamin B12 2500 mcg sublingual tablet 1 tablet = 2,500 mcg, Sublingual, Daily, # 90 tablet, 3 Refills, Maintenance, 07/04/24 3:26:00 PM EDT, Tablet, [facility] # [facility], Partial fill upon patient [...] Status Clinical Service Informant Alcoholism Discharge Diagnosis 08/28/24 Hyperlipidemia -10-year ASCVD risk as of 11/23/2019 is 3.6% Discharge Diagnosis 08/28/24 Insomnia Discharge Diagnosis 08/28/24 Gastroesophageal reflux disease with hiatal hernia Discharge Diagnosis 08/28/24 Bilateral knee pain Discharge Diagnosis 08/30/24 Infected cyst of skin Discharge Diagnosis 08/30/24 Vital Signs Most recent to oldest [Reference Range]: 1 Height 175.2 cm (08/30/24 9:01 AM) Weight 80.1 kg (08/30/24 9:01 AM) Oxygen Saturation [94-100 %] 99 % (08/30/24 9:01 AM) Pulse Rate [55-90 bpm] 58 bpm (08/30/24 9:01 AM) Body Mass Index [18.5-24.99 kg/m2] 26.1 kg/m2 *H* (08/30/24 9:01 AM) Blood Pressure [90-138/55-84 mm Hg] 118/ 69mm Hg (08/30/24 9:01 AM) Respiratory Rate [16-30 br/min] 20 br/mi n (08/30/24 9:01 AM) Temperature [96.8-100.4 DegF] 97.5 DegF (08/30/24 9:01 AM) Mode of Delivery (Oxygen) Room air (08/30/24 9:01 AM) Blood pressure sites Arm, right (08/30/24 9:01 AM) Temperature Route Oral (08/30/24 9:01 AM) Weight Obtained Via Standing scale (08/30/24 9:01 AM) Social History Social History Type Response [...] Safety Implantable Status Assigning Authority Unknown Unknown [id number] Unknown 05/25/23 Unknown Unknown Active Unknown Note * Jenn Worthington: PERFORM Event Display: Patient Education/Instruction Authored Date: [id number] Ambulatory Adult Visit Summary [facility] Adult [address] [address] Name: KAILEE CORDERO : 1965?? Visit: 08/30/2024 08:51?? Ambulatory Visit Instructions ?? Your Care Team Primary Care Provider Adriano Street DO? This Visit Provider Adriano Street DO Your Diagnosis Alcoholism Hyperlipidemia -10-year ASCVD risk as of 11/23/2019 is 3.6% Insomnia Gastroesophageal reflux disease with hiatal hernia Bilateral knee pain Infected cyst of skin Vitals Signs Temperature: 97.5 DegF Height: 175.2 cm Pulse Rate: 58 bpm Weight: 80.1 kg Respiratory Rate: 20 br/min Body Mass Index:??26.1 kg/m2??High Systolic Blood Pressure: 118 mm Hg Body surface area: 1.97 Diastolic Blood Pressure: 69 mm Hg ?? Oxygen Saturation: 99 % ?? What to do next Instructions From Your Provider ?? use antibiotic oint for 10 days followup if worsens changes or fails to resolve?? con't naltrexone continue?? AA and therapy Recommend??continued??abstinence from Alcohol? call [facility] for appt?? PT for knees? Contact Crisis line??[phone] if you feel unsafe or needed immediate support?? Recommend??Prevnar 20 vaccine at pharmacy?? Follow-Up Appointments Follow Up with??f/u 3 months Why: Knees??ETOH triglycerides? Future Orders Comprehensive Metabolic Panel - Routine, Once, 06/28/24 3:00:00 EDT, Future Order, [facility], Blood?? CBC w/ Differential - Routine, Once, 06/28/24 3:00:00 EDT, Future Order, [facility], Blood?? Lipid Panel - Routine, Once, 06/28/24 3:00:00 EDT, Future Order, [facility], Blood?? Lipid Panel - Routine, Once, 07/07/24 21:15:00 EDT, Order for Today, [facility], Blood?? Medications [...] provider. What How Much When Why Instructions New Mupirocin Topical (mupirocin 2% topical ointment) 1 alexi Topically 3 times a day Infected cyst of skin for ten ??days ?? Pickup at [facility] Unchanged Cyanocobalamin (Vitamin B12 2500 mcg sublingual tablet) 1 tab(s) Sublingual Daily Alcoholism Unchanged Ibuprofen (ibuprofen 800 mg oral tablet) 1 tab(s) Oral 3 times a day as needed for as needed for arthritis Unchanged Naltrexone (naltrexone 50 mg oral tablet) 1 tab(s) Oral Daily Unchanged Omeprazole (omeprazole 20 mg oral enteric coated capsule) 1 capsule Oral Daily Pharmacy Information [facility]: [address], [place] [id number] [phone] ?? What How Much When Why Comments Stop Taking Trazodone (traZODone 50 mg oral tablet) 2 tab(s) Oral Daily at Bedtime Insomnia Medications and Immunizations Administered Medications Given During [...] are strongly encouraged to quit. Please call [facility] at [phone] or [phone] ([phone]) or log in to [email or web address] for referrals to smoking cessation programs. ?? The National Suicide Prevention Hotline is available 20/04 if you or someone you know needs to find a reason to keep living. By calling 1-444-002-[employer] (8021) you'll be connected to a skilled, trained counselor at a crisis center in your area. [facility] Portal You can view and manage your care through the patient portal or by using a health care alexi of your choosing. [employer] is a website that allows you to securely view your medical information including your hospital discharge summary, office visit summaries, medications and follow-up visits. You can also request appointments, renew medications, and request access to your medical information using a health care alexi of your choosing, or just ask a question. You can enroll at [email or web address] or register during your next office visit. [facility], in keeping with [facility] guidance, no longer requires face masks [...] primary care provider, you may find a [facility] provider by calling [facility] at [phone]. Patient Care team information Care Team Personnel Name: Adriano Street DO Position: [facility] Physician - Primary Care Member Role: PCP Address: [address] [place] [address] Telecom: Care Team Related Persons Name: ARACELI PHILLIPS Name: HUBER CORDERO Name: HUBER CORDERO Insurance Providers Guarantor name: KAILEE CORDERO Health Plan Information #: 1 Payer: [employer] Member Number: [id number] Policy Number: NA Group Number: [id number] Health Plan Information #: 2 Payer: [employer] Member Number: [id number] Policy Number: NA Group Number: NA
== END 2024-09-05 14:31 | disposition home or self-care (01) ==
PROVIDERS: PCP Family Medicine; Visit Provider Nurse Practitioner Psychiatric/Mental Health
DX: F10.20 Alcohol dependence, uncomplicated (principal)
CPT/HCPCS: 99213

== ENCOUNTER → 2024-09-05 13:59 | Outpatient (BNVA) | payer OTHER, SELFPAY | PROVIDERS: PCP Family Medicine; Visit Provider Nurse Practitioner Psychiatric/Mental Health | DX: F10.20 Alcohol dependence, uncomplicated (principal) | CPT/HCPCS: 99212 ==

== ENCOUNTER 2024-10-05 08:48 | Outpatient (AMB) | payer OTHER, SELFPAY ==
--- OUTSIDE RECORDS SUMMARY | 2024-10-05 08:52 | XMS_ITS | Continuity of Care Document ---
Author Organization [facility] Robert lt Address [address] [place] [address]- Care Team Providers Care Aircraft Instrument Mechanic Name Role Phone Adriano Street DO Primary Care Physician [phone] Encounter [facility] Date(s): 08/16/24 - 09/15/24 [facility] [address] [place] [address]- Encounter Type: Triage Allergies, Adverse Reactions, Alerts Substance Criticality Severity Reaction Reaction Severity Status penicillin anaphylactic Active sulfa drugs terrible headace A ctive Fish anaphylactic Active Bactrim headache Active Immunizations [...] inactivated 4 07/12/15 Gi dawna SARS-CoV-2 mRNA (pvbcqmq-byrm-xmcwg) vax 5 06/24/23 Recorded SARS-CoV-2 (COVID-19) mRNA-1273 [...] (IM) (oldterm) 8 07/22/06 Given 1Result Comment: [facility] [place] 2Result Comment: [07/20/2018] [id number] 3Result Comment: [06/15/2017] [facility] [id number] 4Admin Note: work 5Result Comment: [facility] [place] 6Admin Note: BIOMEDICAL JOSH 7Admin Note: GIVEN WHILE IN [facility] 8Admin Note: clinic elda Medications ibuprofen 800 mg oral tablet 800 mg, 1, tablet, By Mouth, 3 times a day, PRN, # 90 tablet, Refills 0, Tot. Refills 0, Maintenance, as needed for arthritis, 10/04/19 10:08:00 AM EST, Route to Pharmacy Electronically, [facility], 179, cm, 04/29/19 9:33:00 EDT, Height, 72.6, kg, 04/21/19 13:49:00 EDT, Dry Weight Start Date: 10/04/19 Status: Ordered Quantity: 90.0 Unit: tablet Repeat number: 1 mupirocin 2% topical ointment 1 application, Topically, 3 times a day, for ten days, # 22 Gm, 0 Refills, Acute 09/16/24 9:38:00 AM EST, 08/30/24 9:38:00 AM EST, Ointment, [facility], Partial [...] 3 Refills, Maintenance, 07/04/24 3:26:00 PM EDT, [facility], 175.2, cm, 07/04/24 14:51:00 EDT, Height, 79.5, kg, 06/14/24 9:35:00 EDT, Dry Weight Start Date: 07/04/24 Status: Ordered Quantity: 90.0 Unit: capsule Repeat number: 4 Vitamin B12 2500 mcg sublingual tablet 1 tablet = 2,500 mcg, Sublingual, Daily, # 90 tablet, 3 Refills, Maintenance, 07/04/24 3:26:00 PM EDT, Tablet, [facility], Partial fill upon [...] Safety Implantable Status Assigning Authority Unknown Unknown [id number] Unknown 05/25/23 Unknown Unknown Active Unknown Patient Care team information Care Team Personnel Name: Adriano Street DO Position: [facility] Physician - Primary Care Member Role: PCP Address: [address] [place] [address] Telecom: Care Team Related Persons Name: ARACELI PHILLIPS Name: HUBER CORDERO Name: HUBER CORDERO Insurance Providers Guarantor name: KAILEE CORDERO Health Plan Information #: 1 Payer: [employer] [place] Member Number: NA Policy Number: NA Group Number: NA
--- OUTSIDE RECORDS SUMMARY | 2024-10-05 08:52 | XMS_ITS | Continuity of Care Document ---
Author Organization [facility] Robert lt Address [address] [place] [address]- Care Team Providers Care It Operations Specialist Name Role Phone Adriano Street DO Primary Care Physician [phone] Encounter [facility] Date(s): 08/08/24 - 09/07/24 [facility] Adult [address] [place] [address]- Encounter Type: Triage Allergies, Adverse Reactions, Alerts [...] inactivated 4 07/12/15 Gi dawna SARS-CoV-2 mRNA (wxdmlxp-vina-awwly) vax 5 06/24/23 Recorded SARS-CoV-2 (COVID-19) mRNA-1273 [...] Comment: [facility] [place] 2Result Comment: [07/20/2018] [id number] 3Result Comment: [06/15/2017] [facility] [id number] 4Admin Note: work 5Result Comment: [facility] [place] 6Admin Note: BIOMEDICAL JOSH 7Admin Note: GIVEN WHILE IN [facility] 8Admin Note: clinic elda Medications ibuprofen 800 mg oral tablet 800 mg, 1, tablet, By Mouth, 3 times a day, PRN, # 90 tablet, Refills 0, Tot. Refills 0, Maintenance, as needed for arthritis, 10/04/19 10:08:00 AM EST, Route to Pharmacy Electronically, [facility], 179, cm, 04/29/19 9:33:00 EDT, Height, 72.6, kg, 04/21/19 13:49:00 EDT, Dry Weight Start Date: 10/04/19 Status: Ordered Quantity: 90.0 Unit: tablet Repeat number: 1 mupirocin 2% topical ointment 1 application, Topically, 3 times a day, for ten days, # 22 Gm, 0 Refills, Acute 09/16/24 9:38:00 AM EST, 08/30/24 9:38:00 AM EST, Ointment, [facility], Partial [...] 3 Refills, Maintenance, 07/04/24 3:26:00 PM EDT, [facility], 175.2, cm, 07/04/24 14:51:00 EDT, Height, 79.5, kg, 06/14/24 9:35:00 EDT, Dry Weight Start Date: 07/04/24 Status: Ordered Quantity: 90.0 Unit: capsule Repeat number: 4 Vitamin B12 2500 mcg sublingual tablet 1 tablet = 2,500 mcg, Sublingual, Daily, # 90 tablet, 3 Refills, Maintenance, 07/04/24 3:26:00 PM EDT, Tablet, [facility], Partial fill upon [...] Safety Implantable Status Assigning Authority Unknown Unknown [id number] Unknown 05/25/23 Unknown Unknown Active Unknown Patient Care team information Care Team Personnel Name: Adriano Street DO Position: [facility] Physician - Primary Care Member Role: PCP Address: [address] [place] [address] Telecom: Care Team Related Persons Name: ARACELI PHILLIPS Name: HUBER CORDERO Name: HUBER CORDERO Insurance Providers Guarantor name: KAILEE CORDERO Health Plan Information #: 1 Payer: [employer] [place] Member Number: NA Policy Number: NA Group Number: NA
--- OUTSIDE RECORDS SUMMARY | 2024-10-05 08:52 | XMS_ITS | Continuity of Care Document ---
Author Organization [facility] Robert lt Address [address] [place] [address]- Care Team Providers Care Retail Custodial Associate Name Role Phone Adriano Street DO Primary Care Physician [phone] Encounter [facility] [place] Date(s): 08/15/24 - 09/14/24 [facility] Adult [address] [place] [address]- Encounter Type: Triage Allergies, Adverse Reactions, Alerts Substance Criticality Severity Reaction Reaction Severity Status penicillin anaphylactic Active Fish anaphylactic Active sulfa drugs terrible headace A ctive Bactrim headache Active Immunizations Given and Recorded [...] inactivated 4 07/12/15 Gi dawna SARS-CoV-2 mRNA (eltejcc-inhs-barxa) vax 5 06/24/23 Recorded SARS-CoV-2 (COVID-19) mRNA-1273 [...] (IM) (oldterm) 8 07/22/06 Given 1Result Comment: [facility] [place] 2Result Comment: [07/20/2018] [id number] 3Result Comment: [06/15/2017] [facility] [id number] 4Admin Note: work 5Result Comment: [facility] [place] 6Admin Note: BIOMEDICAL JOSH 7Admin Note: GIVEN WHILE IN [facility] 8Admin Note: clinic elda Medications ibuprofen [...] AM EST, 08/30/24 9:38:00 AM EST, Ointment, [facility], Partial fill [...] 3 Refills, Maintenance, 07/04/24 3:26:00 PM EDT, [facility], 175.2, cm, 07/04/24 14:51:00 EDT, Height, 79.5, kg, 06/14/24 9:35:00 EDT, Dry Weight Start Date: 07/04/24 Status: Ordered Quantity: 90.0 Unit: capsule Repeat number: 4 Vitamin B12 2500 mcg sublingual tablet 1 tablet = 2,500 mcg, Sublingual, Daily, # 90 tablet, 3 Refills, Maintenance, 07/04/24 3:26:00 PM EDT, Tablet, [facility], Partial fill upon [...] Safety Implantable Status Assigning Authority Unknown Unknown [id number] Unknown 05/25/23 Unknown Unknown Active Unknown Patient Care team information Care Team Personnel Name: Adriano Street DO Position: [facility] Physician - Primary Care Member Role: PCP Address: [address] [place] [address] Telecom: Care Team Related Persons Name: ARACELI PHILLIPS Name: HUBER CORDERO Name: HUBER CORDERO Insurance Providers Guarantor name: KAILEE CORDERO Health Plan Information #: 1 Payer: [employer] [place] Member Number: NA Policy Number: NA Group Number: NA
--- NOTE | 2024-10-05 09:02 | MHC.AM.SUB ---
Intake Visit Reasons: follow up Allergies fish derived [FISH] Allergy (Severe, Verified 08/05/24 16:29) ANAPHYLAXIS sulfamethoxazole [From BACTRIM] Allergy (Severe, Verified 08/05/24 16:29) ANAPHYLAXIS trimethoprim [From BACTRIM] Allergy (Severe, Verified 08/05/24 16:29) ANAPHYLAXIS fish oil Allergy (Unknown, Verified 08/05/24 16:29) Unknown penicillin V Allergy (Unknown, Verified 08/05/24 16:29) Unknown Penicillins [PENICILLINS] Allergy (Unknown, Verified 08/05/24 16:29) ANAPHYLAXIS Sulfa (Sulfonamide Antibiotics) Allergy (Unknown, Verified 08/05/24 16:29) Unknown HPI HPI follow up: Details: Patient presents for AUD treatment follow u mother passed on September 13 angry that he could not drink to cope Continuing to attend AA continues to abstain from alcohol noted increase in appetite sleeping well Review of Systems Const Reports as per HPI and Reports no additional complaints Physical Exam Const General: cooperative, healthy appearing and well groomed Nutritional Appearance: average body habitus Orientation/consciousness: patient oriented x3 Limitations: no limitations Neuro General: patient oriented x3 Psych Appearance: well kempt Speech and movement: Normal speech and movement present Affect: Animated affect present Attitude: cooperative Thought process: Circumstantial thought process present Thought content: Normal thought content present Insight: Good insight present (Psych) Judgement: Good judgement present (Psych) Assessment & Plan Assessment & Plan (1) Alcohol use disorder, severe, dependence: Code(s): F10.20 - Alcohol dependence, uncomplicated Category: Medical Plan: continue naltrexone at current dose relapse prevention discussion follow up 4 weeks [facility] Medical History (Updated 09/05/24 @ 15:59 by Andra Mayfield CNP) Alcohol use disorder, severe, dependence History of heroin use GERD (gastroesophageal reflux disease) Alcohol use disorder Social History Household Members: Unknown / Unable to assess Housing: Unknown / Unable to assess Alcohol intake: current Alcohol intake frequency: 3 or more drinks per day Alcohol type: hard liquor Comment: Sitter Patient Tobacco Use Status: Former Tobacco user Substance Use Type: Marijuana service: No
== END 2024-10-05 09:37 | disposition home or self-care (01) ==
PROVIDERS: PCP Family Medicine; Visit Provider Nurse Practitioner Psychiatric/Mental Health
DX: F10.20 Alcohol dependence, uncomplicated (principal)
CPT/HCPCS: 99213

== ENCOUNTER → 2024-10-05 08:48 | Outpatient (BNVA) | payer OTHER, SELFPAY | PROVIDERS: PCP Family Medicine; Visit Provider Nurse Practitioner Psychiatric/Mental Health | DX: F10.20 Alcohol dependence, uncomplicated (principal) | CPT/HCPCS: 99212 ==

== ENCOUNTER → 2024-11-02 09:49 | Outpatient (BNVA) | payer OTHER, SELFPAY | PROVIDERS: PCP Family Medicine; Visit Provider Nurse Practitioner Psychiatric/Mental Health | DX: F10.20 Alcohol dependence, uncomplicated (principal) | CPT/HCPCS: 99212 ==

== ENCOUNTER 2024-12-07 09:37 | Outpatient (AMB) | payer OTHER, SELFPAY ==
--- NOTE | 2024-12-07 09:51 | A.OFFVISCC_ITS ---
Intake Visit Reasons: follow up Allergies fish derived [FISH] Allergy (Severe, Verified 08/05/24 16:29) ANAPHYLAXIS sulfamethoxazole [From BACTRIM] Allergy (Severe, Verified 08/05/24 16:29) ANAPHYLAXIS trimethoprim [From BACTRIM] Allergy (Severe, Verified 08/05/24 16:29) ANAPHYLAXIS fish oil Allergy (Unknown, Verified 08/05/24 16:29) Unknown penicillin V Allergy (Unknown, Verified 08/05/24 16:29) Unknown Penicillins [PENICILLINS] Allergy (Unknown, Verified 08/05/24 16:29) ANAPHYLAXIS Sulfa (Sulfonamide Antibiotics) Allergy (Unknown, Verified 08/05/24 16:29) Unknown HPI HPI follow up: Details: Patient presents for AUD treatment follow up Currently prescribed Naltrexone 50mg daily Tolerating current dose --taking 75mg daily Continues to attend meetings daily Trying to find a job--concerned he may not have place to live if he doesn't find a job Review of Systems Const Reports as per HPI and Reports no additional complaints GI Reports constipation (slightly ) Psych Reports anxiety Physical Exam Const General: cooperative, healthy appearing and no acute distress Nutritional Appearance: average body habitus Orientation/consciousness: patient oriented x3 Limitations: no limitations Neuro General: patient oriented x3 Psych Speech and movement: Normal speech and movement present Affect: normal affect Attitude: cooperative Thought process: Normal thought process present and Circumstantial thought process present Thought content: Normal thought content present Insight: Good insight present (Psych) Judgement: Good judgement present (Psych) [facility] Medical History (Updated 09/05/24 @ 15:59 by Andra Mayfield CNP) Alcohol use disorder, severe, dependence History of heroin use GERD (gastroesophageal reflux disease) Alcohol use disorder Social History Household Members: Unknown / Unable to assess Housing: Unknown / Unable to assess Alcohol intake: current Alcohol intake frequency: 3 or more drinks per day Alcohol type: hard liquor Comment: Sitter Patient Tobacco Use Status: Former Tobacco user Substance Use Type: Marijuana service: No Assessment & Plan Assessment & Plan (1) Alcohol use disorder, severe, dependence: Code(s): F10.20 - Alcohol dependence, uncomplicated Category: Medical Plan: * continue naltrexone at current dose * refills sent in today * relapse prevention discussion * follow up 4 weeks Medications: Refilled naltrexone 100 mg (2 x 50 mg) PO DAILY 60 tabs 2RF
== END 2024-12-07 10:22 | disposition home or self-care (01) ==
LOC: HO.HCC 09:37
PROVIDERS: PCP Family Medicine; Visit Provider Nurse Practitioner Psychiatric/Mental Health
DX: F10.20 Alcohol dependence, uncomplicated (principal)
CPT/HCPCS: 99213

== ENCOUNTER → 2024-12-07 09:37 | Outpatient (BNVA) | payer OTHER, SELFPAY | PROVIDERS: PCP Family Medicine; Visit Provider Nurse Practitioner Psychiatric/Mental Health | DX: F10.20 Alcohol dependence, uncomplicated (principal) | CPT/HCPCS: 99212 ==

== ENCOUNTER 2025-01-02 09:51 | Outpatient (AMB) | payer OTHER, SELFPAY ==
--- NOTE | 2025-01-02 09:50 | A.OFFVIS_ITS ---
Vital Signs 01/02/25 10:02 Height 5 ft 9 in Weight 188 lb BMI 27.8 Pulse 95 Pulse Source Pulse Oximeter Pulse Oximetry (%) 95 Oxygen Delivery Method Room Air Intake Visit Reasons: follow up Allergies fish derived [FISH] Allergy (Severe, Verified 01/02/25 09:56) ANAPHYLAXIS sulfamethoxazole [From BACTRIM] Allergy (Severe, Verified 01/02/25 09:56) ANAPHYLAXIS trimethoprim [From BACTRIM] Allergy (Severe, Verified 01/02/25 09:56) ANAPHYLAXIS fish oil Allergy (Unknown, Verified 01/02/25 09:56) Unknown penicillin V Allergy (Unknown, Verified 01/02/25 09:56) Unknown Penicillins [PENICILLINS] Allergy (Unknown, Verified 01/02/25 09:56) ANAPHYLAXIS Sulfa (Sulfonamide Antibiotics) Allergy (Unknown, Verified 01/02/25 09:56) Unknown HPI HPI follow up: Details: He has seen Andra Mayfield for AUD. He takes naltrexone between 75-100 mg daily. He feels he needs no further medicine for AUD. His last drink was 08/02/2024 and he has 5 month coin from [employer] and goes to [employer], He needs new PCP since his is retiring. He doesnt need any further counseling. [facility] Medical History Alcohol use disorder, severe, dependence History of heroin use GERD (gastroesophageal reflux disease) Alcohol use disorder Social History Household Members: Unknown / Unable to assess Housing: Unknown / Unable to assess Alcohol intake: current Alcohol intake frequency: 3 or more drinks per day Alcohol type: hard liquor Comment: Sitter Patient Tobacco Use Status: Former Tobacco user Substance Use Type: Marijuana service: No Review of Systems Const All systems reviewed & are unremarkable except as noted in HPI and below Physical Exam Vital Signs: Last Vital Signs Pulse 95 01/02/25 10:02 Pulse Ox 95 01/02/25 10:02 Oxygen Delivery Method Room Air 01/02/25 10:02 BMI result Body Mass Index 27.8 Const General: cooperative HEENT Head: Yes normal to inspection Resp Effort & Inspection: normal respiratory effort Cardio Rate: regular rate GI Inspection: Yes normal to inspection Extrem General: Yes normal to inspection Results AMB 14 Panel Urine Drug Screen Urine Marijuana (THC) Positive Last Edit by Eileen Michaels CMA on 01/02/25 10:04 Urine Cocaine Negative Last Edit by Eileen Michaels CMA on 01/02/25 10:04 Urine Morphine Negative Last Edit by Eileen Michaels CMA on 5 10:04 Urine Methamphetamine Negative Last Edit by Eileen Michaels CMA on 01/02/25 10:04 Urine Amphetamine Negative Last Edit by Eileen Michaels CMA on 01/02/25 10:04 Urine Benzodiazepine Negative Last Edit by Eileen Michaels CMA on 01/02/25 10:04 Urine Barbiturates Negative Last Edit by Eileen Michaels CMA on 01/02/25 10:04 Urine Methadone Negative Last Edit by Eileen Michaels CMA on 10:04 Urine Buprenorphine Negative Last Edit by Eileen Michaels CMA on 01/02/25 10:04 Urine Tricyclic Antidepressant Negative Last Edit by Eileen Michaels CMA on 01/02/25 10:04 Urine MDMA Negative Last Edit by Eileen Michaels CMA on 01/02/25 10 :04 Urine Oxycodone Negative Last Edit by Eileen Michaels CMA on 10:04 Urine Phencyclidine Negative Last Edit by Eileen Michaels CMA on 01/02/25 10:04 Urine Propoxyphene Negative Last Edit by Eileen Michaels CMA on 01/02/25 10:04 Results Reviewed Results Reviewed: Laboratory Last Values POC Urine Buprenorphine Negative 01/02/25 10:03 POC Urine Morphine Negative 01/02/25 10:03 POC Urine Oxycodone Negative 01/02/25 10:03 POC Urine Methadone Negative 01/02/25 10:03 POC Urine Propoxyphene Negative 01/02/25 10:03 POC Urine Barbiturates Negative 01/02/25 10:03 POC U Tricyclic Antidpr Negative 01/02/25 10:03 POC Urine PCP Negative 01/02/25 10:03 POC Ur Amphetamines Negative 01/02/25 10:03 POC Ur Methamphetamine Negative 01/02/25 10:03 POC Urine MDMA Negative 01/02/25 10:03 POC Ur Benzodiazepine Negative 01/02/25 10:03 POC Urine Cocaine Negative 01/02/25 10:03 POC Ur Marijuana (THC) Positive 01/02/25 10:03 Assessment & Plan Assessment & Plan (1) Alcohol use disorder, severe, dependence: Comment: He is doing well with sobriety He needs eval check liver and Hep C,B,HIV Code(s): F10.20 - Alcohol dependence, uncomplicated Category: Medical Plan: He has enough refills until February for naltrexone Check labs PCV-20 and MCV-4 get at pharmacy. He has no depression or food insecurity but needs housing and may check into [facility]. See him two months before next refill. Continue thiamine,folic acid OTC and B12. Orders: Orders Complete Blood Count Auto Diff Today F10.20 - Alcohol dependence, uncomplicated Hepatitis B Surface Ab Qnt Today F10.20 - Alcohol dependence, uncomplicated Hepatitis B Surface Antigen Today F10.20 - Alcohol dependence, uncomplicated Hepatitis C Antibody Reflex Today F10.20 - Alcohol dependence, uncomplicated HIV Ab/Ag Today F10.20 - Alcohol dependence, uncomplicated Syphilis Screen Today F10.20 - Alcohol dependence, uncomplicated Prothrombin Time INR Today F10.20 - Alcohol dependence, uncomplicated AMB 14 Panel Urine Drug Screen Today Z51.81 - Encounter for therapeutic drug level monitoring Basic Metabolic Panel Today F10.20 - Alcohol dependence, uncomplicated Liver Panel Today F10.20 - Alcohol dependence, uncomplicated Liver Fibrosis Pnl Today F10.20 - Alcohol dependence, uncomplicated Hepatitis B Core Antibody Today F10.20 - Alcohol dependence, uncomplicated T Spot TB Today F10.20 - Alcohol dependence, uncomplicated Coding Level of Care Code Est Pt Level 3 (72277) Diagnoses Alcohol use disorder, severe, dependence F10.20
[2025-01-02 10:02] VITALS: PULSE 95; O2SAT 95; BMI 27.8
--- OUTSIDE RECORDS SUMMARY | 2025-01-02 11:28 | XMS_ITS | Continuity of Care Document ---
Author Organization [facility] Tello Robert lt Address [address] [place] [address]- Care Team Providers Care Lens Edger Name Role Phone Priscila Luong MD Primary Care Physician [phone] [place] [facility] Date(s): 12/02/24 - 01/01/25 [facility] Adult [address] [place] [address]- Encounter Type: Triage Allergies, Adverse Reactions, Alerts [...] inactivated 4 07/12/15 Gi dawna SARS-CoV-2 mRNA (hsmozoe-zlwi-fkmey) vax 5 06/24/23 Recorded SARS-CoV-2 (COVID-19) mRNA-1273 [...] (IM) (oldterm) 8 07/22/06 Given 1Result Comment: [facility] [place] 2Result Comment: [07/20/2018] [id number] 3Result Comment: [06/15/2017] [facility] [id number] 4Admin Note: work 5Result Comment: [facility] [place] 6Admin Note: BIOMEDICAL JOSH 7Admin Note: GIVEN WHILE IN [facility] 8Admin Note: clinic elda Medications betamethasone-clotrimazole 0.05%-1% topical cream 1 application, Topically, 2 times a day, to rash FOR 2 WEEKS repeat as needed, # 15 Gm, 0 Refills, Maintenance, 11/30/24 9:47:00 AM EST, Cream, [facility], Partial fill upon patient request ifthe prescription is for a schedule II opioid drug., 1 application Topically 2 times a day,Instr:to rash FOR 2 WEEKS repeat as needed, 175.2, cm, 11/30/24 9:25:00 EST, Height, 79.5, kg, 06/14/24 9:35:00 EDT, Dry Weight Start Date: 11/30/24 Status: Ordered Quantity: 15.0 Unit: g Repeat number: 1 Indication: Rash and other nonspecific skin eruption Meloxicam Daily, 0 Refills, Maintenance, 11/30/24 9:24:00 AM EST, Partial fill upon patient request if the prescription is for a schedule II opioid drug. Start Date: 11/30/24 Status: Ordered Repeat number: 1 meloxicam 15 mg oral tablet 1 tablet = 15 mg, By Mouth, Daily, For joint pain take with food avoid other anti-inflammatory medicines, # 30 tablet, 1 Refills, Maintenance, 12/08/24 2:10:00 PM EDT, Tablet, [facility], Partial fill upon patient request if the prescription is for a schedule II opioid drug., 175.2, cm, 11/30/24 9:25:00 EST, Height, 79.5, kg, 06/14/24 9:35:00 EDT, Dry Weight Start Date: 12/08/24 Status: Ordered Quantity: 30.0 Unit: tablet Repeat number: 2 naltrexone 50 mg oral tablet 1 tablet [...] 3 Refills, Maintenance, 07/04/24 3:26:00 PM EDT, [facility], 175.2, cm, 07/04/24 14:51:00 EDT, Height, 79.5, kg, 06/14/24 9:35:00 EDT, Dry Weight Start Date: 07/04/24 Status: Ordered Quantity: 90.0 Unit: capsule Repeat number: 4 Vitamin B12 2500 mcg sublingual tablet 1 tablet = 2,500 mcg, Sublingual, Daily, # 90 tablet, 3 Refills, Maintenance, 07/04/24 3:26:00 PM EDT, Tablet, [facility], [...] of scalp Confirmed Active Alcoholism Confirmed Active Chronic Rhinitis Confirmed 08/18/12 Active Rash Confirmed Active Gastroesophageal reflux disease with hiatal hernia Confirmed Active Hypertriglyceridemia Confirmed Active Insomnia Confirmed Active Mixed hyperlipidemia Confirmed Active Alcohol abuse, daily use Confirmed Active Bilateral knee pain Confirmed Active Physical exam Confirmed Active Prostate cancer screening Confirmed Active Tubular adenoma of colon Confirmed [...] Safety Implantable Status Assigning Authority Unknown Unknown [id number] Unknown 05/25/23 Unknown Unknown Active Unknown Patient Care team information Care Team Personnel Name: Priscila Luong MD Position: [facility] Physician - Primary Care Member Role: PCP Address: [address] [place] [address] Telecom: Care Team Related Persons Name: RAACELI PHILLIPS Name: HUBER CORDERO Name: HUBER CORDERO Insurance Providers Guarantor name: KAILEE CORDERO Health Plan Information #: 1 Payer: [employer] Member Number: NA Policy Number: NA Group Number: NA
--- OUTSIDE RECORDS SUMMARY | 2025-01-02 11:28 | XMS_ITS | Continuity of Care Document ---
Author Organization [facility] Address [address] [place] [id number]- Care Team Providers Care Hardboard Supervisor Name Role Phone Priscila Luong MD Primary Care Physician [phone] Encounter [place] Date(s): 11/28/24 - 12/28/[address] [address] Attending Physician: Gianna Shay Admitting Physician: Gianna Shay Referring Physician: AdmtrGianna Encounter Type: Triage Allergies, Adverse Reactions, Alerts Substance Criticality Severity Reaction Reaction Severity Status penicillin anaphylactic Active Fish anaphylactic Active Bactrim headache Active sulfa drugs terrible headace A ctive Immunizations Given and Recorded Vaccine Date Status [...] inactivated 4 07/12/15 Gi dawna SARS-CoV-2 mRNA ([id number]) vax 5 06/24/23 Recorded SARS-CoV-2 (COVID-19) mRNA-1273 [...] (IM) (oldterm) 8 07/22/06 Given 1Result Comment: [facility] 2Result Comment: [07/20/2018] [id number] 3Result Comment: [06/15/2017] [facility] [id number] 4Admin Note: work 5Result Comment: [facility] 6Admin Note: BIOMEDICAL JOSH 7Admin Note: GIVEN WHILE IN [facility] 8Admin Note: clinic elda Medications betamethasone-clotrimazole 0.05%-1% topical cream 1 application, Topically, 2 times a day, to rash FOR 2 WEEKS repeat as needed, # 15 Gm, 0 Refills, Maintenance, 11/30/24 9:47:00 AM EST, Cream, [facility], Partial fill upon patient [...] Refills, Maintenance, 12/08/24 2:10:00 PM EDT, Tablet, [facility], Partial fill upon patient [...] 3 Refills, Maintenance, 07/04/24 3:26:00 PM EDT, [facility], 175.2, cm, 07/04/24 14:51:00 EDT, Height, 79.5, kg, 06/14/24 9:35:00 EDT, Dry Weight Start Date: 07/04/24 Status: Ordered Quantity: 90.0 Unit: capsule Repeat number: 4 Vitamin B12 2500 mcg sublingual tablet 1 tablet = 2,500 mcg, Sublingual, Daily, # 90 tablet, 3 Refills, Maintenance, 07/04/24 3:26:00 PM EDT, Tablet, [facility] # [facility], Partial fill upon patient [...] Safety Implantable Status Assigning Authority Unknown Unknown [id number] Unknown 05/25/23 Unknown Unknown Active Unknown Patient Care team information Care Team Personnel Name: Priscila Luong MD Position: [facility] Physician - Primary Care Member Role: PCP Address: [address] [place] [address] Telecom: Care Team Related Persons Name: ARACELI PHILLIPS Name: HUBER CORDERO Name: HUBER CORDERO Insurance Providers Guarantor name: KAILEE CORDERO Health Plan Information #: 1 Payer: [employer] [place] Member Number: NA Policy Number: NA Group Number: NA
== END 2025-01-02 10:30 | disposition home or self-care (01) ==
LOC: HO.HID 09:51
PROVIDERS: PCP Family Medicine; Visit Provider Internal Medicine
DX: F10.20 Alcohol dependence, uncomplicated (principal)
CPT/HCPCS: 99213

== ENCOUNTER 2025-01-02 09:51 | Outpatient (REF) | payer OTHER, SELFPAY ==
[2025-01-02 11:18] LABS: MANUAL DIFF FLAG NO
[2025-01-02 11:34] LABS: Basophils Percent Auto 0.4 % (0-2); Eosinophils Absolute Auto 0.1 X10*3/uL (0.0-0.4); Eosinophils Percent Auto 0.9 % (0-4); Hematocrit 38.9 % (42.0-52.0); Hemoglobin 13.4 g/dl (14.0-18.0); Imm Gran Abs Auto 0.03 X10*3/uL (0.00-0.03); Imm Gran Pct Auto 0.3 % (0.0-0.4); Lymphocytes Percent Auto 21.8 % (20-40); Mean Corpuscular HGB Conc 34.4 g/dl (31.0-36.0); Mean Corpuscular Hemoglobin 30.2 pg (27.0-33.0); Mean Corpuscular Volume 87.8 fL (80.0-98.0); Mean Platelet Volume 9.1 fL (9.4-12.4); Monocytes Absolute Auto 0.7 X10*3/uL (0.1-1.2); Monocytes Percent Auto 7.1 % (2-11); Neutrophils Absolute Auto 6.3 x10*3/uL (2.0-8.3); Neutrophils Percent Auto 69.5 % (45-73); Platelet Count 301 X10*3/uL (160-400); Red Blood Count 4.43 X10*6/uL (4.60-5.80); Red Cell Distribution Width 12.1 % (11.0-16.0); White Blood Count 9.1 X10*3/uL (4.8-10.8)
[2025-01-02 11:40] LABS: Prothrombin Time 11.2 SEC (10.9-12.4)
[2025-01-02 13:35] LABS: Alanine Aminotransferase 14 U/L (0-40); Albumin Level 4.3 g/dL (3.5-5.0); Alkaline Phosphatase 52 U/L (39-117); Anion Gap 11 (12-20); Aspartate Amino Transferase 21 U/L (5-37); Bilirubin Direct 0.1 mg/dL (0.0-0.5); Bilirubin Total 0.3 mg/dL (0.0-1.0); Blood Urea Nitrogen 15 mg/dL (9-16); Calcium 9.7 mg/dL (8.4-10.2); Carbon Dioxide 27 mmol/L (22-29); Chloride 106 mmol/L (96-108); Estimated Glomerular Filt Rate > 60; Glucose Random 88 mg/dL (60-115); Potassium 4.3 mmol/L (3.3-5.1); Sodium 140 mmol/L (135-145); Total Protein 7.3 g/dL (6.5-8.0)
[2025-01-03 03:13] LABS: Hepatitis B Surface Ab Qnt 52 mIU/mL (> OR = 10)
[2025-01-03 04:21] LABS: Syphilis Screen Nonreactive (Nonreactive)
[2025-01-03 04:39] LABS: HBc Num1 0.08 S/CO (0.00-0.79); HBsAGNum1 0.33 S/CO (0.00-0.99); HIV AB/AG Nonreactive (Nonreactive); HIV Num 1 0.07 S/CO (0.00-0.99); Hepatitis B Core Antibody Nonreactive (Nonreactive); Hepatitis B Surface Antigen Negative (Negative); ~HepC Num1 0.41 S/CO (0.00-0.79); ~Hepatitis C Antibody Nonreactive (Nonreactive)
[2025-01-05 06:22] LABS: TS Negative Control Passed; TS Panel A 0; TS Panel B 0; TS Positive Control Passed; TSpotTB Negative (Negative)
[2025-01-07 19:03] LABS: FIB-ALT 11 U/L (9-46); FIB-Alpha-2-Macroglobulin 149 mg/dL (106-279); FIB-Apolipoprotein A1 170 mg/dL (94-176); FIB-GGT 13 U/L (3-85); FIB-Haptoglobin 253 mg/dL (43-212); FIB-Total Bilirubin 0.3 mg/dL (0.2-1.2); Liver Fibrosis Score 0.05; Liver Fibrosis Stage F0; Nec Inflam Act Grade A0; Nec Inflam Act Score 0.02; Reference ID 5432565
== END 2025-01-02 09:52 | disposition home or self-care (01) ==
LOC: HO.LAB 09:51
PROVIDERS: Visit Provider Internal Medicine
DX: F10.20 Alcohol dependence, uncomplicated (principal); Z51.81 Encounter for therapeutic drug level monitoring; Z79.899 Other long term (current) drug therapy
CPT/HCPCS: 36415; 80048; 80076; 81596; 85025; 85610; 86317; 86481; 86704; 86780; 86803; 87340; 87389; 99212

== ENCOUNTER 2025-02-22 12:48 | Outpatient (AMB) | payer OTHER, SELFPAY ==
--- NOTE | 2025-02-22 13:04 | A.OFFVIS_ITS ---
Vital Signs 02/22/25 13:07 Height 5 ft 9 in Pulse 82 Pulse Source Pulse Oximeter Pulse Oximetry (%) 98 Intake Visit Reasons: mat visit Allergies fish derived [FISH] Allergy (Severe, Verified 02/22/25 13:07) ANAPHYLAXIS sulfamethoxazole [From BACTRIM] Allergy (Severe, Verified 02/22/25 13:07) ANAPHYLAXIS trimethoprim [From BACTRIM] Allergy (Severe, Verified 02/22/25 13:07) ANAPHYLAXIS fish oil Allergy (Unknown, Verified 02/22/25 13:07) Unknown penicillin V Allergy (Unknown, Verified 02/22/25 13:07) Unknown Penicillins [PENICILLINS] Allergy (Unknown, Verified 02/22/25 13:07) ANAPHYLAXIS Sulfa (Sulfonamide Antibiotics) Allergy (Unknown, Verified 02/22/25 13:07) Unknown HPI HPI mat visit: Details: He is doing well with no alcohol since 07/2024. He has no complaints and wants to get off Vivitrol next few months. He has done labs and unremarkable. [facility] Medical History Alcohol use disorder, severe, dependence History of heroin use GERD (gastroesophageal reflux disease) Alcohol use disorder Social History Household Members: Unknown / Unable to assess Housing: Unknown / Unable to assess Alcohol intake: current Alcohol intake frequency: 3 or more drinks per day Alcohol type: hard liquor Comment: Sitter Patient Tobacco Use Status: Former Tobacco user Substance Use Type: Marijuana service: No Review of Systems Const All systems reviewed & are unremarkable except as noted in HPI and below Physical Exam Vital Signs: Last Vital Signs Pulse 82 02/22/25 13:07 Pulse Ox 98 02/22/25 13:07 Const General: cooperative Assessment & Plan Assessment & Plan (1) Alcohol use disorder, severe, dependence: Comment: He is doing well with sobriety He needs eval check liver and Hep C,B,HIV Code(s): F10.20 - Alcohol dependence, uncomplicated Category: Medical Plan: See as needed. Coding Level of Care Code Est Pt Level 3 (93117) Diagnoses Alcohol use disorder, severe, dependence F10.20
[2025-02-22 13:07] VITALS: PULSE 82; O2SAT 98
== END 2025-02-22 13:29 | disposition home or self-care (01) ==
LOC: HO.HCC 12:49
PROVIDERS: Visit Provider Internal Medicine
DX: F10.20 Alcohol dependence, uncomplicated (principal)
CPT/HCPCS: 99213

== ENCOUNTER → 2025-02-22 12:48 | Outpatient (BNVA) | payer OTHER, SELFPAY | PROVIDERS: Visit Provider Internal Medicine | DX: F10.20 Alcohol dependence, uncomplicated (principal) | CPT/HCPCS: 99212 ==

== ENCOUNTER 2025-05-23 14:34 | Outpatient (AMB) | payer OTHER, SELFPAY ==
[2025-05-23 14:43] VITALS: BP 110/68; O2SAT 98; BMI 25.2
--- NOTE | 2025-05-23 14:43 | A.OFFVIS_ITS ---
Vital Signs 05/23/25 14:43 Height 5 ft 9 in Weight 171 lb BMI 25.2 BP 110/68 Pulse Oximetry (%) 98 Intake Visit Reasons: MAT Allergies fish derived (FISH) Allergy (Severe, Verified 05/23/25 14:44) ANAPHYLAXIS sulfamethoxazole (From BACTRIM) Allergy (Severe, Verified 05/23/25 14:44) ANAPHYLAXIS trimethoprim (From BACTRIM) Allergy (Severe, Verified 05/23/25 14:44) ANAPHYLAXIS fish oil Allergy (Unknown, Verified 05/23/25 14:44) Unknown penicillin V Allergy (Unknown, Verified 05/23/25 14:44) Unknown Penicillins (PENICILLINS) Allergy (Unknown, Verified 05/23/25 14:44) ANAPHYLAXIS Sulfa (Sulfonamide Antibiotics) Allergy (Unknown, Verified 05/23/25 14:44) Unknown HPI Comments Details: A 59-year-old male presents for a follow-up r/t AUD in sustained remission with naltrexone. Denies use of alcohol, opiates, and other substances. Reports intermittent use of a THC back/CBD type of ointment on for chronic knee pain. 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 [facility] Medical History Alcohol use disorder, severe, dependence History of heroin use GERD (gastroesophageal reflux disease) Alcohol use disorder Social History Household Members: Unknown / Unable to assess Housing: Unknown / Unable to assess Alcohol intake: current Alcohol intake frequency: 3 or more drinks per day Alcohol type: hard liquor Comment: Sitter Patient Tobacco Use Status: Former Tobacco user Substance Use Type: Marijuana service: No Review of Systems Const All systems reviewed & are unremarkable except as noted in HPI and below Physical Exam Vital Signs: Last Vital Signs BP 110/68 05/23/25 14:43 Pulse Ox 98 05/23/25 14:43 BMI result Body Mass Index 25.2 Const General: cooperative Assessment & Plan Assessment & Plan (1) Alcohol use disorder in remission: Code(s): F10.91 - Alcohol use, unspecified, in remission Category: Medical Plan The plan of care is to continue with naltrexone tablets 50 mg BID and follow-up in 3 months or sooner if needed. Medications: Refilled naltrexone 100 mg (2 x 50 mg) PO DAILY 60 tabs 2RF Patient Instructions: - Continue with naltrexone tablets 50 mg as prescribed. - Follow-up in 3 months or sooner if needed. - Call with questions, concerns, or to report side effects/new onset of symptoms to [facility]. - The patient verbalized understanding and agreed with plan of care. Coding Level of Care Code Est Pt Level 3 (57966) Diagnoses Alcohol use disorder in remission F10.91
--- OUTSIDE RECORDS SUMMARY | 2025-05-23 15:32 | XMS_ITS | Clinical Summary ---
Author Organization [facility] Address [address] [address] Phone Care Team Providers Care Stove Cleaner Name Role Phone Feliciano Coon MD Primary Care Provider + Adrian Fajardo MD Unavailable Allergies No known active allergies Social History Tobacco Use Types Packs/Day Years Used Date Smoking Tobacco: Never Assessed Education Answer Date Recorded Are you interested in more education? Not on wander e 04/25/2023 Are you concerned about learning? Not on file 04/25/2023 No 04/25/2023 No 04/25/2023 Digital Access Answer Date Recorded No 04/25/2023 No 04/25/2023 Reliable internet access at home? Not on file 04/25/2023 Device with a working camera? Not on file Sex and Gender Information Value Date Recorded Sex Assigned at Not on file Legal Sex Male 11:34 PM EDT Gender Identity Not on file Sexual Orientation Not on file Last Filed Vital Signs Vital Sign Reading Time Taken Comments Blood Pressure 138/90 04/25/2023 11:00 AM EDT Pulse 100 04/25/2023 11:00 AM EDT Temperature 37.9 C (100.2 F) 04/25/2023 11:00 AM EDT Respiratory Rate 18 04/25/2023 7:43 AM EDT Oxygen Saturation 95% 04/25/2023 11:00 AM EDT Inhaled Oxygen Concentration - - Weight - - Height - - Body Mass Index - - Plan of Treatment Health Maintenance Due Date Last Done Comments LIPID PANEL 1966 DEPRESSION SCREENING 1978 SMOKING Hx and SMOKELESS TOB ACCO SCREENING 1979 HEPATITIS C SCREENING 1984 HIV ONE-TIME SCREENING (18-6 5 YEARS) 1984 COLOGUARD 2011 COLONOSCOPY 2011 COLORECTAL CANCER SCREENING 2011 FIT TEST 2011 FOBT 2011 SIGMOIDOSCOPY 2011 VIRTUAL COLONOSCOPY 2011 Adult Td,Tdap Booster 02/17/2016 02/16/2006 PNEUMOCOCCAL VACCINES (50+ y ears) (2 of 2 - PCV) 2016 07/16/2009 ZOSTER VACCINES (1 of 2) 2016 COVID-19 VACCINE (1 - 2023-2 5 season) 2024 HEPATITIS A VACCINES Aged Out No long er eligible based on patient's age to complete this topic HIB VACCINES Aged Out No longer eligi ble based on patient's age to complete this topic MENINGOCOCCAL VACCINES (ACWY) Aged Out No longer eligible based on patient's age to complete this topic MENINGOCOCCAL VACCINES (B) Aged Out N o longer eligible based on patient's age to complete this topic Medical Devices Not on file Insurance [facility] [employer] [facility] [employer] [employer] ACO [facility] [employer] [employer]CO [facility] [employer] [employer] ACO Care Teams Stove Cleaner Relationship Specialty Start Date End Date Feliciano Coon MD [address] [place] [address] PCP - General Family Medicine 04/24/23 Adrian Fajardo MD [address] [place] [address] [phone] [email or web address] Family Medicine 04/24/23 Additional Source Comments The information contained in this document represents components of the legal health record. It is not the complete legal health record.[facility]
--- OUTSIDE RECORDS SUMMARY | 2025-05-23 15:32 | XMS_ITS | Encounter Summary ---
Author Organization [facility] Address [address] [facility] [address] [place] [address] Phone Care Team Providers Care Product Ambassador Name Role Phone Feliciano Coon MD Primary Care Provider + Adrian Fajardo MD Unavailable Encounter Details Date Type Department Care Team (Late st Contact Info) Description 04/25/2023 Procedure Pass [facility], Ct Scan - [facility] [address] [place] [address] Social History Tobacco Use Types Packs/Day Years [...] on file Sexual Orientation Not on file documented as of this encounter Functional Status * Calculated C-SSRS Risk Score (Lifetime/Recent) Answer Date of Assessment Author No Risk Indicated 04/25/2023 12:03 AM EDT Janay June RN * [place] Suicide Severity Rating Scale (Screener/Recent Self-Report) Question Answer Date of Assessment Author 1. Wish to be (Past 1 Month) No 04/25/2023 12:03 AM EDT Liana Sevilla, RN 2. Non-Specific Active Suici sonja Thoughts (Past 1 Month) No 04/25/2023 12:03 AM EDT Edwin Sevilla [facility] 6. Suicidal Behavior (Lifetime) No 12:03 AM EDT Janay Sevilla RN documented as of this encounter Plan of Treatment Not on file documented as of this encounter Visit Diagnoses Not on filedocumented in this encounter Additional Health Concerns Infection Onset Date Last Indicated Resolved Time CoV-Risk 04/25/2023 04/25/2023 05/06/2023 1:24 AM EDT documented as of this encounter Care Teams Product Ambassador Relationship Specialty Start Date End Date Feliciano Coon MD [address] [place] [id number] PCP - General Family Medicine 04/24/23 Adrian Fajardo MD [address] [place] [address] [phone] [email or web address] Family Medicine 04/24/23 documented as of this encounter Additional Source Comments The information contained in this document represents components of the legal health record. It is not the complete legal health record.[facility]
== END 2025-05-23 15:02 | disposition home or self-care (01) ==
PROVIDERS: Visit Provider Clinical Nurse Specialist Psychiatric/Mental Health
DX: F10.91 Alcohol use, unspecified, in remission (principal)
CPT/HCPCS: 99213

== ENCOUNTER → 2025-05-23 14:34 | Outpatient (BNVA) | payer OTHER, SELFPAY | PROVIDERS: Visit Provider Clinical Nurse Specialist Psychiatric/Mental Health | DX: F10.91 Alcohol use, unspecified, in remission (principal) | CPT/HCPCS: 99212 ==

== ENCOUNTER 2025-07-21 08:39 | Outpatient (AMB) | payer OTHER, SELFPAY ==
[2025-07-21 08:38] VITALS: BP 130/90; PULSE 62; TEMP 36.6; O2SAT 97; BMI 24.7
--- NOTE | 2025-07-21 08:38 | AM.OFFWIN_ITS ---
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 Intake Note: Pt is here today c/o Rt shoulder pain since yesterday due carrying groceries Patient Tobacco Use Status: Former Tobacco user Allergies fish derived (FISH) Allergy (Severe, Verified 07/21/25 08:47) ANAPHYLAXIS sulfamethoxazole (From BACTRIM) Allergy (Severe, Verified 07/21/25 08:47) ANAPHYLAXIS trimethoprim (From BACTRIM) Allergy (Severe, Verified 07/21/25 08:47) ANAPHYLAXIS fish oil Allergy (Unknown, Verified 07/21/25 08:47) Unknown penicillin V Allergy (Unknown, Verified 07/21/25 08:47) Unknown Penicillins (PENICILLINS) Allergy (Unknown, Verified 07/21/25 08:47) ANAPHYLAXIS Sulfa (Sulfonamide Antibiotics) Allergy (Unknown, Verified 07/21/25 08:47) Unknown Do you need a note to return to daycare/school/sports/work: Yes HPI HPI Comments History of Present Illness Details History of Present Illness The patient is a 60-year-old male presenting with acute right shoulder pain Right Shoulder Pain - Began approximately an hour after work the previous day. 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 - Has a history of handling heavy tires and engaging in physical activity daily. Review of Systems - Musculoskeletal: Reports right shoulde r pain, radicular symptoms in arm - Neurological: Tingling in the right knight nd and fingers. - Overall: Denies shortness of breath. Physical Exam General Appearance: Normal appearance, well developed. No acute distress Head: Normocephalic, atraumatic Pulmonary: No respiratory distress. Speaking in full sentences Musculoskeletal: No obvious deformities noted of the shoulder. No ecchymosis or swelling. No TTP of the clavicle, acromion, AC joint, or biceps tendon. Minimal TTP medial to the right scapula. Patient has full ROM. Cross body abduction, lift off test, external rotation, and abduction WNL. Hand lumber loader strength equal bilaterally Mental Status: Alert and Oriented x 3 Psychiatric: Normal mood. Normal affect. [facility] Medical History Alcohol use disorder, severe, dependence History of heroin use GERD (gastroesophageal reflux disease) Alcohol use disorder Social History Household Members: Unknown / Unable to assess Housing: Unknown / Unable to assess Alcohol intake: current Alcohol intake frequency: 3 or more drinks per day Alcohol type: hard liquor Comment: Sitter Patient Tobacco Use Status: Former Tobacco user Substance Use Type: Marijuana service: No Physical Exam Vital Signs: Last Vital Signs Temp 97.9 F 07/21/25 08:38 Pulse 62 07/21/25 08:38 BP 130/90 H 07/21/25 08:38 Pulse Ox 97 07/21/25 08:38 Oxygen Delivery Method Room Air 07/21/25 08:38 BMI result Body Mass Index 24.7 Assessment & Plan Assessment & Plan (1) Right shoulder pain: Code(s): M25.511 - Pain in right shoulder Qualifiers: Chronicity: acute Qualified Code(s): M25.511 - Pain in right shoulder Plan - Assessment: Likely muscular strain/overuse injury with a component of radiculopathy contributing to right shoulder and upper extremity symptoms. - Plan: Discontinue meloxicam due to lack of efficacy and patient preference. Initiate ibuprofen 800 mg as needed per patient preference, up to every 8 hours, ensuring administration with food to minimize gastrointestinal side effects. Recommend rest, especially avoiding work activities that exacerbate symptoms. Advise warm compresses to relieve muscle tension. Patient instructed to monitor symptoms, with particular attention to progression or worsening. Medications: New ibuprofen 800 mg PO Q8H PRN 14 tabs 0RF pain Coding Level of Care Code Est Pt Level 3 (57741) Diagnoses Acute pain of right shoulder M25.511 Chronicity: acute
== END 2025-07-21 10:32 | disposition home or self-care (01) ==
PROVIDERS: Visit Provider Family Medicine
DX: M25.511 Pain in right shoulder (principal)
CPT/HCPCS: 99213

== ENCOUNTER 2025-07-26 10:33 | Outpatient (AMB) | payer OTHER, SELFPAY ==
[2025-07-26 10:43] VITALS: BP 112/64; PULSE 78; RESP 18; TEMP 36.3; O2SAT 97; BMI 25.0
--- NOTE | 2025-07-26 10:43 | MHC.PC.OV ---
Vital Signs 07/26/25 10:43 Height 5 ft 9 in Weight 169 lb 4 oz BMI 25.0 BP 112/64 Blood Pressure Location Lt brachial Position Sitting Respiration 18 Pulse 78 Pulse Source Pulse Oximeter Temp 97.3 F Temp Source Temporal Artery Scan Pulse Oximetry (%) 97 Oxygen Delivery Method Room Air Intake Visit Reasons: Request PE Seafood Clerk Required: No Accompanied by: Self / Same As Patient Allergies fish derived (FISH) Allergy (Severe, Verified 07/26/25 11:06) ANAPHYLAXIS sulfamethoxazole (From BACTRIM) Allergy (Severe, Verified 07/26/25 11:06) ANAPHYLAXIS trimethoprim (From BACTRIM) Allergy (Severe, Verified 07/26/25 11:06) ANAPHYLAXIS fish oil Allergy (Unknown, Verified 07/26/25 11:06) Unknown penicillin V Allergy (Unknown, Verified 07/26/25 11:06) Unknown Penicillins (PENICILLINS) Allergy (Unknown, Verified 07/26/25 11:06) ANAPHYLAXIS Sulfa (Sulfonamide Antibiotics) Allergy (Unknown, Verified 07/26/25 11:06) Unknown Medication List - Last Reconciled 07/26/25 by BOBO Gordon ibuprofen 800 mg PO Q8H PRN multivitamin 1 tab PO DAILY naltrexone 100 mg (2 x 50 mg) PO DAILY omeprazole 20 mg PO DAILY@0630 Tobacco use date assessed: 07/26/25 Dental Screening Dental Screen Date: 07/26/25 Did you have a dental visit in the last 12 months?: No Did you have a dental problem in the last 6 months where you did not have access to dental care?: No Was dental information given to patient?: No HPI Request PE HPI Details [facility] P[facility] [facility] [place] visit: OVER A YEAR AGO Last PE: over a year Specialist: Addiction medicine, OBGYN:n/a Past medical history: Anxiety Medications: Family HX: Problem: The patient is a 60-year-old male presenting to establish care and for a general health check-up, with specific concerns including difficulty building muscle, anxiety, a skin growth on the back, and a request for a medication refill. The patient is currently in treatment for alcoholism and is taking naltrexone, which he plans to start weaning off soon. He has a history of heroin addiction that was over 30 years ago. He has a significant history of seizures from alcohol withdrawal, which previously resulted in being placed in a medically induced coma for 30 days. He reports experiencing anxiety, particularly performance anxiety before work, and is interested in seeking help from a mental health professional. He expresses concern about not building muscle as he used to despite a physically demanding job and requests a testosterone level check. He notes fatigue but attributes it to his strenuous work. The patient has a history of colon cancer followed by the removal of precancerous polyps in subsequent colonoscopies and is now on a five-year surveillance schedule. He also has a history of gastroesophageal reflux, which is managed with omeprazole, and a past sphincterotomy. His surgical history also includes a full rotator cuff repair of the left shoulder and multiple spinal ablations for lower back pain. Dermatologically, he has a growth on his right lower back that he notes has been present for a couple of years and was previously treated with cream for ringworm with some improvement. He previously saw a painter and paperhanger apprentice for lesions on his head. He reports bilateral knee pain, for which he finds 800 mg Motrin effective, noting that meloxicam did not help. He uses supportive braces on his knees for work. He also mentions a history of tight IT bands that responded to physical therapy. The patient is an [employer] with a history of shrapnel injuries from his service in [place]. He has lost 73 pounds and has resultant excess skin around his midsection. left lower back small patch, skin colored. Reports treating it with antifungal and it improved some, but still bothersome. COUNTS INCLUDE 234 BEDS AT THE [facility] Medical History (Updated 07/27/25 @ 00:16 by BOBO Gordon) History of colon cancer Rotator cuff arthropathy of left shoulder Alcohol use disorder, severe, dependence History of heroin use GERD (gastroesophageal reflux disease) Alcohol use disorder Surgical History (Updated 07/26/25 @ 11:26 by BOBO Gordon) H/O rectal sphincterotomy Social History Household Members: Unknown / Unable to assess Housing: Unknown / Unable to assess Alcohol intake: current Alcohol intake frequency: 3 or more drinks per day Alcohol type: hard liquor Comment: Sitter Patient Tobacco Use Status: Former Tobacco user Substance Use Type: Marijuana service: No Cognitive needs: No Hearing needs: No Vision needs: Yes Questionnaire PHQ-9 Over the last 2 weeks, how often have you been bothered by any of the following problems? 1. Little interest or pleasure in doing things: not at all 2. Feeling down, depressed, or hopeless: not at all 3. Trouble falling or staying asleep, or sleeping too much: not at all 4. Feeling tired or having little energy: not at all 5. Poor appetite or overeating: not at all 6. Feeling bad about yourself - or that you are a failure or have let yourself or your family down: not at all 7. Trouble concentrating on things, such as reading the newspaper or watching television: not at all 8. Moving or speaking so slowly that other people could have noticed. Or the opposite - being so fidgety or restless that you have been moving around a lot more than usual: not at all 9. Thoughts that you would be better off or of hurting yourself in some way: not at all Total score: 0 Depression Screening Interpretation: Negative Depression Screening Done: Yes 12469 - PHQ-9 Billing: Yes Source: Developed by Drs. Adriano Schneider, Nia Santillan, Jovanny Davis and colleagues, with an educational emma from [employer]. Thrive Questionnaire Date Thrive assessed: 07/26/25 I am a: Patient What is your living situation today?: I have a steady place to live Within the past 12 months, did the food you bought not last and you didn't have the money to get more?: Never true Within the past 12 months, did you worry whether your food would run out before you got money to buy more?: Never true Do you have trouble paying for medicines?: No Do you have trouble getting transportation to medical appointments?: No Do you have trouble paying your heating and electricity bill?: No Do you have trouble taking care of your child, family member or friend?: No Do you have trouble with day-to-day activities such as bathing, preparing meals, shopping, managing finances, etc.?: No Are you currently unemployed and looking for a job?: No Are you interested in more education?: No Please select the resources that you would like help with: None Currently or been in a relationship where the following occur: No concerns reported THRIVE Score: 0 AUDIT C Alcohol Use Questionnaire (AUDIT-C) 1. How often do you have a drink containing alcohol?: Never Total Score: 0 MEG-7 AMB Questionnaire MEG-7 Date MEG - 7 assessed: 07/26/25 Feeling nervous, anxious, or on edge: 0 = Not at all Not being able to stop or control worryin = Not at all Worrying too much about different things: 0 = Not at all Trouble relaxin = Not at all Being so restless that it is hard to sit still: 0 = Not at all Becoming easily annoyed or irritable: 0 = Not at all Feeling afraid as if something awful might happen: 0 = Not at all Total MEG-7 score (0-4 normal; 5-9 mild; 10-14 moderate; 15-21 severe): 0 Source: Developed by Drs. Adriano Schneider, Nia Santillan, Jovanny Davis and colleagues, with an educational emma from [employer]. MEG-7 Assessment Billing MEG-7 Assessment Tool: MEG-7 Assessment 77004 Review of Systems Const Reports fatigue (Attributed to job physical demand), Denies headache(s) and Reports snoring (occasional) Eyes Denies loss of vision ENT Denies vertigo, Reports dizziness (Upon rising quickly), Denies headache(s) and Denies sore throat Card Denies chest pain, Denies leg edema and Denies lightheadedness Resp Denies cough, Denies hemoptysis, Reports snoring (occasional) and Denies wheezing GI Denies abdominal pain, Denies melena, Denies constipation, Reports heartburn (Depends on what he eats), Denies diarrhea and Denies vomiting Denies dysuria, Denies urinary frequency and Denies urinary urgency Musc Reports arthralgias (Bilateral knees), Denies joint swelling, Denies numbness and Denies tingling Skin/Breast Reports lesions (Right lower back papular lesion) and Reports other (Loose skin around mid section associated with weight loss) Neuro Denies Abnormal speech present, Denies behavioral changes, Denies vertigo, Reports dizziness (Upon rising quickly), Denies headache(s), Denies loss of vision, Denies memory loss, Denies numbness and Denies tingling Psych Denies anxiety, Denies behavioral changes, Denies depression, Denies memory loss and Denies panic attacks Endo Reports fatigue (Attributed to job physical demand) César/Lymph Denies easy bleeding and Denies easy bruising Aller/Immun Denies wheezing Physical exam (Primary Care) Vital Signs: Last Vital Signs Temp 97.3 F 07/26/25 10:43 Pulse 78 07/26/25 10:43 Resp 18 07/26/25 10:43 BP 112/64 07/26/25 10:43 Pulse Ox 97 07/26/25 10:43 Oxygen Delivery Method Room Air 07/26/25 10:43 BMI result Body Mass Index 25.0 Tobacco/Smoking Status: Tobacco use Status Tobacco use date assessed 07/26/25 07/26/25 10:50 Patient Tobacco Use Status Former Tobacco user 07/26/25 10:50 e-Cigarette/Vaping Use 07/26/25 10:50 PHQ-9: PHQ-9 Score PHQ-9: Total score 0 07/26/25 11:13 Depression Screening Interpretation: Negative Thrive Assessment: Date of Thrive Assessment Date Thrive assessed 07/26/25 07/26/25 10:50 Currently or been in a relationship where the following occur: No concerns reported Const General: healthy appearing, no acute distress, alert and awake Nutritional Appearance: well nourished Orientation/consciousness: oriented to person, oriented to place and oriented to time HENMT Ears: TM's normal bilaterally General nose exam: Normal nasal mucous membranes and turbinates present Eyes Conjunctivae: conjunctivae normal Sclerae: sclerae normal Pupils: Equal, round and reactive pupils present Neck Neck: Yes no lymphadenopathy and Yes no JVD Thyroid: Thyroid normal Carotids: no bruits Resp Effort & Inspection: normal respiratory effort and not tachypneic Auscultation: no crackles, no rales, no rhonchi and no wheezes Cardio Rate: regular rate Rhythm: regular rhythm Heart sounds: no murmurs and normal S1 and S2 GI Palpation (GI): Soft to palpation, nontender, no hepatomegaly and no splenomegaly Auscultation: normal bowel sounds General: Yes no CVA tenderness Back/Spine/Pelvis Back: no CVA tenderness Skin General skin exam: dry skin Lesions: lesion noted (Small, flesh colored, papular lesion) Neuro General: oriented to person, oriented to place and oriented to time Cranial nerves: Yes Equal, round and reactive pupils present Speech: No Abnormal speech present Gait exam (Neuro): Normal gait present Motor exam (neuro): no tremor noted Extrem Right upper extremity: full ROM Left upper extremity: full ROM Right lower extremity: full ROM and knee Details: no tenderness and no swelling; no edema Left lower extremity: full ROM and knee Details: no tenderness and no swelling; no edema Psych Mental Status: mental status grossly normal Speech and movement: Normal speech and movement present Affect: normal affect Attitude: cooperative Thought process: Normal thought process present Coding Level of Care Code New Pt Level 4 (32977) Diagnoses Alcohol use disorder in remission F10.91 Anxiety F41.9 Excessive skin and subcutaneous tissue L98.7 Gastroesophageal reflux disease, unspecified whether esophagitis present K21.9 Esophagitis presence: esophagitis presence not specified Fatigue, unspecified type R53.83 Fatigue type: unspecified Skin lesion of back L98.9 Chronic pain of both knees M25.561; M25.562; G89.29 Chronicity: chronic Dizziness R42 Additional Codes PHQ-9 - 20437 - PHQ-9 Billing: Yes ([id number]) MEG-7 Assessment Billing - MEG-7 Assessment Tool: MEG-7 Assessment 98485 ([id number]) Time Spent (min) 39 Assessment & Plan Assessment & Plan (1) Alcohol use disorder in remission: Code(s): F10.91 - Alcohol use, unspecified, in remission Category: Medical Plan: The patient is currently in treatment for alcoholism and is taking naltrexone. He has an upcoming appointment with his physical education specialist on August 22 to begin the process of weaning off the medication. (2) Anxiety: Code(s): F41.9 - Anxiety disorder, unspecified Category: Medical Plan: The patient reports that he gets anxious before going to work because he is eager to do a good job. However, he could waste 30 minutes worrying about losing his keys while they are in plain site on the table. Will refer the patient to psychosocial for an indepth equaluation. (3) Excessive skin and subcutaneous tissue: Code(s): L98.7 - Excessive and redundant skin and subcutaneous tissue Category: Medical Plan: The patient has a significant amount of excess abdominal skin following a 73-pound weight loss and inquired about surgical removal and donation. He was informed that removal would likely require surgical consult. He would like to hold off on this for now. (4) GERD (gastroesophageal reflux disease): Code(s): K21.9 - Gastro-esophageal reflux disease without esophagitis Category: Medical Qualifiers: Esophagitis presence: esophagitis presence not specified Qualified Code(s): K21.9 - Gastro-esophageal reflux disease without esophagitis Plan: The patient manages his acid reflux effectively with omeprazole. He was counseled on proper administration, advising him to take the medication with water at least 30 minutes before breakfast and to avoid acidic beverages like orange juice with it. Reinforced dietary restriction. (5) Fatigue: Code(s): R53.83 - Other fatigue Category: Medical Qualifiers: Fatigue type: unspecified Qualified Code(s): R53.83 - Other fatigue Plan: The patient reports feeling more tired than usual. Stating that he has an extremely physical job yet still he cannot gain any muscles. He would like to get his testosterone checked. Labs ordered to further evaluate. (6) Skin lesion of back: Code(s): L98.9 - Disorder of the skin and subcutaneous tissue, unspecified Category: Medical Plan: The patient has a skin growth on his back that he has had for a few years and was previously treated with cream for a suspected fungal infection with some improvement. A referral will be placed to dermatology for further evaluation and an annual skin check. (7) Bilateral knee pain: Code(s): M25.561 - Pain in right knee; M25.562 - Pain in left knee Category: Medical Qualifiers: Chronicity: chronic Qualified Code(s): M25.561 - Pain in right knee; M25.562 - Pain in left knee; G89.29 - Other chronic pain Plan: The patient reports bilateral knee pain, which is well-managed with 800 mg Motrin, and notes that meloxicam was ineffective. A refill for Motrin will be ordered and instructed the patient to only used absolutely needed due to the adverse effects on the Kidneys. (8) Dizziness: Code(s): R42 - Dizziness and giddiness Category: Medical Plan: Encouraged the patient to rise slowly and eliminated or limit the movements that caused dizziness. Labs ordered to further evaluated. The patient denies any other associated symptoms. However, he did explained that this happens when he rises quickly. Encouraged the patient to assure adequate hydration. Orders: Orders Complete Blood Count Auto Diff 07/26/25 F10.20 - Alcohol dependence, uncomplicated, - Alcohol use, unspecified, in remission, Z00.00 - Encounter for general adult medical examination without abnormal findings Lipid Panel 07/26/250.20 - Alcohol dependence, uncomplicated, - Alcohol use, unspecified, in remission, Z00.00 - Encounter for general adult medical examination without abnormal findings UA CC w/rflx Micro + Cult 07/26/25. - Alcohol dependence, uncomplicated, - Alcohol use, unspecified, in remission, Z00.00 - Encounter for general adult medical examination without abnormal findings Comprehensive Revillo. Panel Fast 07/26/25. - Alcohol dependence, uncomplicated, - Alcohol use, unspecified, in remission, Z00.00 - Encounter for general adult medical examination without abnormal findings TSH reflex Free T4 07/26/250. - Alcohol dependence, uncomplicated, - Alcohol use, unspecified, in remission, Z00.00 - Encounter for general adult medical examination without abnormal findings Vitamin D 25-OH Total 07/26/250. - Alcohol dependence, uncomplicated, - Alcohol use, unspecified, in remission, Z00.00 - Encounter for general adult medical examination without abnormal findings PSA,Total (Free>4and<10) 07/26/250. - Alcohol dependence, uncomplicated, - Alcohol use, unspecified, in remission, Z00.00 - Encounter for general adult medical examination without abnormal findings Testosterone, Free/Total 07/26/250. - Alcohol dependence, uncomplicated, - Alcohol use, unspecified, in remission, Z00.00 - Encounter for general adult medical examination without abnormal findings Referrals Dermatology Referral L98.9 - Disorder of the skin and subcutaneous tissue, unspecified Psychiatry Referral F41.9 - Anxiety disorder, unspecified Medications: Refilled ibuprofen 800 mg PO Q8H PRN 30 tabs 0RF pain
--- OUTSIDE RECORDS SUMMARY | 2025-07-26 13:07 | XMS_ITS | Clinical Summary ---
Author Organization [facility] Address [address] [address] Phone Care Team Providers Care Wound Care Coordinator Name Role Phone Feliciano Coon MD Primary [...] DEPRESSION SCREENING 1978 SMOKING Hx and SMOKELESS TOBACCO SCREENING 1979 HEPATITIS C SCREENING 1984 HIV ONE-TIME SCREENING (18-65 YEARS) 1984 COLOGUARD 2011 COLONOSCOPY 2011 COLORECTAL CANCER SCREENING 2011 FIT TEST 2011 FOBT 2011 SIGMOIDOSCOPY 2011 VIRTUAL COLONOSCOPY 2011 Adult Td,Tdap Booster 02/17/2016 02/16/2006 PNEUMOCOCCAL VACCINES (50+ years) (2 of 2 - PCV) 2016 07/16/2009 ZOSTER VACCINES (1 of 2) 2016 INFLUENZA VACCINE (#1) 2025 , 07/04/2019, 07/20/2018, Additional history exists COVID-19 VACCINE (1 - 2024- season) 2025 RSV VACCINE (1 - 1-dose 75+ series) 2041 HEPATITIS A VACCINES Aged Out No long [...] topic Medical Devices Not [place] [address] [place] [address] [facility] [facility] [place] [address] [place] [address] [facility] [employer] Care Teams Wound Care Coordinator Relationship Specialty Start Date End Date Feliciano Coon MD [address] [place] [id number] PCP - General Family Medicine 04/24/23 Adrian Fajardo MD [address] [place] [address] [phone] [email or web address] Family [email or web address] 04/24/23 Additional Source Comments The information contained in this document represents components of the legal health record. It is not the complete legal health record.[facility]
--- OUTSIDE RECORDS SUMMARY | 2025-07-26 13:07 | XMS_ITS | Encounter Summary ---
Author Organization [facility] Address [address] [facility] [address] [place] [phone] Phone Care Team Providers Care Trimming Assembler Name Role Phone Feliciano Coon MD Primary Care Provider + Adrian Fajardo MD Unavailable Encounter Details Date Type Department Care Team (Late st Contact Info) Description 04/25/2023 Procedure Pass [facility], Ct Scan - [facility] [address] [place] [address] Social History Tobacco Use Types Packs/Day Years [...] 12:03 AM EDT Janay June RN * [place] Suicide Severity Rating Scale (Screener/Recent Self-Report) [...] documented as of this encounter Care Teams Trimming Assembler Relationship Specialty Start Date End Date Feliciano Coon MD [address] [place] [id number] PCP - General Family Medicine 04/24/23 Adrian Fajardo MD [address] [place] [address] [phone] [email or web address] Family [email or web address] 04/24/23 documented as of this encounter Additional Source Comments The information contained in this document represents components of the legal health record. It is not the complete legal health record.[facility]
== END 2025-07-26 11:44 | disposition home or self-care (01) ==
DX: F10.91 Alcohol use, unspecified, in remission (principal); F41.9 Anxiety disorder, unspecified; L98.7 Excessive and redundant skin and subcutaneous tissue; K21.9 Gastro-esophageal reflux disease without esophagitis; R53.83 Other fatigue; L98.9 Disorder of the skin and subcutaneous tissue, unspecified; M25.561 Pain in right knee; M25.562 Pain in left knee; G89.29 Other chronic pain; R42 Dizziness and giddiness

== ENCOUNTER → 2025-07-26 10:33 | Outpatient (BNVA) | payer OTHER, SELFPAY | DX: M25.561 Pain in right knee (principal); M25.562 Pain in left knee; G89.29 Other chronic pain; F41.9 Anxiety disorder, unspecified; F10.21 Alcohol dependence, in remission; K21.9 Gastro-esophageal reflux disease without esophagitis; R53.83 Other fatigue; L98.9 Disorder of the skin and subcutaneous tissue, unspecified; R42 Dizziness and giddiness; Z79.899 Other long term (current) drug therapy | CPT/HCPCS: 96127 ==

== ENCOUNTER 2025-08-01 08:47 | Outpatient (REF) | payer OTHER, SELFPAY ==
[2025-08-01 09:06] LABS: MANUAL DIFF FLAG NO
--- OUTSIDE RECORDS SUMMARY | 2025-08-01 09:16 | XMS_ITS | Encounter Summary ---
Author Organization [facility] Address [address] [facility] [address] [place] [address] Phone Care Team Providers Care Participant Administrator Name Role Phone Feliciano Coon MD Primary Care Provider + Adrian Fajardo MD Unavailable Encounter Details Date Type Department Care Team (Late st Contact Info) Description 04/25/2023 Procedure Pass [facility], Ct Scan - [facility] [address] [place] [address] Social History Tobacco Use Types Packs/Day Years [...] 12:03 AM EDT Janay June RN * [place] Suicide Severity Rating Scale (Screener/Recent Self-Report) Question [...] documented as of this encounter Care Teams Participant Administrator Relationship Specialty Start Date End Date Feliciano Coon MD [address] [place] [id number] PCP - General Family Medicine 04/24/23 Adrian Fajardo MD [address] [place] [address] [phone] [email or web address] Family Medicine 04/24/23 documented as of this encounter Additional Source Comments The information contained in this document represents components of the legal health record. It is not the complete legal health record.[facility]
--- OUTSIDE RECORDS SUMMARY | 2025-08-01 09:16 | XMS_ITS | Clinical Summary ---
Author Organization [facility] Address [address] [address] Phone Care Team Providers Care Civil Service Worker Name Role Phone Feliciano Coon MD Primary [...] topic Medical Devices Not on [place] [address] [place] [address] [facility]CO [facility] [place] [address] [place] [address] ACO [facility] [employer] Care Teams Civil Service Worker Relationship Specialty Start Date End Date Feliciano Coon MD [address] [place] [id number] PCP - General Family Medicine 04/24/23 Adrian Fajardo MD [address] [place] [address] [phone] [email or web address] Family Medicine 04/24/23 Additional Source Comments The information contained in this document represents components of the legal health record. It is not the complete legal health record.[facility]
[2025-08-01 09:51] LABS: Hematocrit 40.6 % (42.0-52.0); Hemoglobin 13.1 g/dl (14.0-18.0); Imm Gran Abs Auto 0.02 X10*3/uL (0.00-0.03); Imm Gran Pct Auto 0.3 % (0.0-0.4); Lymphocytes Absolute Auto 1.5 X10*3/uL (1.2-4.9); Mean Corpuscular HGB Conc 32.3 g/dl (31.0-36.0); Mean Corpuscular Hemoglobin 28.9 pg (27.0-33.0); Mean Corpuscular Volume 89.6 fL (80.0-98.0); NRBC Abs Auto 0.000 X10*3/uL (0.0-0.012); NRBC Pct Auto 0.0 /100WBC (0.0-0.2); Platelet Count 333 X10*3/uL (160-400); Red Blood Count 4.53 X10*6/uL (4.60-5.80); White Blood Count 7.0 X10*3/uL (4.8-10.8)
[2025-08-01 10:53] LABS: Alanine Aminotransferase 15 U/L (0-40); Albumin Level 4.7 g/dL (3.5-5.0); Alkaline Phosphatase 66 U/L (39-117); Anion Gap 12 (12-20); Aspartate Amino Transferase 24 U/L (5-37); Blood Urea Nitrogen 14 mg/dL (9-16); Calcium 9.6 mg/dL (8.4-10.2); Carbon Dioxide 29 mmol/L (22-29); Chloride 103 mmol/L (96-108); Cholesterol 171 mg/dL (<200); Estimated Glomerular Filt Rate > 60; HDL Cholesterol 57 mg/dL (>40); Potassium 3.7 mmol/L (3.3-5.1); Sodium 140 mmol/L (135-145); Total Protein 7.6 g/dL (6.5-8.0); Triglycerides 63 mg/dL (<150)
[2025-08-01 11:38] LABS: PSA,Total (Free>4and<10) 0.51 ng/mL (0.00-4.00)
[2025-08-06 11:09] LABS: Testosterone, Free 54.1 pg/mL (35.0-155.0)
== END 2025-08-01 08:48 | disposition home or self-care (01) ==
LOC: HO.LAB 08:47
DX: Z00.00 Encounter for general adult medical examination without abnormal findings (principal); Z12.5 Encounter for screening for malignant neoplasm of prostate; Z13.29 Encounter for screening for other suspected endocrine disorder; F10.20 Alcohol dependence, uncomplicated
CPT/HCPCS: 36415; 80053; 80061; 82306; 84153; 84402; 84403; 84443; 85025

== ENCOUNTER 2025-08-15 08:45 | Outpatient (REF) | payer OTHER, SELFPAY ==
[2025-08-15 09:50] LABS: Appearance Urine Clear; Glucose Urine UA Negative (Negative); PH 7.5 (5.0-9.0); Specific Gravity - Urine 1.020 (1.005-1.025)
== END 2025-08-15 08:46 | disposition home or self-care (01) ==
LOC: HO.LAB 08:45
DX: Z00.00 Encounter for general adult medical examination without abnormal findings (principal); F10.20 Alcohol dependence, uncomplicated
CPT/HCPCS: 81003

== ENCOUNTER 2025-08-22 09:47 | Outpatient (AMB) | payer OTHER, SELFPAY ==
--- NOTE | 2025-08-22 10:00 | A.OFFVIS_ITS ---
Vital Signs 08/22/25 10:01 BP 110/70 Pulse 78 Pulse Oximetry (%) 98 Intake Visit Reasons: MAT Allergies fish derived (FISH) Allergy (Severe, Verified 08/22/25 10:01) ANAPHYLAXIS sulfamethoxazole (From BACTRIM) Allergy (Severe, Verified 08/22/25 10:01) ANAPHYLAXIS trimethoprim (From BACTRIM) Allergy (Severe, Verified 08/22/25 10:01) ANAPHYLAXIS fish oil Allergy (Unknown, Verified 08/22/25 10:01) Unknown penicillin V Allergy (Unknown, Verified 08/22/25 10:01) Unknown Penicillins (PENICILLINS) Allergy (Unknown, Verified 08/22/25 10:01) ANAPHYLAXIS Sulfa (Sulfonamide Antibiotics) Allergy (Unknown, Verified 08/22/25 10:01) Unknown Medication List - Last Reconciled 08/22/25 by MARCELL Dao meloxicam 15 mg PO DAILY multivitamin 1 tab PO DAILY omeprazole 20 mg PO DAILY@0630 HPI Comments Details: A 60-year-old male presents for a follow-up visit r/t AUD in sustained remission with naltrexone 100 mg daily. Denies use of opiates, alcohol, and other substances. 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 Engages in conversation re: Looking forward to celebrating 1 year sobriety on August 26 and is ready to decrease the naltrexone from 100 mg to 50 mg daily. Reports connected to mental health services and doing well. COUNT INCLUDES [facility] Medical History History of colon cancer Rotator cuff arthropathy of left shoulder Alcohol use disorder, severe, dependence History of heroin use GERD (gastroesophageal reflux disease) Alcohol use disorder Surgical History H/O rectal sphincterotomy Social History Household Members: Unknown / Unable to assess Housing: Unknown / Unable to assess Alcohol intake: current Alcohol intake frequency: 3 or more drinks per day Alcohol type: hard liquor Comment: Sitter Patient Tobacco Use Status: Former Tobacco user Substance Use Type: Marijuana service: No Cognitive needs: No Hearing needs: No Vision needs: Yes Review of Systems Const All systems reviewed & are unremarkable except as noted in HPI and below Physical Exam Vital Signs: Last Vital Signs Pulse 78 08/22/25 10:01 BP 110/70 08/22/25 10:01 Pulse Ox 98 08/22/25 10:01 Const General: cooperative Assessment & Plan Assessment & Plan (1) Alcohol use disorder in remission: Code(s): F10.91 - Alcohol use, unspecified, in remission Category: Medical Plan The plan of care is to decrease the naltrexone from 100 mg to 50 mg daily (per patient request), continue with multivitamin and follow-up in 3 months or sooner if needed. Medications: New naltrexone Take 1 tablet daily 50 mg PO DAILY 30 tabs 3RF 30 days Patient Instructions: - Start on the decrease dose of naltrexone as prescribed. - Continue multivitamin as prescribed by PCP. - Follow-up in 3 months or sooner if needed. - Call with questions, concerns, or to report side effects/new onset of symptoms to CCC. - The patient verbalized understanding and agreed with plan of care. Coding Level of Care Code Est Pt Level 3 (40409) Diagnoses Alcohol use disorder in remission F10.91
[2025-08-22 10:01] VITALS: BP 110/70; PULSE 78; O2SAT 98
--- OUTSIDE RECORDS SUMMARY | 2025-08-22 11:29 | XMS_ITS | Encounter Summary ---
Author Organization Located Within [facility] Address [address] [facility] [address] [place] [phone] Phone Care Team Providers Care Telephoner Name Role Phone Feliciano Coon MD Primary Care Provider + Adrian Fajardo MD Unavailable Encounter Details Date Type Department Care Team (Late st Contact Info) Description 04/25/2023 Procedure Pass [facility], Ct Scan - [facility] [address] [place] [address] Social History Tobacco Use Types Packs/Day Years [...] 12:03 AM EDT Janay June RN * [place] Suicide Severity Rating Scale (Screener/Recent Self-Report) Question [...] documented as of this encounter Care Teams Telephoner Relationship Specialty Start Date End Date Feliciano Coon MD [address] [place] [id number] PCP - General Family Medicine 04/24/23 Adrian Fajardo MD [address] [place] [address] [phone] [email or web address] Medicine 04/24/23 documented as of this encounter Additional Source Comments The information contained in this document represents components of the legal health record. It is not the complete legal health record.[facility]
--- OUTSIDE RECORDS SUMMARY | 2025-08-22 11:29 | XMS_ITS | Clinical Summary ---
Author Organization [facility] Address [address] [address] Phone Care Team Providers Care Claims Representative Name Role Phone Feliciano Coon MD Primary [...] topic Medical Devices Not on file [place] [address] [facility] [place] [address] [address] ACO [facility] [employer] A[employer] Care Teams Claims Representative Relationship Specialty Start Date End Date Feliciano Coon MD [address] [place] [phone] PCP - General Family Medicine 04/24/23 Adrian Fajardo MD [address] [place] [address] [phone] [email or web address] 04/24/23 Additional Source Comments The information contained in this document represents components of the legal health record. It is not the complete legal health record.[facility]
== END 2025-08-22 10:50 | disposition home or self-care (01) ==
LOC: HO.HCC 09:47
PROVIDERS: Visit Provider Clinical Nurse Specialist Psychiatric/Mental Health
DX: F10.91 Alcohol use, unspecified, in remission (principal)
CPT/HCPCS: 99213

== ENCOUNTER 2025-09-26 15:19 | Outpatient (AMB) | payer OTHER, SELFPAY ==
[2025-09-26 15:48] VITALS: BP 126/68; PULSE 63; RESP 18; O2SAT 96; BMI 24.8
--- NOTE | 2025-09-26 15:48 | MHC.PC.OV ---
Vital Signs 09/26/25 15:48 Height 5 ft 9 in Weight 168 lb 4 oz BMI 24.8 BP 126/68 Blood Pressure Location Lt brachial Position Sitting Respiration 18 Pulse 63 Pulse Oximetry (%) 96 Intake Visit Reasons: follow up Special Needs Nanny Required: No Accompanied by: Self / Same As Patient Allergies fish derived (FISH) Allergy (Severe, Verified 09/26/25 15:58) ANAPHYLAXIS sulfamethoxazole (From BACTRIM) Allergy (Severe, Verified 09/26/25 15:58) ANAPHYLAXIS trimethoprim (From BACTRIM) Allergy (Severe, Verified 09/26/25 15:58) ANAPHYLAXIS fish oil Allergy (Unknown, Verified 09/26/25 15:58) Unknown penicillin V Allergy (Unknown, Verified 09/26/25 15:58) Unknown Penicillins (PENICILLINS) Allergy (Unknown, Verified 09/26/25 15:58) ANAPHYLAXIS Sulfa (Sulfonamide Antibiotics) Allergy (Unknown, Verified 09/26/25 15:58) Unknown Medication List - Last Reconciled 09/26/25 by BOBO Gordon meloxicam 15 mg PO DAILY multivitamin 1 tab PO DAILY naltrexone 50 mg PO DAILY 30 days omeprazole 20 mg PO DAILY@0630 Tobacco use date assessed: 09/26/25 Dental Screening Dental Screen Date: 09/26/25 Did you have a dental visit in the last 12 months?: No Did you have a dental problem in the last 6 months where you did not have access to dental care?: No Was dental information given to patient?: No HPI follow up HPI Details The patient is a 60-year-old male with dizziness, fatigue, GERD, anxiety, and alcohol disorder follow up Recent labs to be reviewed Patient denies chest pain, shortness of breath, heart palpitation He states that his dizziness is only when he gets up fast Denies abdominal pain or any change in bowel habits Denies any urinary symptoms He states that he started weaning off his naltrexone He reports that he is doing well in general and has been given a lot of speeches about his substance abuse He is interested in getting the extra skin on his abdomen removed Dentist: reports that he has to make an appt Eye: Snellen: Right: Left: Corrected vision: STI screening: Colonoscopy: middle 3 years into the 5 years, Dr. Richie Mancia Smer: PHQ-9: Flu: up to date COVID: up to date Tdap:2023 Diet: reular Exercise: PFSH Medical History History of colon cancer Rotator cuff arthropathy of left shoulder Alcohol use disorder, severe, dependence History of heroin use GERD (gastroesophageal reflux disease) Alcohol use disorder Surgical History H/O rectal sphincterotomy Social History Household Members: Unknown / Unable to assess Housing: Unknown / Unable to assess Alcohol intake: current Alcohol intake frequency: 3 or more drinks per day Alcohol type: hard liquor Comment: Sitter Patient Tobacco Use Status: Former Tobacco user Substance Use Type: Marijuana service: No Cognitive needs: No Hearing needs: No Vision needs: Yes Questionnaire PHQ-9 Over the last 2 weeks, how often have you been bothered by any of the following problems? Depression Screening Interpretation: Negative Depression Screening Done: Yes Source: Developed by Drs. Adriano Schneider, Nia Santillan, Jovanny Davis and colleagues, with an educational emma from [employer]. Thrive Questionnaire Date Thrive assessed: 09/26/25 What is your living situation today?: I have a steady place to live Within the past 12 months, did the food you bought not last and you didn't have the money to get more?: Never true Within the past 12 months, did you worry whether your food would run out before you got money to buy more?: Never true Do you have trouble paying for medicines?: No Do you have trouble getting transportation to medical appointments?: No Do you have trouble paying your heating and electricity bill?: No Do you have trouble taking care of your child, family member or friend?: No Do you have trouble with day-to-day activities such as bathing, preparing meals, shopping, managing finances, etc.?: No Are you currently unemployed and looking for a job?: No Are you interested in more education?: No Currently or been in a relationship where the following occur: No concerns reported THRIVE Score: 0 MEG-7 AMB Questionnaire MEG-7 Date MEG - 7 assessed: 07/26/25 Source: Developed by Nia Augustine B[employer]W. Tyrell, Jovanny Davis and colleagues, with an educational emma from [employer]. Review of Systems Const Reports fatigue (Attributed to job physical demand), Denies headache(s) and Reports snoring (occasional) Eyes Denies loss of vision ENT Denies vertigo, Reports dizziness (Upon rising quickly), Denies headache(s) and Denies sore throat Card Denies chest pain, Denies leg edema and Denies lightheadedness Resp Denies cough, Denies hemoptysis, Reports snoring (occasional) and Denies wheezing GI Denies abdominal pain, Denies melena, Denies constipation, Reports heartburn (Depends on what he eats), Denies diarrhea and Denies vomiting Denies dysuria, Denies urinary frequency and Denies urinary urgency Musc Reports arthralgias (Bilateral knees), Denies joint swelling, Denies numbness and Denies tingling Skin/Breast Reports lesions (Right lower back papular lesion) and Reports other (Loose skin around mid section associated with weight loss) Neuro Denies Abnormal speech present, Denies behavioral changes, Denies vertigo, Reports dizziness (Upon rising quickly), Denies headache(s), Denies loss of vision, Denies memory loss, Denies numbness and Denies tingling Psych Denies anxiety, Denies behavioral changes, Denies depression, Denies memory loss and Denies panic attacks Endo Reports fatigue (Attributed to job physical demand) César/Lymph Denies easy bleeding and Denies easy bruising Aller/Immun Denies wheezing Physical exam (Primary Care) Vital Signs: Last Vital Signs Pulse 63 09/26/25 15:48 Resp 18 09/26/25 15:48 BP 126/68 09/26/25 15:48 Pulse Ox 96 09/26/25 15:48 BMI result Body Mass Index 24.8 Tobacco/Smoking Status: Tobacco use Status Tobacco use date assessed 09/26/25 09/26/25 15:53 Patient Tobacco Use Status Former Tobacco user 09/26/25 15:53 Depression Screening Interpretation: Negative Thrive Assessment: Date of Thrive Assessment Date Thrive assessed 09/26/25 09/26/25 15:53 Currently or been in a relationship where the following occur: No concerns reported Const General: healthy appearing, no acute distress, alert and awake Nutritional Appearance: well nourished Orientation/consciousness: oriented to person, oriented to place and oriented to time HENMT Ears: TM's normal bilaterally General nose exam: Normal nasal mucous membranes and turbinates present Eyes Conjunctivae: conjunctivae normal Sclerae: sclerae normal Pupils: Equal, round and reactive pupils present Neck Neck: Yes no lymphadenopathy and Yes no JVD Thyroid: Thyroid normal Carotids: no bruits Resp Effort & Inspection: normal respiratory effort and not tachypneic Auscultation: no crackles, no rales, no rhonchi and no wheezes Cardio Rate: regular rate Rhythm: regular rhythm Heart sounds: no murmurs and normal S1 and S2 GI Palpation (GI): Soft to palpation, nontender, no hepatomegaly and no splenomegaly Auscultation: normal bowel sounds General: Yes no CVA tenderness Back/Spine/Pelvis Back: no CVA tenderness Skin General skin exam: dry skin Lesions: lesion noted (Small, flesh colored, papular lesion) Neuro General: oriented to person, oriented to place and oriented to time Cranial nerves: Yes Equal, round and reactive pupils present Speech: No Abnormal speech present Gait exam (Neuro): Normal gait present Motor exam (neuro): no tremor noted Extrem Right upper extremity: full ROM Left upper extremity: full ROM Right lower extremity: full ROM and knee Details: no tenderness and no swelling; no edema Left lower extremity: full ROM and knee Details: no tenderness and no swelling; no edema Psych Mental Status: mental status grossly normal Speech and movement: Normal speech and movement present Affect: normal affect Attitude: cooperative Thought process: Normal thought process present Results Reviewed Results Reviewed: Laboratory Tests 08/01/25 08/15/25 09:05 08:51 WBC 7.0 RBC 4.53 L Hgb 13.1 L Hct 40.6 L MCV 89.6 MCH 28.9 MCHC 32.3 RDW 12.3 Plt Count 333 Sodium 140 Potassium 3.7 Chloride 103 Carbon Dioxide 29 Anion Gap 12 BUN 14 Creatinine 0.73 Estimated GFR > 60 Fasting Glucose 85 Calcium 9.6 Total Bilirubin 0.6 AST 24 ALT 15 Alkaline Phosphatase 66 Total Protein 7.6 Albumin 4.7 Triglycerides 63 Cholesterol 171 LDL Cholesterol, Calc 102 H HDL Cholesterol 57 Total PSA 0.51 25-OH Vitamin D Total 35.3 TSH 0.77 Total Testosterone 455 Fr Testosterone Dialys 54.1 Urine Color Yellow Urine Appearance Clear Urine pH 7.5 Ur Specific [place] 1.020 Urine Protein Negative Urine Glucose (UA) Negative Urine Ketones Negative Urine Blood Negative Urine Nitrite Negative Ur Leukocyte Esterase Negative Coding Level of Care Code Est Pt Level 4 (57050) Diagnoses Alcohol use disorder in remission F10.91 Anxiety F41.9 Excessive skin and subcutaneous tissue L98.7 Gastroesophageal reflux disease, unspecified whether esophagitis present K21.9 Esophagitis presence: esophagitis presence not specified Fatigue, unspecified type R53.83 Fatigue type: unspecified Skin lesion of back L98.9 Chronic pain of both knees M25.561; M25.562; G89.29 Chronicity: chronic Dizziness R42 Anemia, unspecified type D64.9 Anemia type: unspecified type Time Spent (min) 35 Assessment & Plan Assessment & Plan (1) Alcohol use disorder in remission: Code(s): F10.91 - Alcohol use, unspecified, in remission Category: Medical Plan: The patient is currently in treatment for alcoholism and is taking naltrexone. He was seen by addictive medicine on August 22 and started the process of weaning off this medication. (2) Anxiety: Code(s): F41.9 - Anxiety disorder, unspecified Category: Medical Plan: The patient reports that he gets anxious before going to work because he is eager to do a good job. However, he could waste 30 minutes worrying about losing his keys while they are in plain site on the table. Will refer the patient to psychosocial for an indepth equaluation. (3) Excessive skin and subcutaneous tissue: Code(s): L98.7 - Excessive and redundant skin and subcutaneous tissue Category: Medical Plan: The patient has a significant amount of excess abdominal skin following a 73-pound weight loss and inquired about surgical removal and donation. He was informed that removal would likely require surgical consult. Initially, the patient wanted to hold off but now he would like to proceed with getting evaluated. Referral placed (4) GERD (gastroesophageal reflux disease): Code(s): K21.9 - Gastro-esophageal reflux disease without esophagitis Category: Medical Qualifiers: Esophagitis presence: esophagitis presence not specified Qualified Code(s): K21.9 - Gastro-esophageal reflux disease without esophagitis Plan: The patient manages his acid reflux effectively with omeprazole. He was counseled on proper administration, advising him to take the medication with water at least 30 minutes before breakfast and to avoid acidic beverages like orange juice with it. Reinforced dietary restriction. (5) Fatigue: Code(s): R53.83 - Other fatigue Category: Medical Qualifiers: Fatigue type: unspecified Qualified Code(s): R53.83 - Other fatigue Plan: The patient reports feeling more tired than usual. Stating that he has an extremely physical job yet still he cannot gain any muscles. The patient labs are within normal levels, including his testosterone. He was encouraged to start exercising and target specific muscle groups. (6) Skin lesion of back: Code(s): L98.9 - Disorder of the skin and subcutaneous tissue, unspecified Category: Medical Plan: The patient has a skin growth on his back that he has had for a few years and was previously treated with cream for a suspected fungal infection with some improvement. He was referred to dermatology, pending evaluation (7) Bilateral knee pain: Code(s): M25.561 - Pain in right knee; M25.562 - Pain in left knee Category: Medical Qualifiers: Chronicity: chronic Qualified Code(s): M25.561 - Pain in right knee; M25.562 - Pain in left knee; G89.29 - Other chronic pain Plan: The patient reports bilateral knee pain, which is well-managed with 800 mg Motrin, and notes that meloxicam was ineffective. A refill for Motrin will be ordered and instructed the patient to only used absolutely needed due to the adverse effects on the Kidneys. (8) Dizziness: Code(s): R42 - Dizziness and giddiness Category: Medical Plan: Encouraged the patient to rise slowly and eliminated or limit the movements that caused dizziness. The patient is mildly anemic, so this is less likely the cause of his dizziness. The patient denies any other associated symptoms. However, he did explained that this happens when he rises quickly. Encouraged the patient to assure adequate hydration and rise slowly. (9) Anemia: Code(s): D64.9 - Anemia, unspecified Category: Medical Qualifiers: Anemia type: unspecified type Qualified Code(s): D64.9 - Anemia, unspecified Plan: Mild Normocytic, normochromic anemia. We will add B12, folate and iron levels to his preordered labs to further evaluate Orders: Orders Vitamin D 25-OH Total 4 Months F10.20 - Alcohol dependence, uncomplicated, F10.91 - Alcohol use, unspecified, in remission, F41.9 - Anxiety disorder, unspecified, K21.9 - Gastro-esophageal reflux disease without esophagitis, R42 - Dizziness and giddiness, R53.83 - Other fatigue, 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 Vitamin B12 and Folate 4 Months F10.20 - Alcohol dependence, uncomplicated, F10.91 - Alcohol use, unspecified, in remission, F41.9 - Anxiety disorder, unspecified, K21.9 - Gastro-esophageal reflux disease without esophagitis, R42 - Dizziness and giddiness, R53.83 - Other fatigue, 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 TSH reflex Free T4 4 Months F10.20 - Alcohol dependence, uncomplicated, F10.91 - Alcohol use, unspecified, in remission, F41.9 - Anxiety disorder, unspecified, K21.9 - Gastro-esophageal reflux disease without esophagitis, R42 - Dizziness and giddiness, R53.83 - Other fatigue, 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 UA CC w/rflx Micro + Cult 4 Months F10.20 - Alcohol dependence, uncomplicated, F10.91 - Alcohol use, unspecified, in remission, F41.9 - Anxiety disorder, unspecified, K21.9 - Gastro-esophageal reflux disease without esophagitis, R42 - Dizziness and giddiness, R53.83 - Other fatigue, 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
--- OUTSIDE RECORDS SUMMARY | 2025-09-26 18:44 | XMS_ITS | Clinical Summary ---
Author Organization [facility] Address [address] [address] Phone Care Team Providers Care Play Leader Name Role Phone Feliciano Coon MD Primary [...] topic Medical Devices Not on file [place] [address] [address] ACO [facility] [place] [address] [place] [address] ACO [facility] [employer] Care Teams Play Leader Relationship Specialty Start Date End Date Feliciano Coon MD [address] [place] [address] PCP - General Family Medicine 04/24/23 Adrian Fajardo MD [address] [place] [address] [phone] [email or web address] Family [email or web address] 04/24/23 Additional Source Comments The information contained in this document represents components of the legal health record. It is not the complete legal health record.[facility]
--- OUTSIDE RECORDS SUMMARY | 2025-09-26 18:44 | XMS_ITS | Encounter Summary ---
Author Organization [facility] Address [address] [place] [address] [place] [address] Phone Care Team Providers Care Drug And Alcohol Counselor Name Role Phone Feliciano Coon MD Primary Care Provider + Adrian Fajardo MD Unavailable Encounter Details Date Type Department Care Team (Late st Contact Info) Description 04/25/2023 Procedure Pass [facility], Ct Scan - [address] [address] Social History Tobacco Use Types Packs/Day Years [...] on file documented as of this encounter Plan of Treatment Not on file documented as of this encounter Visit Diagnoses Not on filedocumented in this encounter Additional Health Concerns Infection Onset Date Last Indicated Resolved Time CoV-Risk 04/25/2023 04/25/2023 05/06/2023 1:24 AM EDT documented as of this encounter Care Teams Drug And Alcohol Counselor Relationship Specialty Start Date End Date Feliciano Coon MD [address] [place] [phone] PCP - General Family Medicine 04/24/23 Adrian Fajardo MD [address] [facility], [address] [place] [address] [email or web address] Medicine 04/24/23 documented as of this encounter Additional Source Comments The information contained in this document represents components of the legal health record. It is not the complete legal health record.[facility]
== END 2025-09-26 16:32 | disposition home or self-care (01) ==
LOC: HO.HMCH 15:19
DX: F10.91 Alcohol use, unspecified, in remission (principal); F41.9 Anxiety disorder, unspecified; L98.7 Excessive and redundant skin and subcutaneous tissue; K21.9 Gastro-esophageal reflux disease without esophagitis; R53.83 Other fatigue; L98.9 Disorder of the skin and subcutaneous tissue, unspecified; M25.561 Pain in right knee; M25.562 Pain in left knee; G89.29 Other chronic pain; R42 Dizziness and giddiness; D64.9 Anemia, unspecified